=== PATIENT | female | born 1955 | race Caucasian/White ===

== ENCOUNTER 2018-02-13 01:01 | Outpatient (CLI) | payer BC, OTHER, SELFPAY ==
--- NOTE | 2018-02-13 10:56 | DI.REPORT_ITS ---
SYMPTOMS/DIAGNOSIS: SCREENING MAMMOGRAM: Mammograms were interpreted according to the usual protocol including computer analysis with CAD system, tomosynthesis and C view imaging. The breasts are of moderate density with fairly symmetrical distribution of fibroglandular tissue. No dominant mass or clumped microcalcification is identified in either breast. The current examination is compared with previous examinations including December 2015 and there has been no gross interval change in appearance in comparison with the previous studies. CONCLUSION: No specific evidence of malignancy at this time. Routine screening examinations are suggested at yearly intervals in this age group according to the ACS/ACR guidelines. Category I. Breast density Category B. MQSA ASSESSMENT OF FINDINGS: Negative. Category 1. Patient will receive a letter notifying them of these results. BI-RADS category B. There are scattered areas of fibroglandular density.
== END 2018-02-13 01:02 ==
PROVIDERS: PCP Family Medicine; Visit Provider Family Medicine
DX: Z12.31 Encounter for screening mammogram for malignant neoplasm of breast (principal)
CPT/HCPCS: 77063; 77067

== ENCOUNTER 2019-09-15 02:01 | Outpatient (CLI) | payer OTHER, SELFPAY ==
--- NOTE | 2019-09-15 | DI.MAMMO_ITS ---
EXAM: MG MAMMO SCREENING CLINICAL HISTORY: SCREENING, Z12.89 TECHNIQUE: Mammograms were interpreted according to the usual protocol including computer analysis w [employer] CAD system, tomosynthesis and C-view imaging. COMPARISON: January 2018 FINDINGS: Breasts are of moderate density with fairly symmetrical distribution of fibroglandular tissue. No do minant mass or clumped microcalcification identified in either breast. The current examination is co mpared with previous examinations including January 2018 and there has been no gross interval change i n appearance in comparison with the previous studies. BI-RADS Cat 1 - Negative Breast density category B IMPRESSION: No specific evidence of malignancy at this time. Routine screening examinations are suggested at yea rly intervals in this age group according to the ACS/ACR guidelines.
== END 2019-09-15 02:21 ==
PROVIDERS: PCP Family Medicine; Visit Provider Family Medicine
DX: Z12.31 Encounter for screening mammogram for malignant neoplasm of breast (principal)
CPT/HCPCS: 77063; 77067

== ENCOUNTER 2020-09-17 04:19 | Outpatient (CLI) | payer OTHER, SELFPAY ==
--- NOTE | 2020-09-17 | DI.MAMMO_ITS ---
EXAM: MAMMO SCREENING CLINICAL HISTORY: SCREENING, Z12.31 TECHNIQUE: Mammograms were interpreted according to the usual protocol including computer analysis w [employer] CAD system, tomosynthesis and C-view imaging. COMPARISON: FINDINGS: The breasts are moderate density with fairly symmetrical distribution of fibroglandular tissue. No d ominant mass or clumped microcalcification is identified in either breast. The current examination i s compared with previous examinations including August 2019 and there has been no gross interval villarreal e in appearance in comparison with the prior studies. IMPRESSION: No specific evidence of malignancy at this time. Routine screening examinations are suggested at yea rly intervals in this age group according to the ACS ACR guidelines. BI-RADS Category 1 - Negative Breast Density - Category B - Scattered areas of fibroglandular density
== END 2020-09-17 04:39 ==
PROVIDERS: PCP Family Medicine; Visit Provider Family Medicine
DX: Z12.31 Encounter for screening mammogram for malignant neoplasm of breast (principal)
CPT/HCPCS: 77063; 77067

== ENCOUNTER → 2022-01-09 00:36 | Outpatient (CLI) | payer MEDICARE, OTHER, SELFPAY ==
--- NOTE | 2022-01-09 | DI.US_ITS ---
Exam(s) US PELVIS TRANSVAGINAL EXAM: US PELVIS TRANSVAGINAL CLINICAL HISTORY: HYPERTROPHY OF UTERUS, N85.2, IRREGULAR UTERUS ENLARGED/RETROVERTED TECHNIQUE: Transabdominal and transvaginal imaging was performed using standard protocol. COMPARISON: None FINDINGS: KIDNEYS: Kidneys are symmetric in size. No evidence of renal calculi. No evidence of hydronephrosis. No renal mass or cyst identified. UTERUS: Retroverted. 7.7 x 4.1 x 4.7 cm. Endometrium: Thickened and heterogeneous, measuring up to 18 millimeters. Small amount of fluid. Myometrium: Unremarkable. Cervix: Unremarkable. OVARIES: Right: Cyst or mass: Status post Left: Cyst or mass: Large multi septated cystic mass difficult to actually accurately measure due to size. Approximately 13 cm. DOPPLER: Color: Symmetric and uniform flow to both ovaries. No hyperemia. Duplex: Normal ovarian arterial waveforms visualized. CUL-DE-SAC: Free fluid: None. IMPRESSION: 1. Markedly thickened heterogeneous endometrium.. 2. Large septated cystic mass left adnexal region. DATA REPOSITORY:
--- NOTE | 2022-01-09 | DI.MAMMO_ITS ---
Exam(s) MAMMO SCREENING EXAM: MAMMO SCREENING CLINICAL HISTORY: SCREENING FOR BREAST CA, Z12.31 TECHNIQUE: Mammograms were interpreted according to the usual protocol including computer analysis w [employer] CAD system, tomosynthesis and C-view imaging. COMPARISON: 2011 through 2020 FINDINGS: The breasts are composed of scattered fibroglandular densities, Breast Density category B. No suspicious masses or suspicious microcalcifications are seen. No skin thickening or abnormal axillary lymph nodes are seen. There has been no significant change from prior exams. IMPRESSION: BI-RADS Category 1, Negative mammogram Yearly screening mammography is recommended. Breast Density - Category B, scattered fibroglandular densities. A negative radiographic report should not delay biopsy if a dominant or clinically suspicious mass is present. Up to ten percent of cancers are not identified on mammography. A negative report may reinforce clinical impression. Adenosis and dense breasts may obscure an underlying neoplasm. False positive reports average 6 to 10%. Patient will receive a letter notifying them of these results.
--- OUTSIDE RECORDS SUMMARY | 2022-01-09 00:38 | XMS_ITS | Encounter Summary ---
:1955 [place] [address] Care Team Providers Name Role Phone Anne Marie Fay MD Primary Care Provider Encounter Details Date Type Department Care Team Description 11/07/2019 Ancillary Procedure Radiology Library at [facility], [facility] [place] [facility] [place] [address] ORTHOPAEDIC SURGERY [phone] [place], [place] [address] (Wo rk) Social History Tobacco Use Types Packs/Day Years Used Date Never Smoker Smokeless Tobacco: Never Used Alcohol Use Standard Drinks/Week Comments No 0 (1 standard drink = 0.6 oz pure alcoho l) Sex Assigned at Date Recorded Not on file documented as of this encounter Plan of Treatment Not on filedocumented as of this encounter Procedures Procedure Name Priority Date/Time Associated Diagnosis Comme nts FILM LIBRARY Routine 11/07/2019 12:00 AM Results for this STORAGE ONLY MR EDT procedure ar e in SHOULDER the results section. documented in this encounter Results Film Library- Storage Only MR Shoulder (11/07/2019 12:00 AM EDT) Specimen (Source) Anatomical Location Collection Method / Collectio n Time Received Time / Laterality Volume Narrative [facility] - 11/20/2019 12:09 PM EDT This exam is auto-finalizing. It's purpo se is for storage only. Seven Rocha [place] [facility] [place] ORDERABLES Performing Organization Address City/State/ZIP Code Phon e Number RAD [place], [place] documented in this encounter Visit Diagnoses Not on filedocumented in this encounter Care Teams In Store Marketer Relationship Specialty Start Date End Date Anne Marie Fay MD PCP - General 09/17/14 11/18/[address] [place] [address] GENERAL INTERNAL MEDICINE [place] [phone] documented as of this encounter
--- OUTSIDE RECORDS SUMMARY | 2022-01-09 00:38 | XMS_ITS | Encounter Summary ---
:1955 Author Organization [facility] Address [address] [place] [address] Care Team Providers Name Role Phone Kendall Sung Malik DO Primary Care Provider Reason for Visit Reason Onset Date Comments Prior Authorization 12/15/2019 REC[facility]D MAIN LINE PC REGARDING PT PA Encounter Details Date Type Department Care Team Description 12/15/2019 Telephone [place] [facility]havana Cason Prior Authorization [facility] (RECV'D M AIN LINE PC Drive REGARDING PT PA) [place] [address] Social History Tobacco Use Types Packs/Day Years Used Date Never Smoker Smokeless Tobacco: Never Used Alcohol Use Standard Drinks/Week Comments No 0 (1 standard drink = 0.6 oz pure alcoho l) Sex Assigned at Date Recorded Not on file documented as of this encounter Miscellaneous Notes Telephone Encounter - Bhavana Cason - 12/15/2019 11:40 AM EDT RECEIVED A MAIN LINE P/C FROM [facility] AT THE ORDERING DOCTORS OFFICE REGARDING PATIENT UPCOMING SURGERY SCHEDULED FOR 12/24/2019 PATIENT STATES SHE HAS RECEIVED SEVERAL PHONE CALLS FROM PRIOR-AUTHORIZATIONS OR PRE-REGISTRATION (PASS) AFTER REVIEW OF PATIENT'S CHART AND UPCOMING SURGERY NO PHONE NOTES LISTED / [facility] REQUESTED AND RECEIVED PHONE NUMBER TO PRE-REG. [phone] TO FOLLOW-UP WITH THEM ON WHETHER THEY WERE OR WERE NOT TRYING TO CONTACT THE PATIENT. DO TO PHOINE NUMBER LEFT FOR PATIENT TO RETURN CALL WAS INCORRECT documented in this encounter Plan of Treatment Not on filedocumented as of this encounter Visit Diagnoses Not on filedocumented in this encounter Care Teams Green Marketer Relationship Specialty Start Date End Date Kendall Sung DO PCP - General Family Medicine 11/19/19 [place] [address] documented as of this encounter
--- OUTSIDE RECORDS SUMMARY | 2022-01-09 00:38 | XMS_ITS | Encounter Summary ---
:1955 [place] [address] Care Team Providers Name Role Phone Anne Marie Fay MD Primary Care Provider Encounter Details Date Type Department Care Team Description 10/08/2014 Anesthesia Event Main Operating Room Kari Shaffer MD [facility] [place] [address] [place] [address] [phone] Anesthesia Record Procedure Summary Procedure Name Responsible Anesthesia Start Anesthesia Stop Time Anesthesiologist Time ECT (WRVU 2.5) (Bilateral ) Events No events on file. No medications on file. Agents No agents on file. Blood No blood administrations on file. Lines, Drains, and Airways Type Details Placement Removal Incision 12/24/19; 1101; shoulder 12/24/19 1101 by Kenn Muñoz RN documented in this encounter Social History Tobacco Use Types Packs/Day Years Used Date Never Smoker Smokeless Tobacco: Never Used Alcohol Use Standard Drinks/Week Comments No 0 (1 standard drink = 0.6 oz pure alcoho l) Sex Assigned at Date Recorded Not on file documented as of this encounter OR Notes Anesthesia Preprocedure Evaluation - Kari Garcia MD - 10/08/2014 7:01 AM EDT Pre-Anesthesia Evaluation for: Brianna travis 59 y.o. female. Procedure(s): ECT Patient Active Problem List Diagnosis ??? Major depressive disorder, recurrent episode, severe, specified as with psychotic behavior No past medical history on file. Past Surgical History Procedure Laterality Date ??? Electroconvulsive therapy,1 seiz Bilateral 09/10/2014 ECT performed by Giovany Alicia MD at [facility] MAIN OR ??? Electroconvulsive therapy,1 seiz Bilateral 09/11/2014 ECT performed by Nathen Go MD at [facility] MAIN OR ??? Electroconvulsive therapy,1 seiz Bilateral 09/14/2014 ECT performed by Vamshi Dukes MD at [facility] MAIN OR ??? Electroconvulsive therapy,1 seiz Bilateral 09/15/2014 ECT performed by Alonzo Martel MD at [facility] MAIN OR ??? Electroconvulsive therapy,1 seiz Bilateral 09/18/2014 ECT performed by Andre De La Cruz MD at [facility] OR ??? Electroconvulsive therapy,1 seiz Bilateral 09/21/2014 ECT performed by Alonzo Martel MD at [facility] OR ??? Electroconvulsive therapy,1 seiz Bilateral 09/22/2014 ECT performed by Alonzo Martel MD at [facility] MAIN OR ??? Electroconvulsive therapy,1 seiz Bilateral 09/24/2014 ECT performed by Giovany Alicia MD at [facility] MAIN OR ??? Electroconvulsive therapy,1 seiz Bilateral 09/28/2014 ECT performed by Vamshi Dukes MD at [facility] OR ??? Electroconvulsive therapy,1 seiz 10/02/2014 ECT performed by Andre De La Cruz MD at [facility] OR ??? Electroconvulsive therapy,1 seiz Bilateral 10/05/2014 ECT performed by Vamshi Dukes MD at [facility] OR History Substance Use Topics ??? Smoking status: Never Smoker ??? Smokeless tobacco: Never Used ??? Alcohol Use: No History Drug Use No Allergies Allergen Reactions ??? Ampicillin Itching ??? Sulfa (Sulfonamide Antibiotics) Nausea And Vomiting Medications: MAR and/or home medications have been reviewed. Physical Exam: There were no vitals filed for this visit. There is no weight on file to calculate BMI. Anesthesia Physical Exam Anesthesia Plan: ASA 2 general, with a(n) intravenous induction 59 y/o with MDD and hypoTh, here for ECT ekg with NSR and LAE No problems with ECT in the past Today, NPO, no URIs, consent on file, no changes in her health Plan : General Mask prn Region - Other Informed Consent: Anesthetic plan and risks discussed with patient. Plan discussed with [facility] [facility] [place]: documented in this encounter Plan of Treatment Not on filedocumented as of this encounter Visit Diagnoses Not on filedocumented in this encounter Care Teams Financial Manager Relationship Specialty Start Date End Date Anne Marie Fay MD PCP - General 09/17/14 11/18/[address] [place] [address] [place] [address] documented as of this encounter
--- OUTSIDE RECORDS SUMMARY | 2022-01-09 00:38 | XMS_ITS | Encounter Summary ---
:1955 [place] [address] Care Team Providers Name Role Phone Kendall Sung DO Primary Care Provider Reason for Visit Auth/Cert Specialty Diagnoses / Procedures Referred By Contact Refer red To Contact Diagnoses right shoulder mass Procedures PRO TUMOR SOFT TISSUE SHOULDER SUBFASCIAL 5 CM/> EXCISION SOFT TISSUE TUMOR SHOULDER SUBQ; 5CM [facility] Referral ID Status Reason Start Date Expiration Date Visits Requ ested Visits Authorized [id number] 1 1 Encounter Details Date Type Department Care Team Description 12/24/2019 Surgery Main Operating Room Liban Layne, SKY CISION SOFT TISSUE [facility] TUMOR SHOULDER SUBQ; [facility] 5CM OR GREATER ([facility] 10.13) [facility] [place] [address] [place], [place] [id number] [phone] (Wo rk) Social History Tobacco Use Types Packs/Day Years Used Date Never Smoker Smokeless Tobacco: Never Used Alcohol Use Standard Drinks/Week Comments No 0 (1 standard drink = 0.6 oz pure alcoho l) Sex Assigned at Date Recorded Not on file documented as of this encounter Last Filed Vital Signs Vital Sign Reading Time Taken Comments Blood Pressure 124/72 12/24/2019 12:00 PM EDT Pulse 74 12/24/2019 9:06 AM EDT Temperature 36.4 ??C (97.5 ??F) 12/24/2019 11:53 AM EDT Respiratory Rate 16 12/24/2019 12:00 PM EDT Oxygen Saturation 100% 12/24/2019 12:00 PM EDT Inhaled Oxygen Concentration - - Weight 73.9 kg (163 lb) 12/24/2019 9:06 AM EDT Height 167.6 cm (5' 6) 12/24/2019 9:06 AM EDT Body Mass Index 26.31 12/24/2019 9:06 AM EDT documented in this encounter Discharge Instructions Patient InstructionsSelina Quezada MD - 12/24/2019 9:49 AM EDT Activity level: 1. Weight bearing as tolerated on your Right upper extremity. 2. Remember to keep your Right upper extremity elevated as much as possible to decrease swelling andcontrol pain. Anticoagulation: Aspirin - You are being discharged on enteric-coated Aspirin 81mg by mouth twice a day. Continue this for 14 days. After your dose on 01/07/2020 stop the Aspirin, unless you are told otherwise by your Orthopedic surgeon. Take this medication with food or large amounts (240 mL) of wateror milk to minimize GI irritation. Diet: You may return to your usual diet, but increase your fluids and fiber intake to keep you hydrated and your bowels soft. You should increase your intake of high protein foods and fluids to help heal your injury. Driving: None until you are cleared to do so by your Orthopedic surgeon. You should not drive while you are on narcotic pain meds as they can affect your judgement and reaction time. Call your surgeon with any questions/concerns. Medications: 1. The pain medication you are on can cause constipation so increase your intake of fluids and fiberwhile you are on them. The stool softener, Pericolace, that has been prescribed can also be taken tofacilite a bowel movement. You can also take an sryf-wkk-biqetej medication, Miralax if needed to combat constipation. 2. If you need a renewal on your narcotic pain medication, you need to give the Orthopedic clinic enough time to process your request. This can take up to three days, so plan accordingly. 3. Continue acetaminophen (Tylenol) 1,000mg every 8 hours around the clock until 01/03/2020 - this can be effective in controlling pain along with your other medications. After that you can take Tylenolas needed per package insert. Do not take more than 3,000mg of acetaminophen in a 24 hour period. 4. You have been discharged on a short acting narcotic, oxycodone. You will be on this medication for a limited period of time only. Taper off this medication as your pain improves. 5. OK to take any NSAIDs including ibuprofen, Motrin or Aleve Shower/Bath: You may shower BUT use a waterproof dressing (plastic bag taped at the top) to cover the incision/dressing. DO NOT submerge the wound. Remember you MUST to observe your weight bearing status and activity limitations when you shower so use a chair or bench for balance if you are unable to safely stand. A sponge bath may be easier. Wound Care: 1. You have absorbable sutures, they do not need to be removed. Steri strips are underneath bandage,these will naturally fall off over two weeks. 2. Leave dressing on for 1 week post-op (12/31/2019), then OK to remove and leave open to air. Call your doctor ([phone]) if you develop: 1. Fever greater than 100.5 2. Severe nausea or vomiting 3. Increasing pain that is not controlled by pain medications 4. Increasing redness, swelling, or drainage from incisions 5. Change in sensation Misc: 1. If you are a smoker, quitting is very important to help your fracture heal. You should contact your PCP to assist you with setting up a cessation program. 2. Remember that ICE and elevation are very important to decrease swelling and control pain. You should use the ICE for 20-30 minutes at a time. FOLLOWUP APPOINTMENTS: 1. You will have followup appointments at [facility] as indicated in Future Appointment and Orders. 2. If you are being discharged over the weekend or at night and do not have a scheduled appointment with Orthopaedics, you should be notified about your appointment within the next 1-2 days. Please call if you do not hear about an appointment within that timeframe, as your follow-up is important to us. Future Appointments Date Time Provider Department Center 01/06/2020 9:40 AM Liban Layne MD [facility] If you have questions or concerns: Sunday through Sunday, 8 AM - 5 PM, please call Liban Layne MD, MD's office at . If it is after 5 PM or on the weekend, please call and ask to speak with the Orthopedic resident on-call. documented in this encounter Medications at Time of Discharge Medication Sig Dispensed Refills Start Date End Date FLUoxetine (PROZAC) 40 Take 1 capsule by 30 capsule 0 2014 mg Capsule mouth daily. levothyroxine Take 1 tablet by 30 tablet 0 09/24/2014 (SYNTHROID) 137 mcg mouth daily. Cancel Tablet 125mg script omega-3 acid ethyl Take 2 capsules by 120 capsule 0 09/25/19 15 esters (LOVAZA) 1 gram mouth 2 times Capsule daily. QUEtiapine (SEROQUEL) Take 1 tablet by 30 tablet 0 09/25/19 15 03/02/2020 300 mg Tablet mouth nightly. oxyCODONE (Roxicodone) 5 Take 1 tablet by 20 tablet 0 12/2301/06/2020 mg Tablet mouth every 4 hours as needed. acetaminophen (Tylenol) Take 2 tablets by 30 tablet 1 12/2303/02/2020 500 mg Tablet mouth every 6 hours as needed for Pain. senna-docusate Take 2 tablets by 0 12/24/2019 (Pericolace) 8.6-50 mg mouth 2 times Tablet daily. Take to maintain normal bowel pattern while taking narcotic pain medication. senna-docusate Take 2 tablets by 0 12/24/2019 (Pericolace) 8.6-50 mg mouth 2 times Tablet daily. Take to maintain normal bowel pattern while taking narcotic pain medication. documented as of this encounter H&P Notes Selina Quezada MD - 12/24/2019 9:46 AM EDT PRE-OPERATIVE HISTORY AND PHYSICAL for ADMISSION, OBSERVATION OR PROCEDURE Date of : 1955 Age: 64 y.o. PCP: Kendall Sung DO Presenting Diagnosis/Chief Complaint: No chief complaint on file. History of Present Illness: Brianna Stringer is a 64 y.o. female who presents for pre-operative examination. Please see Dr. Layne's note for full details of the patient's specific problem. PMHx: Patient Active Problem List Diagnosis Code ??? Major depressive disorder, recurrent episode, severe, specified as with psychotic behavior F33.3 No past medical history on file. Past Surgical History: Procedure Laterality Date ??? PRO ELECTROCONVULSIVE THERAPY Bilateral 09/10/2014 ECT performed by Gioavny Alicia MD at [facility] OR ??? PRO ELECTROCONVULSIVE THERAPY Bilateral 09/11/2014 ECT performed by Nathen Go MD at [facility] OR ??? PRO ELECTROCONVULSIVE THERAPY Bilateral 09/14/2014 ECT performed by Vamshi Dukes MD at [facility] OR ??? PRO ELECTROCONVULSIVE THERAPY Bilateral 09/15/2014 ECT performed by Alonzo Martel MD at [facility] OR ??? PRO ELECTROCONVULSIVE THERAPY Bilateral 09/18/2014 ECT performed by Andre De La Cruz MD at [facility] OR ??? PRO ELECTROCONVULSIVE THERAPY Bilateral 09/21/2014 ECT performed by Alonzo Martel MD at [facility] OR ??? PRO ELECTROCONVULSIVE THERAPY Bilateral 09/22/2014 ECT performed by Alonzo Martel MD at [facility] OR ??? PRO ELECTROCONVULSIVE THERAPY Bilateral 09/24/2014 ECT performed by Giovany Alicia MD at [facility] OR ??? PRO ELECTROCONVULSIVE THERAPY Bilateral 09/28/2014 ECT performed by Vamshi Dukes MD at [facility] OR ??? PRO ELECTROCONVULSIVE THERAPY 10/02/2014 ECT performed by Andre De La Cruz MD at [facility] OR ??? PRO ELECTROCONVULSIVE THERAPY Bilateral 10/05/2014 ECT performed by Vamshi Dukes MD at [facility] OR ??? PRO ELECTROCONVULSIVE THERAPY Bilateral 10/09/2014 ECT performed by Andre De La Cruz MD at [facility] OR Home Medications: Medications Prior to Admission Medication Sig Dispense Refill Last Dose ??? FLUoxetine (PROZAC) 40 mg Capsule Take 1 capsule by mouth daily. 30 capsule 0 12/24/2019 at Unknown time ??? QUEtiapine (SEROQUEL) 300 mg Tablet Take 1 tablet by mouth nightly. 30 tablet 0 12/23/2019 at Unknown time ??? levothyroxine (SYNTHROID) 137 mcg Tablet Take 1 tablet by mouth daily. Cancel 125mg script 30 tablet 0 12/24/2019 at Unknown time ??? omega-3 acid ethyl esters (LOVAZA) 1 gram Capsule Take 2 capsules by mouth 2 times daily. (Patient not taking: Reported on 12/09/2019) 120 capsule 0 Not Taking Allergies: Allergies Allergen Reactions ??? Ampicillin Itching ??? Sulfa (Sulfonamide Antibiotics) Nausea And Vomiting Family History: Non contributory Family History Problem Relation Age of Onset ??? Alzheimer Disease Father ??? Alzheimer Disease Paternal Grandfather Review of Systems: complete 10 system ROS performed with pertinent findings below. Pertinent items are noted in HPI. Physical Exam: VITALS: Temperature Temp: 37.2 ??C (99 ??F) Heart Rate Heart Rate: 74 Blood Pressure BP: 154/90 Respiratory Rate Resp: 16 SpO2 SpO2: 100 % No intake/output data recorded. General: alert, appears stated age and cooperative Pulmonary: equal, clear breath sounds bilaterally and no crepitus Cardiovascular: Regular rate and rhythm, S1S2 present or without murmur or extra heart sounds Assessment and Plan: 64 y.o. female with the above problem, plan to proceed to OR with Dr. Laynefor RIGHT mass excision shoulder. Acute Opioid Prescribing: Opioid PDMP 12/09/2019 [place] PDMP Query Date 12/10/2019 Comment No narcotics last 12 mos Opioid Risk Assessment 12/09/2019 DAST-10 Risk Assessment Low (1-2) Some recent data might be hidden Acute Opioid Specific Questions 12/09/2019 Date Acute Consent signed 12/09/2019 Considered the risk of opioid misuse, abuse, diversion? Yes Considered options for non-pharmacological modalities and non-opioid therapy? Yes Some recent data might be hidden Brianna Stringer. Is being provided with a prescription for acute pain. Non opioid therapies and non-pharmacologic modalities have been considered. The patient's risk for opioid misuse, abuse or diversion have been considered. I have discussed the risks and potential side effects of opioid medications, that include but are not limited to, addiction, overdose and , dependence, tolerance, osteoporosis, constipation, sexual dysfunction, hyperalgesia and crime victimization. The patient is also informed of: - the risks of keeping unused medication -counseled on keeping opioids locked -counseled on safe disposal of unused medication -dangers of operating a motor vehicle or heavy machinery -if a renewal is required, they shall return for an in-office follow up for reevaluation. Selina Quezada MD, PGY-3 Orthopaedic Surgery Pager #: [phone] documented in this encounter Miscellaneous Notes Op Note - Liban Layne MD - 12/24/2019 12:04 PM EDT [facility] Operative Note Patient Name: Brianna Stringer : [id number] MR#: [id number] Case Date: 12/24/2019 Surgeon: Surgeon(s) and Role: * Liban Layne MD - Primary * Selina Quezada MD - Resident Preoperative diagnosis: right shoulder mass Postoperative diagnosis: right shoulder mass PROCEDURE: EXCISION, SOFT TISSUE TUMOR, DEEP, >5CM Findings: Right intramuscular deltoid benign appearing lipoma Anesthesia: General Estimated Blood Loss: 5 mL Specimens removed during surgery: Order Name Source Comment Collection Info Order Time SPECIMEN TO PATHOLOGY Right shoulder mass right shoulder mass Right shoulder mass excision 12/24/2019 11:04 AM Time specimen removed from patient: 11:04 AM Number of tissue samples (in container) 1 Drains: none Surgical Closure: Primary Closure - skin incision is completely closed without any wires, alvarez, drains or other devices Disposition: awakened from anesthesia, extubated and taken to the recovery room in a stable condition, having suffered no apparent untoward event. Condition: doing well without problems (Please see the Surgical Encounter Summary for any Implant and Specimen details pertinent to this patient.) HPI/Surgical Indications: Brianna Delgado is a 64-year-old female with a asymptomatic right anterior deltoid intramuscular lipoma that she noticed assymmetry in her shoulder while brushing her teeth earlier November 2019. She was then referred to consulted to orthopedic oncology at [facility]. Layne discussed options for treatment toinclude continued observation versus elective removal of the mass. She elected to have the mass removed. Dr. Layne discussed the risks of the procedure and obtained consent in clinic. She understood, agreed to proceeded for mass excision. Procedure Description: The patient was met in the pre-operative holding area where the appropriate site was marked, 24 hour update completed, and the pre- operative checklist completed. Informed consentwas yet again reviewed. she was then brought to the operating room on a stretcher where the above anesthetic was administered. SCD placed to the right leg. A clinical time-out was held confirming the correct patient name, MRN, , planned procedure, site, antibiotic start time and agent, and outline of any surgical concerns. All in attendance were in agreement to proceed.The patient was positioned in the beach chair position. She was then prepped and draped in sterile fashion. A 5 cm transverse incision was made over the anterior deltoid right over underlying mass using a 15 blade. The dissection continued down to the deltoid with cautery, at which point a raphe of the deltoid was identified and the deltoid was bluntly split in line with the fibers using a schnit. Directly underneath a small layer, the lipomatous appearing mass was identified. We then dissected around the mass capsule using schnit and blunt dissection with fingers. Adhesions were amputated with electrocautery. We then were able to obtain the more midline stock and with the help of a Bauer teased off the remainder of the pedicle mass from the underlying soft tissue. The mass was approximately 9waf7lyr8.5cm, fatty homogenous appearing tumor. Once the mass was removed it was immediately sent to pathology. Electrocautery was used to obtain hemostasis throughout the procedure. The wound was then copiously irrigated with sterile s ursula. The wound was then closed using 0 Vicryl, 3-0 Vicryl, and running Monocryl with open end tails. The skin was secured with Dermabond, Steri-Strips and covered with a Mepilex dressing. The needle, sponge and instrument counts were correct at the end of the procedure. The patient was then extubated and transferred back to [facility] without any complication. Dr. Layne was present and scrubbed for the entire procedure. Postoperative care: Right upper extremity weightbearing as tolerated Mepilex x1 week, then leave open to air unless draining. Follow-up 2 weeks for wound check with Dr. Layne Infection Bundle used? No Attestation: Case Date: 12/24/2019 I was present and I participated during the entire procedure (does not need to include opening and closing). LIBAN LAYNE MD 12/25/2019 Brief Op Note - Selina Quezada MD - 12/24/2019 12:02 PM EDT Brief Operative Note Patient Name: Brianna Stringer : [id number] MR#: [id number] Case Date: 12/24/2019 Surgeon: Surgeon(s) and Role: * Liban Layne MD - Primary * Selina Quezada MD - Resident Preoperative diagnosis: right shoulder mass Postoperative diagnosis: right shoulder mass Procedure(s) (LRB): EXCISION SOFT TISSUE TUMOR SHOULDER SUBQ; 5CM OR GREATER ([facility] 10.13) (Right) Anesthesia: General Findings: right lipoma mass excision in the deltoid 6.5cm x 6 cm; sent to pathology Complications: none Estimated Blood Loss: 5 mL Specimens removed during surgery: None Fluids: Intraprocedure Crystalloid Total Anesthesia Output Blood Loss 5 mL lactated ringers infusion Volume (mL) 600 mL PRBCs: none (See Anesthesia Record/Report for Other Blood Products) Urine Output: (no urine output recorded) Drains: none Disposition: awakened from anesthesia, extubated and taken to the recovery room in a stable condition, having suffered no apparent untoward event. Condition: doing well without problems (Please see the Surgical Encounter Summary for any Implant and Specimen details pertinent to this patient.) Infection Bundle used? No documented in this encounter Plan of Treatment Not on filedocumented as of this encounter Procedures Procedure Name Priority Date/Time Associated Diagnosis Comme nts SURGICAL PATHOLOGY Routine 12/24/2019 11:05 AM Re sults for this REPORT EDT procedure are i n the results section. SPECIMEN TO Routine 12/24/2019 11:05 AM Results for this PATHOLOGY EDT procedure are i n the results section. EXCISION SOFT 12/24/2019 10:16 AM Benign neoplasm of TISSUE TUMOR EDT soft tissue of right SHOULDER SUBQ; 5CM shoulder OR GREATER ([facility] 10.13) documented in this encounter Results Surgical Pathology Report (12/24/2019 11:05 AM EDT) Component Value Ref Test Analysis Performed At [facility] Method Time Signature Surgical 04-JE-24 ? Location: [facility]; [facility] Pathology OTSEGO Report The signing pathologist has (i) examined the relevant preparation(s) for the [facility] specimen(s) and (ii) rendered or confirmed the diagnosis(es) . [facility] . ?Surgic al Pathology DIAGNOSIS Soft tissue, right shoulder mass, resection: - Lipoma with focal myxoid changes Electronically signed by: ??Harvey Benitez MD Verified: ??01/01/2020 ?Dermatopathologist, Bone & Soft Tissue Pathologist Performed at: ??-[facility] Dept. [place]ology, [place], [place] ADDITIONAL STUDIES Immunohistochemistry Studies: Formalin-fixed, paraffin-emb edded tissue sections are studied using the polymer technique with appropriate positive and negative controls. ?These IHC studies provide the pathologist wit h adjunctive diagnostic information. Antibody specificity has been verified by testin g antibodies on a series of in-house tissues with known immunohistochemical perform ance characteristics. The clinical interpretation of any antibody positive stain ing or its absence is evaluated within the context of clinical presentation, morp hology, histopathological criteria and other diagnostic tests. Block ? Antibody ?Result (Positive /Negative) A2 ? Rb1 ?Retention of nuclear expression SPECIMEN(S) SUBMITTED A - Right shoulder mass, excision (1) CLINICAL INFORMATION Right shoulder mass SPECIMEN PROCESSING A - Labeled/Fixative: Right shoulder mass, fresh. Quantity/Size: ??Single, 7.5 x 6.3 x 2.3 cm, 48 g. Resection Specimen: Not oriented Tissue Description: Intact, encapsulated, yellow to yellow-viridiana portion of lobulated adipose tissue. Inking: The specimen is inked black. Sectioning: The specimen is sectioned perpendicular to the l nery axis. Cut Surface: Coarsely lobula adali, fatty yellow-pink to yellow viridiana without gross areas of necrosis. Sections/Processing: Inked, serially sectioned an d underwriting account representative sections submitted in 4 cassettes as follows: ?A1-A3: ??Two sections each cassette ?A4: ??Three sections ??shb Specimen (Source) Anatomical Collection Method Collection Time Re ceived Time Location / / Volume Laterality 12/24/2019 11:05 AM EDT Selina Quezada MD PATHOLOGY/CYTOLOGY ORDERABLE S Performing Organization Address City/State/[place] [address] Specimen to Pathology (12/24/2019 11:05 AM EDT) Specimen Anatomical Collection Method Collection Time Receive d Time (Source) Location / / Volume Laterality AP Specimen 12/24/2019 11:05 12/24/2019 AM EDT 11:05 AM EDT Narrative [facility] - 12/24/2019 11:05 AM EDT Specimen requisition ordered. 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 documented in this encounter Administered Medications Inactive Administered Medications - up to 3 most recent administrations Medication Order MAR Action Action Date Dose Rate Site BUpivacaine (PF) Given 12/24/2019 11:37 AM 10 mLs 19- Surgical Site (MARCAINE) 0.25 % (2.5 EDT mg/mL) injection ONCE PRN, Starting on Sun12/24/19 at 1137, Until Sun12/24/19 at 1528, Intra-Operative (Intra-Procedure), Routine scopolamine Patch Applied 12/24/2019 10:13 AM 1 patch 0 1- Ear Behind (TRANSDERM-SCOP) 1 mg over EDT (Left) 3 days patch 1 patch 1 patch, Transdermal, ONCE, 1 dose, On Sun12/24/19 at 1000, Day of Surgery (Day of Procedure), Routine scopolamine (TRANSDERM-SCOP) 1 mg patch Patch Removal Transdermal, EVERY 24 HOURS, 1 dose, First dose on Sun12/25/19 at 0945, Remove scopolamine 1.5 mg patch, Recovery (Recovery-Hospital Unit) scopolamine (TRANSDERM-SCOP) 1 mg patch Patch Verification Transdermal, 2 TIMES DAILY, First dose o n Sun12/24/19 at 2145, Until Discontinued, Verify scopolamine 1.5 mg patch., Recovery (Recovery-H ospital Unit) documented in this encounter Active and Recently Administered Medications Times are shown in EDT. Scheduled Medication Order 12/22/2019 12/23/2019 12/24/2019 acetaminophen (Tylenol) tablet 975 mg 975 mg, Oral, EVERY 8 HOURS SCHEDULED, F irst dose on Sun12/24/19 at 1400, Until Discontinued, Maximum total acetaminophen dose 4 grams per 24 hours., Recovery (Recovery-Hospital Unit), Routine scopolamine (TRANSDERM-SCOP) 1 mg over 3 days patch 1 patch (COM PLETED) 1013 (Patch Applied - Provider: Ana Kebede RN) 1 patch, Transdermal, ONCE, 1 dose, Sun12/24/19 at 1000, Day of Surgery (Day of Procedure), Routine scopolamine (TRANSDERM-SCOP) 1 mg patch Patch Removal Transdermal, EVERY 24 HOURS, 1 dose, Fir st dose on Carmella 12/25/19 at 0945, Remove scopolamine 1.5 mg patch, Recovery (Recovery-Hospital Unit) scopolamine (TRANSDERM-SCOP) 1 mg patch Patch Verification Transdermal, 2 TIMES DAILY, First dose o n Sun12/24/19 at 2145, Until Discontinued, Verify scopolamine 1.5 mg patch., Recovery (Recovery-Hospital Unit) Continuous Medication Order 12/22/2019 12/23/2019 12/24/2019 lactated ringers infusion (CANCELED) 1010 (New Bag - Provider: Royal Btut MD)1110 (Anesthesia Volume Adjustment - Provider: Royal Butt MD)1137 (Anesthesia Volume Adjustment - Provider: Royal Butt MD) 1,000 mL, at 100 mL/hr, Intravenous, CON TINUOUS, Starting Sun12/24/19 at 0945, Until Sun12/24/19 at 1327, Day of Surgery (Day of Procedure) PRN Medication Order 12/22/2019 12/23/2019 12/24/2019 BUpivacaine (PF) (MARCAINE) 0.25 % (2.5 mg/mL) injection (CANCEL ED) 1137 (Given - Provider: Selina Quezada MD) ONCE PRN, Starting Sun12/24/19 at 1137, U ntil Sun12/24/19 at 1528, Intra-Operative (Intra-Procedure), Routine documented in this encounter Care Teams Floor Layer Helper Relationship Specialty Start Date End Date Kendall Sung DO PCP - General Family Medicine 11/19/19 [place] [address] documented as of this encounter
--- OUTSIDE RECORDS SUMMARY | 2022-01-09 00:38 | XMS_ITS | Encounter Summary ---
:1955 [place] [address] Care Team Providers Name Role Phone Anne Marie Fay MD Primary Care Provider Encounter Details Date Type Department Care Team Description 10/09/2014 Surgery Main Operating Room Shahriar Galaviz ba, MD ECT (WRVU 2.5) [facility] Geovani snyder [place] [address] [place] [address] [phone] (Wo rk) Social History Tobacco Use Types Packs/Day Years Used Date Never Smoker Smokeless Tobacco: Never Used Alcohol Use Standard Drinks/Week Comments No 0 (1 standard drink = 0.6 oz pure alcoho l) Sex Assigned at Date Recorded Not on file documented as of this encounter Last Filed Vital Signs Vital Sign Reading Time Taken Comments Blood Pressure 144/80 10/09/2014 9:41 AM EDT Pulse 80 10/09/2014 9:41 AM EDT Temperature 36.4 ??C (97.5 ??F) 10/09/2014 9:41 AM EDT Respiratory Rate 16 10/09/2014 9:41 AM EDT Oxygen Saturation 100% 10/09/2014 9:41 AM EDT Inhaled Oxygen Concentration - - Weight 58 kg (127 lb 13.9 oz) 10/09/2014 7:55 AM EDT Height 165.1 cm (5' 5) 10/09/2014 7:49 AM EDT Body Mass Index 21.28 10/09/2014 7:49 AM EDT documented in this encounter Discharge Instructions Discharge Joanna Ji RN - 10/09/2014 8:29 AM EDT Rest today. Tylenol if needed for headache. For questions/concerns about today's ECT treatment call: After 5pm/weekends call and ask for residential housekeeper on-call. 1. You may have received medication before and/or during your procedure, which affects judgment and reaction time. 2. Do not drive, operate machinery, drink alchololic beverages, or make important decisions for 24 hours. 3. Be careful on stairs, as you may be unsteady on your feet. 4. You may eat a regular diet as tolerated. 5. Do not smoke if you are alone. 6. IV site- slight redness or tenderness is normal, you can use warm compresses. If tenderness and redness increases or foul drainage occours, please contact your M.D. documented in this encounter Medications at Time [...] 15 03/02/2020 300 mg Tablet mouth nightly. traZODone (DESYREL) 50 Take 1 tablet by 30 tablet 0 015 12/09/2019 mg Tablet mouth nightly as needed for Sleep. documented as of this encounter H&P Notes Tommy Rudolph MD - 10/09/2014 8:05 AM EDT HPI: Brianna Stringer ([id number]) is a 59 y.o. female who has been prescribed ECT. Pertinent history changes since last H&P: Denies changes. She feels that the treatments are helping and she does not notice any adverse effects from the treatments. Suicidal ideation: Denies Homicidal ideation: Denies ROS: All systems were reviewed and there were no significant complaints. PE: Patient Vitals for the past 8 hrs: BP Temp Temp src Pulse Resp SpO2 Height 10/09/14 0749 - - - - - - 165.1 cm (5' 5) 10/09/14 0744 117/47 mmHg 36.3 ??C (97.3 ??F) Temporal 83 16 100 % - Gen: Adult female resting comfortably in hospital bed, dressed in hospital gown. Pulm: Clear to auscultation bilaterally, with good inspiratory effort. CV: Regular rate and rhythm; no murmurs, rubs, or gallops. Neuro: No focal abnormalities. Cognitive: Alert and oriented to person, place, and time. No gross cognitive deficits. Remaining exam WNL. A/P: - I have seen and examined the patient. - Proceed with planned ECT procedure. documented in this encounter Procedure Notes Andre De La Cruz MD - 10/09/2014 8:49 AM EDTProcedure(s): ECT Pre-Procedure Diagnose(s): Major depressive disorder, recurrent episode, severe, specified as with psychotic behavior ECT SUBSEQUENT TREATMENT NOTE Patient received bifrontal ECT in the PACU. Total: #12; Bifrontal # 5 The primary diagnosis is 296.34. Relevant history: Doing well without SE. Sleeping better but doing the same mood-cuevas. Would like tosee her grandchildren. Patient was attached to monitoring equipment. The anesthesia team administered the following medications: methohexital 80 mg succinylcholine 40 mg After adequate sedation and relaxation were achieved, patient received ECT using a MECTA device at the following parameters: Bifrontal 1/40/4/800 22 sec motor seizure 25 sec EEG seizure Patient was stabilized and appeared to tolerate the procedure. Complications: none Changes/recommendations/parameters for next treatment: No changes. Next treatment date: TBD Route note: Dr. Aurea Valencia documented in this encounter Plan of Treatment Not on filedocumented as of this encounter Procedures Procedure Name Priority Date/Time Associated Diagnosis Comme nts ECT (WRVU 2.5) Yes 10/09/2014 8:54 AM EDT 296.34 documented in this encounter Visit Diagnoses Not on filedocumented in this encounter Care Teams Automated Access Systems Technician Relationship Specialty Start Date End Date Anne Marie Fay MD PCP - General 09/17/14 11/18/[address] [place] [address] [place] [address] documented as of this encounter
--- OUTSIDE RECORDS SUMMARY | 2022-01-09 00:38 | XMS_ITS | Encounter Summary ---
:1955 Author Organization [facility] [place] [address] Care Team Providers Name Role Phone Sumeet Anne Marie Garcia MD Primary Care Provider Encounter Details Date Type Department Care Team Description 10/05/2014 Anesthesia Event Main Operating Room Brianna Padilla MD [facility] [place] [address] [place] [address] [phone] Anesthesia Record Procedure Summary Procedure Name Responsible Anesthesia Start Anesthesia Stop Time Anesthesiologist Time ECT (WRVU 2.5) Brianna Loredo MD 10/05/14 0729 10/05/14 0 743 (Bilateral ) Events Date Time Event Comment 10/05/2014 0726 0729 AN Verify 0729 Start 0729 An Start Data 0730 ASA Monitors 0731 Masked Placed/ Pre O2 0731 An Induction 0734 Bite Block In 0734 ECT Rx 0735 PACU Bed 0741 an stop data 0743 Stop Name Total Methohexital 80 mg Succinylcholine 40 mg Lactated Ringers 150 mL Agents Name O2 Blood No blood administrations on file. Lines, Drains, and Airways Type Details Placement Removal PIV 10/05/14; 0721; 10/05/14 0721 by Nickie, 5 [phone] by Nickie, [id number] catheter TERESA White RN system; 22 gauge; yovana dutton; 10/05/14; 0853 documented in this encounter Social History Tobacco Use Types Packs/Day Years Used Date Never Smoker Smokeless Tobacco: Never Used Alcohol Use Standard Drinks/Week Comments No 0 (1 standard drink = 0.6 oz pure alcoho l) Sex Assigned at Date Recorded Not on file documented as of this encounter OR Notes Anesthesia Postprocedure Evaluation - Brianna Loredo MD - 10/05/2014 8:10 AM EDT Patient: Brianna Stringer Procedure(s) Performed: Procedure(s): ECT Actual Anesthetic: general Patient location: PACU Post-op pain: Adequate analgesia Post-op nausea: no nausea or vomiting Last Vitals: Filed Vitals: 10/05/14 0810 BP: 146/81 Pulse: 82 Temp: 36.2 ??C (97.2 ??F) Resp: 16 Post-op cardiovascular and respiratory status: is stable Level of consciousness: awake, alert and oriented Complications: no apparent complications and tolerated the procedure well Fluid Status: normal Anesthesia Preprocedure Evaluation - Brianna Loredo MD - 10/05/2014 7:26 AM EDT Pre-Anesthesia Evaluation for: Brianna Stringer a 59 y.o. female. Procedure(s): ECT Patient Active Problem List Diagnosis ??? Major depressive disorder, recurrent episode, severe, specified as with psychotic behavior No past medical history on file. Past Surgical History Procedure Laterality Date ??? Electroconvulsive therapy,1 seiz Bilateral 09/10/2014 ECT performed by Giovany Alicia MD at [facility] OR ??? Electroconvulsive therapy,1 seiz Bilateral 09/11/2014 ECT performed by Nathen Go MD at [facility] OR ??? Electroconvulsive therapy,1 seiz Bilateral 09/14/2014 ECT performed by Vamshi Dukes MD at [facility] OR ??? Electroconvulsive therapy,1 seiz Bilateral 09/15/2014 ECT performed by Alonzo Martel MD at [facility] OR ??? Electroconvulsive therapy,1 seiz Bilateral 09/18/2014 ECT performed by Andre De La Cruz MD at [facility] OR ??? Electroconvulsive therapy,1 seiz Bilateral 09/21/2014 ECT performed by Alonzo Martel MD at [facility] OR ??? Electroconvulsive therapy,1 seiz Bilateral 09/22/2014 ECT performed by Alonzo Martel MD at [facility] OR ??? Electroconvulsive therapy,1 seiz Bilateral 09/24/2014 ECT performed by Giovany Alicai MD at [facility] OR ??? Electroconvulsive therapy,1 seiz Bilateral 09/28/2014 ECT performed by Vamshi Dukes MD at [facility] OR History Substance Use Topics ??? Smoking status: Never Smoker ??? Smokeless tobacco: Never Used ??? Alcohol Use: No History Drug Use No Allergies Allergen Reactions ??? Ampicillin Itching ??? Sulfa (Sulfonamide Antibiotics) Nausea And Vomiting Medications: MAR and/or home medications have been reviewed. Physical Exam: Filed Vitals: 10/05/14 0712 BP: 131/70 Pulse: 81 Temp: 37 ??C (98.6 ??F) Resp: 16 There is no weight on file to calculate BMI. Airway Assessment: Mallampati: II TM distance: <3 FB Neck ROM: full Cardiovascular Assessment: cardiovascular exam normal Pulmonary Assessment: pulmonary exam normal Dental Assessment: Misc Assessment: Patient is wearing No contact(s). IV access: Peripheral line Other exam findings: Denies GERD Anesthesia Plan: ASA 3 general, with a(n) intravenous induction 59yoF, outpatient with MDD for ECT. No problems with prior anesthetic regimen. Received [id number], succinylcholine 40mg. Plan general, serial consent on file. Region - Other Informed Consent: Anesthetic plan and risks discussed with patient. Plan discussed with resident and attending. [facility]. Assessment: documented in this encounter Plan of Treatment Not on filedocumented as of this encounter Visit Diagnoses Not on filedocumented in this encounter Administered Medications Inactive Administered Medications - up to 3 most recent administrations Medication Order MAR Action Action Date Dose Rate Site lactated ringers infusion New Bag 10/05/2014 7:29 AM EDT CONTINUOUS PRN, Starting on Sun10/05/14 at 0729, Until Sun10/05/14 at 0746, Anesthesia Intra-op methohexital (BREVITAL) injection Given 10/05/2014 7:31 AM EDT 80 mg PRN, Starting on Sun10/05/14 at 0731, Until Sun10/05/14 at 0746, Anesthesia Intra-op, Routine succinylcholine (ANECTINE) injection Given 10/05/2014 7:31 AM EDT 40 mg PRN, Starting on Sun10/05/14 at 0731, Until Sun10/05/14 at 0746, Anesthesia Intra-op, Routine documented in this encounter Care Teams Account Technician Relationship Specialty Start Date End Date Anne Marie Fay MD PCP - General 09/17/14 11/18/[address] [place] [address] GENERAL [place] [address] documented as of this encounter
--- OUTSIDE RECORDS SUMMARY | 2022-01-09 00:38 | XMS_ITS | Encounter Summary ---
:1955 [place] [address] Care Team Providers Name Role Phone Anne Marie Fay MD Primary Care Provider Encounter Details Date Type Department Care Team Description 11/06/2019 Ancillary Procedure Radiology Library at Stevan Rocha, [facility] [place] [facility] [place] [phone] ORTHOPAEDIC SURGERY [phone] [place], [place] [address] (Wo rk) Social History Tobacco [...] Associated Diagnosis Comme nts FILM LIBRARY Routine 11/06/2019 12:00 AM Results for this STORAGE ONLY DX EDT procedure ar e in SHOULDER the results section. documented in this encounter Results Film Library- Storage Only DX Shoulder (11/06/2019 12:00 AM EDT) Specimen (Source) Anatomical Location Collection Method / Collectio n Time Received Time / Laterality Volume Narrative RAD - 11/20/2019 12:07 PM EDT This exam is auto-finalizing. It's purpo se is for storage only. Seven Rocha MD [facility] FILM LIBRARY ORDERABLES Performing Organization Address City/State/ZIP Code Phon e Number RAD [place], [place] documented in this encounter Visit Diagnoses Not on filedocumented in this encounter Care Teams Nurse Practitioner Physicians Assistant Relationship Specialty Start Date End Date Anne Marie Fay MD PCP - General 09/17/14 11/18/[address] [place] [address] GENERAL INTERNAL MEDICINE [place] [id number] documented as of this encounter
--- OUTSIDE RECORDS SUMMARY | 2022-01-09 00:38 | XMS_ITS | Encounter Summary ---
:1955 [place] [address] Care Team Providers Name Role Phone Kendall Sung Malik DO Primary Care Provider Reason for Visit Reason Comments Follow Up Surgery R Shoulde mass excision Encounter Details Date Type Department Care Team Description 03/02/2020 Office Visit Orthopaedics at [facility] Seven Rocha Lipoma [facility] MD Trista extremity, [facility] [place] [address] k[place]ley [phone] ORTHOPAEDIC SURGERY [place] [address] Social History Tobacco Use Types Packs/Day Years Used Date Never Smoker Smokeless Tobacco: Never Used Alcohol Use Standard Drinks/Week Comments No 0 (1 standard drink = 0.6 oz pure alcoho l) Sex Assigned at Date Recorded Not on file documented as of this encounter Last Filed Vital Signs Vital Sign Reading Time Taken Comments Blood Pressure 125/89 03/02/2020 11:54 AM EDT Pulse 77 03/02/2020 11:54 AM EDT Temperature - - Respiratory Rate - - Oxygen Saturation - - Inhaled Oxygen Concentration - - Weight 72.6 kg (160 lb) 03/02/2020 11:54 AM EDT Height 167.6 cm (5' 6) 03/02/2020 11:54 AM EDT Body Mass Index 25.82 03/02/2020 11:54 AM EDT documented in this encounter Progress Notes Seven Rocha MD - 03/02/2020 11:20 AM EDT Images from the original note were not included. Orthopaedic Oncology Attending Outpatient Note [facility] [place], [place] [address] FAX: Sarcoma Program Newsletter Chief Complaint: Follow-up for right shoulder lipoma History of Present Illness: Brianna follows up today doing well overall. She says she has no pain, she has had no evidence of infection. Physical Exam: she is alert and oriented to person, place, time, and situation. she is in no apparent distress. heraffect was appropriate. her mood was positive. Right upper extremities neurologically intact, no signs of infection. Incisions clean dry and intact. Imaging: None new Impression and Plan: Overall Brianna is doing very well. She is now 2 months out from the resection of her right shoulder lipoma. I will see her back on a as needed basis. I answered all her questions to the best my ability, she demonstrated good comprehension of the answers, she will call with questions, concerns, or if she experiences any new symptoms or findings. Please copy this note to: Kendall Sung DO [address] [facility] [place] [address] Seven Rocha MD [facility] DR ORTHOPAEDIC SURGERY [place] [phone] documented in this encounter Plan of Treatment Not on filedocumented as of this encounter Visit Diagnoses Diagnosis Lipoma of upper extremity, unspecified l aterality documented in this encounter Care Teams Web Development Instructor Relationship Specialty Start Date End Date Kendall Sung DO PCP - General Family Medicine 11/19/19 [facility] [place] [address] documented as of this encounter
--- OUTSIDE RECORDS SUMMARY | 2022-01-09 00:38 | XMS_ITS | Encounter Summary ---
:1955 Author Organization [facility] Address [address] [place] [address] Care Team Providers Name Role Phone Kendall Sung DO Primary Care Provider Reason for Visit Reason Comments Medication Refill Encounter Details Date Type Department Care Team Description 10/19/2014 Refill Psychiatry and Behavioral William Correia MD [facility] at [facility] Geovani [place] [address] [place] [address] [phone] (Wo rk) Social History Tobacco Use Types [...] on filedocumented in this encounter Care Teams After School Program Director Relationship Specialty Start Date End Date Kendall Sung DO PCP - General Family Medicine 11/19/19 [place] [id number] documented as of this encounter
--- OUTSIDE RECORDS SUMMARY | 2022-01-09 00:38 | XMS_ITS | Encounter Summary ---
:1955 Author Organization [facility] [place] [address] Care Team Providers Name Role Phone Kendall Sung DO Primary Care Provider Reason for Visit Reason Comments Right Shoulder Pain mass Consultation (Routine) - Specialty Diagnoses / Procedures Referred By Contact Refer red To Contact Orthopaedics Diagnoses Localized swelling, mass and lump, unspecified upper limb ? Lipoma on MRI Román Hong MD Henderson, Eric R, MD [address] [place] [address] [place] [address] Phone: Fax: Referral ID Status Reason Start Date Expiration Date Visits V isits Requested Authorized [id number] Consult, Test 11/14/2019 11/13/2020 [facility] PCP Updated and/or Approved Encounter Details Date Type Department Care Team Description 12/09/2019 Office Visit Orthopaedics at [facility] Seven Rocha Benign neoplasm of [facility] MD Trista soft tissue of right Drive [facility] [place] [address] CENTER [phone] ORTHOPAEDIC SURGERY [place], [place] [address] Social History Tobacco Use Types Packs/Day Years Used Date Never Smoker Smokeless Tobacco: Never Used Alcohol Use Standard Drinks/Week Comments No 0 (1 standard drink = 0.6 oz pure alcoho l) Sex Assigned at Date Recorded Not on file documented as of this encounter Last Filed Vital Signs Vital Sign Reading Time Taken Comments Blood Pressure 144/86 12/09/2019 1:03 PM EDT Pulse 85 12/09/2019 1:03 PM EDT Temperature - - Respiratory Rate - - Oxygen Saturation - - Inhaled Oxygen Concentration - - Weight 73.9 kg (163 lb) 12/09/2019 1:03 PM EDT Height 195.6 cm (6' 5) 12/09/2019 1:03 PM EDT Body Mass Index 19.33 12/09/2019 1:03 PM EDT documented in this encounter Progress Notes Martinez Daomn MD - 12/09/2019 1:00 PM EDT Images from the original note were not included. Orthopaedic Oncology Attending Outpatient Consultation Note ?? [facility] [place] [address] FAX: [facility] Newsletter This is a consultation for patient Brianna Stringer at the request of Dr. Hong. Reason for Consultation: lipomatous appearing lesion of the right upper extremity. History of Present Condition: Brianna Stringer is a pleasant 64 y.o. female who visits the Orthopaedic Oncology clinic today. This lesion was discovered incidentally while the patient was brushing her teeth and noticed in the mirror that she had a large bulge in her right shoulder. She previously thought this was just part of her normal anatomy. She states that is nontender to palpation, has not cause her much pain at all. Her is with her and states he has never hurt his complained about pain in her right shoulder. She socially went to her PCP was evaluated was told that they did not know what it was, but they would refer her to an orthopedic clinic. She was subsequently referred to the [facility] where she was evaluated and MRI was obtained. Once this was done she was socially referred to our clinic for further evaluation and recommendations. The patient denies any fevers, chills, nausea, vomiting any weight loss or night sweats. She denies any trauma to the area or history of having previous masses to the shoulder. Brianna attributes no symptoms to this lesion. Pertinent negatives: no weight loss, no fevers or chills, no constitutional symptoms. The intake form for Brianna Stringer was completed by her or her accompanying adult [facility] This form was reviewed in its entirety, please refer to it. Some of the relevant features are included here. Past Medical History: Active Ambulatory Problems Diagnosis Date Noted ??? Major depressive disorder, recurrent episode, severe, specified as with psychotic behavior 09/09/2014 Resolved Ambulatory Problems Diagnosis Date Noted ??? No Resolved Ambulatory Problems No Additional Past Medical History Past Surgical History Past Surgical History: Procedure Laterality Date ??? PRO ELECTROCONVULSIVE THERAPY Bilateral 09/10/2014 ECT performed by Giovany Alicia MD at [facility] OR ??? PRO ELECTROCONVULSIVE THERAPY Bilateral 09/11/2014 ECT performed by Nathen Go MD at [facility] OR ??? PRO ELECTROCONVULSIVE THERAPY Bilateral 09/14/2014 ECT performed by Vamshi Dukes MD at [facility] OR ??? PRO ELECTROCONVULSIVE THERAPY Bilateral 09/15/2014 ECT performed by Alonzo Martel MD at [facility] OR ??? PRO ELECTROCONVULSIVE THERAPY Bilateral 09/18/2014 ECT performed by Andre De La Cruz MD at [facility] OR ??? PRO ELECTROCONVULSIVE THERAPY Bilateral 09/21/2014 ECT performed by Alonzo Martel MD at [facility] OR ??? PRO ELECTROCONVULSIVE THERAPY Bilateral 09/22/2014 ECT performed by Alonzo Martel MD at [facility] OR ??? PRO ELECTROCONVULSIVE THERAPY Bilateral 09/24/2014 ECT performed by Giovany Alicia MD at [facility] OR ??? PRO ELECTROCONVULSIVE THERAPY Bilateral 09/28/2014 ECT performed by Vamshi Dukes MD at [facility] OR ??? PRO ELECTROCONVULSIVE THERAPY 10/02/2014 ECT performed by Andre De La Cruz MD at [facility] OR ??? PRO ELECTROCONVULSIVE THERAPY Bilateral 10/05/2014 ECT performed by Vamshi Dukes MD at [facility] OR ??? PRO ELECTROCONVULSIVE THERAPY Bilateral 10/09/2014 ECT performed by Andre De La Cruz MD at [facility] OR Social History - Relationship status - she is . 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 Social History Tobacco Use Smoking Status Never Smoker Smokeless Tobacco Never Used Social History Substance and Sexual Activity Alcohol Use No Family History Family History Problem Relation Age of Onset ??? Alzheimer Disease Father ??? Alzheimer Disease Paternal Grandfather Review of Systems: In addition to the findings in the past medial history and history of present illness, review of 14 organ systems was positive for nothing. All other systems were negative. Physical Examination: Constitutional: BP Readings from Last 1 Encounters: 12/09/19 144/86 Pulse Readings from Last 1 Encounters: 12/09/19 85 Height: 195.6 cm (6' 5) Weight: 73.9 kg (163 lb) 195.6 cm (6' 5) Weight: 73.9 kg (163 lb) Body mass index is 19.33 kg/m??. Neurological/Psychiatric - she is alert and oriented to person, place, time, and situation. she is in no apparent distress. her affect was appropriate. her mood was positive. Sensation in the bilateral lower extremities showed normal sensation to light and dull touch in all dermatomal distributions. Cardiovascular: Peripheral pulses were 2+ (normal) for the radial arteries bilaterally. Capillary refill was <2 second in all the distal digits. There was no distal edema. Integumentary - in general her skin showed only age-appropriate findings. The skin overlying the lesion demonstrated no abnormalities. Lymphatics - there were no palpable lymphatic nodes in the axillary region of the bilateral upper extremity. Musculoskeletal examination Bilateral upper extremities were 5 out of 5 to shoulder abduction, elbow flexion extension, wrist flexion extension, finger abduction and grasp SI LT to bilateral upper extremities in all dermatomes Nontender to palpation throughout both upper extremities No overlying skin changes, no erythema, no ecchymosis There is a large roughly 5 x 5 cm soft mobile mass in the anterior superior portion of the right deltoid just anterior to the AC joint. Imaging Studies personally seen and interpreted by me: MRI of the right shoulder with and without contrast demonstrates a nonenhancing homogeneous mass within the anterior portion of the deltoid that is isointense to the surrounding fat with no surroundingedema or invasion of the surrounding tissues Laboratory Studies: Lab Results Component Value Date WBC 4.2 09/09/2014 HGB 14.0 09/09/2014 HCT 43.1 09/09/2014 PLATELET 228 09/09/2014 CREATININE 0.76 09/09/2014 BUN 10 09/09/2014 NA 146 (H) 09/09/2014 K 3.6 09/09/2014 CrCl cannot be calculated (Patient's most recent lab result is older than the maximum 30 days allowed.). Impression & Plan: Brianna Stringer is a pleasant 64 y.o. 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 We talked about lipomas and the nature of them. These are benign lesions composed the fat. There is a spectrum of lipomatous tumors that range from normal fat to lipomas to intramuscular lipomas to atypical lipomatous tumors and then into well differentiated liposarcomas and more aggressive liposarcomas. In general lipomas can be excised if they're symptomatic or cosmetically unappealing, in general lipomas are asymptomatic. After discussing this with the patient with his she elected with her to proceed with excision of the lipoma in the OR. Brianna Stringer received teaching today that included the differential diagnosis, natural history, and treatment options for the lesion that initiated this consultation, she demonstrated excellent understanding of the information conveyed. At today???s visit, Brianna Stringer was accompanied by her . I answered all her questions to the best my ability, she demonstrated good comprehension of the answers, she will call with questions, concerns, or if she experiences any new symptoms or findings. 35 [id number] minutes were spent with Brianna Stringer, of which 30 minutes were spent in patient counseling. Orthopaedic Oncology Attending Note: This patient was seen in consultation today at the request of Dr. Hong. I have seen the patient and reviewed the resident's above history and I agree with the details as written. The assessment and plan were formulated in discussion with me and I agree with them as documented. 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 We discussed operative versus nonoperative management of this, both of which are very reasonable given the benign appearance onimaging. She indicated that she would like to proceed with operative management. We talked about thefact that lipomas generally grow over time, the rate of growth is difficult to predict, however, they tend to follow the path of least resistance and therefore as they grow they tend to become more difficult to perform a curative resection on because they may interdigitate themselves into areas of critical structures that make complete resection of them more difficult. I had a long discussion with Lana celeste about the risks and benefits of this operation and alternative treatments. The risks include, but are not limited to, infection, blood loss, damage to nerves, skin numbness, damage to blood vessels, lymphedema, complications of anesthesia, cosmetically unappealing scar formation, further surgery, further oncological treatment, blood clots, pulmonary embolism, which is a blood clot that travels to the lungs and causes pulmonary compromise, heart and lung complications, and . Particular to Brianna's operation, the potential complications and/or sequelae of tumor recurrence, need for further surgery, cosmetically unappealing scar, and chronic pain should be stressed. Because this operation is performed for a tumor diagnosis, there is also the possibility of tumor recurrence or tumor spread, which could result in the need for further surgery, further oncological treatment, or the loss of limb orloss of life. We also talked about the potential need for removal of nerves or blood vessels which may be entrapped by the tumor and that removal of these may lead to physical impairment, however, it would be done with her long-term outcome in mind, which is cure of the tumor. We also talked about thenature of infection which may sometimes be treated with administration of antibiotics or sometimes results in loss of limb and/or loss of life. We also discussed the fact that there may be additional complications which we did not discuss and have not yet been described in the medical literature. Briannais aware that this is a teaching institution and that I will likely perform her procedure with the assistance of a resident physician, meaning a physician who is in training to be an orthopaedic surgeon. Alternatives to surgery include no surgery. In this case, no surgery and continued nonoperative management which would be very reasonable given the benign appearance of this lesion, however, patient does not wish to pursue nonoperative management. Despite these risks, Brianna would like to proceed with this operation. I answered all her questions to the best my ability, she demonstrated good comprehension of the answers, she will call with questions, concerns, or if she experiences any new symptoms or findings. Please copy this note to: Román Hong MD [address] [place] [address] Kendall Sung DO [address] [place] [address] T Naomi Diaz RN - 12/09/2019 1:00 PM EDT Opioid PDMP 12/09/2019 [place] PDMP Query Date 12/10/2019 Comment No narcotics last 12 mos Brianna Stringer will be prescribed a prescription opioid for the treatment of acute post-operative pain related to Orthopedic surgery. Brianna Stringer will be advised to take the smallest dose possible to control their pain and as their pain improves to take smaller doses and increase the time between doses. In addition to this medication, non-opioid medications will be prescribed for adjunct treatment of their pain. Non-pharmacological treatment such as ice, elevation and activity modification will be recommended as appropriate. The Acute Opioid Therapy Informed Consent form has been completed and sent to medical records for scanning to chart. documented in this encounter Plan of Treatment Not on filedocumented as of this encounter Procedures Procedure Name Priority Date/Time Associated Diagnosis Comme nts EXCISION SOFT TISSUE Routine 12/09/2019 2:23 PM EDT Benign Sourav plasm Of Soft TUMOR SHOULDER Tissue Of Right SUBQ;5CM OR GREATER Shoulder OSC documented in this encounter Visit Diagnoses Diagnosis Benign neoplasm of soft tissue of right shoulder documented in this encounter Care Teams Tail Worker Relationship Specialty Start Date End Date Kendall Sung DO PCP - General Family Medicine 11/19/[address] [place] [address] documented as of this encounter
--- OUTSIDE RECORDS SUMMARY | 2022-01-09 00:38 | XMS_ITS | Encounter Summary ---
:1955 [place] [address] Care Team Providers Name Role Phone Kendall Sung DO Primary Care Provider Reason for Visit Auth/Cert Specialty Diagnoses / Procedures Referred By Contact Refer red To Contact Diagnoses right shoulder mass Procedures PRO TUMOR SOFT TISSUE SHOULDER SUBFASCIAL 5 CM/> EXCISION SOFT TISSUE TUMOR SHOULDER SUBQ; 5CM OR GREATER (WRVU 10.13) Referral ID Status Reason Start Date Expiration Date Visits Requ ested Visits Authorized [id number] 1 1 Encounter Details Date Type Department Care Team Description 12/24/2019 Anesthesia Event Main Operating Room Giovany Armstrong MD [facility] [place] [address] [place] [address] [phone] Anesthesia Record Procedure Summary Procedure Name Responsible Anesthesia Start Anesthesia Stop Time Anesthesiologist Time EXCISION SOFT Giovany Escobar MD 12/24/19 1017 12/24/19 115 2 TISSUE TUMOR SHOULDER SUBQ; 5CM OR GREATER (WRVU 10.13) (Right Shoulder) Events Date Time Event Comment 12/24/2019 0940 1017 AN Verify 1017 Start 1017 An Start Data 1023 An Induction 1025 An Intubation 1030 Anesthesia Ready 1059 Procedure Start 1145 Extubation/LMA Out 1145 an stop data 1152 Recovery or ICU Handoff Patient care was transferred to the destination unit staff after review of the patient's medica l history, current anesthetic/surgi jennyfer status and plan, according to the Provider Handoff Checklist. 1152 Stop Name Total Midazolam 2 mg fentaNYL 100 mcg IV Lidocaine 60 mg Propofol 230 mg Rocuronium 30 mg PHENYLephrine 660 mcg ePHEDrine 10 mg Ondansetron 8 mg Dexamethasone 8 mg Neostigmine 3 mg Glycopyrrolate 0.6 mg ceFAZolin 2 g PHENYLephrine INF 560 mcg HYDROmorphone 0.4 mg lactated ringers infusion 600 mL Agents Name O2 Air N2O Sevoflurane (et) Blood No blood administrations on file. Lines, Drains, and Airways Type Details Placement Removal Incision 12/24/19; 1101; shoulder 12/24/19 1101 by Kenn Still RN PIV 12/24/19; 0941; cephalic 12/24/19 0941 by 1327 by Catie vein (lateral side of arm), Eli Greene RN Christine F, RN left; emdd-pdr-nehrfi catheter system; 20 gauge, 1 in length; Eli Greene RN ; distraction, intradermal injection; 12/24/19; 1327 ETT Mask Ventilation: Adjunct 12/24/19 1025 by Daquan, 12/24/19 1145 by Daquan, (2); ETT Type: Cuffed; ETT MD Anderson Reynoso MD Size: 7.5 mm; Mac Blade: 3; Notes: Asleep, Pre-O2, Stylette; Attempts: 2; Laryngoscopy Grade: 2; ETT Placement Verified By: Auscultation, Capnometry, Visual; Secured at Teeth: 21 cm; Inserted by: Marita escobar documented in this encounter Social History Tobacco Use Types Packs/Day Years Used Date Never Smoker Smokeless Tobacco: Never Used Alcohol Use Standard Drinks/Week Comments No 0 (1 standard drink = 0.6 oz pure alcoho l) Sex Assigned at Date Recorded Not on file documented as of this encounter OR Notes Anesthesia Postprocedure Evaluation - Royal Butt MD - 12/24/2019 11:57 AM EDT Department of Anesthesiology Post-procedure Note Patient: Brianna Stringer Procedure Summary Date: 12/24/19 Room / Location: [facility] OR Anesthesia Start: 1017 Anesthesia Stop: 1152 Procedure: EXCISION SOFT TISSUE TUMOR SHOULDER SUBQ; 5CM OR GREATER (WRVU 10.13) (Right Shoulder) Diagnosis: 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 Patient Location: PACU/[facility] Level of Consciousness: Conscious but Sleepy Pain Management: Satisfactory Analgesia PONV: None Cardiovascular Status: At Baseline Respiratory Status: At Baseline Postoperative Fluid Status: Intravascular EUvolemia Possible Anesthetic Complications: NONE apparent at time of evaluation Final Primary Anesthesia Type: General (The anesthetic type performed was the same as planned.) Comments: Anesthesia Preprocedure Evaluation - Royal Butt MD - 12/23/2019 6:32 PM EDT Pre-Anesthesia Evaluation for: Brianna Stringer a 64 y.o. female. Procedure(s): EXCISION SOFT TISSUE TUMOR SHOULDER SUBQ; 5CM OR GREATER (WRVU 10.13) Patient Active Problem List Diagnosis ??? Major depressive disorder, recurrent episode, severe, specified as with psychotic behavior No past medical history on file. Past Surgical History: Procedure Laterality Date ??? PRO ELECTROCONVULSIVE THERAPY Bilateral 09/10/2014 ECT performed by Giovany Alicia MD at [facility] MAIN OR ??? PRO ELECTROCONVULSIVE THERAPY Bilateral 09/11/2014 ECT performed by Nathen Go MD at [facility] MAIN OR ??? PRO ELECTROCONVULSIVE THERAPY Bilateral 09/14/2014 ECT performed by Vamshi Dukes MD at [facility] MAIN OR ??? PRO ELECTROCONVULSIVE THERAPY Bilateral 09/15/2014 ECT performed by Alonzo Martel MD at [facility] MAIN OR ??? PRO ELECTROCONVULSIVE THERAPY Bilateral 09/18/2014 ECT performed by Andre De La Cruz MD at [facility] MAIN OR ??? PRO ELECTROCONVULSIVE THERAPY Bilateral 09/21/2014 ECT performed by Alonzo Martel MD at [facility] MAIN OR ??? PRO ELECTROCONVULSIVE THERAPY Bilateral 09/22/2014 ECT performed by Alonzo Martel MD at [facility] MAIN OR ??? PRO ELECTROCONVULSIVE THERAPY Bilateral 09/24/2014 ECT performed by Giovany Alicia MD at [facility] MAIN OR ??? PRO ELECTROCONVULSIVE THERAPY Bilateral 09/28/2014 ECT performed by Vamshi Dukes MD at [facility] MAIN OR ??? PRO ELECTROCONVULSIVE THERAPY 10/02/2014 ECT performed by Andre De La Cruz MD at [facility] MAIN OR ??? PRO ELECTROCONVULSIVE THERAPY Bilateral 10/05/2014 ECT performed by Vamshi Dukes MD at [facility] MAIN OR ??? PRO ELECTROCONVULSIVE THERAPY Bilateral 10/09/2014 ECT performed by Andre De La Cruz MD at [facility] OR Social History Tobacco Use ??? Smoking status: Never Smoker ??? Smokeless tobacco: Never Used Substance Use Topics ??? Alcohol use: No Social History Substance and Sexual Activity Drug Use No Allergies Allergen Reactions ??? Ampicillin Itching ??? Sulfa (Sulfonamide Antibiotics) Nausea And Vomiting Medications: MAR and/or home medications have been reviewed. Physical Exam: There were no vitals filed for this visit. There is no height or weight on file to calculate BMI. Airway Assessment: Mallampati: II TM distance: >3 FB Neck ROM: full Cardiovascular Assessment: Rhythm: regular Rate: normal cardiovascular exam normal Pulmonary Assessment: breath sounds clear to auscultation pulmonary exam normal Dental Assessment: - normal exam Misc Assessment: IV access: Peripheral line Anesthesia Plan: ASA 2 general, with a(n) intravenous induction This is a 64 y.o. 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 Patient seen and examined; chart and labs reviewed PMH significant for: Major Depressive disorder (s/p multiple ECT procedures, most recently in 2014) Ht:??195.6 cm (6' 5) Wt:??73.9 kg (163 lb) BMI:??19.33 kg/m?? Anesthetic hx: No reported prior complications with anesthesia. Has tolerated multiple ECT procedures. Airway hx: No records EK Normal sinus rhythm Possible Left atrial enlargement Borderline ECG Lab Results Component Value Date HGB 14.0 09/09/2014 PLATELET 228 09/09/2014 NA 146 (H) 09/09/2014 K 3.6 09/09/2014 CREATININE 0.76 09/09/2014 No results for input(s): ABORH in the last 7068 hours. Allergies: -- Ampicillin -- Itching -- Sulfa (Sulfonamide Antibiotics) -- Nausea And Vomiting NPO Status: Appropriate Anesthetic Plan: GA with ETT Standard ASA monitoring Adequate IV access Risks, plans, and procedures discussed with patient who understands and consents; questions and concerns addressed Region - Other Informed Consent: Anesthetic plan and risks discussed with patient. Use of blood products discussed with patient who consented to blood products. Plan discussed with attending and resident. PAT Clinic Note documented in this encounter Miscellaneous Notes Addendum Note - Royal Butt MD - 12/25/2019 2:57 PM EDT Addendum created 12/25/19 1457 by Royal Butt MD Intraprocedure Meds edited documented in this encounter Plan of Treatment Not on filedocumented as of this encounter Visit Diagnoses Not on filedocumented in this encounter Administered Medications Inactive Administered Medications - up to 3 most recent administrations Medication Order MAR Action Action Date Dose Rate Site ceFAZolin (ANCEF) 1g in dextrose 5% Given 12/24/2019 10:55 AM ED T 2 g 50mL PRN, Starting on Sun12/24/19 at 1055, Until Sun12/24/19 at 1157, Administer over 30 Minutes, Anesthesia Intra-op dexamethasone (DECADRON) injection Given 12/24/2019 10:30 AM EDT 8 mg PRN, Starting on Sun12/24/19 at 1030, Until Sun12/24/19 at 1157, Anesthesia Intra-op, Routine ePHEDrine 5 mg/mL multi-dose injection Given 12/24/2019 10:38 AM EDT 10 mg PRN, Starting on Sun12/24/19 at 1038, Until Sun12/24/19 at 1157, Anesthesia Intra-op, Routine fentaNYL 50 mcg/mL multi-dose injection Given 12/24/2019 10:23 AM EDT 100 mcg PRN, Starting on Sun12/24/19 at 1023, Until Sun12/24/19 at 1157, Anesthesia Intra-op, Routine glycopyrrolate (ROBINUL) multi-dose Given 12/24/2019 11:28 AM ED T 0.6 mg injection PRN, Starting on Sun12/24/19 at 1128, Until Sun12/24/19 at 1157, Anesthesia Intra-op, Routine HYDROmorphone (DILAUDID) injection Given 12/24/2019 11:32 AM EDT 0.4 mg PRN, Starting on Sun12/24/19 at 1132, Until Sun12/24/19 at 1157, Anesthesia Intra-op, Routine lactated ringers infusion New Bag 12/24/2019 10:10 AM EDT 1,000 mL, at 100 mL/hr, Intravenous, CONTINUOUS, Starting on Sun12/24/19 at 0945, Until Sun12/24/19 at 1327, Day of Surgery (Day of Procedure) lidocaine (PF) (XYLOCAINE) 100 mg/5 mL (2 %) Given 06/2019 10:23 AM EDT 60 mg injection PRN, Starting on Sun12/24/19 at 1023, Until Sun12/24/19 at 1157, Anesthesia Intra-op, Routine midazolam (PF) (VERSED) multi-dose injec tion Given 12/24/2019 10:15 AM EDT 2 mg PRN, Starting on Sun12/24/19 at 1015, Until Sun12/25/19 at 1457, Anesthesia Intra-op, Routine neostigmine (BLOXIVERZ) injection Given 12/24/2019 11:28 AM EDT 3 mg PRN, Starting on Sun12/24/19 at 1128, Until Sun12/24/19 at 1157, Anesthesia Intra-op, Routine ondansetron (ZOFRAN) injection Given 12/24/2019 11:23 AM EDT 8 mg PRN, Starting on Sun12/24/19 at 1123, Until Sun12/24/19 at 1157, Anesthesia Intra-op, Routine PHENYLephrine (CARLY-SYNEPHRINE) 20 New Bag 12/24/2019 11:05 AM 20 mcg/min 15 mL/hr mg in sodium chloride 250 mL EDT (standard ADULT & Pedi greater than 20kg) infusion CONTINUOUS PRN, Starting on Sun12/24/19 at 1105, Until Sun12/24/19 at 1157, Anesthesia Intra-op, Routine PHENYLephrine in NS (PF) (CARLY-SYNEPHRINE) Given 12/24/2019 11:05 AM EDT 80 mcg 0.8 mg/10 mL (80 mcg/mL) multi-dose injection Syrg PRN, Starting on Sun12/24/19 at 1042, Until Sun12/24/19 at 1157, Anesthesia Intra-op, Routine Given 12/24/2019 11:01 AM EDT 80 mcg Given 12/24/2019 10:58 AM EDT 80 mcg propofol (DIPRIVAN) 10 mg/mL bolus injection Given 06/2019 11:29 AM EDT 30 mg (Anesthesia) PRN, Starting on Sun12/24/19 at 1023, Until Sun12/24/19 at 1157, Anesthesia Intra-op Given 12/24/2019 10:23 AM EDT 200 mg rocuronium (ZEMURON) multi-dose injectio n Given 12/24/2019 10:23 AM EDT 30 mg PRN, Starting on Sun12/24/19 at 1023, Until Sun12/24/19 at 1157, Anesthesia Intra-op, Routine documented in this encounter Care Teams Foreign Exchange Services Manager Relationship Specialty Start Date End Date Kendall Sung DO PCP - General Family Medicine 11/19/19 [place] [id number] documented as of this encounter
--- OUTSIDE RECORDS SUMMARY | 2022-01-09 00:38 | XMS_ITS | Encounter Summary ---
:1955 Author Organization [facility] [place] [address] Care Team Providers Name Role Phone Kendall Sung DO Primary Care Provider Encounter Details Date Type Department Care Team Description 12/24/2019 Telephone General Surgery at [facility] Rossana Padilla, [place] [address] Social History Tobacco Use Types Packs/Day Years Used Date Never Smoker Smokeless Tobacco: Never Used Alcohol Use Standard Drinks/Week Comments No 0 (1 standard drink = 0.6 oz pure alcoho l) Sex Assigned at Date Recorded Not on file documented as of this encounter Miscellaneous Notes Telephone Encounter - Rossana Garg RN - 12/24/2019 4:21 PM EDT I received a call from the [facility] noting they receive a prescription for a pain medicationfor Brianna Stringer and another prescription that they have questions on. They have asked for a call back. I have sent a page to Selina Quezada asking her to call the [facility] to clarify their question. Brianna is an orthopedic patient not a general surgery patient. documented in this encounter Plan of Treatment Not on filedocumented as of this encounter Visit Diagnoses Not on filedocumented in this encounter Care Teams Market Editor Relationship Specialty Start Date End Date Kendall Sung DO PCP - General Family Medicine 11/19/19 [facility] [place] [phone] documented as of this encounter
--- OUTSIDE RECORDS SUMMARY | 2022-01-09 00:38 | XMS_ITS | Encounter Summary ---
:1955 [place] [address] Care Team Providers Name Role Phone Kendall Sung DO Primary Care Provider Encounter Details Date Type Department Care Team Description 01/06/2020 Office Visit [facility]opa[facility] [place] [facility] Rocha Lipoma of [facility] MD Trista extremity, [place] [address] laterality [phone] ORTHOPAEDIC SURGERY [place], [place] [address] Social History Tobacco Use Types Packs/Day Years Used Date Never Smoker Smokeless Tobacco: Never Used Alcohol Use Standard Drinks/Week Comments No 0 (1 standard drink = 0.6 oz pure alcoho l) Sex Assigned at Date Recorded Not on file documented as of this encounter Last Filed Vital Signs Vital Sign Reading Time Taken Comments Blood Pressure 117/70 01/06/2020 3:18 PM EDT Pulse 81 01/06/2020 3:18 PM EDT Temperature - - Respiratory Rate - - Oxygen Saturation - - Inhaled Oxygen Concentration - - Weight 72.6 kg (160 lb) 01/06/2020 3:18 PM EDT pt repor adali Height 165.1 cm (5' 5) 01/06/2020 3:18 PM EDT pt repor adali Body Mass Index 26.63 01/06/2020 3:18 PM EDT documented in this encounter Progress Notes Seven Rocha MD - 01/06/2020 3:30 PM EDT Images from the original note were not included. Orthopaedic Oncology Attending Outpatient Note [facility], [place] [address] FAX: [facility]coma Program Newsletter Chief Complaint: Follow-up for right shoulder mass following excision History of Present Illness: Brianna follows up today doing well overall. She is a couple weeks out from having her right shoulder mass excised. She has had no issues, pain is well controlled, no evidence of infection. Physical Exam: she is alert and oriented to person, place, time, and situation. she is in no apparent distress. heraffect was appropriate. her mood was positive. Incision is clean dry intact, no erythema, no evidence of infection. Right extremity is neurologically intact. Imaging: None new today Impression and Plan: Overall Brianna is doing very well. I will see her back in 6 to 8 weeks to check her progress. Today her Monocryl suture was snipped. I reviewed with her her pathological report, she understands she had a lipoma is a benign mass. I answered all her questions to the best my ability, she demonstrated good comprehension of the answers, she will call with questions, concerns, or if she experiences any new symptoms or findings. Please copy this note to: Kendall Sung DO [address] [facility] [place] [address] Kendall Sung DO [address] [facility] [place] [address] documented in this encounter Plan of Treatment Not on filedocumented as of this encounter Visit Diagnoses Diagnosis Lipoma of upper extremity, unspecified l aterality documented in this encounter Care Teams Customer Service Driver Relationship Specialty Start Date End Date Kendall Sung DO PCP - General Family Medicine 11/19/19 [facility] [place] [address] documented as of this encounter
--- OUTSIDE RECORDS SUMMARY | 2022-01-09 00:38 | XMS_ITS | Clinical Summary ---
:1955 Author Organization [facility] [address] Care Team Providers Name Role Phone Kendall Sung DO Primary Care Provider Allergies Active Allergy Reactions Severity Noted Date Comments Ampicillin Itching 09/08/2014 Sulfa (Sulfonamide Antibiotics) Nausea And Vomiting Medications Medication Sig Dispensed Refills Start Date End Date Status FLUoxetine (PROZAC) Take 1 capsule by 30 capsule 0 09/24/2014 Active 40 mg Capsule mouth daily. omega-3 acid ethyl Take 2 capsules by 120 capsule 0 09/24/2014 Active esters (LOVAZA) 1 mouth 2 times gram Capsule daily. Additional Information Patient not taking. Reported on 03/02/2020 levothyroxine (SYNTHROID) 137 Take 1 tablet by mouth 30 tablet 0 09/24/2014 Active mcg Tablet daily. 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 Rocha 12/24/2019 12/24/2019) Major depressive disorder, recurrent episode, severe, specified as with 09/09/2014 psychotic behavior Family History Medical History Relation Comments Alzheimer Disease Father Alzheimer Disease Paternal Grandfather Relation Status Comments Brother Alive Father Maternal Grandfather Maternal Grandmother Mother Alive Paternal Grandfather Paternal Grandmother Social History Tobacco Use Types Packs/Day Years Used Date Never Smoker Smokeless Tobacco: Never Used Alcohol Use Standard Drinks/Week Comments No 0 (1 standard drink = 0.6 oz pure alcoho l) Sex Assigned at Date Recorded Not on file Last Filed Vital Signs Vital Sign Reading Time Taken Comments Blood Pressure 125/89 03/02/2020 11:54 AM EDT Pulse 77 03/02/2020 11:54 AM EDT Temperature 36.4 ??C (97.5 ??F) 12/24/2019 11:53 AM EDT Respiratory Rate 16 12/24/2019 12:30 PM EDT Oxygen Saturation 96% 12/24/2019 1:00 PM EDT Inhaled Oxygen Concentration - - Weight 72.6 kg (160 lb) 03/02/2020 11:54 AM EDT Height 167.6 cm (5' 6) 03/02/2020 11:54 AM EDT Body Mass Index 25.82 03/02/2020 11:54 AM EDT Plan of Treatment Health Maintenance Due Date Last Done Comments Covid-19 Vaccine (#1) 1961 HIV screen 1974 Hepatitis C Screening 1974 Tdap adult 1975 Tetanus vaccine 1975 HPV test 1986 PAP Smear 1986 Breast Cancer Share Decision Needed 1996 Diabetes Screening (HgbA1C or Glucose) 1996 Colonoscopy 2001 Breast Cancer screening 2006 Zoster vaccine (1 of 2) 2006 Advance Directive 2011 Bone Density Scan 2021 Pneumoccocal Vaccine: 65+ (1 - PCV) 2021 Influenza (Flu) vaccine (1 of 1 - Influenza standard 02/23/2022 series) Insurance Payer Benefit Plan / Subscriber ID Effective Dates Phone Addre ss Type Group HILARY RICHARD [id number] 2016-Present [facility] OFFICE [facility] [address] [address] [place] [address] Advance Directives Latest Code Status on File Code Status Date Activated Date Inactivated Comments Full Code 10/09/2014 9:43 AM 10/09/2014 1:11 PM Order Status: Initial Order Does patient have decision making capacity? Yes, Order is based on Patients wishes. Full Code 10/02/2014 11:01 AM 10/02/2014 1:53 PM Order Status: Initial Order Does patient have decision making capacity? Yes, Order is based on Patients wishes. Full Code 09/08/2014 9:57 PM 09/24/2014 2:43 PM Order Status: Initial Order Does patient have decision making capacity? Yes, Order is based on Patients wishes. Care Teams Cell Pourer Relationship Specialty Start Date End Date Kendall Sung DO PCP - General Family Medicine 11/19/19 [place] [phone]
--- OUTSIDE RECORDS SUMMARY | 2022-01-09 00:38 | XMS_ITS | Encounter Summary ---
:1955 [place] [address] Care Team Providers Name Role Phone Sumeet Anne Marie Radha SOTO Primary Care Provider Encounter Details Date Type Department Care Team Description 10/05/2014 Hospital Encounter [facility] Day Program at [facility] [place] [address] [place] [address] [phone] (Wo rk) Social History Tobacco Use Types Packs/Day Years Used Date Never Smoker Smokeless Tobacco: Never Used Alcohol Use Standard Drinks/Week Comments No 0 (1 standard drink = 0.6 oz pure alcoho l) Sex Assigned at Date Recorded Not on file documented as of this encounter Last Filed Vital Signs Vital Sign Reading Time Taken Comments Blood Pressure 146/81 10/05/2014 8:10 AM EDT Pulse 82 10/05/2014 8:10 AM EDT Temperature 36.2 ??C (97.2 ??F) 10/05/2014 8:10 AM EDT Respiratory Rate 16 10/05/2014 8:10 AM EDT Oxygen Saturation 96% 10/05/2014 8:10 AM EDT Inhaled Oxygen Concentration - - Weight - - Height - - Body Mass Index - - documented in this encounter Discharge Instructions Discharge InstructionsClare Fu RN - 10/05/2014 8:12 AM EDT Rest today. Tylenol if needed for headache. For questions/concerns about today's ECT treatment call: After 5pm/weekends call and ask for senior vice president and chief information officer on-call. documented in this encounter Medications at [...] for Sleep. documented as of this encounter Progress Notes Rah Arreguin RN - 10/05/2014 7:30 AM EDT 0743 - Pt admitted to PACU 17 from Minor room s/p ECT. Monitors applied and alarm limits set per patient. Continuing to monitor until all criteria met. 0800 - Pt stable to transfer to [facility]. Nursing report phoned to Holger acosta RN. documented in this encounter H&P Notes Naomi Pulido MD - 10/05/2014 7:05 AM EDT Patient Name: Brianna Strinegr Patient Age: 59 y.o. Birthdate: 1955 Admit date: 10/05/2014 Attending Physician: Vamshi Dukes MD HPI: Brianna Stringer is a 59 y.o. female who has been prescribed ECT. Pertinent history changes since last H&P: Patient reports no changes. Suicidal ideation: Denies. Homicidal ideation: Denies. ROS: Positive for: noine Denies: Fevers, chills, headache, dental pain, chest pain, SOB/ORTIZ, cough, abdominal pain, nausea, vomiting, diarrhea, or constipation, Remaining ROS negative PE: Patient Vitals for the past 8 hrs: BP Temp Temp src Pulse Resp SpO2 10/05/14 0712 131/70 mmHg 37 ??C (98.6 ??F) Oral 81 16 99 % Vitals were reviewed Gen: Resting comfortably in hospital bed, dressed in hospital gown. HENT: PERRL, oropharynx clear, mucous membranes moist, dentition good Pulm: Clear to auscultation bilaterally with good inspiratory effort. CV: Regular rate and rhythm, no murmurs/gallops/rubs. Neuro: No focal abnormalities. Cognitive: Alert and oriented to person, place, time; no gross cognitive deficits Remaining exam WNL. A/P: - I have seen and examined the patient. - Proceed with planned ECT procedure. documented in this encounter Procedure Notes Vamshi Dukes MD - 10/05/2014 7:27 AM EDTProcedure(s): ECT Pre-Procedure Diagnose(s): Major depressive disorder, recurrent episode, severe, specified as with psychotic behavior ECT SUBSEQUENT TREATMENT NOTE Patient received bifrontal ECT in the PACU. Total: #11; Bifrontal # 4 The primary diagnosis is 296.34. Relevant history: Doing well without SE. Went out after last treatment. Patient was attached to monitoring equipment. The anesthesia team administered the following medications: methohexital 80 mg succinylcholine 40 mg After adequate sedation and relaxation were achieved, patient received ECT using a MECTA device at the following parameters: Bifrontal /4/800 31 sec motor seizure 39 sec EEG seizure Patient was stabilized and appeared to tolerate the procedure. Complications: none Changes/recommendations/parameters for next treatment: No changes. Next treatment date: 10/08 Route note: Dr. Aurea Valencia documented in this encounter Plan of Treatment Not on filedocumented as of this encounter Procedures Procedure Name Priority Date/Time Associated Diagnosis Comme nts ECT (WRVU 2.5) Yes 10/05/2014 7:26 AM EDT 296.34 documented in this encounter Visit Diagnoses Not on filedocumented in this encounter Active and Recently Administered Medications Care Teams Electrician Outside Relationship Specialty Start Date End Date Anne Marie Fay MD PCP - General 09/17/14 11/18/[address] [place] [address] GENERAL [place] [address] documented as of this encounter
--- OUTSIDE RECORDS SUMMARY | 2022-01-09 00:38 | XMS_ITS | Encounter Summary ---
:1955 [place] [address] Care Team Providers Name Role Phone Anne Marie Fay MD Primary Care Provider Encounter Details Date Type Department Care Team Description 10/05/2014 Surgery Main Operating Room Vamshi Fierro MD ECT (WRVU 2.5) [facility] Geovani snyder [place] [address] [place] [id number] [phone] (Wo rk) Social History Tobacco Use Types [...] call: After 5pm/weekends call and ask for market president on-call. documented in this encounter Medications at [...] 0800 - Pt stable to transfer to [facility]. Nursing report phoned to Holger acosta RN. documented in this encounter H&P Notes Naomi Pulido MD - 10/05/2014 7:05 AM EDT Patient Name: Brianna Stringer Patient Age: 59 y.o. Birthdate: 1955 Admit [...] device at the following parameters: Bifrontal 1/40/4/800 31 sec motor seizure 39 sec EEG [...] Active and Recently Administered Medications Care Teams Solar Engineer Relationship Specialty Start Date End Date Anne Marie Fay MD PCP - General 09/17/14 11/18/[address] [place] [address] GENERAL [place] [address] documented as of this encounter
--- OUTSIDE RECORDS SUMMARY | 2022-01-09 00:38 | XMS_ITS | Encounter Summary ---
:1955 [place] [address] Care Team Providers Name Role Phone Kendall [...] Expiration Date Visits Requ ested Visits Authorized [id number] 1 1 Encounter Details Date Type Department Care Team Description 12/24/2019 Hospital Encounter Same Day Program at Liban [facility] DR Lucas [place] [address] [place] [address] [phone] (Wo rk) Social History Tobacco Use Types Packs/Day Years Used Date Never Smoker Smokeless Tobacco: Never Used Alcohol Use Standard Drinks/Week Comments No 0 (1 standard drink = 0.6 oz pure alcoho l) Sex Assigned at Date Recorded Not on file documented as of this encounter Last Filed Vital Signs Vital Sign Reading Time Taken Comments Blood Pressure 125/76 12/24/2019 1:00 PM EDT Pulse 74 12/24/2019 9:06 AM [...] bowel movement. You can also take an qrpd-yku-zyrhnsu medication, Miralax if needed to combat constipation. [...] leave open to air. Call your doctor ([phone]) if you develop: 1. Fever greater than [...] 1. You will have followup appointments at [facility] [place] [place] as indicated in Future Appointment and Orders. [...] Center 01/06/2020 9:40 AM Liban Layne MD [facility] [place] [place] ORTH 3A [facility] [place] [place] If you have questions or concerns: Sunday [...] ECT performed by Giovany Alicia MD at [facility] MAIN OR ??? PRO ELECTROCONVULSIVE THERAPY Bilateral 09/11/2014 ECT performed by Nathen Go MD at [facility] MAIN OR ??? PRO ELECTROCONVULSIVE THERAPY Bilateral 09/14/2014 ECT performed by Vamshi Dukes MD at [facility] MAIN OR ??? PRO ELECTROCONVULSIVE THERAPY Bilateral 09/15/2014 ECT performed by Alonzo Martel MD at [facility] MAIN OR ??? PRO ELECTROCONVULSIVE THERAPY Bilateral 09/18/2014 ECT performed by Andre De La Cruz MD at [facility] MAIN OR ??? PRO ELECTROCONVULSIVE THERAPY Bilateral 09/21/2014 ECT performed by Alonzo Martel MD at [facility] MAIN OR ??? PRO ELECTROCONVULSIVE THERAPY Bilateral 09/22/2014 ECT performed by Alonzo Martel MD at [facility] MAIN OR ??? PRO ELECTROCONVULSIVE THERAPY Bilateral 09/24/2014 ECT performed by Giovany Alicia MD at [facility] MAIN OR ??? PRO ELECTROCONVULSIVE THERAPY Bilateral 09/28/2014 ECT performed by Vamshi Dukes MD at [facility] MAIN OR ??? PRO ELECTROCONVULSIVE THERAPY 10/02/2014 ECT performed by Andre De La Cruz MD at [facility] MAIN OR ??? PRO ELECTROCONVULSIVE THERAPY Bilateral 10/05/2014 ECT performed by Vamshi Dukes MD at [facility] MAIN OR ??? PRO ELECTROCONVULSIVE THERAPY Bilateral 10/09/2014 ECT performed by Andre De La Cruz MD at [facility] OR Home Medications: Medications Prior to Admission [...] shoulder. Acute Opioid Prescribing: Opioid PDMP 12/09/2019 [place] PDMP Query Date [...] Quezada MD, PGY-3 Orthopaedic Surgery Pager #: [phone] documented in this encounter Miscellaneous Notes Op Note - Liban Layne MD - 12/24/2019 12:04 PM EDT [facility] [place] [place] Operative Note Patient Name: Brianna Stringer : [id number] MR#: [id number] Case Date: 12/24/2019 Surgeon: Surgeon(s) and Role: [...] referred to consulted to orthopedic oncology at [facility] [place] [place]. Dr. Layne discussed options for treatment toinclude [...] underlying soft tissue. The mass was approximately 5xtd6qii6.5cm, fatty homogenous appearing tumor. Once the mass [...] [facility] Layne was present [...] Operative Note Patient Name: Brianna Stringer : [id number] MR#: [id number] Case Date: 12/24/2019 Surgeon: Surgeon(s) and Role: [...] Component Value Ref Test Analysis Performed At [facility] Method Time Signature Surgical ? Location: [facility]; [facility]; [facility] Report The signing pathologist has (i) examined the relevant preparation(s) for the [facility] specimen(s) and (ii) rendered or confirmed the diagnosis(es) . [facility] . 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 of Pathology, [place], [place] ADDITIONAL STUDIES Immunohistochemistry Studies: Formalin-fixed, paraffin-emb [...] necrosis. Sections/Processing: Inked, serially sectioned an d wire rope sales representative sections submitted in 4 cassettes as follows: ?A1-A3: ??Two sections each cassette ?A4: ??Three sections ??shb Specimen (Source) Anatomical Collection Method Collection Time Re ceived Time Location / / Volume Laterality 12/24/2019 11:05 AM EDT Selina Quezada MD PATHOLOGY/CYTOLOGY ORDERABLE S Performing Organization Address City/State/[place] [address] Specimen to Pathology (12/24/2019 11:05 AM EDT) Specimen Anatomical Collection Method Collection Time Receive d Time (Source) Location / / Volume Laterality AP Specimen 12/24/2019 11:05 12/24/2019 AM EDT 11:05 AM EDT Narrative [facility] - 12/24/2019 11:05 AM EDT Specimen requisition ordered. ??Separate Pathology report to follow Liban Layne MD PATHOLOGY/CYTOLOGY ORDERABLE S Performing Organization Address City/State/[place] [address] documented in this encounter Visit Diagnoses Not on filedocumented in this encounter Administered Medications Inactive Administered Medications - up to 3 most recent administrations Medication Order MAR Action Action Date Dose Rate Site scopolamine Patch Applied 12/24/2019 10:13 1 patch 01- Ear Behind (TRANSDERM-SCOP) 1 mg AM EDT (Le ft) over 3 days patch 1 patch 1 patch, Transdermal, ONCE, 1 dose, On Sun12/24/19 at 1000, Day of Surgery (Day of Procedure), Routine scopolamine (TRANSDERM-SCOP) 1 mg patch Patch Removal Transdermal, EVERY 24 HOURS, 1 dose, First dose on Carmella 12/25/19 at 0945, Remove [...] (CANCELED) 1010 (New Bag - Provider: Royal Butt MD)1110 (Anesthesia Volume Adjustment - Provider: Royal [...] Routine documented in this encounter Care Teams Pipe Coverer And Insulator Relationship Specialty Start Date End Date Kendall Sung DO PCP - General Family Medicine 11/19/19 [place] [address] documented as of this encounter
--- OUTSIDE RECORDS SUMMARY | 2022-01-09 00:38 | XMS_ITS | Encounter Summary ---
:1955 Author Organization [facility] Address [address] [place] [address] Care Team Providers Name Role Phone Kendall Sung DO Primary Care Provider Reason for Visit Reason Comments Medication Refill Encounter Details Date Type Department Care Team Description 10/26/2014 Refill Psychiatry and Behavioral William Correia MD Health at [facility] Geovani [place] [address] [place] [address] [phone] (Wo rk) Social History Tobacco Use Types [...] on filedocumented in this encounter Care Teams State Superintendent Of [employer] Relationship Specialty Start Date End Date Kendall Sung DO PCP - General Family Medicine 11/19/19 [place] [id number] documented as of this encounter
--- OUTSIDE RECORDS SUMMARY | 2022-01-09 00:38 | XMS_ITS | Encounter Summary ---
:1955 [place] [address] Care Team Providers Name Role Phone Sumeet Anne Marie Garcia MD Primary Care Provider Encounter Details Date Type Department Care Team Description 10/09/2014 Anesthesia Event Main Operating Room Jony Bee MD [facility] [place] [address] [facility] Dipti Jolly [facility] [place] [address] [place] [address] Anesthesia Record Procedure Summary Procedure Name Responsible Anesthesia Start Anesthesia Stop Time Anesthesiologist Time ECT (WRVU 2.5) Jony Asher MD 10/09/14 0855 10/09/14 091 0 (Bilateral ) Events Date Time Event Comment 10/09/2014 0855 AN Verify 0855 Start 0855 An Start Data 0856 ASA Monitors 0857 Masked Placed/ Pre O2 0857 An Induction 0859 Bite Block In 0900 ECT Rx 0907 PACU Bed 0910 an stop data 0910 Stop To pacu ventilat ing well 0923 Name Total Methohexital 80 mg Succinylcholine 40 mg Sodium Chloride 0.9% 150 mL Agents Name O2 Blood No blood administrations on file. Lines, Drains, and Airways Type Details Placement Removal PIV 10/09/14; 0814; metacarpal 10/09/14 0814 by Mirtha clayton, 10/09/14 0943 by Nickie, vein left (top of hand); TERESA Ayala RN [id number]-klteji catheter system; 22 gauge; wang melvin rn; intradermal injection; 0; no longer indicated, removed per policy/procedure; 10/09/14; 0943 documented in this encounter Social History Tobacco Use Types Packs/Day Years Used Date Never Smoker Smokeless Tobacco: Never Used Alcohol Use Standard Drinks/Week Comments No 0 (1 standard drink = 0.6 oz pure alcoho l) Sex Assigned at Date Recorded Not on file documented as of this encounter OR Notes Anesthesia Postprocedure Evaluation - Jony Asher MD - 10/11/2014 10:09 PM EDT Patient: Brianna Stringer Procedure(s) Performed: Procedure(s): ECT Actual Anesthetic: general Patient location: PACU Post-op pain: Adequate analgesia Post-op nausea: no nausea or vomiting Last Vitals: Filed Vitals: 10/09/14 0941 BP: 144/80 Pulse: 80 Temp: 36.4 ??C (97.5 ??F) Resp: 16 Post-op cardiovascular and respiratory status: is stable Level of consciousness: awake, alert and oriented Complications: no apparent complications and tolerated the procedure well Fluid Status: normal Anesthesia Preprocedure Evaluation - Jony Asher MD - 10/09/2014 8:54 AM EDT Pre-Anesthesia Evaluation for: Brianna Stringer a 59 y.o. female. Procedure(s): ECT Patient Active Problem List Diagnosis ??? Major depressive disorder, recurrent episode, severe, specified as with psychotic behavior No past medical history on file. Past Surgical History Procedure Laterality Date ??? Electroconvulsive therapy,1 seiz Bilateral 09/10/2014 ECT performed by Giovany Alicia MD at [facility] MAIN OR ??? Electroconvulsive therapy,1 seiz Bilateral 09/11/2014 ECT performed by Nathen Go MD at [facility] MAIN OR ??? Electroconvulsive therapy,1 seiz Bilateral 09/14/2014 ECT performed by Vamshi Dukes MD at [facility] MAIN OR ??? Electroconvulsive therapy,1 seiz Bilateral 09/15/2014 ECT performed by Alonzo Martel MD at [facility] MAIN OR ??? Electroconvulsive therapy,1 seiz Bilateral 09/18/2014 ECT performed by Andre De La Cruz MD at [facility] OR ??? Electroconvulsive therapy,1 seiz Bilateral 09/21/2014 ECT performed by Alonzo Martel MD at [facility] OR ??? Electroconvulsive therapy,1 seiz Bilateral 09/22/2014 ECT performed by Alonzo Martel MD at [facility] OR ??? Electroconvulsive therapy,1 seiz Bilateral 09/24/2014 ECT performed by Giovany Alicia MD at [facility] OR ??? Electroconvulsive therapy,1 seiz Bilateral 09/28/2014 ECT performed by Vamshi Dukes MD at [facility] OR ??? Electroconvulsive therapy,1 seiz 10/02/2014 ECT performed by Andre De La Cruz MD at [facility] OR ??? Electroconvulsive therapy,1 seiz Bilateral 10/05/2014 ECT performed by Vamshi Dukes MD at [facility] OR History Substance Use Topics ??? Smoking [...] >3 FB Neck ROM: full Cardiovascular Assessment: cardiovascular exam normal Pulmonary Assessment: pulmonary exam normal Dental Assessment: - normal exam Mis Assessment: Patient is wearing No contact(s). IV access: Peripheral line Anesthesia Plan: ASA 2 general, with a(n) intravenous induction 59 y/o with MDD and hypoTh, here for ECT ekg with NSR and LAE No problems with ECT in the past Today, NPO, no URIs, consent on file, no changes in her health Plan : General Mask prn Changed Ketamine dosage secondary to memory loss issues. (patient was getting 100 mg of Ketamine)changed to .5/kg or total of 40 mg And increased brevital. Region - Other Informed Consent: Anesthetic plan and risks discussed with patient. Plan discussed with SANITARY ENGINEERING TEACHER. Misc. Assessment: documented in this encounter Plan of Treatment Not on filedocumented as of this encounter Visit Diagnoses Not on filedocumented in this encounter Administered Medications Inactive Administered Medications - up to 3 most recent administrations Medication Order MAR Action Action Date Dose Rate Site methohexital (BREVITAL) injection Given 10/09/2014 8:57 AM EDT 80 mg PRN, Starting on Sun10/09/14 at 0857, Until Sun10/09/14 at 0910, Anesthesia Intra-op, Routine sodium chloride 0.9% infusion New Bag 10/09/2014 8:55 AM EDT CONTINUOUS PRN, Starting on Sun10/09/14 at 0855, Until Sun10/09/14 at 0910, Anesthesia Intra-op succinylcholine (ANECTINE) injection Given 10/09/2014 8:57 AM EDT 40 mg PRN, Starting on Sun10/09/14 at 0857, Until Sun10/09/14 at 0910, Anesthesia Intra-op, Routine documented in this encounter Care Teams Precision Structural Metal Fitter Relationship Specialty Start Date End Date Anne Marie Fay MD PCP - General 09/17/14 11/18/[address] [place] [address] GENERAL [place] [address] documented as of this encounter
--- OUTSIDE RECORDS SUMMARY | 2022-01-09 00:38 | XMS_ITS | Encounter Summary ---
:1955 Author Organization [facility] [place] [address] Care Team Providers Name Role Phone Kendall Sung DO Primary Care Provider Encounter Details Date Type Department Care Team Description 01/19/2020 Orders Only Orthopaedics at [facility] Seven Rocha, Benign neoplasm of [facility] soft tissue of right Drive [facility] [place] [address] [address] [phone] ORTHOPAEDIC SURGERY [place], [place] [address] Social History Tobacco Use Types Packs/Day Years Used Date Never Smoker Smokeless Tobacco: Never Used Alcohol Use Standard Drinks/Week Comments No 0 (1 standard drink = 0.6 oz pure alcoho l) Sex Assigned at Date Recorded Not on file documented as of this encounter Plan of Treatment Not on filedocumented as of this encounter Results XR Shoulder Right (Generic) (03/02/2020 10:38 AM EDT) Anatomical Region Laterality Modality Shoulder Right Digital Radiography Specimen (Source) Anatomical Location Collection Method / Collectio n Time Received Time / Laterality Volume Impressions 03/02/2020 11:33 AM EDT Interval lipoma excision. No aggressive or acute bony abnormality. Thank you for letting us participate in the care of this patient. For questions regarding this report, please contact e number below. ? Narrative 03/02/2020 11:33 AM EDT EXAMINATION: XR SHOULDER RIGHT (GENERIC) CLINICAL HISTORY: S/P Shoulder mass on . Assess bony structures TECHNIQUE: 4 views RIGHT shoulder COMPARISON: MR 11/07/2019, radiographs 11/06/2019 FINDINGS: Interval resection of the previously see n fat density mass overlying the anterior shoulder. There is no fracture or acute bony lesion. Glenohumeral joint alignment is appropriate. Minimal subcho ndral sclerosis. Subcortical cysts are seen at the greater tuberosity, as seen on the prior comparison MR. No aggressive bony lesion. Joint space narrowing, bony hypertrophy and osteophyte formation at the acromioclavicular joint. Bone mineraliza tion is normal. Remaining soft tissues unremarkable. Procedure Note Valentín Holman MD - 03/02/2020Format ting of this note might be different from the original. EXAMINATION: XR SHOULDER RIGHT (GENERIC) CLINICAL HISTORY: S/P Shoulder mass on . Assess bony structures TECHNIQUE: 4 views RIGHT shoulder COMPARISON: MR 11/07/2019, radiographs 11/06/2019 FINDINGS: Interval resection of the previously see n fat density mass overlying the anterior shoulder. There is no fracture or acute bony lesion. Glenohumeral joint alignment is appropriate. Minimal subcho ndral sclerosis. Subcortical cysts are seen at the greater tuberosity, as seen on the prior comparison MR. No aggressive bony lesion. Joint space narrowing, bony hypertrophy and osteophyte formation at the acromioclavicular joint. Bone mineraliza tion is normal. Remaining soft tissues unremarkable. IMPRESSION Interval lipoma excision. No aggressive or acute bony abnormality. Thank you for letting us participate in the care of this patient. For questions regarding this report, please contact e number below. 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
--- OUTSIDE RECORDS SUMMARY | 2022-01-09 00:38 | XMS_ITS | Encounter Summary ---
:1955 [place] [address] Care Team Providers Name Role Phone Anne Marie Fay MD Primary Care Provider Encounter Details Date Type Department Care Team Description 10/02/2014 Anesthesia Event Main Operating Room Hermilo Vasquez MD [facility] [place] [address] [place] [address] [phone] Anesthesia Record Procedure Summary Procedure Name Responsible Anesthesiologist Anesthesia Start Ti me Anesthesia Stop Time ECT (WRVU 2.5) Hermilo Aldana MD 10/02/14 1005 10/02/14 102 4 Events Date Time Event Comment 10/02/2014 1002 1005 AN Verify 1005 Start 1005 An Start Data 1005 ASA Monitors 1009 Masked Placed/ Pre O2 1009 An Induction 1011 Bite Block In 1012 ECT Rx 1017 PACU Bed 1021 an stop data 1024 Stop Name Total Methohexital 80 mg Succinylcholine 40 mg Lactated Ringers 500 mL Agents Name O2 Blood No blood administrations on file. Lines, Drains, and Airways Type Details Placement Removal PIV 10/02/14; 0739; cephalic vein 10/02/14 0739 by Ricki rose, 10/02/14 1124 by Yogi, left (lateral side of arm); TERESA Parekh RN [id number] catheter system; 20 gauge; Gricelda Calix RN; intradermal injection, distraction; 0; 10/02/14; 1124 documented in this encounter Social History Tobacco Use Types Packs/Day Years Used Date Never Smoker Smokeless Tobacco: Never Used Alcohol Use Standard Drinks/Week Comments No 0 (1 standard drink = 0.6 oz pure alcoho l) Sex Assigned at Date Recorded Not on file documented as of this encounter OR Notes Anesthesia Postprocedure Evaluation - Hermilo Aldana - 10/02/2014 12:26 PM EDT Patient: Brianna Stringer Procedure(s) Performed: Procedure(s): ECT Actual Anesthetic: general Patient location: PACU Post-op pain: Adequate analgesia Post-op nausea: no nausea or vomiting Last Vitals: Filed Vitals: 10/02/14 1055 BP: 126/58 Pulse: 81 Temp: 36.2 ??C (97.2 ??F) Resp: 16 Post-op cardiovascular and respiratory status: is stable Level of consciousness: awake and alert Complications: no apparent complications and tolerated the procedure well Fluid Status: normal Anesthesia Preprocedure Evaluation - Hermilo Aldana - 10/02/2014 10:01 AM EDT Pre-Anesthesia Evaluation for: Brianna travis 59 y.o. female. Procedure(s): ECT Patient Active Problem List Diagnosis ??? Major depressive disorder, recurrent episode, severe, specified as with psychotic behavior No past medical history on file. Past Surgical History Procedure Laterality Date ??? Electroconvulsive therapy,1 seiz Bilateral 09/10/2014 ECT performed by Giovany Alicia MD at [facility] MAIN OR ??? Electroconvulsive therapy,1 seiz Bilateral 09/11/2014 ECT performed by Nathen Go MD at [facility] OR ??? Electroconvulsive therapy,1 seiz Bilateral 09/14/2014 ECT performed by Vamshi Dukes MD at [facility] OR ??? Electroconvulsive therapy,1 seiz Bilateral 09/15/2014 ECT performed by Alonzo Martel MD at [facility] OR ??? Electroconvulsive therapy,1 seiz Bilateral 09/18/2014 ECT performed by Andre De La Cruz MD at [facility] OR ??? Electroconvulsive therapy,1 seiz Bilateral 09/21/2014 ECT performed by Alonzo Martel MD at [facility] OR ??? Electroconvulsive therapy,1 seiz Bilateral 09/22/2014 ECT performed by Alonzo Martel MD at [facility] MAIN OR ??? Electroconvulsive therapy,1 seiz Bilateral 09/24/2014 ECT performed by Giovany Alicia MD at [facility] MAIN OR ??? Electroconvulsive therapy,1 seiz Bilateral 09/28/2014 ECT performed by Vamshi Dukes MD at [facility] MAIN OR History Substance Use Topics ??? Smoking status: Never Smoker ??? Smokeless tobacco: Never Used ??? Alcohol Use: No History Drug Use No Allergies Allergen Reactions ??? Ampicillin Itching ??? Sulfa (Sulfonamide Antibiotics) Nausea And Vomiting Medications: MAR and/or home medications have been reviewed. Physical Exam: Filed Vitals: 10/02/14 0729 BP: 117/55 Pulse: 87 Temp: 36.8 ??C (98.2 ??F) Resp: 18 Body mass index is 20.99 kg/(m^2). Height: 167.6 cm (5' 6) Weight - Scale: 58.968 kg (130 lb) Airway Assessment: Mallampati: II TM distance: <3 FB Neck ROM: full Cardiovascular Assessment: cardiovascular exam normal Pulmonary Assessment: pulmonary exam normal Dental Assessment: [facility] Assessment: Patient is wearing No contact(s). IV access: Peripheral line Other exam findings: Denies GERD Anesthesia Plan: ASA 3 general, with a(n) intravenous induction 59yoF, outpatient with MDD for ECT. No problems with prior anesthetic regimen. Received [id number], succinylcholine 40mg. Plan general, serial consent on file. Region - Other Informed Consent: Anesthetic plan and risks discussed with patient. Plan discussed with resident and attending. [facility]. Assessment: documented in this encounter Plan of Treatment Not on filedocumented as of this encounter Visit Diagnoses Not on filedocumented in this encounter Administered Medications Inactive Administered Medications - up to 3 most recent administrations Medication Order MAR Action Action Date Dose Rate Site lactated ringers infusion New Bag 10/02/2014 10:05 AM EDT CONTINUOUS PRN, Starting on Sun10/02/14 at 1005, Until Sun10/02/14 at 1024, Anesthesia Intra-op methohexital (BREVITAL) injection Given 10/02/2014 10:09 AM EDT 80 mg PRN, Starting on Sun10/02/14 at 1009, Until Sun10/02/14 at 1024, Anesthesia Intra-op, Routine succinylcholine (ANECTINE) injection Given 10/02/2014 10:09 AM EDT 40 mg PRN, Starting on Sun10/02/14 at 1009, Until Sun10/02/14 at 1024, Anesthesia Intra-op, Routine documented in this encounter Care Teams Technical Illustrations Map Inker Relationship Specialty Start Date End Date Anne Marie Fay MD PCP - General 09/17/14 11/18/[address] [place] [address] [place] [address] documented as of this encounter
--- OUTSIDE RECORDS SUMMARY | 2022-01-09 00:38 | XMS_ITS | Encounter Summary ---
:1955 [place] [address] Care Team Providers Name Role Phone Anne Marie Fay MD Primary Care Provider Encounter Details Date Type Department Care Team Description 10/09/2014 Hospital Encounter Same Day Program at Andre De La Cruz MD [facility] [place] [address] [place] [address] [phone] Social History Tobacco Use Types Packs/Day Years [...] After 5pm/weekends call and ask for residential direct support professional on-call. 1. You may have received medication [...] 10/09/2014 8:05 AM EDT HPI: Brianna Stringer ([id number]) is a 59 y.o. female who has [...] procedure. documented in this encounter Procedure Notes nAdre De La Cruz MD - 10/09/2014 8:49 [...] MECTA device at the following parameters: Bifrontal 40/4/800 22 sec motor seizure 25 sec EEG [...] on filedocumented in this encounter Care Teams Electronics Technology Instructor Relationship Specialty Start Date End Date Anne Marie Fay MD PCP - General 09/17/14 11/18/[address] [place] [address] [place] [address] documented as of this encounter
--- OUTSIDE RECORDS SUMMARY | 2022-01-09 00:38 | XMS_ITS | Encounter Summary ---
:1955 Author Organization [employer] Address [address] [place] [address] Care Team Providers Name Role Phone Kendall Sung DO Primary Care Provider Encounter Details Date Type Department Care Team Description 03/02/2020 Hospital Encounter XRay at [facility] Seven Rocha Benign neoplasm of [address] Trista MD soft tissue of right [place], [place] [facility] [place] [id number] [place] [phone] [place] [address] Social History Tobacco Use Types Packs/Day Years Used Date Never Smoker Smokeless Tobacco: Never Used Alcohol Use Standard Drinks/Week Comments No 0 (1 standard drink = 0.6 oz pure alcoho l) Sex Assigned at Date Recorded Not on file documented as of this encounter Medications at Time of Discharge Medication Sig Dispensed Refills Start Date End Date FLUoxetine (PROZAC) 40 mg Take 1 capsule by 30 capsule 0 07/2014 Capsule mouth daily. levothyroxine (SYNTHROID) Take 1 tablet by 30 tablet 0 07/2014 137 mcg Tablet mouth daily. Cancel 125mg script omega-3 acid ethyl esters Take 2 capsules by 120 capsule 0 0 09/24/2014 (LOVAZA) 1 gram Capsule mouth 2 times daily. documented as of this encounter Plan of Treatment Not on filedocumented as of this encounter Procedures Procedure Name Priority Date/Time Associated Diagnosis Comme nts XR SHOULDER RIGHT Routine 03/02/2020 10:38 AM Benign neoplasm of Results for this EDT soft tissue of right procedu re are in shoulder the results section. documented in this encounter Results XR Shoulder Right (Generic) [...] this report, please contact e number below. 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
--- OUTSIDE RECORDS SUMMARY | 2022-01-09 00:39 | XMS_ITS | Encounter Summary ---
:1955 [place] [address] Care Team Providers Name Role Phone Anne Marie Fay MD Primary Care Provider Encounter Details Date Type Department Care Team Description 09/28/2014 Surgery Main Operating Room Vamshi Fierro MD ECT (WRVU 2.5) [place] [facility] [address] [place] [id number] [phone] (Wo rk) Social History Tobacco Use Types Packs/Day Years Used Date Never Smoker Smokeless Tobacco: Never Used Alcohol Use Standard Drinks/Week Comments No 0 (1 standard drink = 0.6 oz pure alcoho l) Sex Assigned at Date Recorded Not on file documented as of this encounter Last Filed Vital Signs Vital Sign Reading Time Taken Comments Blood Pressure 124/94 09/28/2014 8:07 AM EDT Pulse 85 09/28/2014 8:07 AM EDT Temperature 36.4 ??C (97.5 ??F) 09/28/2014 6:35 AM EDT Respiratory Rate 16 09/28/2014 8:07 AM EDT Oxygen Saturation 98% 09/28/2014 8:07 AM EDT Inhaled Oxygen Concentration - - Weight 57.6 kg (127 lb) 09/28/2014 6:35 AM EDT Height 165.1 cm (5' 5) 09/28/2014 6:35 AM EDT Body Mass Index 21.13 09/28/2014 6:35 AM EDT documented in this encounter Discharge Instructions Discharge Genet Dueñas RN - 09/28/2014 8:26 AM EDT Go home and rest today. Resume regular diet. Any concerns call your MD. After 5pm, call [phone] and ask for Psychiatrist economic research assistant documented in this encounter Medications at Time [...] documented as of this encounter H&P Notes Abdias Buitrago MD - 09/28/2014 7:38 AM EDT Patient Name: Brianna Stringer Patient Age: 59 y.o. Birthdate: 1955 Admit date: 09/28/2014 5:55 AM Attending Physician: Vamshi Dukes MD HPI: Brianna Stringer is a 59 y.o. female who has been prescribed ECT. Pertinent history changes since last H&P: none Suicidal ideation: Denies. Homicidal ideation: Denies. ROS: All systems were reviewed and there were no significant complaints. PE: Patient Vitals for the past 8 hrs: BP Temp Temp src Pulse Resp SpO2 Height Weight 09/28/14 0635 124/50 mmHg 36.4 ??C (97.5 ??F) Temporal 79 16 100 % 165.1 cm (5' 5) 57.607 kg (127 lb) Gen: Resting comfortably in hospital bed, dressed in hospital gown. Pulm: Clear to auscultation bilaterally with good inspiratory effort. CV: Regular rate and rhythm, no murmurs/gallops/rubs. Neuro: No focal abnormalities. Cognitive: Alert and oriented to person, place, time; no gross cognitive deficits Remaining exam WNL. A/P: - I have seen and examined the patient. - Proceed with planned ECT procedure. Abdias Buitrago MD documented in this encounter Procedure Notes Vamshi Dukes MD - 09/28/2014 7:19 AM EDTProcedure(s): ECT Pre-Procedure Diagnose(s): Major depressive disorder, recurrent episode, severe, specified as with psychotic behavior ECT NOTE Patient received bifrontal ECT titration in the PACU. Total: #9; Bifrontal #2 The primary diagnosis is 296.34. Relevant history: Doing well. Tolerating bifrontal well after one treatment. Patient was attached to monitoring equipment. The anesthesia team administered the following medications: methohexital 80 mg succinylcholine 40 mg After adequate sedation and relaxation were achieved, patient received ECT using a MECTA device at the following parameters: Bifrontal 1/40/4/800 28 sec motor seizure 34 sec EEG seizure Patient was stabilized and appeared to tolerate the procedure. Complications: none Changes/recommendations/parameters for next treatment: No changes. Next treatment date: 10/[address] Arauz and Dr. Aurea Valencia documented in this encounter Plan of Treatment Not on filedocumented as of this encounter Procedures Procedure Name Priority Date/Time Associated Diagnosis Comme nts ECT (WRVU 2.5) Yes 09/28/2014 7:42 AM EDT ect 296.34 documented in this encounter Visit Diagnoses Not on filedocumented in this encounter Administered Medications Inactive Administered Medications - up to 3 most recent administrations Medication Order MAR Action Action Date Dose Rate Site lactated ringers infusion New Bag 09/28/2014 7:16 AM EDT 1,000 mLs 100 mL/hr 1,000 mL 1,000 mL, at 100 mL/hr, Intravenous, CONTINUOUS, Starting on Sun09/28/14 at 0730, Until Sun09/28/14 at 0819, Day of Surgery (Day of Procedure) documented in this encounter Active and Recently Administered Medications Times are shown in EDT. Continuous Medication Order 09/26/2014 09/27/2014 09/28/2014 lactated ringers infusion 1,000 mL (CANCELED) 0716 (New Bag - Provider: Trinity Ferrer RN) 1,000 mL, at 100 mL/hr, Intravenous, CON TINUOUS, Starting Sun09/28/14 at 0730, Until Sun09/28/14 at 0819, Day of Surgery (Day of Procedure) documented in this encounter Care Teams Welding Machine Operator Submerged Arc Relationship Specialty Start Date End Date Anne Marie Fay MD PCP - General 09/17/14 11/18/[address] [place] [address] [place] [address] documented as of this encounter
--- OUTSIDE RECORDS SUMMARY | 2022-01-09 00:39 | XMS_ITS | Encounter Summary ---
:1955 [place] [address] Care Team Providers Name Role Phone FayAnne Marie Radha SOTO Primary Care Provider Encounter Details Date Type Department Care Team Description 09/28/2014 Hospital Encounter Same Day Program at [facility] [place], [facility] [address] [place] [address] [place] [address] [phone] (Wo rk) Social History Tobacco Use Types Packs/Day Years Used Date Never Smoker Smokeless Tobacco: Never Used Alcohol Use Standard Drinks/Week Comments No 0 (1 standard drink = 0.6 oz pure alcoho l) Sex Assigned at Date Recorded Not on file documented as of this encounter Last Filed Vital Signs Vital Sign Reading Time Taken Comments Blood Pressure 148/72 09/28/2014 8:24 AM EDT Pulse 82 09/28/2014 8:24 AM EDT Temperature 36.4 ??C (97.5 ??F) 09/28/2014 6:35 AM EDT Respiratory Rate 16 09/28/2014 8:24 AM EDT Oxygen Saturation 95% 09/28/2014 8:24 AM EDT Inhaled Oxygen Concentration - - Weight 57.6 kg (127 lb) 09/28/2014 6:35 AM EDT Height 165.1 cm (5' 5) 09/28/2014 6:35 AM EDT Body Mass Index 21.13 09/28/2014 6:35 AM EDT documented in this encounter Discharge Instructions Discharge InstructionsGenet Mota RN - 09/28/2014 8:26 AM EDT Go home and rest today. Resume regular diet. Any concerns call your MD. After 5pm, call [phone] and ask for Psychiatrist operations dispatcher documented in this encounter Medications at Time [...] at 100 mL/hr, Intravenous, CON TINUOUS, Starting 09/28/14 at 0730, Until Sun09/28/14 at 0819, Day of Surgery (Day of Procedure) documented in this encounter Care Teams Dtp Operator Relationship Specialty Start Date End Date Anne Marie Fya MD PCP - General 09/17/14 11/18/[address] [place] [address] [place] [address] documented as of this encounter
--- OUTSIDE RECORDS SUMMARY | 2022-01-09 00:39 | XMS_ITS | Encounter Summary ---
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 patient with the above named resident/ See their note for details. I reviewed the patient's history during the visit and I agree with the details as written. My exam confirms the resident's findings. The assessment and plan were formulated in discussion with me and I agree with them as documented. Major issues addressed/discussed: 1. Pt reports that she feels good this am and laughs appropriately. She estimates she is 75% better,and reports no depression but 3/10 fear of retaliation. She tolerated switch to quetiapine [address] of olanzapine with reduced worry about her family. She tolerated her first bifrontal ECT today with good effect. We agreed to complete inpt ECT today and proceed with outpt ECT to achieveadequate response. 2. F/u Aurea Valencia MD, ECT service Primary Diagnosis: MDD with psychotic features I certify that the patient requires: [x] inpatient care for psychiatric treatment that could reasonably be expected to improve the patient's condition and or diagnostic study. Rah Arreguin RN - 09/24/2014 7:36 AM EDT 0748 - Pt admitted to PACU 17 from OR. Monitors applied and alarm limits set per patient. 0805 - Pt disoriented x 3 upon wakening, requiring reorientation. Pt denies pain or nausea, Vitals WNL. Pt stable to return to 219. Nursing report phoned to Kait acosta RN. 0839 - Pt transported to 219A in stable condition. Soco Valle RN - 09/23/2014 2:47 PM EDT TC with pts , Will at [phone]. He believes pt is about 75% back to baseline. He states that pt is not generally nervous/anxious at baseline. He states that she is very competent, relaxed and friendly at baseline. He agrees that she is much improved since beginning ECT txs. He available for outpatient ECT transportation and states it is absolytely no problem at all. He plans to pick-up pt at 12 noon tomorrow so that she can attend a 2:30pm appointment with Dr Valencia. Jenna Baker, MS - 09/23/2014 1:49 PM EDT Inpatient Daily Group Note Group: Goals Group Attendance: Left Early Behavior: Quiet Therapeutic Work Observed: Moderate Mood: Calm Notes: The group reviewed the DESTINY program and Module 3 work sheets including the CUBs and Mood Math.Pt post ECT and was falling asleep. She was encouraged to return to her room and to rest. JOSHUA Ford 09/23/2014 Inpatient Daily Group Note Group: DBT; Reviewed mindfulness and cuevas mind approach to managing feelings. Attendance: Present Behavior: Quiet Therapeutic Work Observed: Minimal Mood: Detached Notes: Patient listened and remained silent. Jenna Baker MS 09/23/2014 Inpatient Daily Group Note Group: Therapy Dog Attendance: Present Behavior: Quiet Therapeutic Work Observed: Minimal Mood: Detached Notes: Patient enjoyed dog and struggled with staying awake. Jenna Baker MS 09/23/2014 William Correia MD - 09/23/2014 12:34 PM EDT Psychiatry Inpatient - Progress Note 09/23/2014 ID: Brianna Lay is a 59 y.o. female admitted on 09/08/2014 for treatment resistant depression withpsychotic features, here receiving ECT. Hospital day 15. 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 Rates Depression: 10/02, Anxiety: 09/01. Denies SI. Delusions about family worse today thanyesterday. Feels 50% improved today (down from 75% yesterday) Timing: Assoc. Signs and symptoms: Sleep: slept well, 7.5 hours Appetite: good Energy: pretty good Modifying Factors: Patients depression has responded well to ECT, Delusions and paranoia are improved some but persistenting Review of Systems: (0,1,2) CONST No fever CV RESP No SOB GI No GI upset NEURO PRECIADO resolved today PSYCH See above. Physical Exam: (1,6,9) Vitals (24hr Range): Temp: [36.6 ??C (97.9 ??F)] Resp: -- Heart Rate: [91] BP: (129)/(90) SpO2: [97 %] Patient Vitals for the past 168 hrs: Weight 09/21/14 1855 60.328 kg (133 lb) 09/20/14 0914 58.968 kg (130 lb) Musculoskeletal System: normal gait and balance, ambulates independently and no atrophy. Hand tremor not notable today at rest, moderately severe on hand extension Mental Status Exam: ?? Appearance: fair grooming post ?? Behavior: fair eye contact, cooperative ?? Speech: soft, normal rate ?? Language: WNL ?? Mood: pretty good ?? Affect: restricted, smiling stiffly at times ?? Thought Process: logical & coherent, though appears somewhat confused ?? Associations: intact ?? Thought Content: no abnormalities noted; no SI ?? Perception: no AVH reported ?? Orientation: full ?? Attention/Concentration: good/fair ?? Cognition: WNL ?? Memory: a bit confused immediately post ECT ?? Fund of Knowledge: average ?? Insight: fair-good ?? Judgment: good Current Medications: Scheduled: ??? QUEtiapine 50 mg Oral Once ??? OLANZapine 10 mg Oral Nightly ??? liothyronine 50 mcg Oral QAM ??? levothyroxine 100 mcg Oral QAM ??? omega-3 acid ethyl esters 2 g Oral BID ??? sodium chloride 0.9 % 5 mL Intravenous BID ??? FLUoxetine 40 mg Oral Daily PRN: traZODone, polyethylene glycol, acetaminophen Labs: Last 24 Hours: No results found for this or any previous visit (from the past 24 hour(s)). Psychiatry Labs: Preg: No results found for this basename: HCGQUAL, HCGQUANT Heme: No results found for this basename: WBC, HGB, HCT, PLATELET, MCV, NEUTROABS No results found for this basename: HA1C, SEDRATE Chem: No results found for this basename: NA, K, CL, CO2, BUN, CREATITINE, GLUCOSE, GLUCFASTING No results found for this basename: CALCIUM, MAGNESIUM, PHOS LFTs: No results found for this basename: ALT, AST, GGT, ALKPHOS, BILITOT, AMMONIA Coags: No results found for this basename: PTT, PT, INR Thyroid: Lab Results Component Value Date TSH 0.11* 09/15/2014 [id number] 261* 09/15/2014 TT4 6.9 09/15/2014 Lipids and HgbA1C: No results found for this basename: CHLPL, HDL, CHOLHDL, LDLCHOL, LDLDIRECT, TRIG No results found for this basename: HA1C Vit Lvls: No results found for this basename: [id number], SFOLATE UA: No results found for this basename: GLUCOSEU, KETONESUA, PROTEINUADIP, BLOODUADIP, LEUKOESTERUA,NITRATEUA, WBCUA (May not represent most recent UA results. See eD-H labs for more details.) Tox: No results found for this basename: ETHANOL, ACTMNPHEN, SALICYLATE, LEAD No results found for this basename: UDAUSCREEN Rx Lvls: No results found for this basename: LITHIUM, CARBAMAZEPIN, VALPROATE, LAMOTRIGINE, CLOZAPINE Assessment: Brianna Lay is a 59 y.o. 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 Depression has improved with ECT but she has not achieved complete remission of depressed episode yet, and delusions are persisting some. Patient continues to have prominent tremor, most likely from zyprexa, less likely from prozac or ?side effect from ECT. ECT has some evidence to improve tremors transiently, will further investigate tremor as a side effect of ECT, but low suspicion. Given the tremor is most likely an EPS symptom from zyprexa we have discussed with the patient about changing from zyprexa to seroquel (which has less D2 block and hopefullywill improve the patient's tremor). Will give a 50mg now dose of seroquel and assess response, if patient feels that her delusions are improved without significant side effects, will switch from zyprexa to seroquel tonight. Plan was to discharge tomorrow after ECT, however given the new medication almeida ges and unexpected worsening/persistence of her paranoid delusions anticipate more ECT treatments will be necessary. Current Working Primary Diagnosis: MDD with psychotic and catatonic features 296.34 Clinical Global Impression Severity of illness: Considering your total clinical experience with this particular population, howmentally ill is the patient at this time? MODERATELY ILL Global improvement: Rate total improvement compared to condition at admission, how much has she changed? Moderately Improved Plan: # Depression with psychotic features ?? Continue fluoxetine 40mg daily ?? Olanzapine 10mg QHS, switch to 300mg seroquel tonight if patient benefits from seroquel 50mg now dose ?? Cytomel 50mg Qam ?? DESTINY psychotherapy # Hypothyroidism ?? Continue 100mg synthroid daily ?? Cytomel 50mg daily until ECT completed # Disposition: -After stabilization, patient expected to return home . Additional Information: Reasons for continued hospitalization: Warrants ongoing inpatient admission for safety, stabilization, and any other therapeutic intervention that could conceivably improve the patient's condition (including medication management, group psychotherapy, establishing adequate outpatient care). Outpatient Care: Provider Name Date Contacted By Treatment Team Psychiatric prescriber Aurea Valencia MD 09/09/14 Therapist PCP JEWEL CHERRY MD Patient Instruction/Education Provided: Patient provided verbal instructions during rounds regardingthe treatment plan. I have reviewed and agree with the multidisciplinary treatment plan. I certify that the patient requires [x] inpatient care for psychiatric treatment that could reasonably be expected to improve the patient's condition and/or diagnostic study. Signed By: William Correia MD 09/23/2014 Nathen Go MD - 09/23/2014 11:18 AM EDT PSYCHIATRY TEACHING PHYSICIAN INVOLVEMENT Location: Inpatient Psychiatry Attending Physician: RITIKA Go MD Resident name: William Correia MD I saw and evaluated the patient with the above named resident/ See their note for details. I reviewed the patient's history during the visit and I agree with the details as written. My exam confirms the resident's findings. The assessment and plan were formulated in discussion with me and I agree with them as documented. Major issues addressed/discussed: 1. Pt continuing to feel good this am. She estimates 50% improvement in depression, and delusion of harm to family but still fears that she irritated people at [facility] who might harm her family. Tremor is stable but prominent on olanzapine 10 mg nightly. We discussed options and agreed to plan to try a dose of quetiapine 50 mg this am to assess benefit for delusions and mood, and if this is well tolerated substitute quetiapine [address] of olanzapine to reduce exacerbation of tremor. We agreed to proceed with ECT , and plan for further outpt ECT. 2. Group therapy for coping skills training 3. Aftercare planning with family Primary Diagnosis: MDD with psychotic features I certify that the patient requires: [x] inpatient care for psychiatric treatment that could reasonably be expected to improve the patient's condition and or diagnostic study. Josselin Sparks MHT - 09/22/2014 1:40 PM EDT Inpatient Daily Group Note Group: Goals Group Notes: The group reviewed the BA program and Module 2 work sheet TME. Pt at ECT. Not available. JOSHUA Ford 09/22/2014 Inpatient Daily Group Note Group: Relaxation Group Attendance: Present Behavior: Quiet Therapeutic Work Observed: Moderate Mood: Calm Notes: The group reviewed the stress cycle, the quieting resposne, and discussed the use of breathing techniques. Pt practiced mindful breathing. Pt post ECT. She was quiet, attentive. JOSHUA Ford 09/22/2014 Inpatient Daily Group Note Group: Healthy Boundaries; Reviewed self-care, communication and relationships and how boundaries can help an individual to meet their needs. Participants encouraged to set goals to work on boundaries for the day. Attendance: Present Behavior: Quiet Therapeutic Work Observed: Minimal Notes: Patient listened and appeared sleepy. She struggled with identifying goals or boundaries to work on. Jenna Tillman Olivia, MS 09/22/2014 Inpatient Daily Group Note Group: Workshop Attendance: Present Behavior: Quiet Therapeutic Work Observed: Moderate Mood: Calm Notes: Pt started a different project due to her pronounced tremor making her first project challenging. She worked throughout session and was responsive to questions. She is looking forward to going home on . JOSHUA Ford 09/22/2014 Inpatient Daily Group Note Group: Wellness Recovery Planning Group Attendance: Present Behavior: Quiet Therapeutic Work Observed: Moderate Mood: Calm Notes: The group reviewed the wellness recovery plan and discussed how to put it into action once discharged. Pt quiet, attentive to the discussion. JOSHUA Ford 09/23/2014 Nathen Go MD - 09/22/2014 10:46 AM EDT Psychiatry Inpatient - Progress Note 09/22/2014 ID: Brianna Lay is a 59 y.o. female admitted on 09/08/2014 for treatment resistant depression withpsychotic features, here receiving ECT. Hospital day 14. 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 Rates Depression: :2/10, Anxiety: 2/10. Denies SI. Delusions about family improved. Feels 75% improved today Timing: Assoc. Signs and symptoms: Sleep: slept well, at least 8 hours Appetite: good Energy: pretty energetic Modifying Factors: Patient seen immediately post ECT and is much improved in mood and signs of depression from ECT Recalls pastors comments about unclean spirits triggering her delusions, but feels safer about this now Review of Systems: (0,1,2) CONST No fever CV RESP No SOB GI No GI upset NEURO PRECIADO resolved today PSYCH See above. Physical Exam: (1,6,9) Vitals (24hr Range): Temp: [36.2 ??C (97.2 ??F)-37 ??C (98.6 ??F)] Resp: [16-18] Heart Rate: [94-107] BP: (113-141)/(69-78) SpO2: [96 %-97 %] Patient Vitals for the past 168 hrs: Weight 09/21/14 1855 60.328 kg (133 lb) 09/20/14 0914 58.968 kg (130 lb) Musculoskeletal System: normal gait and balance, ambulates independently and no atrophy. Hand tremor not notable today at rest, moderately severe on hand extension Mental Status Exam: ?? Appearance: fair grooming post ?? Behavior: fair eye contact, cooperative ?? Speech: soft, normal rate ?? Language: WNL ?? Mood: pretty good ?? Affect: restricted, smiling stiffly at times ?? Thought Process: logical & coherent, though appears somewhat confused ?? Associations: intact ?? Thought Content: no abnormalities noted; no SI ?? Perception: no AVH reported ?? Orientation: full ?? Attention/Concentration: good/fair ?? Cognition: WNL ?? Memory: a bit confused immediately post ECT ?? Fund of Knowledge: average ?? Insight: fair-good ?? Judgment: good Current Medications: Scheduled: ??? OLANZapine 10 mg Oral Nightly ??? liothyronine 50 mcg Oral QAM ??? levothyroxine 100 mcg Oral QAM ??? omega-3 acid ethyl esters 2 g Oral BID ??? sodium chloride 0.9 % 5 mL Intravenous BID ??? FLUoxetine 40 mg Oral Daily PRN: traZODone, polyethylene glycol, acetaminophen Labs: Last 24 Hours: No results found for this or any previous visit (from the past 24 hour(s)). Psychiatry Labs: Preg: No results found for this basename: HCGQUAL, HCGQUANT Heme: No results found for this basename: WBC, HGB, HCT, PLATELET, MCV, NEUTROABS No results found for this basename: HA1C, SEDRATE Chem: No results found for this basename: NA, K, CL, CO2, BUN, CREATITINE, GLUCOSE, GLUCFASTING No results found for this basename: CALCIUM, MAGNESIUM, PHOS LFTs: No results found for this basename: ALT, AST, GGT, ALKPHOS, BILITOT, AMMONIA Coags: No results found for this basename: PTT, PT, INR Thyroid: Lab Results Component Value Date TSH 0.11* 09/15/2014 [id number] 261* 09/15/2014 TT4 6.9 09/15/2014 Lipids and HgbA1C: No results found for this basename: CHLPL, HDL, CHOLHDL, LDLCHOL, LDLDIRECT, TRIG No results found for this basename: HA1C Vit Lvls: No results found for this basename: [id number], SFOLATE UA: No results found for this basename: GLUCOSEU, KETONESUA, PROTEINUADIP, BLOODUADIP, LEUKOESTERUA,NITRATEUA, WBCUA (May not represent most recent UA results. See eD-H labs for more details.) Tox: No results found for this basename: ETHANOL, ACTMNPHEN, SALICYLATE, LEAD No results found for this basename: UDAUSCREEN Rx Lvls: No results found for this basename: LITHIUM, CARBAMAZEPIN, VALPROATE, LAMOTRIGINE, CLOZAPINE Assessment: Brianna Lay is a 59 y.o. 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 Clearly improved with ECT but not to remission of depressed episode yet, and having some confusion related to ECT. Tremor appears improved with reduction in olanzapine dose and yet sleep remained good and delusion is minimal. We agreed to continue current dose tonight and consider further olanzapine reduction tomorrow. The next 2 days will be crucial to judging stability of improvement and need for further ECT beyond to attain sustained remission Current Working Primary Diagnosis: MDD with psychotic and catatonic features 296.34 Clinical Global Impression Severity of illness: Considering your total clinical experience with this particular population, howmentally ill is the patient at this time? MODERATELY ILL Global improvement: Rate total improvement compared to condition at admission, how much has she changed? Moderately Improved Plan: # Depression with psychotic features ?? Continue fluoxetine 40mg daily ?? Olanzapine 10mg QHS ?? Cytomel 50mg Qam ?? DESTINY psychotherapy # Hypothyroidism ?? Continue 100mg synthroid daily ?? Cytomel 50mg daily until ECT completed # Disposition: -After stabilization, patient expected to return home . Additional Information: Reasons for continued hospitalization: Warrants ongoing inpatient admission for safety, stabilization, and any other therapeutic intervention that could conceivably improve the patient's condition (including medication management, group psychotherapy, establishing adequate outpatient care). Outpatient Care: Provider Name Date Contacted By Treatment Team Psychiatric prescriber Aurea Valencia MD 09/09/14 Therapist PCP JEWEL CHERRY MD Patient Instruction/Education Provided: Patient provided verbal instructions during rounds regardingthe treatment plan. I have reviewed and agree with the multidisciplinary treatment plan. I certify that the patient requires [x] inpatient care for psychiatric treatment that could reasonably be expected to improve the patient's condition and/or diagnostic study. Signed By: Nathen Go MD 09/22/2014 William Correia MD - 09/21/2014 2:46 PM EDT Psychiatry Inpatient - Progress Note 09/21/2014 ID: Brianna Lay is a 59 y.o. female admitted on 09/08/2014 for treatment resistant depression withpsychotic features, here receiving ECT. Hospital day 13. 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 Rates D:10, A:2/10. Denies SI Timing: steadily improving mood each day Assoc. Signs and symptoms: continues to have prominent essential tremor of both hands Sleep: slept well, at least 8 hours Appetite: good Energy: good Modifying Factors: Patient reports ECT is helping, patient reports benefiting from inpatient environment Review of Systems: (0,1,2) CONST No fever CV RESP No SOB GI No GI upset NEURO PRECIADO resolved PSYCH See above. Physical Exam: (1,6,9) Vitals (24hr Range): Temp: [36.9 ??C (98.4 ??F)] Resp: [16-20] Heart Rate: [101-112] BP: (120-129)/(70-72) SpO2: [92 %-96 %] Patient Vitals for the past 168 hrs: Weight 09/20/14 0914 58.968 kg (130 lb) Musculoskeletal System: normal gait and balance, ambulates independently, no atrophy and no abnormal movements Mental Status Exam: ?? Appearance: well groomed ?? Behavior: improving eye contact, cooperative; notable bilateral upper ext gross tremor (continuesto be very prominent) ?? Speech: soft, normal rate ?? Language: WNL ?? Mood: doing better than when I came in ?? Affect: restricted, smiling appropriately at times ?? Thought Process: logical & coherent, though appears confused at times ?? Associations: intact ?? Thought Content: no abnormalities noted; no SI ?? Perception: no AVH reported ?? Orientation: full ?? Attention/Concentration: fair/fair ?? Cognition: WNL ?? Memory: no memory issues noted today ?? Fund of Knowledge: average ?? Insight: fair-good ?? Judgment: good Current Medications: Scheduled: ??? levothyroxine 100 mcg Oral QAM ??? omega-3 acid ethyl esters 2 g Oral BID ??? sodium chloride 0.9 % 5 mL Intravenous BID ??? FLUoxetine 40 mg Oral Daily ??? OLANZapine 15 mg Oral Nightly PRN: traZODone, polyethylene glycol, acetaminophen Labs: Last 24 Hours: No results found for this or any previous visit (from the past 24 hour(s)). Psychiatry Labs: Preg: No results found for this basename: HCGQUAL, HCGQUANT Heme: No results found for this basename: WBC, HGB, HCT, PLATELET, MCV, NEUTROABS No results found for this basename: HA1C, SEDRATE Chem: No results found for this basename: NA, K, CL, CO2, BUN, CREATITINE, GLUCOSE, GLUCFASTING No results found for this basename: CALCIUM, MAGNESIUM, PHOS LFTs: No results found for this basename: ALT, AST, GGT, ALKPHOS, BILITOT, AMMONIA Coags: No results found for this basename: PTT, PT, INR Thyroid: Lab Results Component Value Date TSH 0.11* 09/15/2014 [id number] 261* 09/15/2014 TT4 6.9 09/15/2014 Lipids and HgbA1C: No results found for this basename: CHLPL, HDL, CHOLHDL, LDLCHOL, LDLDIRECT, TRIG No results found for this basename: HA1C Vit Lvls: No results found for this basename: [id number], SFOLATE UA: No results found for this basename: GLUCOSEU, KETONESUA, PROTEINUADIP, BLOODUADIP, LEUKOESTERUA,NITRATEUA, WBCUA (May not represent most recent UA results. See eD-H labs for more details.) Tox: No results found for this basename: ETHANOL, ACTMNPHEN, SALICYLATE, LEAD No results found for this basename: UDAUSCREEN Rx Lvls: No results found for this basename: LITHIUM, CARBAMAZEPIN, VALPROATE, LAMOTRIGINE, CLOZAPINE Assessment: Brianna Lay is a 59 y.o. 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 Clearly improved with ECT but may be having some confusion related to ECT. 09/21: Patient reports 50% back to baseline. Still has some depression and still has some fears of hurting her family, but much less than when she came in. Patient continues to have tremor. Given the cessation of cytomel hasn't improved the tremor and she continues to have cognitive slowing, will restart the cytomel. Will further decrease the zyprexa from 15mg to 10mg QHS to hopefully improve her tremor. Current Working Primary Diagnosis: MDD with psychotic and catatonic features 296.34 Clinical Global Impression Severity of illness: Considering your total clinical experience with this particular population, howmentally ill is the patient at this time? MODERATELY ILL Global improvement: Rate total improvement compared to condition at admission, how much has she changed? Moderately Improved Plan: # Depression with psychotic features ?? Continue prozac 40mg daily ?? Decrease zyprexa to 10mg QHS ?? Restart Cytomel 50mg Qam ?? Appropriate for ESCORT activity level # Hypothyroidism ?? Continue 100mg synthroid daily ?? Restarted cytomel 50mg daily # Disposition: -After stabilization, patient expected to return home . Additional Information: Reasons for continued hospitalization: Warrants ongoing inpatient admission for safety, stabilization, and any other therapeutic intervention that could conceivably improve the patient's condition (including medication management, group psychotherapy, establishing adequate outpatient care). Outpatient Care: Provider Name Date Contacted By Treatment Team Psychiatric prescriber Aurea Valencia MD 09/09/14 Therapist PCP JEWEL CHERRY MD Patient Instruction/Education Provided: Patient provided verbal instructions during rounds regardingthe treatment plan. I have reviewed and agree with the multidisciplinary treatment plan. I certify that the patient requires [x] inpatient care for psychiatric treatment that could reasonably be expected to improve the patient's condition and/or diagnostic study. Signed By: William Correia MD 09/21/2014 Josselin Hickey MHT - 09/21/2014 1:29 PM EDT Inpatient Daily Group Note Group: Goals Group Notes: The group reviewed the DESTINY program and Module 1 work sheet the CUBs. Pt at ECT. Not available. JOSHUA Ford 09/21/2014 Inpatient Daily Group Note Group: CBT; Reviewed model, distorted thinking, and automatic responses. Participants encouraged to identify patterns in their thinking to manage emotion and delay acting on impulses. Participant offered strategies to challenge thoughts and open up the lens again. Attendance: Present Behavior: Quiet Therapeutic Work Observed: Minimal Mood: Detached Notes: Patient appeared very sleepy and stayed silent. Patient apologized for dozing off during group and complained about lack of sleep last night. Jenna Baker, MS 09/21/2014 Inpatient Daily Group Note Group: Medication Education Group Attendance: Present Behavior: Quiet Therapeutic Work Observed: Moderate Mood: Calm Notes: The group reviewed the medication education handout which reviews the classes of medication used in psychiatry and neurotransmitters. Pt attended with her . She was quiet, attentive. JOSHUA Ford 09/21/2014 Nathen Go MD - 09/21/2014 10:32 AM EDT PSYCHIATRY TEACHING PHYSICIAN INVOLVEMENT Location: Inpatient Psychiatry 2E Attending Physician: RITIKA Go MD Resident name: William Correia MD I saw and evaluated the patient with the above named resident/ See their note for details. I reviewed the patient's history during the visit and I agree with the details as written. My exam confirms the resident's findings. The assessment and plan were formulated in discussion with me and I agree with them as documented. Major issues addressed/discussed: 1. Pt improved with ECT this am. She estimates 50% improvement in depression, and delusion of harm to family but still fears that harm could come to her family. Tremor is not improved off of T3 and olanzapine is now reduced to 15 mg nightly. We agreed to plan to taper olanzapine to 10 mg nightly and restore T3 at 50 mcg daily, and proceed with ECT & . 2. Group therapy for coping skills training 3. Aftercare planning with family Primary Diagnosis: MDD with psychotic features I certify that the patient requires: [x] inpatient care for psychiatric treatment that could reasonably be expected to improve the patient's condition and or diagnostic study. Bronwyn Elliott RN - 09/21/2014 8:51 AM EDT Pt met phase 1 recovery without complications. Handoff report given to TERESA Park on 2WP. Awaiting transportation to floor. Giovany Alicia MD - 09/20/2014 10:58 AM EDT Psychiatry Inpatient - Progress Note 09/20/2014 ID: Brianna Lay is a 59 y.o. female admitted on 09/08/2014 for treatment resistant depression withpsychotic features, here receiving ECT. Hospital day 12. 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 No major events overnight. Shaking is improved. Quality: I think I'm doing better Severity: moderate; states she's three quarters better Timing: improved since yesterday Assoc. Signs and symptoms: Sleep: slept well, at least 7 hours Appetite: good Energy: good Modifying Factors: ECT helpful for depression, zyprexa helpful for delusions. Tylenol helpful for headache yesterday, which has resolved. Review of Systems: (0,1,2) CONST No fever CV RESP No SOB GI No GI upset NEURO PRECIADO resolved PSYCH See above. Physical Exam: (1,6,9) Vitals (24hr Range): Temp: [36.3 ??C (97.3 ??F)] Resp: [16] Heart Rate: [97] BP: (126)/(78) SpO2: [96 %] Patient Vitals for the past 168 hrs: Weight 09/20/14 0914 58.968 kg (130 lb) 09/13/14 1426 58.968 kg (130 lb) Musculoskeletal System: normal gait and balance, ambulates independently, no atrophy and no abnormal movements Mental Status Exam: ?? Appearance: well groomed ?? Behavior: improving eye contact, cooperative; notable bilateral upper ext gross tremor ?? Speech: soft, normal rate ?? Language: WNL ?? Mood: good ?? Affect: restricted, smiling appropriately at times ?? Thought Process: logical & coherent, though appears confused at times ?? Associations: intact ?? Thought Content: no abnormalities noted; no SI ?? Perception: no AVH reported ?? Orientation: full ?? Attention/Concentration: fair/fair ?? Cognition: WNL ?? Memory: no memory issues noted today ?? Fund of Knowledge: average ?? Insight: fair-good ?? Judgment: good Current Medications: Scheduled: ??? levothyroxine 100 mcg Oral QAM ??? omega-3 acid ethyl esters 2 g Oral BID ??? sodium chloride 0.9 % 5 mL Intravenous BID ??? FLUoxetine 40 mg Oral Daily ??? OLANZapine 15 mg Oral Nightly PRN: traZODone, polyethylene glycol, acetaminophen Labs: Last 24 Hours: No results found for this or any previous visit (from the past 24 hour(s)). Psychiatry Labs: Preg: No results found for this basename: HCGQUAL, HCGQUANT Heme: No results found for this basename: WBC, HGB, HCT, PLATELET, MCV, NEUTROABS No results found for this basename: HA1C, SEDRATE Chem: No results found for this basename: NA, K, CL, CO2, BUN, CREATITINE, GLUCOSE, GLUCFASTING No results found for this basename: CALCIUM, MAGNESIUM, PHOS LFTs: No results found for this basename: ALT, AST, GGT, ALKPHOS, BILITOT, AMMONIA Coags: No results found for this basename: PTT, PT, INR Thyroid: Lab Results Component Value Date TSH 0.11* 09/15/2014 [id number] 261* 09/15/2014 TT4 6.9 09/15/2014 Lipids and HgbA1C: No results found for this basename: CHLPL, HDL, CHOLHDL, LDLCHOL, LDLDIRECT, TRIG No results found for this basename: HA1C Vit Lvls: No results found for this basename: [id number], SFOLATE UA: No results found for this basename: GLUCOSEU, KETONESUA, PROTEINUADIP, BLOODUADIP, LEUKOESTERUA,NITRATEUA, WBCUA (May not represent most recent UA results. See eD-H labs for more details.) Tox: No results found for this basename: ETHANOL, ACTMNPHEN, SALICYLATE, LEAD No results found for this basename: UDAUSCREEN Rx Lvls: No results found for this basename: LITHIUM, CARBAMAZEPIN, VALPROATE, LAMOTRIGINE, CLOZAPINE Assessment: Brianna Lay is a 59 y.o. 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 Clearly improved with ECT but may be having some confusion related to ECT. Will cont with current treatment plan. Current Working Primary Diagnosis: MDD with psychotic and catatonic features 296.34 Clinical Global Impression Severity of illness: Considering your total clinical experience with this particular population, howmentally ill is the patient at this time? MODERATELY ILL Global improvement: Rate total improvement compared to condition at admission, how much has she changed? Moderately Improved Plan: # Depression with psychotic features ?? Continue current treatment plan. ?? Appropriate for ESCORT activity level # Hypothyroidism ?? Continue T4; hold T3 for now # Disposition: -After stabilization, patient expected to return home . Additional Information: Reasons for continued hospitalization: Warrants ongoing inpatient admission for safety, stabilization, and any other therapeutic intervention that could conceivably improve the patient's condition (including medication management, group psychotherapy, establishing adequate outpatient care). Outpatient Care: Provider Name Date Contacted By Treatment Team Psychiatric prescriber Aurea Valencia MD 09/09/14 Therapist PCP JEWEL CHERRY MD Patient Instruction/Education Provided: Patient provided verbal instructions during rounds regardingthe treatment plan. I have reviewed and agree with the multidisciplinary treatment plan. I certify that the patient requires [x] inpatient care for psychiatric treatment that could reasonably be expected to improve the patient's condition and/or diagnostic study. Signed By: Giovany Alicia MD 09/20/2014 Olivia Jenna Primo, MS - 09/20/2014 10:49 AM EDT Inpatient Daily Group Note Group: Goals; Reviewed DESTINY, GEM, daily schedule, patients' progress, patients' goals and read daily text. Attendance: Present Behavior: Quiet Therapeutic Work Observed: Moderate Mood: Calm Notes: Patient has goal to prepare for discharge, work on plan pg. 3-4, have visitors, go to groups. Jenna Baker MS 09/20/2014 Inpatient Daily Group Note Group: workshop Attendance: Present Behavior: Quiet Therapeutic Work Observed: Moderate Mood: Calm Notes: Patient engaged with sun catcher and being quietly social. Jenna Baker MS 09/20/2014 Inpatient Daily Group Note Group: Open discussion; Check-in and discussion regarding discharge and arriving home. Attendance: Present Behavior: Quiet Therapeutic Work Observed: Minimal Mood: Calm Notes: Patient said that she is feeling pretty good today and remained silent for rest of group. Jenna Baker, 09/20/2014 Giovany Alicia MD - 09/19/2014 2:50 PM EDT Psychiatry Inpatient - Progress Note 09/19/2014 ID: Brianna Lay is a 59 y.o. female admitted on 09/08/2014 for treatment resistant depression withpsychotic features, here receiving ECT. Hospital day 11. 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 Has had notable shaking which she states may be related to thyroid issues - Cytomel was discontinue to see if this resolves/improves. She states upper extremity tremor is about the same as yesterday. Quality: I think I'm doing better Severity: moderate Timing: improved since yesterday Assoc. Signs and symptoms: Sleep: slept well, at least 7 hours Appetite: good Energy: good Modifying Factors: ECT helpful for depression, zyprexa helpful for delusions. Tylenol helpful for headache yesterday, which has resolved. Review of Systems: (0,1,2) CONST No fever CV RESP No SOB GI No GI upset NEURO PRECIADO resolved PSYCH See above. Physical Exam: (1,6,9) Vitals (24hr Range): Temp: [36.5 ??C (97.7 ??F)] Resp: [16] Heart Rate: [102] BP: (115)/(64) SpO2: [97 %] Patient Vitals for the past 168 hrs: Weight 09/13/14 1426 58.968 kg (130 lb) Musculoskeletal System: normal gait and balance, ambulates independently, no atrophy and no abnormal movements Mental Status Exam: ?? Appearance: well groomed ?? Behavior: improving eye contact, cooperative; notable bilateral upper ext gross tremor ?? Speech: soft, normal rate ?? Language: WNL ?? Mood: good ?? Affect: restricted, smiling appropriately at times ?? Thought Process: logical & coherent, though appears confused at times ?? Associations: intact ?? Thought Content: no abnormalities noted; no SI ?? Perception: no AVH reported ?? Orientation: full ?? Attention/Concentration: fair/fair ?? Cognition: WNL ?? Memory: no memory issues noted today ?? Fund of Knowledge: average ?? Insight: fair-good ?? Judgment: good Current Medications: Scheduled: ??? levothyroxine 100 mcg Oral QAM ??? omega-3 acid ethyl esters 2 g Oral BID ??? sodium chloride 0.9 % 5 mL Intravenous BID ??? FLUoxetine 40 mg Oral Daily ??? OLANZapine 15 mg Oral Nightly PRN: traZODone, polyethylene glycol, acetaminophen Labs: Last 24 Hours: No results found for this or any previous visit (from the past 24 hour(s)). Psychiatry Labs: Preg: No results found for this basename: HCGQUAL, HCGQUANT Heme: No results found for this basename: WBC, HGB, HCT, PLATELET, MCV, NEUTROABS No results found for this basename: HA1C, SEDRATE Chem: No results found for this basename: NA, K, CL, CO2, BUN, CREATITINE, GLUCOSE, GLUCFASTING No results found for this basename: CALCIUM, MAGNESIUM, PHOS LFTs: No results found for this basename: ALT, AST, GGT, ALKPHOS, BILITOT, AMMONIA Coags: No results found for this basename: PTT, PT, INR Thyroid: Lab Results Component Value Date TSH 0.11* 09/15/2014 [id number] 261* 09/15/2014 TT4 6.9 09/15/2014 Lipids and HgbA1C: No results found for this basename: CHLPL, HDL, CHOLHDL, LDLCHOL, LDLDIRECT, TRIG No results found for this basename: HA1C Vit Lvls: No results found for this basename: [id number], SFOLATE UA: No results found for this basename: GLUCOSEU, KETONESUA, PROTEINUADIP, BLOODUADIP, LEUKOESTERUA,NITRATEUA, WBCUA (May not represent most recent UA results. See eD-H labs for more details.) Tox: No results found for this basename: ETHANOL, ACTMNPHEN, SALICYLATE, LEAD No results found for this basename: UDAUSCREEN Rx Lvls: No results found for this basename: LITHIUM, CARBAMAZEPIN, VALPROATE, LAMOTRIGINE, CLOZAPINE Assessment: Brianna Lay is a 59 y.o. 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 Clearly improved with ECT but may be having some confusion related to ECT. Will cont with current treatment plan. Current Working Primary Diagnosis: MDD with psychotic and catatonic features 296.34 Clinical Global Impression Severity of illness: Considering your total clinical experience with this particular population, howmentally ill is the patient at this time? MODERATELY ILL Global improvement: Rate total improvement compared to condition at admission, how much has she changed? Moderately Improved Plan: # Depression with psychotic features ?? Continue current treatment plan. ?? Appropriate for ESCORT activity level # Hypothyroidism ?? Continue T4; hold T3 for now # Disposition: -After stabilization, patient expected to return home . Additional Information: Reasons for continued hospitalization: Warrants ongoing inpatient admission for safety, stabilization, and any other therapeutic intervention that could conceivably improve the patient's condition (including medication management, group psychotherapy, establishing adequate outpatient care). Outpatient Care: Provider Name Date Contacted By Treatment Team Psychiatric prescriber Aurea Valencia MD 09/09/14 Therapist PCP JEWEL CHERRY MD Patient Instruction/Education Provided: Patient provided verbal instructions during rounds regardingthe treatment plan. I have reviewed and agree with the multidisciplinary treatment plan. I certify that the patient requires [x] inpatient care for psychiatric treatment that could reasonably be expected to improve the patient's condition and/or diagnostic study. Signed By: Giovany Alicia MD 09/19/2014 Teresa Key - 09/19/2014 2:39 PM EDT Inpatient Daily Group Note Group: Goals Attendance: Present Behavior: Conversational Therapeutic Work Observed: Moderate Mood: Calm Notes: Reveiwed DESTINY module 5: Two Day Activity Schedule. Pt.'s goal: Do DESTINY worksheet; go to groups. Teresa Key 09/19/2014 Inpatient Daily Group Note Group: Workshop Attendance: Present Behavior: Quiet Therapeutic Work Observed: Moderate Mood: Calm Notes: Pt. had difficulty working on project of stained glass due to hand tremor. Teresa Key 09/19/2014 Inpatient Daily Group Note Group: Outside/Inside walk Notes: Pt. engaged in conversation initiated by others. Teresa Key 09/19/2014 Inpatient Daily Group Note Group: Problem Solving Focus of group was review of the technique SOLVE from the Thoughts & Feelings Workbook with discussion and review of example. Attendance: Present Behavior: Quiet Therapeutic Work Observed: Moderate Mood: Calm Notes: Pt. attentive although quiet. Teresa Key 09/19/2014 Maddison Concepcion RN - 09/19/2014 7:07 AM EDT Pt slept well, 7.5 hrs. She denies headache, continues w/ marked B hand tremors, Cytomel held this am as per AUG. Alonzo Cornejo MD - 09/18/2014 1:05 PM EDT Attending Physician: Alonzo Martel MD Resident name:Tommy Moraes MD I saw and evaluated the patient with the above named resident/ See their note for details. I reviewed the patient's history during the visit and I agree with the details as written. My exam confirms the resident's findings. The assessment and plan were formulated in discussion with me and I agree with them as documented. Major Issues discussed: Had ECT this morning. Reports she is Improved. Depression lessened. Delusions diminished More hopeful. Continue ECT on Sunday. If improvement holds over weekend ,discharge may be possible fairly soon I certify that the patient requires [x] inpatient care for psychiatric treatment that could reasonably be expected to improve the patient's condition and/or diagnostic study Tommy Correa Jr., MD - 09/18/2014 12:51 PM EDT Psychiatry Inpatient - Progress Note 09/18/2014 ID: Brianna Lay is a 59 y.o. female admitted on 09/08/2014 for treatment resistant depression withpsychotic features, here receiving ECT. Hospital day 10. 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 Her mood and affect appear to be improving.She has not thought of her delusions about harming her family in days. She feels like she is improving. Timing: Assoc. Signs and symptoms: Sleep: slept 8 hrs, well Appetite: hungry for breakfast Energy: good Modifying Factors: ECT helpful for depression, zyprexa helpful for delusions. Tylenol helpful for headache yesterday, which has resolved . Duration: Context: Her visited yesterday and thought she was 50-75% improved, but still not at baseline. He mentioned noticing some short term memory issues. Review of Systems: (0,1,2) CONST No fever CV RESP No SOB GI No GI upset NEURO PRECIADO resolved PSYCH See above. Physical Exam: (1,6,9) Vitals (24hr Range): Temp: [36.6 ??C (97.9 ??F)] Resp: [18-20] Heart Rate: [91-111] BP: (119-144)/(62-109) SpO2: [94 %-97 %] Patient Vitals for the past 168 hrs: Weight 09/13/14 1426 58.968 kg (130 lb) Musculoskeletal System: normal gait and balance, ambulates independently, no atrophy and no abnormal movements Mental Status Exam: ?? Appearance: well groomed ?? Behavior: improving eye contact, cooperative ?? Speech: soft, normal rate ?? Language: WNL ?? Mood: ok ?? Affect: a little flat after ECT, smiling appropriately at times ?? Thought Process: logical & coherent ?? Associations: intact ?? Thought Content: minimal delusion of family in danger, denies SI ?? Perception: no AVH reported ?? Orientation: full ?? Attention/Concentration: fair/fair ?? Cognition: WNL ?? Memory: no memory issues noted today ?? Fund of Knowledge: average ?? Insight: fair-good ?? Judgment: good Current Medications: Scheduled: ??? levothyroxine 100 mcg Oral QAM ??? omega-3 acid ethyl esters 2 g Oral BID ??? sodium chloride 0.9 % 5 mL Intravenous BID ??? liothyronine 50 mcg Oral QAM ??? FLUoxetine 40 mg Oral Daily ??? OLANZapine 15 mg Oral Nightly PRN: traZODone, polyethylene glycol, acetaminophen Labs: Last 24 Hours: No results found for this or any previous visit (from the past 24 hour(s)). Psychiatry Labs: Preg: No results found for this basename: HCGQUAL, HCGQUANT Heme: No results found for this basename: WBC, HGB, HCT, PLATELET, MCV, NEUTROABS No results found for this basename: HA1C, SEDRATE Chem: No results found for this basename: NA, K, CL, CO2, BUN, CREATITINE, GLUCOSE, GLUCFASTING No results found for this basename: CALCIUM, MAGNESIUM, PHOS LFTs: No results found for this basename: ALT, AST, GGT, ALKPHOS, BILITOT, AMMONIA Coags: No results found for this basename: PTT, PT, INR Thyroid: Lab Results Component Value Date TSH 0.11* 09/15/2014 [id number] 261* 09/15/2014 TT4 6.9 09/15/2014 Lipids and HgbA1C: No results found for this basename: CHLPL, HDL, CHOLHDL, LDLCHOL, LDLDIRECT, TRIG No results found for this basename: HA1C Vit Lvls: No results found for this basename: [id number], SFOLATE UA: No results found for this basename: GLUCOSEU, KETONESUA, PROTEINUADIP, BLOODUADIP, LEUKOESTERUA,NITRATEUA, WBCUA (May not represent most recent UA results. See eD-H labs for more details.) Tox: No results found for this basename: ETHANOL, ACTMNPHEN, SALICYLATE, LEAD No results found for this basename: UDAUSCREEN Rx Lvls: No results found for this basename: LITHIUM, CARBAMAZEPIN, VALPROATE, LAMOTRIGINE, CLOZAPINE Assessment: Brianna Lay is a 59 y.o. 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 She is demonstrating substantial improvement in responseto her first 4 ECT, and feeling best improvement thusfar. We agreed to proceed with ECT 3 times nextweek, and she continues to improve during the interval between treatments. We will see if her improvements persist over the weekend. If so we will consider a Sunday discharge. Current Working Primary Diagnosis: MDD with psychotic and catatonic features 296.34 Clinical Global Impression Severity of illness: Considering your total clinical experience with this particular population, howmentally ill is the patient at this time? 5 = Markedly ill Global improvement: Rate total improvement compared to condition at admission, how much has she changed? Moderately Improved Plan: # Depression with psychotic features ?? Continue fluoxetine + olanzapine, consider tapering olanzapine dose when delusions more completely resolved and sleep improved ?? ECT Sunday, consider course complete if benefits persist through the weekend. ?? Family support and reassurance ?? Daily physical exercise ?? Supplementation with O3FAs # Hypothyroidism ?? Continue T3 supplementation of prior T4 treatment ?? No signs of hyperthyroidism today, levels are c/w T3 supplementation for ECT # Disposition: -After stabilization, patient expected to return home . Additional Information: Reasons for continued hospitalization: Warrants ongoing inpatient admission for safety, stabilization, and any other therapeutic intervention that could conceivably improve the patient's condition (including medication management, group psychotherapy, establishing adequate outpatient care). Outpatient Care: Provider Name Date Contacted By Treatment Team Psychiatric prescriber Aurea Valencia MD 09/09/14 Therapist PCP JEWEL CHERRY MD Patient Instruction/Education Provided: Patient provided verbal instructions during rounds regardingthe treatment plan. I have reviewed and agree with the multidisciplinary treatment plan. I certify that the patient requires [x] inpatient care for psychiatric treatment that could reasonably be expected to improve the patient's condition and/or diagnostic study. Signed By: Tommy Moraes Jr., MD 09/18/2014 Teresa Key - 09/18/2014 12:05 PM EDT Inpatient Daily Group Note Group: Goals Notes: Post ECT did not attend. Teresa Key 09/18/2014 Inpatient Daily Group Note Group: TAC Focus of group was talking about feeling words picked randomly and how this word applies to life. Attendance: Present Behavior: Conversational Therapeutic Work Observed: Moderate Mood: Calm Notes: Pt. actively involved sharing her feeling word of fearful. Shared she is fearful as she has noticed an increase in her tremor in hands since this a.m. ECT, showing the group. Encouraged to talk to nurse about this. Teresa Key 09/18/2014 Inpatient Daily Group Note Group: Workshop Attendance: Present Behavior: Quiet Therapeutic Work Observed: Moderate Mood: Calm Notes: Pt. unable to continue on her stained glass project due to bad hand tremor. Sat with peers and observed. Teresa Key 09/18/2014 Gabby Sanchez RN - 09/18/2014 9:53 AM EDT 0949 Pt arrived to [facility]. VS as charted. Cont to monitor until criteria met. 1010 Pt ready for floor bed. Report given to Kait MOORE. All questions answered at this time. Terri Newby RN - 09/18/2014 6:45 AM EDT Brianna is alert and oriented x 4. Hands with tremor, pt reports this is not new for her. She denies pain. Awaiting ECT. Teresa Key - 09/17/2014 1:26 PM EDT Inpatient Daily Group Note Group: Goals Attendance: Present Behavior: Conversational Therapeutic Work Observed: Moderate Mood: Calm Notes: Reviewed DESTINY module 4: Avoidance and Activation. Pt.'s goal: Make it to groups. Teresa Key 09/17/2014 Inpatient Daily Group Note Group: Stress management Focus of group was review and discussion of the stress cycle and impact an individual can have by awareness and plans/ actions vs. Avoidance( today's DESTINY module) Attendance: Present Behavior: Quiet Therapeutic Work Observed: Moderate Mood: Calm Notes: Pt. attentive although quiet. Teresa Key 09/17/2014 Inpatient Daily Group Note Group: Communication group Reviewed the different styles of communication. Provided information about how low self esteem contributes to difficulty communicating one's needs/feelings/wants. Provided examples of each style and discussed ways to use awareness as a starting point to create change. Provide handout on boundaries forpts to read after group that related to each of the communication styles. Attendance: Present Behavior: Quiet and Attentive Therapeutic Work Observed: Moderate Mood: Flat Notes: Pt participated in reading parts of the handout. Identified with having low self esteem and apassive communication style. Teresa Cotto, [facility] 09/17/2014 Inpatient Daily Group Note Group: Inside walk Notes: Pt. walked quietly with peers. Enjoying the art. Teresa Key 09/17/2014 Inpatient Daily Group Note Group: Workshop Attendance: Present Behavior: Conversational Therapeutic Work Observed: Moderate Mood: Calm Notes: Pt. talked with this writer technical publications about living in [place] and her son. Listened to conversations of peers with good eye contact and responded to direct questions. Teresa Key 09/17/2014 Inpatient Daily Group Note Group: Patient & family education Focus of group was discussion on difference between BPAD 1 vs BPAD2; Schizophrenia and ECT treatments. Attendance: Present Behavior: Quiet Therapeutic Work Observed: Moderate Mood: Calm Notes: Pt. attended with her . Pt. attentive although quiet. After group thanked writer technical publications stating he learned a lot. Teresa Key 09/17/2014 Tommy Moraes Jr., MD - 09/17/2014 1:01 PM EDT Psychiatry Inpatient - Progress Note 09/17/2014 ID: Brianna Lay is a 59 y.o. female admitted on 09/08/2014 for treatment resistant depression withpsychotic features, here receiving ECT. Hospital day 9. 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 Her mood andaffect appear to be improving. Is not thinking about her delusions about harming her family, but is worried they may return if she goes home Timing: Assoc. Signs and symptoms: Sleep: slept 9 hrs, well Appetite: OK Energy: improving Modifying Factors: ECT helpful for depression, zyprexa helpful for delusions. Tylenol helpful for headache yesterday, which has resolved . Duration: Context: Review of Systems: (0,1,2) CONST No fever CV RESP No SOB GI No GI upset NEURO PRECIADO resolved PSYCH See above. Physical Exam: (1,6,9) Vitals (24hr Range): Temp: [36.7 ??C (98.1 ??F)-37.5 ??C (99.5 ??F)] Resp: [12] Heart Rate: [109] BP: (124)/(66) SpO2: [95 %] Patient Vitals for the past 168 hrs: Weight 09/13/14 1426 58.968 kg (130 lb) Musculoskeletal System: normal gait and balance, ambulates independently, no atrophy and no abnormal movements Mental Status Exam: ?? Appearance: well groomed ?? Behavior: improving eye contact, cooperative ?? Speech: soft, normal rate ?? Language: WNL ?? Mood: better ?? Affect: improving, brighter, smiling today ?? Thought Process: logical & coherent ?? Associations: intact ?? Thought Content: minimal delusion of family in danger, denies SI ?? Perception: no AVH reported ?? Orientation: full ?? Attention/Concentration: fair/fair ?? Cognition: WNL ?? Memory: no memory issues noted today ?? Fund of Knowledge: average ?? Insight: fair-good ?? Judgment: good Current Medications: Scheduled: ??? levothyroxine 100 mcg Oral QAM ??? omega-3 acid ethyl esters 2 g Oral BID ??? sodium chloride 0.9 % 5 mL Intravenous BID ??? liothyronine 50 mcg Oral QAM ??? FLUoxetine 40 mg Oral Daily ??? OLANZapine 15 mg Oral Nightly PRN: traZODone, polyethylene glycol, acetaminophen Labs: Last 24 Hours: No results found for this or any previous visit (from the past 24 hour(s)). Psychiatry Labs: Preg: No results found for this basename: HCGQUAL, HCGQUANT Heme: No results found for this basename: WBC, HGB, HCT, PLATELET, MCV, NEUTROABS No results found for this basename: HA1C, SEDRATE Chem: No results found for this basename: NA, K, CL, CO2, BUN, CREATITINE, GLUCOSE, GLUCFASTING No results found for this basename: CALCIUM, MAGNESIUM, PHOS LFTs: No results found for this basename: ALT, AST, GGT, ALKPHOS, BILITOT, AMMONIA Coags: No results found for this basename: PTT, PT, INR Thyroid: Lab Results Component Value Date TSH 0.11* 09/15/2014 [id number] 261* 09/15/2014 TT4 6.9 09/15/2014 Lipids and HgbA1C: No results found for this basename: CHLPL, HDL, CHOLHDL, LDLCHOL, LDLDIRECT, TRIG No results found for this basename: HA1C Vit Lvls: No results found for this basename: [id number], SFOLATE UA: No results found for this basename: GLUCOSEU, KETONESUA, PROTEINUADIP, BLOODUADIP, LEUKOESTERUA,NITRATEUA, WBCUA (May not represent most recent UA results. See eD-H labs for more details.) Tox: No results found for this basename: ETHANOL, ACTMNPHEN, SALICYLATE, LEAD No results found for this basename: UDAUSCREEN Rx Lvls: No results found for this basename: LITHIUM, CARBAMAZEPIN, VALPROATE, LAMOTRIGINE, CLOZAPINE Assessment: Brianna Lay is a 59 y.o. 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 She is demonstrating substantial improvement in responseto her first 4 ECT, and feeling best improvement thusfar. We agreed to proceed with ECT Sunday + 3 times next week, and she continues to improve despite her last treatment being Sunday. Current Working Primary Diagnosis: MDD with psychotic and catatonic features 296.34 Clinical Global Impression Severity of illness: Considering your total clinical experience with this particular population, howmentally ill is the patient at this time? 5 = Markedly ill Global improvement: Rate total improvement compared to condition at admission, how much has she changed? Moderately Improved Plan: # Depression with psychotic features ?? Continue fluoxetine + olanzapine, consider tapering olanzapine dose when delusions more completely resolved and sleep improved ?? ECT Sunday and x 3 next week ?? Family support and reassurance ?? Daily physical exercise ?? Supplementation with O3FAs # Hypothyroidism ?? Continue T3 supplementation of prior T4 treatment ?? No signs of hyperthyroidism today, levels are c/w T3 supplementation for ECT # Disposition: -After stabilization, patient expected to return home . Additional Information: Reasons for continued hospitalization: Warrants ongoing inpatient admission for safety, stabilization, and any other therapeutic intervention that could conceivably improve the patient's condition (including medication management, group psychotherapy, establishing adequate outpatient care). Outpatient Care: Provider Name Date Contacted By Treatment Team Psychiatric prescriber Aurea Valencia MD 09/09/14 Therapist PCP Unknown Patient Instruction/Education Provided: Patient provided verbal instructions during rounds regardingthe treatment plan. I have reviewed and agree with the multidisciplinary treatment plan. I certify that the patient requires [x] inpatient care for psychiatric treatment that could reasonably be expected to improve the patient's condition and/or diagnostic study. Signed By: Tommy Moraes Jr., MD 09/17/2014 Alonzo Martel MD - 09/17/2014 10:51 AM EDT Attending Physician: Alonzo Martel MD Resident name:Tommy Moraes MD I saw and evaluated the patient with the above named resident/ See their note for details. I reviewed the patient's history during the visit and I agree with the details as written. My exam confirms the resident's findings. The assessment and plan were formulated in discussion with me and I agree with them as documented. Major Issues discussed: Slightly improved. Less concern regarding poisoning food of family Ate all of her own breakfast Less anxious. Reports some benefit from ECT Continue ECT I certify that the patient requires [x] inpatient care for psychiatric treatment that could reasonably be expected to improve the patient's condition and/or diagnostic study Teresa Key - 09/16/2014 1:35 PM EDT Inpatient Daily Group Note Group: Goals Group Attendance: Present Behavior: Relevant Therapeutic Work Observed: Moderate Mood: Depressed Notes: The group reviewed the Module 3 DESTINY worksheets the CUBs and Mood Math. Pt goal is to attend groups today. JOSHUA Ford 09/16/2014 Inpatient Daily Group Note Group: Open Discussion Group Attendance: Present Behavior: Quiet Therapeutic Work Observed: Moderate Mood: Calm Notes: Group members shared about their experiences of living with mental illness. The impact of negative self talk was also discussed. Pt described herself as a quiet person. She was given feedback bya peer that she seems to be improving. JOSHUA Ford 09/16/2014 Inpatient Daily Group Note Group: CBT Focus of group was discussion about principles of Radical Acceptance and review of a practice worksheet. Attendance: Present Behavior: Quiet Therapeutic Work Observed: Moderate Mood: Calm Notes: Pt. attentive although quiet. Teresa Key 09/16/2014 Nathen Go MD - 09/16/2014 10:23 AM EDT Psychiatry Inpatient - Progress Note 09/16/2014 ID: Brianna Lay is a 59 y.o. female admitted on 09/08/2014 for treatment resistant depression withpsychotic features, here receiving ECT. Hospital day 8. 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 Family report she is much improved, but not at baseline. Constricted, quiet. Not actively thinking about delusions about family being in danger, but not entirely resolved. Feels a bit held back still by depression Timing: Assoc. Signs and symptoms: Sleep: slept 7 hrs, not good Appetite: OK Energy: fair Modifying Factors: Headache disrupted sleep. Acetomenophen helpful for PRECIADO, but standing stimulates PRECIADO. ECT helpful for depression Duration: Context: Review of Systems: (0,1,2) CONST No fever CV RESP No SOB GI No GI upset NEURO + headache today PSYCH See above. Physical Exam: (1,6,9) Vitals (24hr Range): Temp: [37.3 ??C (99.1 ??F)] Resp: [18] Heart Rate: [115] BP: (123)/(54) SpO2: [97 %] Patient Vitals for the past 168 hrs: Weight 09/13/14 1426 58.968 kg (130 lb) Musculoskeletal System: normal gait and balance, ambulates independently, no atrophy and no abnormal movements Mental Status Exam: ?? Appearance: well groomed ?? Behavior: slowed, + PMR ?? Speech: soft, spontaneous ?? Language: WNL ?? Mood: not bad ?? Affect: constricted ?? Thought Process: logical & coherent ?? Associations: intact ?? Thought Content: minimal delusion of family in danger, denies SI ?? Perception: no AVH reported ?? Orientation: full ?? Attention/Concentration: fair/fair ?? Cognition: WNL ?? Memory: short term memory impairment noted by Brianna ?? Fund of Knowledge: average ?? Insight: fair-good ?? Judgment: good Current Medications: Scheduled: ??? levothyroxine 100 mcg Oral QAM ??? omega-3 acid ethyl esters 2 g Oral BID ??? sodium chloride 0.9 % 5 mL Intravenous BID ??? liothyronine 50 mcg Oral QAM ??? FLUoxetine 40 mg Oral Daily ??? OLANZapine 15 mg Oral Nightly PRN: traZODone, polyethylene glycol, acetaminophen Labs: Last 24 Hours: Recent Results (from the past 24 hour(s)) TSH Result Value Ref Range TSH 0.11 (*) 0.27 - 4.20 mcIU/mL T4 TOTAL Result Value Ref Range T4, total 6.9 5.1 - 10.8 mcg/dL T3 TOTAL Result Value Ref Range T3, Total 261 (*) 75 - 170 ng/dL Psychiatry Labs: Preg: No results found for this basename: HCGQUAL, HCGQUANT Heme: No results found for this basename: WBC, HGB, HCT, PLATELET, MCV, NEUTROABS No results found for this basename: HA1C, SEDRATE Chem: No results found for this basename: NA, K, CL, CO2, BUN, CREATITINE, GLUCOSE, GLUCFASTING No results found for this basename: CALCIUM, MAGNESIUM, PHOS LFTs: Lab Results Component Value Date ALT 7 09/09/2014 AST 10 09/09/2014 ALKPHOS 68 09/09/2014 BILITOT 0.4 09/09/2014 Coags: No results found for this basename: PTT, PT, INR Thyroid: Lab Results Component Value Date TSH 0.11* 09/15/2014 [id number] 261* 09/15/2014 TT4 6.9 09/15/2014 Lipids and HgbA1C: No results found for this basename: CHLPL, HDL, CHOLHDL, LDLCHOL, LDLDIRECT, TRIG No results found for this basename: HA1C Vit Lvls: No results found for this basename: [id number], SFOLATE UA: No results found for this basename: GLUCOSEU, KETONESUA, PROTEINUADIP, BLOODUADIP, LEUKOESTERUA,NITRATEUA, WBCUA (May not represent most recent UA results. See eD-H labs for more details.) Tox: No results found for this basename: ETHANOL, ACTMNPHEN, SALICYLATE, LEAD No results found for this basename: UDAUSCREEN Rx Lvls: No results found for this basename: LITHIUM, CARBAMAZEPIN, VALPROATE, LAMOTRIGINE, CLOZAPINE Assessment: Brianna Lay is a 59 y.o. 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 She is demonstrating substantial improvement in responseto her first 4 ECT, and feeling best improvement thusfar. We agreed to proceed with ECT Sunday + 3 times next week, and will monitor durability of response tomorrow. Current Working Primary Diagnosis: MDD with psychotic and catatonic features 296.34 Clinical Global Impression Severity of illness: Considering your total clinical experience with this particular population, howmentally ill is the patient at this time? 5 = Markedly ill Global improvement: Rate total improvement compared to condition at admission, how much has she changed? Moderately Improved Plan: # Depression with psychotic features ?? Continue fluoxetine + olanzapine, consider tapering olanzapine dose when delusions more completely resolved and sleep improved ?? ECT Sunday and x 3 next week ?? Family support and reassurance ?? Daily physical exercise ?? Supplementation with O3FAs # Hypothyroidism ?? Continue T3 supplementation of prior T4 treatment ?? No signs of hyperthyroidism today, levels are c/w T3 supplementation for ECT # Disposition: -After stabilization, patient expected to return home . Additional Information: Reasons for continued hospitalization: Warrants ongoing inpatient admission for safety, stabilization, and any other therapeutic intervention that could conceivably improve the patient's condition (including medication management, group psychotherapy, establishing adequate outpatient care). Outpatient Care: Provider Name Date Contacted By Treatment Team Psychiatric prescriber Aurea Valencia MD 09/09/14 Therapist PCP Unknown Patient Instruction/Education Provided: Patient provided verbal instructions during rounds regardingthe treatment plan. I have reviewed and agree with the multidisciplinary treatment plan. I certify that the patient requires [x] inpatient care for psychiatric treatment that could reasonably be expected to improve the patient's condition and/or diagnostic study. Signed By: Nathen Go MD 09/16/2014 Maddison Concepcion RN - 09/16/2014 6:42 AM EDT Pt complained of 5/10 headache and received Tylenol 650mg at 0635, pending results. Josselin Hickey MHT - 09/15/2014 1:34 PM EDT Inpatient Daily Group Note Group: Goals Group Notes: The group reviewed the DESTINY Module 2 worksheet TME. Pt post ECT. Did not attend. JOSHUA Ford 09/15/2014 Inpatient Daily Group Note Group: Group Walk Attendance: Present Behavior: Quiet Therapeutic Work Observed: Moderate Mood: Calm Notes: Pt joined group for an outside walk. She was quiet but responsive to direct questions. JOSHUA Ford 09/15/2014 Inpatient Daily Group Note Group: Interpersonal Issues Provided information about internal vs external communication and how they interact with one another. Encouraged pts to increase awareness of their internal self talk and how it may interfere with their confidence and/or ability to communicate. Provided examples of this and then discussed other barriers to effective communication. Attendance: Present Behavior: Quiet and Attentive Therapeutic Work Observed: Moderate Mood: Flat Notes: Pt was quiet though appeared to be attentive. JOSHUA Olivares 09/15/2014 Inpatient Daily Group Note Group: Workshop Attendance: Present Behavior: Quiet Therapeutic Work Observed: Moderate Mood: Calm Notes: Pt worked on a sun catcher, doing nice work but took a break from it as she began to find herhands were too shaky. Pt asked what ECT is for and this was discussed. JOSHUA Ford 09/15/2014 Nathen Go MD - 09/15/2014 8:22 AM EDT Psychiatry Inpatient - Progress Note 09/15/2014 ID: Brianna Lay is a 59 y.o. female admitted on 09/08/2014 for treatment resistant depression withpsychotic features, here receiving ECT. Hospital day 7. 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 Constricted, quiet, but delusions about family being in danger are reduced. Vague this am. Timing: Assoc. Signs and symptoms: Sleep: slept 8 hrs, good Appetite: OK, ate full breakfast Energy: pretty good Modifying Factors: Visit with helpful yesterday with feeling he is safe Duration: Context: Review of Systems: (0,1,2) CONST No fever CV RESP No SOB GI No GI upset NEURO + headache today PSYCH See above. Physical Exam: (1,6,9) Vitals (24hr Range): Temp: [36.7 ??C (98.1 ??F)] Resp: [12-16] Heart Rate: [76-101] BP: (126-152)/(74-86) SpO2: [95 %-99 %] Patient Vitals for the past 168 hrs: Weight 09/13/14 1426 58.968 kg (130 lb) 09/08/14 1742 57.153 kg (126 lb) Musculoskeletal System: normal gait and balance, ambulates independently, no atrophy and no abnormal movements Mental Status Exam: ?? Appearance: disheveld, in hosp gown, lying flat in bed ?? Behavior: slowed, + PMR ?? Speech: soft, spontaneous ?? Language: WNL ?? Mood: good ?? Affect: constricted ?? Thought Process: logical & coherent ?? Associations: intact ?? Thought Content: + reports last having daryl guilty delusions yesterday, denies SI ?? Perception: no AVH reported ?? Orientation: full ?? Attention/Concentration: fair/fair ?? Cognition: WNL ?? Memory: short term memory impairment noted by Brianna ?? Fund of Knowledge: average ?? Insight: fair-good ?? Judgment: fair-good Current Medications: Scheduled: ??? omega-3 acid ethyl esters 2 g Oral BID ??? sodium chloride 0.9 % 5 mL Intravenous BID ??? liothyronine 50 mcg Oral QAM ??? FLUoxetine 40 mg Oral Daily ??? levothyroxine 100 mcg Oral Daily ??? OLANZapine 15 mg Oral Nightly PRN: traZODone, polyethylene glycol, acetaminophen Labs: Last 24 Hours: No results found for this or any previous visit (from the past 24 hour(s)). Psychiatry Labs: Preg: No results found for this basename: HCGQUAL, HCGQUANT Heme: No results found for this basename: WBC, HGB, HCT, PLATELET, MCV, NEUTROABS No results found for this basename: HA1C, SEDRATE Chem: No results found for this basename: NA, K, CL, CO2, BUN, CREATITINE, GLUCOSE, GLUCFASTING No results found for this basename: CALCIUM, MAGNESIUM, PHOS LFTs: Lab Results Component Value Date ALT 7 09/09/2014 AST 10 09/09/2014 ALKPHOS 68 09/09/2014 BILITOT 0.4 09/09/2014 Coags: No results found for this basename: PTT, PT, INR Thyroid: Lab Results Component Value Date TSH 5.39* 09/09/2014 [id number] 60* 09/09/2014 TT4 7.7 09/09/2014 Lipids and HgbA1C: No results found for this basename: CHLPL, HDL, CHOLHDL, LDLCHOL, LDLDIRECT, TRIG No results found for this basename: HA1C Vit Lvls: No results found for this basename: [id number], SFOLATE UA: No results found for this basename: GLUCOSEU, KETONESUA, PROTEINUADIP, BLOODUADIP, LEUKOESTERUA,NITRATEUA, WBCUA (May not represent most recent UA results. See eD-H labs for more details.) Tox: No results found for this basename: ETHANOL, ACTMNPHEN, SALICYLATE, LEAD No results found for this basename: UDAUSCREEN Rx Lvls: No results found for this basename: LITHIUM, CARBAMAZEPIN, VALPROATE, LAMOTRIGINE, CLOZAPINE Assessment: Brianna Lay is a 59 y.o. 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 She was evaluated and treated pharmacologically by Dr. Aurea Valencia at [facility] who referred her for ECT. She appears to achieving substantial imp rovement in response to her first 4 ECT, but remains profoundly ill. We agreed to proceed with ECT once more this week and will monitor durability of response. Current Working Primary Diagnosis: MDD with psychotic and catatonic features 296.34 Clinical Global Impression Severity of illness: Considering your total clinical experience with this particular population, howmentally ill is the patient at this time? 5 = Markedly ill Global improvement: Rate total improvement compared to condition at admission, how much has she changed? Moderately Improved Plan: # Depression with psychotic features ?? Continue fluoxetine + olanzapine ?? ECT x 3 this week ?? Family support and reassurance ?? Daily physical exercise ?? Begin supplementation with O3FAs # Hypothyroidism ?? Continue T3 supplementation of prior T4 treatment ?? Recheck TFTs next week, send antithyroid antibodies # Disposition: -After stabilization, patient expected to return home . Additional Information: Reasons for continued hospitalization: Warrants ongoing inpatient admission for safety, stabilization, and any other therapeutic intervention that could conceivably improve the patient's condition (including medication management, group psychotherapy, establishing adequate outpatient care). Outpatient Care: Provider Name Date Contacted By Treatment Team Psychiatric prescriber Aurea Valencia MD 09/09/14 Therapist PCP Unknown Patient Instruction/Education Provided: Patient provided verbal instructions during rounds regardingthe treatment plan. I have reviewed and agree with the multidisciplinary treatment plan. I certify that the patient requires [x] inpatient care for psychiatric treatment that could reasonably be expected to improve the patient's condition and/or diagnostic study. Signed By: Nathen Go MD 09/15/2014 Jenna Baker MS - 09/14/2014 1:43 PM EDT Inpatient Daily Group Note Group: Goals Group Notes: The group reviewed the DESTINY program and [facility] Pt at E[facility]. Not available. JOSHUA Ford 09/14/2014 Inpatient Daily Group Note Group: CBT; Reviewed thinking patterns associated with anxiety, and had participants apply 5 column tool to situations that triggered anxiety. Attendance: Present Behavior: Quiet Therapeutic Work Observed: Minimal Mood: Depressed Notes: Patient listened attentively. Jenna Baker MS 09/14/2014 Nathen Go MD - 09/14/2014 11:27 AM EDT Psychiatry Inpatient - Progress Note 09/14/2014 ID: Brianna Lay is a 59 y.o. female admitted on 09/08/2014 for treatment resistant depression withpsychotic features, here receiving ECT. Hospital day 6. 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 Constricted, quiet. Continued delusions that bad things may happen to her family, but trying to push them away. Worries about being here and not at home. Denies SI Timing: Anxoius and tremulousness pre ECT per nurse, flat and relaxed post ECT Assoc. Signs and symptoms: Sleep: slept 7.5 hrs, after DFA Appetite: not too bad Energy: not too bad Modifying Factors: ECT has been effective for severe, treatment resistant depression with improved mood and reduced delusional worry Duration: Context: Review of Systems: (0,1,2) CONST No fever CV RESP No SOB GI No GI upset NEURO No headache today PSYCH See above. Physical Exam: (1,6,9) Vitals (24hr Range): Temp: [36.5 ??C (97.7 ??F)] Resp: [16-20] Heart Rate: [80-96] BP: (141-149)/(71-90) SpO2: [96 %-100 %] Patient Vitals for the past 168 hrs: Weight 09/13/14 1426 58.968 kg (130 lb) 09/08/14 1742 57.153 kg (126 lb) Musculoskeletal System: normal gait and balance, ambulates independently, no atrophy and no abnormal movements Mental Status Exam: ?? Appearance: disheveld, in hosp gown, lying flat in bed ?? Behavior: slowed, + PMR ?? Speech: soft, fairly spontaneous ?? Language: WNL ?? Mood: not too bad ?? Affect: blunted ?? Thought Process: logical & coherent ?? Associations: intact ?? Thought Content: + guilty delusions, delusions of danger towards family, denies SI ?? Perception: no AVH reported ?? Orientation: full ?? Attention/Concentration: fair/fair ?? Cognition: WNL ?? Memory: recent and remote memory intact ?? Fund of Knowledge: average ?? Insight: fair ?? Judgment: fair-good Current Medications: Scheduled: ??? sodium chloride 0.9 % 5 mL Intravenous BID ??? liothyronine 50 mcg Oral QAM ??? FLUoxetine 40 mg Oral Daily ??? levothyroxine 100 mcg Oral Daily ??? OLANZapine 15 mg Oral Nightly PRN: traZODone, polyethylene glycol, acetaminophen Labs: Last 24 Hours: No results found for this or any previous visit (from the past 24 hour(s)). Psychiatry Labs: Preg: No results found for this basename: HCGQUAL, HCGQUANT Heme: No results found for this basename: WBC, HGB, HCT, PLATELET, MCV, NEUTROABS No results found for this basename: HA1C, SEDRATE Chem: No results found for this basename: NA, K, CL, CO2, BUN, CREATITINE, GLUCOSE, GLUCFASTING No results found for this basename: CALCIUM, MAGNESIUM, PHOS LFTs: Lab Results Component Value Date ALT 7 09/09/2014 AST 10 09/09/2014 ALKPHOS 68 09/09/2014 BILITOT 0.4 09/09/2014 Coags: No results found for this basename: PTT, PT, INR Thyroid: Lab Results Component Value Date TSH 5.39* 09/09/2014 [id number] 60* 09/09/2014 TT4 7.7 09/09/2014 Lipids and HgbA1C: No results found for this basename: CHLPL, HDL, CHOLHDL, LDLCHOL, LDLDIRECT, TRIG No results found for this basename: HA1C Vit Lvls: No results found for this basename: [id number], SFOLATE UA: No results found for this basename: GLUCOSEU, KETONESUA, PROTEINUADIP, BLOODUADIP, LEUKOESTERUA,NITRATEUA, WBCUA (May not represent most recent UA results. See eD-H labs for more details.) Tox: No results found for this basename: ETHANOL, ACTMNPHEN, SALICYLATE, LEAD No results found for this basename: UDAUSCREEN Rx Lvls: No results found for this basename: LITHIUM, CARBAMAZEPIN, VALPROATE, LAMOTRIGINE, CLOZAPINE Assessment: Brianna Lay is a 59 y.o. 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 She was evaluated and treated pharmacologically by Dr. Aurea Valencia at [facility] who referred her for ECT. She appears to achieving substantial early improvement in response to her first 3 ECT, but remains profoundly ill. We agreed to proceed withECT twice more this week and will monitor durability of response. Current Working Primary Diagnosis: MDD with psychotic and catatonic features 296.34 Clinical Global Impression Severity of illness: Considering your total clinical experience with this particular population, howmentally ill is the patient at this time? 6 = Severely ill Global improvement: Rate total improvement compared to condition at admission, how much has she changed? Minimally Improved Plan: # Depression with psychotic features ?? Continue fluoxetine + olanzapine ?? ECT x 3 this week ?? Consider adding quetiapine prn for anxiety/psychosis to assess response ?? Family support and reassurance ?? Daily physical exercise ?? Consider supplementation with O3FAs # Hypothyroidism ?? Continue T3 supplementation of prior T4 treatment ?? Recheck TFTs next week, send antithyroid antibodies # Disposition: -After stabilization, patient expected to return home . Additional Information: Reasons for continued hospitalization: Warrants ongoing inpatient admission for safety, stabilization, and any other therapeutic intervention that could conceivably improve the patient's condition (including medication management, group psychotherapy, establishing adequate outpatient care). Outpatient Care: Provider Name Date Contacted By Treatment Team Psychiatric prescriber Aurea Valencia MD 09/09/14 Therapist PCP Unknown Patient Instruction/Education Provided: Patient provided verbal instructions during rounds regardingthe treatment plan. I have reviewed and agree with the multidisciplinary treatment plan. I certify that the patient requires [x] inpatient care for psychiatric treatment that could reasonably be expected to improve the patient's condition and/or diagnostic study. Signed By: Nathen Go MD 09/14/2014 Leonardo Rodarte RN - 09/14/2014 7:35 AM EDT 0735: Station prepared, equipment checked, chart reviewed. 0753: Patient arrived from [facility]OR to PACU. SaO2, BP and HR monitored via Marlene. Will continue to monitor. 0815: Patient meets criteria for discharge from PACU s/p ECT. Vital signs are within normal limits; Patient is awake and alert. Report called. Jenna Baker MS - 09/13/2014 10:58 AM EDT Inpatient Daily Group Note Group: Goals; Reviewed DESTINY, GEM, daily schedule, patients' progress, patients' goals and read daily text. Attendance: Present Behavior: Quiet Therapeutic Work Observed: Minimal Mood: Depressed Notes: Patient has goal to go to groups and have visitors. Jenna Baker MS 09/13/2014 Inpatient Daily Group Note Group: Open Discussion; Check-in and discussion how to manage anxiety and not react impulsively. Attendance: Present Behavior: Quiet Therapeutic Work Observed: Moderate Mood: Depressed Notes: Patient stated feeling ok today and did not identify any topics sharing that her family is her topic. Jenna Baker, 09/13/2014 Soumya Daniel MD - 09/13/2014 7:24 AM EDT Psychiatry Inpatient - Progress Note 09/13/2014 ID: Brianna Lay is a 59 y.o. female admitted on 09/08/2014 for treatment resistant depression withpsychotic features, here receiving ECT. Hospital day 5. Current Working Primary Diagnosis: MDD with psychotic features and catatonic features Pertinent medical issues being addressed: hypothyroidism Interval History: (1,1,4) Pt reports feeling a little tired today. Had a good day yesterday. Had visitors ( and sister in law). States she is not as worried about family today-- worries are still there, but are better ifshe stays busy. Quality: not bad Severity: depression Timing: Assoc. Signs and symptoms: Sleep: slept well last night Appetite: not too bad Energy: not too bad Modifying Factors: ECT has been effective for severe, treatment resistant depression with improved mood Duration: Context: Review of Systems: (0,1,2) CONST No fever CV No chest pain RESP No SOB GI No GI upset NEURO No headache today (had one last week after ECT) PSYCH See above. Physical Exam: (1,6,9) Vitals (24hr Range): Temp: [36.6 ??C (97.9 ??F)] Resp: [16] Heart Rate: [96] BP: (131)/(69) SpO2: -- Patient Vitals for the past 168 hrs: Weight 09/08/14 1742 57.153 kg (126 lb) Musculoskeletal System: normal gait and balance, ambulates independently, no atrophy and no abnormal movements Mental Status Exam: ?? Appearance: casually dressed, well groomed ?? Behavior: slowed, + PMR ?? Speech: soft, increased latency ?? Language: WNL ?? Mood: not too bad ?? Affect: blunted ?? Thought Process: slowed, but logical, vague ?? Associations: intact ?? Thought Content: + worries about family, denies SI ?? Perception: no AVH reported ?? Orientation: full ?? Attention/Concentration: fair/fair ?? Cognition: fair ?? Memory: recent and remote memory intact ?? Fund of Knowledge: average ?? Insight: fair ?? Judgment: fair Current Medications: Scheduled: ??? sodium chloride 0.9 % 5 mL Intravenous BID ??? liothyronine 50 mcg Oral QAM ??? FLUoxetine 40 mg Oral Daily ??? levothyroxine 100 mcg Oral Daily ??? OLANZapine 15 mg Oral Nightly PRN: traZODone, polyethylene glycol, acetaminophen Labs: Last 24 Hours: No results found for this or any previous visit (from the past 24 hour(s)). Psychiatry Labs: Preg: No results found for this basename: HCGQUAL, HCGQUANT Heme: No results found for this basename: WBC, HGB, HCT, PLATELET, MCV, NEUTROABS No results found for this basename: HA1C, SEDRATE Chem: No results found for this basename: NA, K, CL, CO2, BUN, CREATITINE, GLUCOSE, GLUCFASTING No results found for this basename: CALCIUM, MAGNESIUM, PHOS LFTs: Lab Results Component Value Date ALT 7 09/09/2014 AST 10 09/09/2014 ALKPHOS 68 09/09/2014 BILITOT 0.4 09/09/2014 Coags: No results found for this basename: PTT, PT, INR Thyroid: Lab Results Component Value Date TSH 5.39* 09/09/2014 [id number] 60* 09/09/2014 TT4 7.7 09/09/2014 Lipids and HgbA1C: No results found for this basename: CHLPL, HDL, CHOLHDL, LDLCHOL, LDLDIRECT, TRIG No results found for this basename: HA1C Vit Lvls: No results found for this basename: [id number], SFOLATE UA: No results found for this basename: GLUCOSEU, KETONESUA, PROTEINUADIP, BLOODUADIP, LEUKOESTERUA,NITRATEUA, WBCUA (May not represent most recent UA results. See eD-H labs for more details.) Tox: No results found for this basename: ETHANOL, ACTMNPHEN, SALICYLATE, LEAD No results found for this basename: UDAUSCREEN Rx Lvls: No results found for this basename: LITHIUM, CARBAMAZEPIN, VALPROATE, LAMOTRIGINE, CLOZAPINE Assessment: Brianna Lay is a 59 y.o. 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 She was evaluated and treated by Dr. Aurea Valencia at [facility] who referred her for ECT. She appears to achieving substantial early improvement inresponse to her first 2 ECT, but remains profoundly ill. We agreed to proceed with ECT next week, recognizing that her improvement is unlikely to last thru the weekend Current Working Primary Diagnosis: MDD with psychotic and catatonic features 296.34 Clinical Global Impression Severity of illness: Considering your total clinical experience with this particular population, howmentally ill is the patient at this time? 6 = Severely ill Global improvement: Rate total improvement compared to condition at admission, how much has she changed? Minimally Improved Plan: # Depression with psychotic features ?? Continue fluoxetine + olanzapine ?? ECT x 3 next week ?? Consider adding quetiapine prn for anxiety/psychosis to assess response ?? Family support and reassurance ?? Daily physical exercise ?? Consider supplementation with O3FAs # Hypothyroidism ?? Continue T3 supplementation of prior T4 treatment ?? Recheck TFTs next week, send antithyroid antibodies # Disposition: -After stabilization, patient expected to return home . Additional Information: Reasons for continued hospitalization: Warrants ongoing inpatient admission for safety, stabilization, and any other therapeutic intervention that could conceivably improve the patient's condition (including medication management, group psychotherapy, establishing adequate outpatient care). Outpatient Care: Provider Name Date Contacted By Treatment Team Psychiatric prescriber Aurea Valencia MD 09/09/14 Therapist PCP Unknown Patient Instruction/Education Provided: Patient provided verbal instructions during rounds regardingthe treatment plan. I have reviewed and agree with the multidisciplinary treatment plan. I certify that the patient requires [x] inpatient care for psychiatric treatment that could reasonably be expected to improve the patient's condition and/or diagnostic study. Signed By: Soumya Daniel MD 09/13/2014 Teresa Key - 09/12/2014 9:51 AM EDT Inpatient Daily Group Note Group: Goals Attendance: Present Behavior: Conversational Therapeutic Work Observed: Moderate Mood: Calm Notes: Reviewed DESTINY module 5: Two Day Activity Schedule. Pt.'s goal: Read Wellness Book Teresa Key 09/12/2014 Inpatient Daily Group Note Group: Workshop Attendance: Present Behavior: Quiet Therapeutic Work Observed: Moderate Mood: Flat Notes: Pt. quietly worked on [employer] project. Teresa Key 09/12/2014 Soumya Daniel MD - 09/12/2014 7:20 AM EDT Psychiatry Inpatient - Progress Note 09/12/2014 ID: Brianna Lay is a 59 y.o. female admitted on 09/08/2014 for treatment resistant depression withpsychotic features. Hospital day 4. Current Working Primary Diagnosis: MDD with psychotic features and catatonic features Pertinent medical issues being addressed: hypothyroidism Interval History: (1,1,4) Pt reports feeling pretty good today. Slept well. Thinks ECT is helping her mood. Feeling a littlecalmer. Hopes will visit today. Quality: a little calmer Severity: depression 4/10, improved Timing: Assoc. Signs and symptoms: Sleep: slept well Appetite: not too bad Energy: not too bad Modifying Factors: ECT has been effective for severe, treatment resistant depression with improved mood Duration: Context: Review of Systems: (0,1,2) CONST No fever CV No chest pain RESP No SOB GI No GI upset NEURO No headache today (had one yesterday after ECT) PSYCH See above. Physical Exam: (1,6,9) Vitals (24hr Range): Temp: [36.6 ??C (97.9 ??F)] Resp: [16] Heart Rate: [96] BP: (131)/(69) SpO2: -- Patient Vitals for the past 168 hrs: Weight 09/08/14 1742 57.153 kg (126 lb) Musculoskeletal System: normal gait and balance, ambulates independently, no atrophy and no abnormal movements Mental Status Exam: ?? Appearance: mildly disheveled ?? Behavior: slowed ?? Speech: soft ?? Language: WNL ?? Mood: not too bad ?? Affect: blunted ?? Thought Process: slowed, but logical ?? Associations: vague ?? Thought Content: did not discuss delusional thoughts today, denies SI ?? Perception: no AVH reported ?? Orientation: full ?? Attention/Concentration: fair/fair ?? Cognition: fair ?? Memory: recent and remote memory intact ?? Fund of Knowledge: average ?? Insight: fair ?? Judgment: fair Current Medications: Scheduled: ??? sodium chloride 0.9 % 5 mL Intravenous BID ??? liothyronine 50 mcg Oral QAM ??? FLUoxetine 40 mg Oral Daily ??? levothyroxine 100 mcg Oral Daily ??? OLANZapine 15 mg Oral Nightly PRN: traZODone, polyethylene glycol, acetaminophen Labs: Last 24 Hours: No results found for this or any previous visit (from the past 24 hour(s)). Psychiatry Labs: Preg: No results found for this basename: HCGQUAL, HCGQUANT Heme: Lab Results Component Value Date WBC 4.2 09/09/2014 HGB 14.0 09/09/2014 HCT 43.1 09/09/2014 PLATELET 228 09/09/2014 MCV 92.9 09/09/2014 NEUTROABS 2.15 09/09/2014 No results found for this basename: HA1C, SEDRATE Chem: Lab Results Component Value Date NA 146* 09/09/2014 K 3.6 09/09/2014 CL 105 09/09/2014 CO2 28 09/09/2014 BUN 10 09/09/2014 Lab Results Component Value Date CALCIUM 8.9 09/09/2014 MAGNESIUM 0.88 09/09/2014 PHOS 3.0 09/09/2014 LFTs: Lab Results Component Value Date ALT 7 09/09/2014 AST 10 09/09/2014 ALKPHOS 68 09/09/2014 BILITOT 0.4 09/09/2014 Coags: No results found for this basename: PTT, PT, INR Thyroid: Lab Results Component Value Date TSH 5.39* 09/09/2014 [id number] 60* 09/09/2014 TT4 7.7 09/09/2014 Lipids and HgbA1C: No results found for this basename: CHLPL, HDL, CHOLHDL, LDLCHOL, LDLDIRECT, TRIG No results found for this basename: HA1C Vit Lvls: No results found for this basename: [id number], SFOLATE UA: Lab Results Component Value Date GLUCOSEU Negative 09/09/2014 KETONESUA Negative 09/09/2014 PROTEINUADIP Negative 09/09/2014 BLOODUADIP Small* 09/09/2014 LEUKOESTERUA Trace* 09/09/2014 NITRATEUA Negative 09/09/2014 WBCUA 8* 09/09/2014 (May not represent most recent UA results. See eD-H labs for more details.) Tox: No results found for this basename: ETHANOL, ACTMNPHEN, SALICYLATE, LEAD No results found for this basename: UDAUSCREEN Rx Lvls: No results found for this basename: LITHIUM, CARBAMAZEPIN, VALPROATE, LAMOTRIGINE, CLOZAPINE Assessment: Brianna Lay is a 59 y.o. 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 She was evaluated and treated by Dr. Aurea Valencia at [facility] who referred her for ECT. She appears to achieving substantial early improvement inresponse to her first 2 ECT, but remains profoundly ill. We agreed to proceed with ECT next week, recognizing that her improvement is unlikely to last thru the weekend Current Working Primary Diagnosis: MDD with psychotic and catatonic features 296.34 Clinical Global Impression Severity of illness: Considering your total clinical experience with this particular population, howmentally ill is the patient at this time? 6 = Severely ill Global improvement: Rate total improvement compared to condition at admission, how much has she changed? Minimally Improved Plan: # Depression with psychotic features ?? Continue fluoxetine + olanzapine ?? ECT x 3 next week ?? Consider adding quetiapine prn for anxiety/psychosis to assess response ?? Family support and reassurance ?? Daily physical exercise ?? Consider supplementation with O3FAs # Hypothyroidism ?? Continue T3 supplementation of prior T4 treatment ?? Recheck TFTs next week, send antithyroid antibodies # Disposition: -After stabilization, patient expected to return home . Additional Information: Reasons for continued hospitalization: Warrants ongoing inpatient admission for safety, stabilization, and any other therapeutic intervention that could conceivably improve the patient's condition (including medication management, group psychotherapy, establishing adequate outpatient care). Outpatient Care: Provider Name Date Contacted By Treatment Team Psychiatric prescriber Aurea Valencia MD 09/09/14 Therapist PCP Unknown Patient Instruction/Education Provided: Patient provided verbal instructions during rounds regardingthe treatment plan. I have reviewed and agree with the multidisciplinary treatment plan. I certify that the patient requires [x] inpatient care for psychiatric treatment that could reasonably be expected to improve the patient's condition and/or diagnostic study. Signed By: Soumya Daniel MD 09/12/2014 Teresa Key - 09/11/2014 12:06 PM EDT Inpatient Daily Group Note Group: Goals Notes: Post ECT unable to attend. Teresa Key 09/11/2014 Inpatient Daily Group Note Group: TAC Focus of group was working non verbally with peers on problem solving task. Attendance: Present Behavior: Conversational Therapeutic Work Observed: Moderate Mood: Calm Notes: Pt. passive and responded only to direct questions.. Teresa Key 09/11/2014 Inpatient Daily Group Note Group: Workshop Attendance: Left early Behavior: Quiet Therapeutic Work Observed: Moderate Mood: Calm Notes: Pt. quietly worked on [employer] project. Returned to unit awaiting visit from . Teresa Key 09/11/2014 Nathen Go MD - 09/11/2014 11:26 AM EDT Psychiatry Inpatient - Progress Note 09/11/2014 ID: Brianna Lay is a 59 y.o. female admitted on 09/08/2014 for treatment resistant depression withpsychotic features. Hospital day 3. Current Working Primary Diagnosis: MDD with psychotic features and catatonic features Pertinent medical issues being addressed: hypothyroidism Interval History: (1,1,4) Quality: Not too bad I am worried about them (family) Severity: Depression 5/10. Anxiety 5/10. Brianna is lying quietly on her bed with flat affect. She denies SI but continues to fear that her family will be harmed, their lives may be in danger, constant worry, possibly related to spoiled food. Timing: Distressed prior to ECT due to worry about family, feeling better since ECT earlier this am Assoc. Signs and symptoms: Sleep: good, 8 hrs Appetite: poor, eating better today Energy: low Modifying Factors: ECT has been effective for severe, treatment resistant depression with improved mood Duration: Context: Review of Systems: (0,1,2) CONST No fever CV RESP No SOB GI No GI upset NEURO PSYCH See above. Physical Exam: (1,6,9) Vitals (24hr Range): Temp: [36.3 ??C (97.3 ??F)] Resp: [14-16] Heart Rate: [79-96] BP: (123-152)/(73-97) SpO2: [98 %] Patient Vitals for the past 168 hrs: Weight 09/08/14 1742 57.153 kg (126 lb) Musculoskeletal System: normal gait and balance, ambulates independently, no atrophy and no abnormal movements Mental Status Exam: ?? Appearance: disheveled ?? Behavior: slowed ?? Speech: soft ?? Language: WNL ?? Mood: not too bad post ECT ?? Affect: flat, distant ?? Thought Process: slowed, but logical ?? Associations: vague ?? Thought Content: + delusions of her family being in danger due to poisoning by food despite reassurance by family ?? Perception: no AVH reported ?? Orientation: full ?? Attention/Concentration: fair/fair ?? Cognition: fair ?? Memory: recent and remote memory intact ?? Fund of Knowledge: average ?? Insight: fair ?? Judgment: fair Current Medications: Scheduled: ??? liothyronine 50 mcg Oral QAM ??? FLUoxetine 40 mg Oral Daily ??? levothyroxine 100 mcg Oral Daily ??? OLANZapine 15 mg Oral Nightly PRN: traZODone, polyethylene glycol, acetaminophen Labs: Last 24 Hours: No results found for this or any previous visit (from the past 24 hour(s)). Psychiatry Labs: Preg: No results found for this basename: HCGQUAL, HCGQUANT Heme: Lab Results Component Value Date WBC 4.2 09/09/2014 HGB 14.0 09/09/2014 HCT 43.1 09/09/2014 PLATELET 228 09/09/2014 MCV 92.9 09/09/2014 NEUTROABS 2.15 09/09/2014 No results found for this basename: HA1C, SEDRATE Chem: Lab Results Component Value Date NA 146* 09/09/2014 K 3.6 09/09/2014 CL 105 09/09/2014 CO2 28 09/09/2014 BUN 10 09/09/2014 Lab Results Component Value Date CALCIUM 8.9 09/09/2014 MAGNESIUM 0.88 09/09/2014 PHOS 3.0 09/09/2014 LFTs: Lab Results Component Value Date ALT 7 09/09/2014 AST 10 09/09/2014 ALKPHOS 68 09/09/2014 BILITOT 0.4 09/09/2014 Coags: No results found for this basename: PTT, PT, INR Thyroid: Lab Results Component Value Date TSH 5.39* 09/09/2014 [id number] 60* 09/09/2014 TT4 7.7 09/09/2014 Lipids and HgbA1C: No results found for this basename: CHLPL, HDL, CHOLHDL, LDLCHOL, LDLDIRECT, TRIG No results found for this basename: HA1C Vit Lvls: No results found for this basename: [id number], SFOLATE UA: Lab Results Component Value Date GLUCOSEU Negative 09/09/2014 KETONESUA Negative 09/09/2014 PROTEINUADIP Negative 09/09/2014 BLOODUADIP Small* 09/09/2014 LEUKOESTERUA Trace* 09/09/2014 NITRATEUA Negative 09/09/2014 WBCUA 8* 09/09/2014 (May not represent most recent UA results. See eD-H labs for more details.) Tox: No results found for this basename: ETHANOL, ACTMNPHEN, SALICYLATE, LEAD No results found for this basename: UDAUSCREEN Rx Lvls: No results found for this basename: LITHIUM, CARBAMAZEPIN, VALPROATE, LAMOTRIGINE, CLOZAPINE Assessment: Brianna Lay is a 59 y.o. 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 She was evaluated and treated by Dr. Aurea Valencia at [facility] who referred her for ECT. She appears to achieving substantial early improvement inresponse to her first 2 ECT, but remains profoundly ill. We agreed to proceed with ECT next week, recognizing that her improvement is unlikely to last thru the weekend Current Working Primary Diagnosis: MDD with psychotic and catatonic features 296.34 Clinical Global Impression Severity of illness: Considering your total clinical experience with this particular population, howmentally ill is the patient at this time? 6 = Severely ill Global improvement: Rate total improvement compared to condition at admission, how much has she changed? Minimally Improved Plan: # Depression with psychotic features ?? Continue fluoxetine + olanzapine ?? ECT x 3 next week ?? Consider adding quetiapine prn for anxiety/psychosis to assess response ?? Family support and reassurance ?? Daily physical exercise ?? Consider supplementation with O3FAs # Hypothyroidism ?? Continue T3 supplementation of prior T4 treatment ?? Recheck TFTs next week, send antithyroid antibodies # Disposition: -After stabilization, patient expected to return home . Additional Information: Reasons for continued hospitalization: Warrants ongoing inpatient admission for safety, stabilization, and any other therapeutic intervention that could conceivably improve the patient's condition (including medication management, group psychotherapy, establishing adequate outpatient care).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 previous visit (from the past 24 hour(s)). Metabolic Labs: No results found for this basename: TSH No results found for this basename: HA1C No results found for this basename: CHLPL, HDL, CHOLHDL, LDLCHOL, LDLDIRECT, TRIG Assessment: Pt is a 59 y/o F with history of depression who presents in a depressive episode with psychotic features including guilty delusions/paranoia, and disorganized thoughts with thought blocking. Her presentation is most consistent with Major Depressive Disorder with psychotic features. Her guilty delusions, with the lack of auditory hallucinations, is very consistent of psychotic features associated withmajor depression. She also endorses that the paranoia worsens with the depression, again consistent with this diagnosis. Although there was a clear trigger for her depression (her fathers poor health), and she does have ahistory of depression and a history of being very religous; this appears to be new onset severe depression and true psychosis. In the setting of her weight loss, secondary causes of depression should be considered. She reports that she gets her mammograms regularly, but has a history of having to get them repeated numerous times because of uncertain findings. Additionally, there may have been a possible left breast nodule found on physical exam. A repeat mammogram either in-house or from her PCP would be reasonable. She has never had a colonoscopy, this would be reasonable as well. Patient has a history of hypothyroid, although on replacement, so we will check TSH to make sure this is not contributing. Although secondary causes of depression should be considered, most likely this is primary depression. She has not responded to prozac/zyprexa up to this point, but these treatments were just recently initiated (08/24/14), and she just had an increase in her dose yesterday. Thus, patient may just need more time to respond to the higher doses. This is especially true with the prozac. Other medication options that could be considered would be abilify augmentation to an antidepressantgiven major depression with psychotic features. Given her weight loss and her diagnosis, seroquel could help with appetite, depression, and psychosis. Alternatively patient is the ideal candidate for ECT which would likely give her the fast and probably best response. Dr. Valencia in her note mentioned an interest in ECT and the was inquiring as well. Will defer to the primary team. Safety Risk Assessment: Warrants inpatient admission for safety, stabilization, and any other therapeutic intervention that could conceivably improve the patient's condition (including medication management, group psychotherapy, establishing adequate outpatient care). DSM Multiaxial Diagnosis: [place] I MDD with psychotic features [place] II deferred [place] III Hypothyroid on replacement [place] IV: Father's health concerns [place] V: GAF = 25 Clinical Global Impression: Severity of illness: Considering your total clinical experience with this particular population, howmentally ill is the patient at this time? 5 = Markedly ill Plan: ?? Admit patient to Psychiatry Care Unit ?? Activity: Restrict to Unit (RTU) ?? Continue Prozac 40mg daily ?? Continue Zyprexa 15mg QHS ?? Continue synthroid 100mg daily ?? Consider ECT Preventative/Prophylaxis: ?? Pneumovax and Influenza immunizations to be given as needed. ?? DVT prophylaxis not indicated: patient is at low risk for VTE and is fully ambulatory. ?? If currently a smoker: advised about smoking cessation, will provide cessation material and support. Disposition: Estimated length of time needed for hospital staff is 5-7 days. Proposed post-discharge care will likely include re-establishing follow-up care with existing providers. Team will contact outpatient prescriber and therapist for collateral information and continuity of care. Discussed Advanced Directives and Code Status. The patient wishes to be Full Code. I certify that the inpatient psychiatric hospital admission is medically necessary for Treatment that could reasonably be expected to improve patient's condition. Precertification: Required: none Signed By: William Correia MD 09/08/2014 documented in this encounter Procedure Notes Giovany Alicia MD - 09/24/2014 7:28 AM EDTProcedure(s): ECT Pre-Procedure Diagnose(s): Major depressive disorder, recurrent episode, severe, specified as with psychotic behavior ECT TITRATION NOTE Patient received bifrontal ECT titration in the PACU. The primary diagnosis is 296.34. Relevant history: Doing well with ECT but slow to remit; tolerating ECT well; will switch to bifrontal ECT today. Patient was attached to monitoring equipment. The anesthesia team administered the following medications: methohexital 80 mg succinylcholine 40 mg After adequate sedation and relaxation were achieved, patient received ECT using a MECTA device at the following parameters: 07/14/.5 0 sec EEG seizure 44 sec EEG seizure Patient was stabilized and appeared to tolerate the procedure. Complications: none Changes/recommendations/parameters for next treatment: TREAT AT Next treatment date: TBD Alonzo Martel MD - 09/22/2014 7:26 AM EDT Pre-procedure Diagnoses 1. Major depressive disorder, recurrent episode, severe, specified as with psychotic behavior [296.34] Procedures 1. ECT [[id number] (CPT??)] ECT SUBSEQUENT TREATMENT NOTE Patient received right-unilateral ECT in the PACU. Course type: acute Treatment # 7 total The primary diagnosis is 296.34. Interval history: Noticing mood improvement, tolerating well Patient was attached to monitoring equipment. The anesthesia team administered the following medications: methohexital 80 mg succinylcholine 40 mg ECT parameters: RUL 0.3//800 25 second motor seizure 47 second EEG seizure Patient was stabilized and appeared to tolerate the procedure. Complications: none Changes/recommendations for next treatment: None, same. Next treatment date:09/24 Alonzo Martel MD - 09/21/2014 8:02 AM EDT Pre-procedure Diagnoses 1. Major depressive disorder, recurrent episode, severe, specified as with psychotic behavior [296.34] Procedures 1. ECT [[id number] (CPT??)] ECT SUBSEQUENT TREATMENT NOTE Patient received right-unilateral ECT in the PACU. Course type: acute Treatment # 6 total The primary diagnosis is 296.34. Interval history: Noticing mood improvement, tolerating well Patient was attached to monitoring equipment. The anesthesia team administered the following medications: methohexital 80 mg succinylcholine 40 mg ECT parameters: RUL 0.3/40/5/800 22 second motor seizure 29 second EEG seizure Patient was stabilized and appeared to tolerate the procedure. Complications: none Changes/recommendations for next treatment: None, same. Next treatment date: 09/22 and 09/24 Route note to: Aurea Valencia MD Andre De La Cruz MD - 09/18/2014 9:25 AM EDTProcedure(s): ECT Pre-Procedure Diagnose(s): Major depressive disorder, recurrent episode, severe, specified as with psychotic behavior ECT SUBSEQUENT TREATMENT NOTE Patient received right-unilateral ECT in the PACU. Course type: acute Treatment # 5 total The primary diagnosis is 296.34. Interval history: Noticing mood improvement, tolerating well Patient was attached to monitoring equipment. The anesthesia team administered the following medications: methohexital 80 mg succinylcholine 40 mg ECT parameters: RUL 0.3/40/5/800 35 second motor seizure 36 second EEG seizure Patient was stabilized and appeared to tolerate the procedure. Complications: none Changes/recommendations for next treatment: None, same. Next treatment date: and 09/24 Route note to: Aurea Valencia MD Alonzo Martel MD - 09/15/2014 7:47 AM EDT Pre-procedure Diagnoses 1. Major depressive disorder, recurrent episode, severe, specified as with psychotic behavior [296.34] Procedures 1. ECT [[id number] (CPT??)] Expand All Collapse All ECT SUBSEQUENT TREATMENT NOTE Patient received right-unilateral ECT in the PACU. Course type: acute Treatment #4; #4 total The primary diagnosis is 296.34. Interval history: Mood improved slightly with ECT yesterday. Patient was attached to monitoring equipment. The anesthesia team administered the following medications: methohexital 80 mg succinylcholine 40 mg ECT parameters: RUL 0.4/40/5/800 37 second motor seizure 57 second EEG seizure Patient was stabilized and appeared to tolerate the procedure. Complications: none Changes/recommendations for next treatment: Parameters should be switched to RUL 0.3/40/5/800. Next treatment date:, 09/18 Route note to: Aurea Valencia MD Vamshi Dukes MD - 09/14/2014 7:20 AM EDTProcedure(s): ECT Pre-Procedure Diagnose(s): Major depressive disorder, recurrent episode, severe, specified as with psychotic behavior ECT SUBSEQUENT TREATMENT NOTE Patient received right-unilateral ECT in the PACU. Course type: acute Treatment #3; #3 total The primary diagnosis is 296.34. Interval history: Mood improved slightly with ECT yesterday. Patient was attached to monitoring equipment. The anesthesia team administered the following medications: methohexital 80 mg succinylcholine 40 mg ECT parameters: RUL 0.4/40/5/800 43 second motor seizure 53 second EEG seizure Patient was stabilized and appeared to tolerate the procedure. Complications: none Changes/recommendations for next treatment: Parameters should be switched to RUL 0.3/40/5/800. Next treatment date: 09/15, 09/18 Route note to: Aurea Valencia MD Nathen Go MD - 09/11/2014 9:39 AM EDTProcedure(s): ECT Pre-Procedure Diagnose(s): Major depressive disorder, recurrent episode, severe, specified as with psychotic behavior ECT SUBSEQUENT TREATMENT NOTE Patient received right-unilateral ECT in the PACU. Course type: acute Treatment #2; #2 total The primary diagnosis is 296.34. Interval history: Mood improved slightly with ECT yesterday. Patient was attached to monitoring equipment. The anesthesia team administered the following medications: methohexital 80 mg succinylcholine 40 mg ECT parameters: 0.4/40/5/800 55 second motor seizure 59 second EEG seizure Patient was stabilized and appeared to tolerate the procedure. Complications: none Changes/recommendations for next treatment: 0.4/40/5/800 Next treatment date: 09/14/14 Route note to: Aurea Valencia MD Giovany Alicia MD - 09/10/2014 9:53 AM EDTProcedure(s): ECT Pre-Procedure Diagnose(s): Major depressive disorder, recurrent episode, severe, specified as with psychotic behavior ECT TITRATION NOTE Patient received right unilateral ECT titration in the PACU. The primary diagnosis is 296.34. Relevant history: severely depressed with psychosis; does have decision-making capacity; consents toacute course of ECT Patient was attached to monitoring equipment. The anesthesia team administered the following medications: methohexital 100 mg succinylcholine 60 mg After adequate sedation and relaxation were achieved, patient received ECT using a MECTA device at the following parameters: 0.3/20/1/800 0 sec EEG seizure 0.3/20/2/800 50 sec EEG seizure Patient was stabilized and appeared to tolerate the procedure. Complications: none Changes/recommendations/parameters for next treatment: TREAT AT 0.3/40/5/800; DECREASE SUCC TO 50 MGAND CONSIDER DECREASE BREVITAL Next treatment date: TBD PLEASE NOTE THAT THE ORIGINAL PARAMETER RECOMMENDATION OF 0.4/40/5/800 WAS AN ERROR; CORRECT PARAMETERS ARE GIVEN ABOVE. documented in this encounter Miscellaneous Notes Plan of Care - Tessie Streeter RN - 09/24/2014 1:02 PM EDT Problem: General Plan of Care Goal: Plan of Care Review Outcome: Outcome (s) achieved Date Met: 09/24/14 09/23/142236 Coping/Psychosocial Response Interventions Plan of Care Reviewed with patient Plan of Care Review Plan of Care Outcome Status ongoing (interventions implemented as appropriate) Progress improving OUTCOME EVALUATION NOTE: OUTCOME SUMMARY: Had ECT- denies any h/a- orient x 3 pleasant- timid- denies any SI or HI. Still believes that her family is not safe- here and reinforced reality with writer technical publications. Brianna continues to have bilateral shaking in hands- when she focuses on them the tremors decrease Significantly. She feels ready for d/c and has f/u. Hep cap removewd- ate lunch and left at 1220. PLAN MOVING FORWARD: D/c today INDIVIDUALIZED FALL PREVENTION: Assistance: Up at michele Supervision: ESC Surveillance: q 30 min CPG GOAL OUTCOME EVALUATION: Goal: Individualization and Mutuality Outcome: Outcome (s) achieved Date Met: 09/24/14 09/08/14 1836 09/21/14 7497 Individualization Individualize the Plan of Care: -- Plan is for d/c after ECT Mutuality/Individual Preferences What anxieties, fears or concerns do you have about your health or care? I have more concern about everyone else -- What questions do you have about your health or care? not at the moment -- What information would help us give you more personalized care? none -- Goal: Fall Prevention-Safe Patient Handling Outcome: Outcome (s) achieved Date Met: 09/24/14 09/23/14 19409/23/14223609/24/14 0748 Safety Interventions Safety Precautions/Fall Reduction -- -- -- Musculoskeletal Interventions Activity/Level of Assistance -- -- with 1-person assist Positioning -- -- HOB up 30-45 degrees Muscle Strengthening -- activity/mobility promoted -- Self-Care Promotion -- personal routines for BADL/IADL promoted -- Dixon Fall Risk History of Falling 0 -- -- Secondary Diagnosis 0 -- -- Ambulatory Aids 0 -- -- Intravenous Therapy/Heparin/Saline Lock 0 -- -- Gait/Transferring 0 -- -- Mental Status 0 -- -- Score 0 -- -- Activity and Safety Assistive Device -- -- Oxygen OTHER Dixon Fall Risk Low -- -- 09/24/14 1200 Safety Interventions Safety Precautions/Fall Reduction fall reduction program maintained Musculoskeletal Interventions Activity/Level of Assistance -- Positioning -- Muscle Strengthening -- Self-Care Promotion -- Dixon Fall Risk History of Falling -- Secondary Diagnosis -- Ambulatory Aids -- Intravenous Therapy/Heparin/Saline Lock -- Gait/Transferring -- Mental Status -- Score -- Activity and Safety Assistive Device -- OTHER Dixon Fall Risk -- Goal: Infection Control Outcome: Ongoing (Interventions Implemented as Appropriate) 09/23/14223609/24/14 1200 Coping/Psychosocial Response Interventions Counseling personal strengths integrated;goal setting facilitated;problem solving facilitated -- Safety Interventions Isolation Precautions -- standard precautions maintained Infection Prevention -- nutrition promoted Problem: Depression (Adult, Obstetrics, Pediatric) Goal: Improved/Stable Mood Patient will demonstrate the desired outcomes. Outcome: Outcome (s) achieved Date Met: 09/24/14 09/24/14 1258 Depression (Adult, Obstetrics, Pediatric) Improved/Stable Mood achieves outcome Plan of Care - Soco Vogel RN - 09/23/2014 10:48 PM EDT Problem: General Plan of Care Goal: Plan of Care Review Outcome: Ongoing (Interventions Implemented as Appropriate) 09/23/142236 Coping/Psychosocial Response Interventions Plan of Care Reviewed with patient Plan of Care Review Plan of Care Outcome Status ongoing (interventions implemented as appropriate) Progress improving OUTCOME EVALUATION NOTE: OUTCOME SUMMARY: Patient was visited by claudia who reports patient has improved but not yet at baseline. states he supports discharge tomorrow as patient is looking forward to granddaughter's talent show. also reports willingness to bring patient for outpatient ect. Patient reports that she still has some concerns about the staff at the [facility] yet she can see that it doesn't make much sense Patient denies SI or HI. Depression 10/02 and no anxiety PLAN MOVING FORWARD: NPO after midnight for ect INDIVIDUALIZED FALL PREVENTION: Assistance: independent Supervision: Escort to group Surveillance: 30 minute checks CPG GOAL OUTCOME EVALUATION: Goal: Individualization and Mutuality Outcome: Ongoing (Interventions Implemented as Appropriate) 09/08/14 1836 09/21/14 6885 Individualization Individualize the Plan of Care: -- Plan is for d/c after ECT Mutuality/Individual Preferences What anxieties, fears or concerns do you have about your health or care? I have more concern about everyone else -- What questions do you have about your health or care? not at the moment -- What information would help us give you more personalized care? none -- Goal: Fall Prevention-Safe Patient Handling Outcome: Ongoing (Interventions Implemented as Appropriate) 09/23/14194409/23/142236 Safety Interventions Safety Precautions/Fall Reduction fall reduction program maintained -- Musculoskeletal Interventions Activity/Level of Assistance -- up ad michele Positioning -- independent Muscle Strengthening -- activity/mobility promoted Self-Care Promotion -- personal routines for BADL/IADL promoted Dixon Fall Risk History of Falling 0 -- Secondary Diagnosis 0 -- Ambulatory Aids 0 -- Intravenous Therapy/Heparin/Saline Lock 0 -- Gait/Transferring 0 -- Mental Status 0 -- Score 0 -- OTHER Dixon Fall Risk Low -- Goal: Infection Control Outcome: Ongoing (Interventions Implemented as Appropriate) 09/23/14194409/23/142236 Coping/Psychosocial Response Interventions Counseling -- personal strengths integrated;goal setting facilitated;problem solving facilitated Safety Interventions Isolation Precautions standard precautions maintained -- Infection Prevention nutrition promoted;hydration promoted;promote handwashing -- Problem: Depression (Adult, Obstetrics, Pediatric) Goal: Establish/Maintain Self-Care Routine Patient will demonstrate the desired outcomes. Outcome: Ongoing (Interventions Implemented as Appropriate) 09/23/142236 Depression (Adult, Obstetrics, Pediatric) Establish/Maintain Self-Care Routine making progress toward outcome Goal: Improved/Stable Mood Patient will demonstrate the desired outcomes. Outcome: Ongoing (Interventions Implemented as Appropriate) 09/23/142236 Depression (Adult, Obstetrics, Pediatric) Improved/Stable Mood making progress toward outcome Plan of Care - Maria L Pineda RN - 09/23/2014 10:32 AM EDT Problem: General Plan of Care Goal: Plan of Care Review Outcome: Ongoing (Interventions Implemented as Appropriate) 09/23/14 1017 Coping/Psychosocial Response Interventions Plan of Care Reviewed with patient Plan of Care Review Plan of Care Outcome Status ongoing (interventions implemented as appropriate) Progress improving OUTCOME EVALUATION NOTE: OUTCOME SUMMARY: Pt reported she slept good. Depression: 09/01 Anxiety: 08/04. Affect is full and congruent. Pt denies AH/VH. Pt reports that the thought that something could happen to her family does still come into her mind at times but the thought comes up less often and it is not as distressing to her. Pt denies suicidal or homicidal ideation and contracts for safety. Pt ate 100% of meals and reports last bowel movement was yesterday. Pt denies physical pain. Pt' hands continue to have a significant tremor bilaterally to the extent that she spills her water when taking her medications. Pt adhering to prescribedmedication plan. PLAN MOVING FORWARD: ECT tomorrow. Continue medications, encourage therapeutic groups, DESTINY program and therapeutic milieu. INDIVIDUALIZED FALL PREVENTION: Assistance: Up ad michele Supervision: escort Surveillance: 30 minute checks CPG GOAL OUTCOME EVALUATION: Goal: Individualization and Mutuality Outcome: Ongoing (Interventions Implemented as Appropriate) 09/08/14 1836 09/21/14 2357 Individualization Individualize the Plan of Care: -- Plan is for d/c after ECT Mutuality/Individual Preferences What anxieties, fears or concerns do you have about your health or care? I have more concern about everyone else -- What questions do you have about your health or care? not at the moment -- What information would help us give you more personalized care? none -- Goal: Fall Prevention-Safe Patient Handling Outcome: Ongoing (Interventions Implemented as Appropriate) 09/22/14 1925 09/22/14 2346 09/23/14 1000 Safety Interventions Safety Precautions/Fall Reduction fall reduction program maintained -- -- Musculoskeletal Interventions Activity/Level of Assistance -- up ad michele -- Positioning -- independent -- Muscle Strengthening -- activity/mobility promoted -- Self-Care Promotion -- personal routines for BADL/IADL promoted -- Dixon Fall Risk History of Falling -- -- 0 Secondary Diagnosis -- -- 0 Ambulatory Aids -- -- 0 Intravenous Therapy/Heparin/Saline Lock -- -- 0 Gait/Transferring -- -- 0 Mental Status -- -- 0 Score -- -- 0 OTHER Dixon Fall Risk -- -- Low Goal: Infection Control Outcome: Ongoing (Interventions Implemented as Appropriate) 09/22/14192409/22/14 2346 Coping/Psychosocial Response Interventions Counseling -- personal strengths integrated;problem solving facilitated;emotional support provided;goal setting facilitated Safety Interventions Isolation Precautions standard precautions maintained -- Infection Prevention promote handwashing;nutrition promoted;hydration promoted -- Problem: Depression (Adult, Obstetrics, Pediatric) Goal: Establish/Maintain Self-Care Routine Patient will demonstrate the desired outcomes. Outcome: Ongoing (Interventions Implemented as Appropriate) 09/23/14 1017 Depression (Adult, Obstetrics, Pediatric) Establish/Maintain Self-Care Routine making progress toward outcome Goal: Improved/Stable Mood Patient will demonstrate the desired outcomes. Outcome: Ongoing (Interventions Implemented as Appropriate) 09/23/14 1017 Depression (Adult, Obstetrics, Pediatric) Improved/Stable Mood making progress toward outcome Plan of Care - Soco Vogel RN - 09/22/2014 11:49 PM EDT Problem: General Plan of Care Goal: Plan of Care Review Outcome: Revised Date Met: 09/22/14 09/21/14 526 Coping/Psychosocial Response Interventions Plan of Care Reviewed with patient;spouse Plan of Care Review Plan of Care Outcome Status ongoing (interventions implemented as appropriate) Progress improving OUTCOME EVALUATION NOTE: OUTCOME SUMMARY: Patient spoke on purposeful rounds about symptom management. Patient was not able to swallow omega 3 esters despite multiple attempts and use of jello. PLAN MOVING FORWARD: ECT / INDIVIDUALIZED FALL PREVENTION: Assistance: independent Supervision: Escort to group Surveillance: 30 minute checks CPG GOAL OUTCOME EVALUATION: Goal: Individualization and Mutuality Outcome: Ongoing (Interventions Implemented as Appropriate) 09/08/14 1836 09/21/14 235 Individualization Individualize the Plan of Care: -- Plan is for d/c after ECT Mutuality/Individual Preferences What anxieties, fears or concerns do you have about your health or care? I have more concern about everyone else -- What questions do you have about your health or care? not at the moment -- What information would help us give you more personalized care? none -- Goal: Fall Prevention-Safe Patient Handling [id number]/[id number] Safety Interventions Safety Precautions/Fall Reduction fall reduction program maintained -- Musculoskeletal Interventions Activity/Level of Assistance -- up ad michele Positioning -- independent Muscle Strengthening -- activity/mobility promoted Self-Care Promotion -- personal routines for BADL/IADL promoted Dixon Fall Risk History of Falling 0 -- Secondary Diagnosis 0 -- Ambulatory Aids 0 -- Intravenous Therapy/Heparin/Saline Lock 0 -- Gait/Transferring 0 -- Mental Status 0 -- Score 0 -- OTHER Dixon Fall Risk Low -- Goal: Infection Control 09/22/14192409/22/142345 Coping/Psychosocial Response Interventions Counseling -- personal strengths integrated;problem solving facilitated;emotional support provided;goal setting facilitated Safety Interventions Isolation Precautions standard precautions maintained -- Infection Prevention promote handwashing;nutrition promoted;hydration promoted -- Problem: Depression (Adult, Obstetrics, Pediatric) Goal: Establish/Maintain Self-Care Routine Patient will demonstrate the desired outcomes. Outcome: Ongoing (Interventions Implemented as Appropriate) 09/22/142345 Depression (Adult, Obstetrics, Pediatric) Establish/Maintain Self-Care Routine unable to achieve outcome Goal: Improved/Stable Mood Patient will demonstrate the desired outcomes. Outcome: Ongoing (Interventions Implemented as Appropriate) 09/22/142345 Depression (Adult, Obstetrics, Pediatric) Improved/Stable Mood making progress toward outcome Plan of Care - Brianna Huntley RN - 09/22/2014 3:56 PM EDT Problem: General Plan of Care Goal: Plan of Care Review Outcome: Ongoing (Interventions Implemented as Appropriate) 09/21/142356 Coping/Psychosocial Response Interventions Plan of Care Reviewed with patient;spouse Plan of Care Review Plan of Care Outcome Status ongoing (interventions implemented as appropriate) Progress improving OUTCOME EVALUATION NOTE: OUTCOME SUMMARY: Pt S/P ECT early this morning and napped until ~ 1030 am on return. She ate and was up ; dressed andshowered with minimal help. Able to visit with a student nurse. She rates depression 3/10 and anxiety as 2/10. She denied pain and says she has been drinking better to prevent a headache. She attended the afternoon groups. Last BM was yesterday. No evidence of psychosis. She denies SI/HI and CFS PLAN MOVING FORWARD: D/C planning. DESTINY and groups for illness education and coping skills. INDIVIDUALIZED FALL PREVENTION: Assistance: Up ad michele Supervision: 30 checks Surveillance: ETG CPG GOAL OUTCOME EVALUATION: Doing well. Depression resolving. Goal: Individualization and Mutuality Outcome: Ongoing (Interventions Implemented as Appropriate) 09/08/14 1836 09/21/142356 Individualization Individualize the Plan of Care: -- Plan is for d/c after ECT Mutuality/Individual Preferences What anxieties, fears or concerns do you have about your health or care? I have more concern about everyone else -- What questions do you have about your health or care? not at the moment -- What information would help us give you more personalized care? none -- Goal: Fall Prevention-Safe Patient Handling Outcome: Ongoing (Interventions Implemented as Appropriate) 09/18/14 19009/21/14235609/22/14 0600 Safety Interventions Safety Precautions/Fall Reduction -- -- -- Musculoskeletal Interventions Activity/Level of Assistance -- -- up ad michele;independently Positioning -- -- -- Muscle Strengthening -- sitting on edge of bed encouraged -- Self-Care Promotion personal routines for BADL/IADL promoted -- -- Dixon Fall Risk History of Falling -- -- -- Secondary Diagnosis -- -- -- Ambulatory Aids -- -- -- Intravenous Therapy/Heparin/Saline Lock -- -- -- Gait/Transferring -- -- -- Mental Status -- -- -- Score -- -- -- OTHER Dixon Fall Risk -- -- -- 09/22/14 0809/22/14 0951 Safety Interventions Safety Precautions/Fall Reduction -- fall reduction program maintained Musculoskeletal Interventions Activity/Level of Assistance -- -- Positioning HOB up 15 degrees -- Muscle Strengthening -- -- Self-Care Promotion -- -- Dixon Fall Risk History of Falling -- 0 Secondary Diagnosis -- 0 Ambulatory Aids -- 0 Intravenous Therapy/Heparin/Saline Lock -- 0 Gait/Transferring -- 0 Mental Status -- 0 Score -- 0 OTHER Dixon Fall Risk -- Low Goal: Infection Control Outcome: Ongoing (Interventions Implemented as Appropriate) 09/21/14235609/22/14 0951 Coping/Psychosocial Response Interventions Counseling emotional support provided;problem solving facilitated;reassurance provided;understandingof situation facilitated;verbalization of feelings encouraged -- Safety Interventions Isolation Precautions -- standard precautions maintained Infection Prevention -- hydration promoted Problem: Depression (Adult, Obstetrics, Pediatric) Goal: Establish/Maintain Self-Care Routine Patient will demonstrate the desired outcomes. Outcome: Ongoing (Interventions Implemented as Appropriate) 09/21/142356 Depression (Adult, Obstetrics, Pediatric) Establish/Maintain Self-Care Routine making progress toward outcome Goal: Improved/Stable Mood Patient will demonstrate the desired outcomes. Outcome: Ongoing (Interventions Implemented as Appropriate) 09/21/142356 Depression (Adult, Obstetrics, Pediatric) Improved/Stable Mood making progress toward outcome Plan of Care - Terri Newby RN - 09/22/2014 12:02 AM EDT Problem: General Plan of Care Goal: Plan of Care Review Outcome: Ongoing (Interventions Implemented as Appropriate) 09/21/142356 Coping/Psychosocial Response Interventions Plan of Care Reviewed with patient;spouse Plan of Care Review Plan of Care Outcome Status ongoing (interventions implemented as appropriate) Progress improving Goal: Individualization and Mutuality Outcome: Ongoing (Interventions Implemented as Appropriate) 09/21/142356 Individualization Individualize the Plan of Care: Plan is for d/c after ECT Goal: Fall Prevention-Safe Patient Handling Outcome: Ongoing (Interventions Implemented as Appropriate) 09/21/14195409/21/142356 Safety Interventions Safety Precautions/Fall Reduction -- fall reduction program maintained;low bed Musculoskeletal Interventions Activity/Level of Assistance -- up ad michele Muscle Strengthening -- sitting on edge of bed encouraged Dixon Fall Risk History of Falling 0 -- Secondary Diagnosis 0 -- Ambulatory Aids 0 -- Intravenous Therapy/Heparin/Saline Lock 0 -- Gait/Transferring 0 -- Mental Status 0 -- Score 0 -- OTHER Dixon Fall Risk Low -- Goal: Infection Control Outcome: Ongoing (Interventions Implemented as Appropriate) 09/21/142356 Coping/Psychosocial Response Interventions Counseling emotional support provided;problem solving facilitated;reassurance provided;understandingof situation facilitated;verbalization of feelings encouraged Safety Interventions Isolation Precautions standard precautions maintained Infection Prevention hydration promoted;rest/sleep promoted;nutrition promoted Problem: Depression (Adult, Obstetrics, Pediatric) Intervention: Suicide Attempt Prevention/Intervention 09/21/142356 Coping/Psychosocial Response Interventions Suicide Attempt Prevention/Intervention coping techniques promoted;emotional support provided;familysupport provided;goal setting facilitated;positive reinforcement provided;problem solving encouraged;self-awareness enhanced;self- responsibility promoted;support system enhanced Intervention: Secure Environment 09/21/142356 Coping/Psychosocial Response Interventions Secure Environment physically safe environment provided;emotionally safe environment provided;self-care activities encouraged Intervention: Self-Esteem Promotion 09/21/142356 Coping/Psychosocial Response Interventions Self-Esteem Promotion coping techniques promoted;emotional support provided;family involvement promoted;positive reinforcement provided;self-care activities encouraged Intervention: Therapeutic Relationship Promotion 09/21/142356 Coping/Psychosocial Response Interventions Therapeutic Relationship Promotion coping techniques promoted;emotional support provided;positive reinforcement provided;problem solving encouraged;self-care activities encouraged;self-responsibility promoted;reparticipation in gratifying activities encouraged Goal: Establish/Maintain Self-Care Routine Patient will demonstrate the desired outcomes. Outcome: Unable to achieve outcome by discharge 09/21/142356 Depression (Adult, Obstetrics, Pediatric) Establish/Maintain Self-Care Routine making progress toward outcome Goal: Improved/Stable Mood Patient will demonstrate the desired outcomes. Outcome: Ongoing (Interventions Implemented as Appropriate) 09/21/142356 Depression (Adult, Obstetrics, Pediatric) Improved/Stable Mood making progress toward outcome Brianna is alert and oriented x 4. She reports headache 5/10 throbbing pain; APAP 650 mg given with headache down to 3/10 on reassessment. Fluids encouraged. Visited with . Brianna denies SI, HI, and CFS. She rates depression as 3/10 and anxiety as 4/10, attributing anxiety to her headache. She denies AH/VH, and denies paranoia/worry around her family's safety. She states that she does feel ready togo home on . Encouraged to let staff know if she is unable to sleep or has headache overnight so we can aid her. Encouraged to let her family and providers know if, upon d/c, she re-experiencesworry about her family's safety. Voiding qs. Ate 100% dinner with 's encouragement. Quiet. Con tinue to monitor. Plan of Care - Brianna Huntley, RN - 09/21/2014 2:03 PM EDT Problem: General Plan of Care Goal: Plan of Care Review Outcome: Ongoing (Interventions Implemented as Appropriate) 09/17/14 2212 09/18/14 1900 Coping/Psychosocial Response Interventions Plan of Care Reviewed with -- patient Plan of Care Review Plan of Care Outcome Status ongoing (interventions implemented as appropriate) -- Progress improving -- OUTCOME EVALUATION NOTE: OUTCOME SUMMARY: Pt was NPO for ECT this morning which reportedly went well. She reports that she had a H/A from lastnight and it gradually returned after ECT. Given PRN tylenol at 1230 PM. She still has some worries about her family getting poisoned ; but only when asked about them. She states they are less bothersome than they were when she came in to the hospital. She denies SI/HI and CFS. She rates her depression and anxiety as 2/10. She is walking with a steady gait. Encouraged to drink more as she states her headache is from not drinking enough. I ordered water fro her to take at each meal tray. PLAN MOVING FORWARD: Groups for DESTINY and coping skills. INDIVIDUALIZED FALL PREVENTION: Assistance: Up ad micehle Supervision: ETG Surveillance: 30 checks. CPG GOAL OUTCOME EVALUATION: Doing well. Depression resolving. Goal: Individualization and Mutuality Outcome: Ongoing (Interventions Implemented as Appropriate) 09/08/14 1836 Mutuality/Individual Preferences What anxieties, fears or concerns do you have about your health or care? I have more concern about everyone else What questions do you have about your health or care? not at the moment What information would help us give you more personalized care? none Goal: Fall Prevention-Safe Patient Handling Outcome: Ongoing (Interventions Implemented as Appropriate) 09/18/14 1900 09/21/14 0126 09/21/14 0840 Safety Interventions Safety Precautions/Fall Reduction -- -- -- Musculoskeletal Interventions Activity/Level of Assistance -- up ad michele;independently -- Positioning -- -- HOB up 30 degrees Muscle Strengthening activity/mobility promoted -- -- Self-Care Promotion personal routines for BADL/IADL promoted -- -- Dixon Fall Risk History of Falling -- -- -- Secondary Diagnosis -- -- -- Ambulatory Aids -- -- -- Intravenous Therapy/Heparin/Saline Lock -- -- -- Gait/Transferring -- -- -- Mental Status -- -- -- Score -- -- -- OTHER Dixon Fall Risk -- -- -- 09/21/14 1223 Safety Interventions Safety Precautions/Fall Reduction fall reduction program maintained Musculoskeletal Interventions Activity/Level of Assistance -- Positioning -- Muscle Strengthening -- Self-Care Promotion -- Dixon Fall Risk History of Falling 0 Secondary Diagnosis 0 Ambulatory Aids 0 Intravenous Therapy/Heparin/Saline Lock 20 Gait/Transferring 0 Mental Status 0 Score 20 OTHER Dixon Fall Risk Low Goal: Infection Control Outcome: Ongoing (Interventions Implemented as Appropriate) 09/17/14219909/18/141899 Coping/Psychosocial Response Interventions Counseling -- emotional support provided;verbalization of feelings encouraged Safety Interventions Isolation Precautions standard precautions maintained -- Infection Prevention nutrition promoted;hydration promoted;rest/sleep promoted -- Problem: Depression (Adult, Obstetrics, Pediatric) Goal: Establish/Maintain Self-Care Routine Patient will demonstrate the desired outcomes. Outcome: Ongoing (Interventions Implemented as Appropriate) 09/19/14 001 Depression (Adult, Obstetrics, Pediatric) Establish/Maintain Self-Care Routine making progress toward outcome Goal: Improved/Stable Mood Patient will demonstrate the desired outcomes. Outcome: Ongoing (Interventions Implemented as Appropriate) 09/19/1411 Depression (Adult, Obstetrics, Pediatric) Improved/Stable Mood making progress toward outcome Plan of Care - Ana Barbour RN - 09/20/2014 10:32 PM EDT Problem: General Plan of Care Goal: Plan of Care Review Outcome: Ongoing (Interventions Implemented as Appropriate) 09/17/14221109/18/141899 Coping/Psychosocial Response Interventions Plan of Care Reviewed with -- patient Plan of Care Review Plan of Care Outcome Status ongoing (interventions implemented as appropriate) -- Progress improving -- OUTCOME EVALUATION NOTE: OUTCOME SUMMARY: Stated goal: To attend groups- Pt attended all groups- visited & patient went outside onwalk which she enjoyed- Rated depression & anxiety 2/10- Denied pain & SI & CFS- Pt is easier to engage & initiated conversation- is supportive- Pt & noted increasedhand tremors today- Pt is aware she is NPO after midnoc for ECT in am- HC patent- Appetite good- PrnTrazodone taken @ HS- Pt sleeping @ present PLAN MOVING FORWARD: ECT per schedule Encourage groups, socialization & med compliance INDIVIDUALIZED FALL PREVENTION: Assistance: Medium falls risk- Ambulating independently w/ steady gait Supervision: escort Surveillance: 30 min checks- Purposeful rounding CPG GOAL OUTCOME EVALUATION: Goal: Fall Prevention-Safe Patient Handling Outcome: Ongoing (Interventions Implemented as Appropriate) 09/18/14189909/20/141817 Safety Interventions Safety Precautions/Fall Reduction -- fall reduction program maintained;lighting adjusted for task/safety;low bed;nonskid shoes/slippers when out of bed Musculoskeletal Interventions Activity/Level of Assistance up ad michele;independently -- Positioning independent -- Muscle Strengthening activity/mobility promoted -- Self-Care Promotion personal routines for BADL/IADL promoted -- Dixon Fall Risk History of Falling -- 0 Secondary Diagnosis -- 0 Ambulatory Aids -- 0 Intravenous Therapy/Heparin/Saline Lock -- 20 Gait/Transferring -- 0 Mental Status -- 0 Score -- 20 OTHER Dixon Fall Risk -- Low Goal: Infection Control Outcome: Ongoing (Interventions Implemented as Appropriate) 09/17/14219909/18/141899 Coping/Psychosocial Response Interventions Counseling -- emotional support provided;verbalization of feelings encouraged Safety Interventions Isolation Precautions standard precautions maintained -- Infection Prevention nutrition promoted;hydration promoted;rest/sleep promoted -- Problem: Depression (Adult, Obstetrics, Pediatric) Intervention: Suicide Attempt Prevention/Intervention 09/18/141899 Coping/Psychosocial Response Interventions Suicide Attempt Prevention/Intervention emotional support provided Intervention: Secure Environment 09/18/141899 Coping/Psychosocial Response Interventions Secure Environment emotionally safe environment provided;physically safe environment provided Intervention: Self-Esteem Promotion 09/18/141899 Coping/Psychosocial Response Interventions Self-Esteem Promotion counseling provided;emotional support provided Intervention: Therapeutic Relationship Promotion 09/18/141899 Coping/Psychosocial Response Interventions Therapeutic Relationship Promotion emotional support provided Goal: Establish/Maintain Self-Care Routine Patient will demonstrate the desired outcomes. Outcome: Ongoing (Interventions Implemented as Appropriate) 09/19/14 0012 Depression (Adult, Obstetrics, Pediatric) Establish/Maintain Self-Care Routine making progress toward outcome Goal: Improved/Stable Mood Patient will demonstrate the desired outcomes. Outcome: Ongoing (Interventions Implemented as Appropriate) 09/19/14 0012 Depression (Adult, Obstetrics, Pediatric) Improved/Stable Mood making progress toward outcome Plan of Care - Tiffanie Mcgregor RN - 09/20/2014 10:46 AM EDT Problem: General Plan of Care Goal: Plan of Care Review Outcome: Ongoing (Interventions Implemented as Appropriate) 09/17/14221109/18/14 190 Coping/Psychosocial Response Interventions Plan of Care Reviewed with -- patient Plan of Care Review Plan of Care Outcome Status ongoing (interventions implemented as appropriate) -- Progress improving -- OUTCOME EVALUATION NOTE: OUTCOME SUMMARY: Pt states she slept good. Affect flat, quiet, fair eye contact. Rates depression 5 with no anxiety. Denies psychotic symptoms. Denies SI, HI and self harming thoughts. Bree for safety. No pain issues. Nery good. Last BM 3-28. Gait steady. Med compliant. NV Goal: Groups. Hep cap flushed, patent. Dsg dry and intact. No signs or symptoms of phlebitis/infection noted. PLAN MOVING FORWARD: Attend groups to learn coping skills. Med compliance/changes as ordered. NPO p MN for ECT in AM. Pt aware. INDIVIDUALIZED FALL PREVENTION: Assistance: Up ad michele, independent Supervision: When necessary Surveillance: Purposeful rounding, esc to groups, 30 min checks CPG GOAL OUTCOME EVALUATION: Goal: Individualization and Mutuality Outcome: Ongoing (Interventions Implemented as Appropriate) 09/08/14 1836 Mutuality/Individual Preferences What anxieties, fears or concerns do you have about your health or care? I have more concern about everyone else What questions do you have about your health or care? not at the moment What information would help us give you more personalized care? none Goal: Fall Prevention-Safe Patient Handling Outcome: Ongoing (Interventions Implemented as Appropriate) 09/18/14 1900 09/20/14 0938 Safety Interventions Safety Precautions/Fall Reduction low bed;muscle strengthening facilitated;nonskid shoes/slippers when out of bed -- Musculoskeletal Interventions Activity/Level of Assistance up ad michele;independently -- Positioning independent -- Muscle Strengthening activity/mobility promoted -- Self-Care Promotion personal routines for BADL/IADL promoted -- Dixon Fall Risk History of Falling -- 0 Secondary Diagnosis -- 0 Ambulatory Aids -- 0 Intravenous Therapy/Heparin/Saline Lock -- 0 Gait/Transferring -- 0 Mental Status -- 0 Score -- 0 OTHER Dixon Fall Risk -- Low Goal: Infection Control Outcome: Ongoing (Interventions Implemented as Appropriate) 09/17/14219909/18/14 190 Coping/Psychosocial Response Interventions Counseling -- emotional support provided;verbalization of feelings encouraged Safety Interventions Isolation Precautions standard precautions maintained -- Infection Prevention nutrition promoted;hydration promoted;rest/sleep promoted -- Problem: Depression (Adult, Obstetrics, Pediatric) Goal: Establish/Maintain Self-Care Routine Patient will demonstrate the desired outcomes. Outcome: Ongoing (Interventions Implemented as Appropriate) 09/19/1411 Depression (Adult, Obstetrics, Pediatric) Establish/Maintain Self-Care Routine making progress toward outcome Goal: Improved/Stable Mood Patient will demonstrate the desired outcomes. Outcome: Ongoing (Interventions Implemented as Appropriate) 09/19/1411 Depression (Adult, Obstetrics, Pediatric) Improved/Stable Mood making progress toward outcome Plan of Care - Ana Barbour RN - 09/19/2014 8:23 PM EDT Problem: General Plan of Care Goal: Plan of Care Review Outcome: Ongoing (Interventions Implemented as Appropriate) 09/17/14221109/18/141899 Coping/Psychosocial Response Interventions Plan of Care Reviewed with -- patient Plan of Care Review Plan of Care Outcome Status ongoing (interventions implemented as appropriate) -- Progress improving -- OUTCOME EVALUATION NOTE: OUTCOME SUMMARY: Stated goal: To attend groups & get out of my room- Pt was bright on contact- Was easily engagedw/ staff- Is quietly visible on the unit- Attended groups & went on group walk- Pt rated depression & anxiety /10- Denies pain- Denies SI/ self harm thoughts & CFS- States appetite is improving- Pt admits to eating poorly & loosing wt prior to admission- Pt is aware ECT next week isscheduled for Sun, & - Hep cap patent left forearm- No overt S&S of psychosis PLAN MOVING FORWARD: Continue ECT treatments per schedule Offer emotional support Encourage groups to assist w/ coping & socialization on the unit INDIVIDUALIZED FALL PREVENTION: Assistance: Med falls risk- Ambulating independently w/ steady gait Supervision: Escort to groups Surveillance: 30 min checks- purposeful rounding CPG GOAL OUTCOME EVALUATION: Goal: Fall Prevention-Safe Patient Handling Outcome: Ongoing (Interventions Implemented as Appropriate) 09/18/141899 Safety Interventions Safety Precautions/Fall Reduction low bed;muscle strengthening facilitated;nonskid shoes/slippers when out of bed Musculoskeletal Interventions Activity/Level of Assistance up ad michele;independently Positioning independent Muscle Strengthening activity/mobility promoted Self-Care Promotion personal routines for BADL/IADL promoted Dixon Fall Risk History of Falling 0 Secondary Diagnosis 0 Ambulatory Aids 0 Intravenous Therapy/Heparin/Saline Lock 20 Gait/Transferring 0 Mental Status 0 Score 20 OTHER Dixon Fall Risk Low Goal: Infection Control Outcome: Ongoing (Interventions Implemented as Appropriate) 09/17/14219909/18/141899 Coping/Psychosocial Response Interventions Counseling -- emotional support provided;verbalization of feelings encouraged Safety Interventions Isolation Precautions standard precautions maintained -- Infection Prevention nutrition promoted;hydration promoted;rest/sleep promoted -- Problem: Depression (Adult, Obstetrics, Pediatric) Intervention: Suicide Attempt Prevention/Intervention 09/18/141899 Coping/Psychosocial Response Interventions Suicide Attempt Prevention/Intervention emotional support provided Intervention: Secure Environment 09/18/141899 Coping/Psychosocial Response Interventions Secure Environment emotionally safe environment provided;physically safe environment provided Intervention: Self-Esteem Promotion 09/18/141899 Coping/Psychosocial Response Interventions Self-Esteem Promotion counseling provided;emotional support provided Intervention: Therapeutic Relationship Promotion 09/18/141899 Coping/Psychosocial Response Interventions Therapeutic Relationship Promotion emotional support provided Goal: Establish/Maintain Self-Care Routine Patient will demonstrate the desired outcomes. Outcome: Ongoing (Interventions Implemented as Appropriate) 09/19/1411 Depression (Adult, Obstetrics, Pediatric) Establish/Maintain Self-Care Routine making progress toward outcome Goal: Improved/Stable Mood Patient will demonstrate the desired outcomes. Outcome: Ongoing (Interventions Implemented as Appropriate) 09/19/1411 Depression (Adult, Obstetrics, Pediatric) Improved/Stable Mood making progress toward outcome Plan of Care - Soco Dias RN - 09/19/2014 12:17 AM EDT Problem: General Plan of Care Goal: Plan of Care Review Outcome: Ongoing (Interventions Implemented as Appropriate) 09/17/14221109/18/141899 Coping/Psychosocial Response Interventions Plan of Care Reviewed with -- patient Plan of Care Review Plan of Care Outcome Status ongoing (interventions implemented as appropriate) -- Progress improving -- OUTCOME EVALUATION NOTE: OUTCOME SUMMARY: Rates depression/anxiety 3/10, pain 0/10. Denies suicidal/homicidal ideation and contracts to be safe. Reports concerns about her family being in harms way have significantly decreased. Voice stronger.Concerned that her familial tremors in her hands is worse. DOC notified and cytomel d/c'd for now. Visited with . Out of room more and watching TV. Did her laundry. PLAN MOVING FORWARD: Continue ECT next week. INDIVIDUALIZED FALL PREVENTION: Assistance: independent Supervision: Escort to group Surveillance: 30 minute checks CPG GOAL OUTCOME EVALUATION: Goal: Individualization and Mutuality Outcome: Ongoing (Interventions Implemented as Appropriate) 09/08/141835 Mutuality/Individual Preferences What anxieties, fears or concerns do you have about your health or care? I have more concern about everyone else What questions do you have about your health or care? not at the moment What information would help us give you more personalized care? none Goal: Fall Prevention-Safe Patient Handling Outcome: Ongoing (Interventions Implemented as Appropriate) 09/18/141899 Safety Interventions Safety Precautions/Fall Reduction low bed;muscle strengthening facilitated;nonskid shoes/slippers when out of bed Musculoskeletal Interventions Activity/Level of Assistance up ad michele;independently Positioning independent Muscle Strengthening activity/mobility promoted Self-Care Promotion personal routines for BADL/IADL promoted Dixon Fall Risk History of Falling 0 Secondary Diagnosis 0 Ambulatory Aids 0 Intravenous Therapy/Heparin/Saline Lock 20 Gait/Transferring 0 Mental Status 0 Score 20 OTHER Dixon Fall Risk Low Goal: Infection Control Outcome: Ongoing (Interventions Implemented as Appropriate) 09/17/14219909/18/141899 Coping/Psychosocial Response Interventions Counseling -- emotional support provided;verbalization of feelings encouraged Safety Interventions Isolation Precautions standard precautions maintained -- Infection Prevention nutrition promoted;hydration promoted;rest/sleep promoted -- Problem: Depression (Adult, Obstetrics, Pediatric) Goal: Establish/Maintain Self-Care Routine Patient will demonstrate the desired outcomes. Outcome: Ongoing (Interventions Implemented as Appropriate) 09/19/14 001 Depression (Adult, Obstetrics, Pediatric) Establish/Maintain Self-Care Routine making progress toward outcome Goal: Improved/Stable Mood Patient will demonstrate the desired outcomes. Outcome: Ongoing (Interventions Implemented as Appropriate) 09/19/14 001 Depression (Adult, Obstetrics, Pediatric) Improved/Stable Mood making progress toward outcome Plan of Care - Brianna Huntley RN - 09/18/2014 2:26 PM EDT Problem: General Plan of Care Goal: Plan of Care Review Outcome: Ongoing (Interventions Implemented as Appropriate) 09/17/142211 Coping/Psychosocial Response Interventions Plan of Care Reviewed with patient Plan of Care Review Plan of Care Outcome Status ongoing (interventions implemented as appropriate) Progress improving OUTCOME EVALUATION NOTE: OUTCOME SUMMARY: Pt was NPO after MN and had ECT this am. She had no H/A on return and was alert and oriented x4. Shereported sleeping well. She denied SI/HI and CFS. She denies worries about her family being harmed. She rates her depression and anxiety as 3/10. She has attended all late morning and afternoon groups.Hep cap remains in Left arm. Pt had a BM yesterday and has a good appetite. She has been out of her room when not in groups and quietly social. PLAN MOVING FORWARD: Continue ECT DESTINY and groups for education and coping skills. INDIVIDUALIZED FALL PREVENTION: Assistance: Up ad michele Supervision: ETG Surveillance: 30 checks. CPG GOAL OUTCOME EVALUATION: Pt is doing well. Goal: Individualization and Mutuality Outcome: Ongoing (Interventions Implemented as Appropriate) 09/08/14 1836 Mutuality/Individual Preferences What anxieties, fears or concerns do you have about your health or care? I have more concern about everyone else What questions do you have about your health or care? not at the moment What information would help us give you more personalized care? none Goal: Fall Prevention-Safe Patient Handling Outcome: Ongoing (Interventions Implemented as Appropriate) 09/17/14 22009/17/14 22109/18/14 0100 Safety Interventions Safety Precautions/Fall Reduction low bed;nonskid shoes/slippers when out of bed;room near unit station -- -- Musculoskeletal Interventions Activity/Level of Assistance -- -- up ad michele Positioning -- -- -- Muscle Strengthening -- activity/mobility promoted -- Self-Care Promotion -- personal routines for BADL/IADL promoted -- Dixon Fall Risk History of Falling 0 -- -- Secondary Diagnosis 0 -- -- Ambulatory Aids 0 -- -- Intravenous Therapy/Heparin/Saline Lock 20 -- -- Gait/Transferring 0 -- -- Mental Status 0 -- -- Score 20 -- -- OTHER Dixon Fall Risk Low -- -- 09/18/14 0950 Safety Interventions Safety Precautions/Fall Reduction -- Musculoskeletal Interventions Activity/Level of Assistance -- Positioning HOB up 30-45 degrees Muscle Strengthening -- Self-Care Promotion -- Dixon Fall Risk History of Falling -- Secondary Diagnosis -- Ambulatory Aids -- Intravenous Therapy/Heparin/Saline Lock -- Gait/Transferring -- Mental Status -- Score -- OTHER Dixon Fall Risk -- Goal: Infection Control Outcome: Ongoing (Interventions Implemented as Appropriate) 09/17/14219909/17/142211 Coping/Psychosocial Response Interventions Counseling -- emotional support provided;understanding of situation facilitated;verbalization of feelings encouraged Safety Interventions Isolation Precautions standard precautions maintained -- Infection Prevention nutrition promoted;hydration promoted;rest/sleep promoted -- Problem: Depression (Adult, Obstetrics, Pediatric) Goal: Establish/Maintain Self-Care Routine Patient will demonstrate the desired outcomes. Outcome: Ongoing (Interventions Implemented as Appropriate) 09/17/142211 Depression (Adult, Obstetrics, Pediatric) Establish/Maintain Self-Care Routine making progress toward outcome Goal: Improved/Stable Mood Patient will demonstrate the desired outcomes. Outcome: Ongoing (Interventions Implemented as Appropriate) 09/17/142211 Depression (Adult, Obstetrics, Pediatric) Improved/Stable Mood making progress toward outcome Plan of Care - Soco Dias RN - 09/17/2014 10:39 PM EDT Problem: General Plan of Care Goal: Plan of Care Review Outcome: Ongoing (Interventions Implemented as Appropriate) 09/17/142211 Coping/Psychosocial Response Interventions Plan of Care Reviewed with patient Plan of Care Review Plan of Care Outcome Status ongoing (interventions implemented as appropriate) Progress improving OUTCOME EVALUATION NOTE: OUTCOME SUMMARY: Voice stronger. Given feedback from another patient that she was bubbly. visited and reports she is 50-75% of baseline. Reports she has some STM deficits. Rates depression/anxiety 3/10, headache pain 2/10 > 0/10 after tylenol 650 mg. Denies suicidal/homicidal ideation and contracts to be safe and to notify staff if feeling unsafe. Reports that her delusional Thoughts have decreased. PLAN MOVING FORWARD: NPO after MN for ECT in AM INDIVIDUALIZED FALL PREVENTION: Assistance: independent Supervision: Escort to groups Surveillance: 30 minute checks CPG GOAL OUTCOME EVALUATION: Goal: Individualization and Mutuality Outcome: Ongoing (Interventions Implemented as Appropriate) 09/08/14 1836 Mutuality/Individual Preferences What anxieties, fears or concerns do you have about your health or care? I have more concern about everyone else What questions do you have about your health or care? not at the moment What information would help us give you more personalized care? none Goal: Fall Prevention-Safe Patient Handling Outcome: Ongoing (Interventions Implemented as Appropriate) 09/17/14219909/17/142211 Safety Interventions Safety Precautions/Fall Reduction low bed;nonskid shoes/slippers when out of bed;room near unit station -- Musculoskeletal Interventions Activity/Level of Assistance -- up ad michele Positioning -- independent Muscle Strengthening -- activity/mobility promoted Self-Care Promotion -- personal routines for BADL/IADL promoted Dixon Fall Risk History of Falling 0 -- Secondary Diagnosis 0 -- Ambulatory Aids 0 -- Intravenous Therapy/Heparin/Saline Lock 20 -- Gait/Transferring 0 -- Mental Status 0 -- Score 20 -- OTHER Dixon Fall Risk Low -- Goal: Infection Control Outcome: Ongoing (Interventions Implemented as Appropriate) 09/17/14219909/17/142211 Coping/Psychosocial Response Interventions Counseling -- emotional support provided;understanding of situation facilitated;verbalization of feelings encouraged Safety Interventions Isolation Precautions standard precautions maintained -- Infection Prevention nutrition promoted;hydration promoted;rest/sleep promoted -- Problem: Depression (Adult, Obstetrics, Pediatric) Goal: Establish/Maintain Self-Care Routine Patient will demonstrate the desired outcomes. Outcome: Ongoing (Interventions Implemented as Appropriate) 09/17/142211 Depression (Adult, Obstetrics, Pediatric) Establish/Maintain Self-Care Routine making progress toward outcome Goal: Improved/Stable Mood Patient will demonstrate the desired outcomes. Outcome: Ongoing (Interventions Implemented as Appropriate) 09/17/142211 Depression (Adult, Obstetrics, Pediatric) Improved/Stable Mood making progress toward outcome Plan of Care - Brianna Huntley RN - 09/17/2014 12:01 PM EDT Problem: General Plan of Care Goal: Plan of Care Review Outcome: Ongoing (Interventions Implemented as Appropriate) 09/16/14219909/16/142218 Coping/Psychosocial Response Interventions Plan of Care Reviewed with patient -- Plan of Care Review Plan of Care Outcome Status -- ongoing (interventions implemented as appropriate) Progress -- improving OUTCOME EVALUATION NOTE: OUTCOME SUMMARY: Pt has been up, showered and dressed. Attended all groups. She rates her depression and anxiety as 4/10. Ate most of her breakfast. She states her worries about her family are better....but afraid theymight come back when she goes home. Affect is bright and she was smiling in response to humor. PLAN MOVING FORWARD: ECT in the AM, DESTINY and Groups for coping skills and illness management. INDIVIDUALIZED FALL PREVENTION: Assistance: Up ad michele Supervision: ETG Surveillance: 30 checks. CPG GOAL OUTCOME EVALUATION: Goal: Individualization and Mutuality Outcome: Ongoing (Interventions Implemented as Appropriate) 09/08/14 1836 Mutuality/Individual Preferences What anxieties, fears or concerns do you have about your health or care? I have more concern about everyone else What questions do you have about your health or care? not at the moment What information would help us give you more personalized care? none Goal: Fall Prevention-Safe Patient Handling Outcome: Ongoing (Interventions Implemented as Appropriate) 09/16/14219909/16/142218 Safety Interventions Safety Precautions/Fall Reduction low bed;nonskid shoes/slippers when out of bed;room near unit station;lighting adjusted for task/safety -- Musculoskeletal Interventions Activity/Level of Assistance up ad michele;independently -- Positioning -- independent Muscle Strengthening -- activity/mobility promoted Self-Care Promotion -- personal routines for BADL/IADL promoted Dixon Fall Risk History of Falling 0 -- Secondary Diagnosis 0 -- Ambulatory Aids 0 -- Intravenous Therapy/Heparin/Saline Lock 20 -- Gait/Transferring 0 -- Mental Status 0 -- Score 20 -- OTHER Dixon Fall Risk Low -- Goal: Infection Control Outcome: Ongoing (Interventions Implemented as Appropriate) 09/16/142199 Coping/Psychosocial Response Interventions Counseling emotional support provided;understanding of situation facilitated;verbalization of feelings encouraged Safety Interventions Isolation Precautions standard precautions maintained Infection Prevention nutrition promoted;hydration promoted;rest/sleep promoted Problem: Depression (Adult, Obstetrics, Pediatric) Goal: Establish/Maintain Self-Care Routine Patient will demonstrate the desired outcomes. Outcome: Ongoing (Interventions Implemented as Appropriate) 09/16/142218 Depression (Adult, Obstetrics, Pediatric) Establish/Maintain Self-Care Routine making progress toward outcome Goal: Improved/Stable Mood Patient will demonstrate the desired outcomes. Outcome: Ongoing (Interventions Implemented as Appropriate) 09/16/142218 Depression (Adult, Obstetrics, Pediatric) Improved/Stable Mood making progress toward outcome Plan of Care - Soco Dias RN - 09/16/2014 10:39 PM EDT Problem: General Plan of Care Goal: Plan of Care Review Outcome: Ongoing (Interventions Implemented as Appropriate) 09/16/14219909/16/142218 Coping/Psychosocial Response Interventions Plan of Care Reviewed with patient -- Plan of Care Review Plan of Care Outcome Status -- ongoing (interventions implemented as appropriate) Progress -- improving OUTCOME EVALUATION NOTE: OUTCOME SUMMARY: C/o feeling poorly early in shift, cold and h/a 5/10 > 3/10. Temp. Up to 37.5 with HR 119 > temp down to 37 before bed. Rates depression 3-4/10, anxiety 5/10. Denies suicidal/homicidal ideation and contracts to be safe and to notify staff if feeling unsafe. Delusions intact - reports her worriesabout harm coming to her family has not changed. Notes an increase in her appetite. Education done re garding her medication causing that. visited - enjoyed. PLAN MOVING FORWARD: Milieu therapy, ECT on Sunday. INDIVIDUALIZED FALL PREVENTION: Assistance: independent Supervision: Escort to groups Surveillance: 30 minute checks CPG GOAL OUTCOME EVALUATION: Goal: Individualization and Mutuality Outcome: Ongoing (Interventions Implemented as Appropriate) 09/08/14 1836 Mutuality/Individual Preferences What anxieties, fears or concerns do you have about your health or care? I have more concern about everyone else What questions do you have about your health or care? not at the moment What information would help us give you more personalized care? none Goal: Fall Prevention-Safe Patient Handling Outcome: Ongoing (Interventions Implemented as Appropriate) 09/16/14219909/16/142218 Safety Interventions Safety Precautions/Fall Reduction low bed;nonskid shoes/slippers when out of bed;room near unit station;lighting adjusted for task/safety -- Musculoskeletal Interventions Activity/Level of Assistance up ad michele;independently -- Positioning -- independent Muscle Strengthening -- activity/mobility promoted Self-Care Promotion -- personal routines for BADL/IADL promoted Dixon Fall Risk History of Falling 0 -- Secondary Diagnosis 0 -- Ambulatory Aids 0 -- Intravenous Therapy/Heparin/Saline Lock 20 -- Gait/Transferring 0 -- Mental Status 0 -- Score 20 -- OTHER Dixon Fall Risk Low -- Goal: Infection Control Outcome: Ongoing (Interventions Implemented as Appropriate) 09/16/142199 Coping/Psychosocial Response Interventions Counseling emotional support provided;understanding of situation facilitated;verbalization of feelings encouraged Safety Interventions Isolation Precautions standard precautions maintained Infection Prevention nutrition promoted;hydration promoted;rest/sleep promoted Problem: Depression (Adult, Obstetrics, Pediatric) Goal: Establish/Maintain Self-Care Routine Patient will demonstrate the desired outcomes. Outcome: Ongoing (Interventions Implemented as Appropriate) 09/16/142218 Depression (Adult, Obstetrics, Pediatric) Establish/Maintain Self-Care Routine making progress toward outcome Goal: Improved/Stable Mood Patient will demonstrate the desired outcomes. Outcome: Ongoing (Interventions Implemented as Appropriate) 09/16/142218 Depression (Adult, Obstetrics, Pediatric) Improved/Stable Mood making progress toward outcome Plan of Care - Bienvenido Guthrie RN - 09/16/2014 3:53 PM EDT Problem: General Plan of Care Goal: Plan of Care Review Outcome: Ongoing (Interventions Implemented as Appropriate) 09/16/14 1546 Coping/Psychosocial Response Interventions Plan of Care Reviewed with patient Plan of Care Review Plan of Care Outcome Status ongoing (interventions implemented as appropriate) Progress improving OUTCOME EVALUATION NOTE: OUTCOME SUMMARY: Pt has had a PRECIADO all day. Reported filling chilled and has been trying to resist staying in bed all day. PRECIADO worse when standing. Pushing fluids and eating 100%. Has attended groups. Pt reports that she still has some concerns about safety of family but it is greatly lessened from time of admission. Rated depression 0/10, anxiety 0/10. Notcable bilateral hand tremor. PLAN MOVING FORWARD: ECT. DESTINY program. Goal setting. Dscharge planning INDIVIDUALIZED FALL PREVENTION: Assistance: independent Supervision: escort Surveillance: 30 min checks, NV CPG GOAL OUTCOME EVALUATION: Goal: Fall Prevention-Safe Patient Handling Outcome: Ongoing (Interventions Implemented as Appropriate) 09/09/14 1833 09/15/14 0825 09/15/14 1400 Safety Interventions Safety Precautions/Fall Reduction -- -- -- Musculoskeletal Interventions Activity/Level of Assistance -- -- up ad michele Positioning -- HOB up 15 degrees -- Muscle Strengthening activity/mobility promoted -- -- Self-Care Promotion personal routines for BADL/IADL promoted -- -- Dixon Fall Risk History of Falling -- -- -- Secondary Diagnosis -- -- -- Ambulatory Aids -- -- -- Intravenous Therapy/Heparin/Saline Lock -- -- -- Gait/Transferring -- -- -- Mental Status -- -- -- Score -- -- -- OTHER Dixon Fall Risk -- -- -- 09/16/14 1100 Safety Interventions Safety Precautions/Fall Reduction fall reduction program maintained Musculoskeletal Interventions Activity/Level of Assistance -- Positioning -- Muscle Strengthening -- Self-Care Promotion -- Dixon Fall Risk History of Falling 0 Secondary Diagnosis 0 Ambulatory Aids 0 Intravenous Therapy/Heparin/Saline Lock 20 Gait/Transferring 0 Mental Status 0 Score 20 OTHER Dixon Fall Risk Low Goal: Infection Control Outcome: Ongoing (Interventions Implemented as Appropriate) Problem: Depression (Adult, Obstetrics, Pediatric) Goal: Establish/Maintain Self-Care Routine Patient will demonstrate the desired outcomes. Outcome: Ongoing (Interventions Implemented as Appropriate) 09/16/14 1546 Depression (Adult, Obstetrics, Pediatric) Establish/Maintain Self-Care Routine making progress toward outcome Goal: Improved/Stable Mood Patient will demonstrate the desired outcomes. Outcome: Ongoing (Interventions Implemented as Appropriate) 09/15/14 0758 Depression (Adult, Obstetrics, Pediatric) Improved/Stable Mood making progress toward outcome Med Student Progress Note - Aidee Salgado JrAmbrose - 09/16/2014 11:58 AM EDT Inpatient Psychiatry Progress Note: 09/16/2014 ID: Brianna Lay is a 59 y.o. female with one son who lives in [facility], and is currently unemployed admitted on 09/08 for a major depressive episode with psychotic features consisting of delusions and disorganized thoughts. Subjective: Patient reports that she did not sleep very well last night since she had some bothersome headaches and thus was unable to stay asleep. She however received some tylenol this morning which as helped although she occasionally feels it worse when she gets up to walk around. Other than that she states that her mood has been good and she feels she is probably about 50% closer to her usual baseline. She also mentions that she has decreased her worrying about her family and has not continued to have worries about the food they are eating since that stopped a day or so ago. She denies having any current feelings of depression or anxiety at all. Denies any suicidal ideations, thoughts of self harm or harming others. Denies any AVH. Denies chest pain, shortness of breadth, palpitations, or diarrhea. Scheduled Meds: ??? levothyroxine 100 mcg Oral QAM ??? omega-3 acid ethyl esters 2 g Oral BID ??? sodium chloride 0.9 % 5 mL Intravenous BID ??? liothyronine 50 mcg Oral QAM ??? FLUoxetine 40 mg Oral Daily ??? OLANZapine 15 mg Oral Nightly Continuous Infusions: PRN Meds:.traZODone, polyethylene glycol, acetaminophen Objective: Patient Vitals for the past 24 hrs: BP Temp Temp src Pulse Resp SpO2 09/16/14 0807 123/54 mmHg 37.3 ??C (99.1 ??F) Oral 115 18 97 % Recent Results (from the past 24 hour(s)) TSH Result Value Ref Range TSH 0.11 (*) 0.27 - 4.20 mcIU/mL T4 TOTAL Result Value Ref Range T4, total 6.9 5.1 - 10.8 mcg/dL T3 TOTAL Result Value Ref Range T3, Total 261 (*) 75 - 170 ng/dL MSE: Appearance: Sitting in the living room watching tv initially. Dressed in street clothes before coming into the room for rounds. Behaviour: Slow gait, some continued psychomotor retardation. Some eye contact during the interview at other times staring down at the floor. Speech/Language: Soft volume, normal latency, normal tone. Good use of language. Mood: Good Affect: Constricted with occasional periods of normal affect. Thought Process: Linear. Goal directed. Thought Content: Denies AVH. Less paranoid symptoms of worry at this time. Insight: Fair Judgement: Fair Cognition: Good. Assessment: Brianna Lay is a 59 y.o.female who was admitted on 09/08/2014 for a depressive episodewith catatonic features and paranoid delusions of her family's safety and the food they were eating.After receiving 4 ECT treatments and cytomel along with her synthroid, she has showed a sustained benefit in her mood and reduction in her delusion symptoms. Her thyroid function studies showed an elevated T3 (261) level and a low TSH (0.11). This is adequate for now and where we would like her to be in terms of optimizing gains from ECT and minimizing potential cognitive and memory deficits. She denies any significant side effects related to the thyroid supplementation although her HR was elevated at 115 this morning. The plan which was dicussed with her is to continue current thyroid supplementation and administer several more ECT treatments and reassess further treatment at that time. Given that she has continued to report improvement in her psychotic features, we discussed considering tapering off the Zyprexa in another day or so if she continues to show improvement. Plan #depression with paranoid delusions Continue Olanzapine 15mg QHS and Fluoxetine 40mg Continue ECT treatments Repeat Thyroid function studies today- TSH, T4, and T3. Decreased T3 (60) and increased TSH (13.2, 5.39) levels last measurement 09/09 #Hypothyroidism Continue Cytomel 50mcg and Synthroid 100mcg supplementation Monitor vital signs and screen for side effects related to thyroid supplementation Continue Zyprexa 15mg today but consider tapering off starting tomorrow if she continue to endorse improvement with psychotic symptoms. Continue Fluoxetine 40mg. Disposition: Discharge to home with pending stabilization and resolution of depressive symptoms. Follow up: Psychiatrist: Aurea Valencia Therapist: Deb Romo Primary provider: Dr Pineda Salgado [id number] Plan of Care - Patricia Yeh RN - 09/15/2014 11:55 PM EDT Problem: General Plan of Care Goal: Plan of Care Review Outcome: Ongoing (Interventions Implemented as Appropriate) 09/15/14 2348 Coping/Psychosocial Response Interventions Plan of Care Reviewed with patient Plan of Care Review Plan of Care Outcome Status ongoing (interventions implemented as appropriate) Progress improving OUTCOME EVALUATION NOTE: OUTCOME SUMMARY: Pt affect quiet. Isolative in room, does attend some groups, brighter presentation, smiled when arrived. Denies pain, anxiety 3/10, depression 3/10. CFS, denies SI, no delusional thoughts presented, no A/V hallucinations noted. Eating 70% of meal, no N/V. Dressed appropriately, medication compliant. PLAN MOVING FORWARD: Continue ECT, DESTINY therapeutic regime, support therapy. INDIVIDUALIZED FALL PREVENTION: Assistance: Independent Supervision: Escort to group Surveillance: 30 minute checks CPG GOAL OUTCOME EVALUATION: Goal: Individualization and Mutuality Outcome: Ongoing (Interventions Implemented as Appropriate) 09/08/14 1836 Mutuality/Individual Preferences What anxieties, fears or concerns do you have about your health or care? I have more concern about everyone else What questions do you have about your health or care? not at the moment What information would help us give you more personalized care? none Goal: Fall Prevention-Safe Patient Handling Outcome: Ongoing (Interventions Implemented as Appropriate) 09/09/14 1833 09/15/14 0825 09/15/14 1400 Safety Interventions Safety Precautions/Fall Reduction -- -- fall reduction program maintained Musculoskeletal Interventions Activity/Level of Assistance -- -- up ad michele Positioning -- HOB up 15 degrees -- Muscle Strengthening activity/mobility promoted -- -- Self-Care Promotion personal routines for BADL/IADL promoted -- -- Goal: Infection Control Outcome: Ongoing (Interventions Implemented as Appropriate) 09/13/14 1900 09/15/14 1400 Coping/Psychosocial Response Interventions Counseling emotional support provided;reassurance provided -- Safety Interventions Isolation Precautions -- standard precautions maintained Infection Prevention -- promote handwashing Problem: Depression (Adult, Obstetrics, Pediatric) Goal: Establish/Maintain Self-Care Routine Patient will demonstrate the desired outcomes. Outcome: Ongoing (Interventions Implemented as Appropriate) 09/15/14 2348 Depression (Adult, Obstetrics, Pediatric) Establish/Maintain Self-Care Routine making progress toward outcome Goal: Improved/Stable Mood Patient will demonstrate the desired outcomes. Outcome: Ongoing (Interventions Implemented as Appropriate) 09/15/14 2348 Depression (Adult, Obstetrics, Pediatric) Improved/Stable Mood making progress toward outcome Plan of Care - Tessie Streeter RN - 09/15/2014 2:51 PM EDT Problem: General Plan of Care Goal: Plan of Care Review Outcome: Ongoing (Interventions Implemented as Appropriate) 09/14/14 2314 Coping/Psychosocial Response Interventions Plan of Care Reviewed with patient;spouse Plan of Care Review Plan of Care Outcome Status ongoing (interventions implemented as appropriate) Progress improving OUTCOME EVALUATION NOTE: OUTCOME SUMMARY: Quiet day- Had ECT tx- denies any h/a. Affect remains blunted- pleasant- oriented to year and place. Her appetite is fair- gait steady- po intake good, Needed prompting for am care. Attended groups- conversation is minimal- answers vague, continues to have Bilateral hand tremors. Rated her depression and anxiety is 3/10 and CFS firmly. PLAN MOVING FORWARD: Continue with ECT Go to appropiate groups DESTINY program Medicate as ordered TSH studies INDIVIDUALIZED FALL PREVENTION: Assistance: Up at michele Supervision: ESG Surveillance: q 30 min CPG GOAL OUTCOME EVALUATION: Goal: Individualization and Mutuality Outcome: Ongoing (Interventions Implemented as Appropriate) 09/08/14 183 Mutuality/Individual Preferences What anxieties, fears or concerns do you have about your health or care? I have more concern about everyone else What questions do you have about your health or care? not at the moment What information would help us give you more personalized care? none Goal: Fall Prevention-Safe Patient Handling Outcome: Ongoing (Interventions Implemented as Appropriate) 09/09/14 1833 09/15/14 0825 09/15/14 1400 Safety Interventions Safety Precautions/Fall Reduction -- -- fall reduction program maintained Musculoskeletal Interventions Activity/Level of Assistance -- -- up ad michele Positioning -- HOB up 15 degrees -- Muscle Strengthening activity/mobility promoted -- -- Self-Care Promotion personal routines for BADL/IADL promoted -- -- Dixon Fall Risk History of Falling -- -- 0 Secondary Diagnosis -- -- 0 Ambulatory Aids -- -- 0 Intravenous Therapy/Heparin/Saline Lock -- -- 20 Gait/Transferring -- -- 0 Mental Status -- -- 0 Score -- -- 20 OTHER Dixon Fall Risk -- -- Low Goal: Infection Control Outcome: Ongoing (Interventions Implemented as Appropriate) 09/13/14 1900 09/15/14 1400 Coping/Psychosocial Response Interventions Counseling emotional support provided;reassurance provided -- Safety Interventions Isolation Precautions -- standard precautions maintained Infection Prevention -- promote handwashing Problem: Depression (Adult, Obstetrics, Pediatric) Goal: Establish/Maintain Self-Care Routine Patient will demonstrate the desired outcomes. Outcome: Ongoing (Interventions Implemented as Appropriate) 09/14/14 1050 Depression (Adult, Obstetrics, Pediatric) Establish/Maintain Self-Care Routine making progress toward outcome Goal: Improved/Stable Mood Patient will demonstrate the desired outcomes. Outcome: Ongoing (Interventions Implemented as Appropriate) 09/14/14 1050 Depression (Adult, Obstetrics, Pediatric) Improved/Stable Mood making progress toward outcome Med Student Progress Note - Aidee Salgado Jr. - 09/15/2014 12:47 PM EDT Inpatient Psychiatry Progress Note: 09/15/2014 ID: Brianna Lay is a 59 y.o. female with one son who lives in [facility], and is currently unemployed admitted on 09/08 for a major depressive episode with psychotic features consisting of delusions and disorganized thoughts. Subjective: Brianna reports feeling better today and describes her mood as pretty good she mentions that today she is having some side effects from her ECT treatments including mild headaches which aren't too bothersome and some problems remembering things from yesterday she would like to tell us. She reports thatshe continues to be worried about her family but it is reduced in intensity and she has not had any specific worries about them eating bad food today. She feels that she is getting better although she is having some trouble remembering specifically why and how she ended up in the hospital. She describes both her energy level and appetitive as good this morning and is potentially looking forward to going on a walk later on today. She rates both depression and anxiety as 4/10 today. Denies any thoughts of self harm or suicide or harming others. She denies any AVH. Scheduled Meds: ??? omega-3 acid ethyl esters 2 g Oral BID ??? sodium chloride 0.9 % 5 mL Intravenous BID ??? liothyronine 50 mcg Oral QAM ??? FLUoxetine 40 mg Oral Daily ??? levothyroxine 100 mcg Oral Daily ??? OLANZapine 15 mg Oral Nightly Continuous Infusions: PRN Meds:.traZODone, polyethylene glycol, acetaminophen Objective: Patient Vitals for the past 24 hrs: BP Temp Temp src Pulse Resp SpO2 09/15/14 0825 133/81 mmHg - - 82 16 95 % 09/15/14 0815 152/84 mmHg - - 95 16 98 % 09/15/14 0805 133/86 mmHg - - 101 14 99 % 09/15/14 0626 126/74 mmHg 36.7 ??C (98.1 ??F) Oral 76 12 98 % No results found for this or any previous visit (from the past 24 hour(s)). MSE: Appearance: Patient appear comfortable dressed in hospital gown and slightly sitting up in bed. Behaviour: Some psychomotor retardation, Speech/Language: Low volume, soft tone, slightly increased latency- much improved from previous days. Mood: Pretty good Affect: Somewhat constricted with occasional full range- smiled at one point at the end of the interview. Thought Process: Linear goal directed. Minimal thought blocking today. Thought Content: Worries about family safety. Insight: Fair Judgement: Fair Cognition: Good Level of involvement in treatment planning: Good. 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 She was started on ECT and has shown positive response to the 4 administered thus far. Today is the best she's been since admission and is very encouraging for the success of subsequent treatments moving forward. She will not receive another treatment until Sunday so it will be importantto see how long her current benefit will persist. It is also encouraging that she is no longer experiencing constant worries about the food of her parents. Plan #depression with paranoid delusions Continue Olanzapine 15mg QHS and Fluoxetine 40mg Continue ECT treatments Repeat Thyroid function studies today- TSH, T4, and T3. Decreased T3 (60) and increased TSH (13.2, 5.39) levels last measurement 09/09 #Hypothyroidism Continue Cytomel 50mcg and Synthroid 100mcg supplementation Consider repeating Thyroid function tests later on this week. Disposition: Discharge to home with pending stabilization and resolution of depressive symptoms. Follow up: Psychiatrist: Aurea Valencia Therapist: Deb Romo Primary provider: Dr Pineda Salgado [id number] Plan of Care - Bienvenido Guthrie RN - 09/14/2014 11:38 PM EDT Problem: General Plan of Care Goal: Plan of Care Review Outcome: Ongoing (Interventions Implemented as Appropriate) 09/14/14 5038 Coping/Psychosocial Response Interventions Plan of Care Reviewed with patient;spouse Plan of Care Review Plan of Care Outcome Status ongoing (interventions implemented as appropriate) Progress improving OUTCOME EVALUATION NOTE: OUTCOME SUMMARY: Pt has been quiet and continues with latency. Speech volume is very soft and barely audible. Did attend groups and watched TV in LR when left. Denies SI/HI. CFS. Pt rated her depression as 3/10. Anxiety 3/10. Continues to report she is worriedabout family PLAN MOVING FORWARD: Groups. DESTINY program. Therapeutic milieu. ECT. Goal setting. Discharge Planning. INDIVIDUALIZED FALL PREVENTION: Assistance: independent Supervision: escort Surveillance: 30 min checks. NV CPG GOAL OUTCOME EVALUATION: Med Student Progress Note - Aidee Salgado Jr. - 09/14/2014 12:39 PM EDT Inpatient Psychiatry Progress Note: 09/14/2014 ID:Brianna Lay is a 59 y.o. female with one son who lives in [facility], and is currently unemployed admitted on 09/08 for a major depressive episode with psychotic features consisting of delusions and disorganized thoughts. Subjective: Brianna reports doing well over the weekend and today with ECT. She denies any side effects today afterthe procedure including memory loss, muscle soreness or headaches. She notices that she has improvedsince admission with her energy level considerably improved. She also endorses and improved appetiteand states that she has been feeling less anxious although she continues to worry about her family'ssafety and having to be away from them for an extended period of time. She rates he depression and anxiety both as 10 today. Patient denies changes in sleep, energy level, or appetite, hallucinations, anxiety, depression, suicidal ideation Patient denies pain, fevers, chills, cough, shortness of breath, chest pain, lightheadedness, nausea, vomiting, diarrhea, and constipation Scheduled Meds: ??? sodium chloride 0.9 % 5 mL Intravenous BID ??? liothyronine 50 mcg Oral QAM ??? FLUoxetine 40 mg Oral Daily ??? levothyroxine 100 mcg Oral Daily ??? OLANZapine 15 mg Oral Nightly Continuous Infusions: PRN Meds:.traZODone, polyethylene glycol, acetaminophen Objective: Patient Vitals for the past 24 hrs: BP Temp Pulse Resp SpO2 Weight 09/14/14 0821 141/71 mmHg - 83 16 96 % - 09/14/14 0810 144/80 mmHg - 88 16 96 % - 09/14/14 0805 - - - - 98 % - 09/14/14 0800 147/75 mmHg - 95 16 99 % - 09/14/14 0753 149/72 mmHg - 96 18 100 % - 09/14/14 0700 148/90 mmHg 36.5 ??C (97.7 ??F) 80 20 98 % - 09/13/14 1426 - - - - - 58.968 kg (130 lb) No results found for this or any previous visit (from the past 24 hour(s)). MSE: Appearance: Dressed in hospital gown lying on bed calmly. Behaviour: Some mild and lesser degree of psychomotor retardation. Speech/Language: Low volume, decreased rate and increased latency. Mood: better Affect: Blunted affect. Thought Process: Slowed, but linear and goal directed. Thought Content: Continuous worries about her family. Denies SI/HI. Insight: Fair Judgement: Fair Cognition: Good. 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 She was started on ECT treatments and has shown positive response to the 3 administered thus far. She continues to remain severely depressed and continues to worry about her family being harmed by bad food. The plan discussed with her is to continue with several more ECT treatments this week scheduled for Sun, Sun, and Sunday. Plan: #depression with paranoid delusions Continue Olanzapine 15mg QHS and Fluoxetine 40mg Continue ECT treatments- Sun, Sun, Sun #Hypothyroidism Continue Cytomel 50mcg and Synthroid 100mcg supplementation Consider repeating Thyroid function tests later on this week. Disposition: Discharge to home with pending stabilization and resolution of depressive symptoms. Follow up: Psychiatrist: Aurea Valencia Therapist: Deb Romo Primary provider: Dr Pineda Salgado [id number] [phone] Plan of Care - Maria L Pineda RN - 09/14/2014 10:57 AM EDT Problem: General Plan of Care Goal: Plan of Care Review Outcome: Ongoing (Interventions Implemented as Appropriate) 09/14/14 1050 Coping/Psychosocial Response Interventions Plan of Care Reviewed with patient Plan of Care Review Plan of Care Outcome Status ongoing (interventions implemented as appropriate) Progress improving OUTCOME EVALUATION NOTE: OUTCOME SUMMARY: Pt reported it took awhile for her to fall asleep but she slept well when she finally did. She reports her energy level Is slowly improving. Depression: 09/01 Anxiety: 09/01. Affect is flat and congruentbut pt smiles readily on interactions with staff which is an improvement since last week. Pt denies AH or VH but does acknowledge continued thoughts that something might happen to harm her family. Pt was unsure if it is easier to distract from these thoughts but she notes the thoughts have lessened inintensity since admission. Pt denies suicidal or homicidal ideation and contracts for safety. Pt [id number]% of meals and reports last bowel movement was this morning. Pt denies physical pain. Pt adheringto prescribed medication plan. PLAN MOVING FORWARD: Continue ECT. Continue medications, encourage therapeutic groups, DESTINY program and therapeutic milieu. INDIVIDUALIZED FALL PREVENTION: Assistance: Up ad michele Supervision: Esc to group Surveillance: 30 minute checks CPG GOAL OUTCOME EVALUATION: Goal: Individualization and Mutuality Outcome: Ongoing (Interventions Implemented as Appropriate) 09/08/14 183 Mutuality/Individual Preferences What anxieties, fears or concerns do you have about your health or care? I have more concern about everyone else What questions do you have about your health or care? not at the moment What information would help us give you more personalized care? none Goal: Fall Prevention-Safe Patient Handling Outcome: Ongoing (Interventions Implemented as Appropriate) 09/09/14 18309/13/14 19009/14/14 0200 Safety Interventions Safety Precautions/Fall Reduction -- fall reduction program maintained -- Musculoskeletal Interventions Activity/Level of Assistance -- -- up ad michele Positioning -- -- -- Muscle Strengthening activity/mobility promoted -- -- Self-Care Promotion personal routines for BADL/IADL promoted -- -- Dixon Fall Risk History of Falling -- -- -- Secondary Diagnosis -- -- -- Ambulatory Aids -- -- -- Intravenous Therapy/Heparin/Saline Lock -- -- -- Gait/Transferring -- -- -- Mental Status -- -- -- Score -- -- -- OTHER Dixon Fall Risk -- -- -- 09/14/14 0821 09/14/14 1000 Safety Interventions Safety Precautions/Fall Reduction -- -- Musculoskeletal Interventions Activity/Level of Assistance -- -- Positioning independent -- Muscle Strengthening -- -- Self-Care Promotion -- -- Dixon Fall Risk History of Falling -- 0 Secondary Diagnosis -- 0 Ambulatory Aids -- 0 Intravenous Therapy/Heparin/Saline Lock -- 0 Gait/Transferring -- 0 Mental Status -- 0 Score -- 0 OTHER Dixon Fall Risk -- Low Goal: Infection Control Outcome: Ongoing (Interventions Implemented as Appropriate) 09/13/14 190 Coping/Psychosocial Response Interventions Counseling emotional support provided;reassurance provided Safety Interventions Isolation Precautions standard precautions maintained Infection Prevention hydration promoted;nutrition promoted;promote handwashing;rest/sleep promoted;environmental surveillance Problem: Depression (Adult, Obstetrics, Pediatric) Goal: Establish/Maintain Self-Care Routine Patient will demonstrate the desired outcomes. Outcome: Ongoing (Interventions Implemented as Appropriate) 09/14/14 1050 Depression (Adult, Obstetrics, Pediatric) Establish/Maintain Self-Care Routine making progress toward outcome Goal: Improved/Stable Mood Patient will demonstrate the desired outcomes. Outcome: Ongoing (Interventions Implemented as Appropriate) 09/14/14 1050 Depression (Adult, Obstetrics, Pediatric) Improved/Stable Mood making progress toward outcome Plan of Care - Bienvenido Guthrie RN - 09/13/2014 10:25 PM EDT Problem: General Plan of Care Goal: Plan of Care Review Outcome: Ongoing (Interventions Implemented as Appropriate) OUTCOME EVALUATION NOTE: OUTCOME SUMMARY: Pt has been quiet but has better eye contact. Rated her depression as 5/10; anxiety 5/10. Denies SI/HI. CFS. Pt continues to endorse intrusive thoughts about her family's safety. Visited with her son and later her . Both family members reported that pt was much improved from admission. Attended wrap up group. Sat out in the TV living room with other patients and was watching TV prior to retiring for bed. PLAN MOVING FORWARD: ECT. Group therapy. DESTINY principles. Milieu therapy. Goal setting. Discharge planning. INDIVIDUALIZED FALL PREVENTION: Assistance: independent Supervision: escort Surveillance: 30 min checks. NV CPG GOAL OUTCOME EVALUATION: Goal: Individualization and Mutuality Outcome: Ongoing (Interventions Implemented as Appropriate) Goal: Fall Prevention-Safe Patient Handling Outcome: Ongoing (Interventions Implemented as Appropriate) 09/09/14 1833 09/11/14 0958 09/13/14 1142 Safety Interventions Safety Precautions/Fall Reduction -- -- -- Musculoskeletal Interventions Activity/Level of Assistance -- -- up ad michele Positioning -- HOB up 15 degrees -- Muscle Strengthening activity/mobility promoted -- -- Self-Care Promotion personal routines for BADL/IADL promoted -- -- Dixon Fall Risk History of Falling -- -- -- Secondary Diagnosis -- -- -- Ambulatory Aids -- -- -- Intravenous Therapy/Heparin/Saline Lock -- -- -- Gait/Transferring -- -- -- Mental Status -- -- -- Score -- -- -- OTHER Dixon Fall Risk -- -- -- 09/13/14 190 Safety Interventions Safety Precautions/Fall Reduction fall reduction program maintained Musculoskeletal Interventions Activity/Level of Assistance -- Positioning -- Muscle Strengthening -- Self-Care Promotion -- Dixon Fall Risk History of Falling 0 Secondary Diagnosis 0 Ambulatory Aids 0 Intravenous Therapy/Heparin/Saline Lock 0 Gait/Transferring 0 Mental Status 0 Score 0 OTHER Dixon Fall Risk Low Goal: Infection Control Outcome: Ongoing (Interventions Implemented as Appropriate) 09/13/14 190 Coping/Psychosocial Response Interventions Counseling emotional support provided;reassurance provided Safety Interventions Isolation Precautions standard precautions maintained Infection Prevention hydration promoted;nutrition promoted;promote handwashing;rest/sleep promoted;environmental surveillance Problem: Depression (Adult, Obstetrics, Pediatric) Goal: Establish/Maintain Self-Care Routine Patient will demonstrate the desired outcomes. Outcome: Ongoing (Interventions Implemented as Appropriate) 09/13/14 114 Depression (Adult, Obstetrics, Pediatric) Establish/Maintain Self-Care Routine making progress toward outcome Goal: Improved/Stable Mood Patient will demonstrate the desired outcomes. Outcome: Ongoing (Interventions Implemented as Appropriate) 09/13/14 1142 Depression (Adult, Obstetrics, Pediatric) Improved/Stable Mood making progress toward outcome Plan of Care - Valeria Montero RN - 09/13/2014 11:49 AM EDT Problem: General Plan of Care Goal: Plan of Care Review 09/13/14 114 Coping/Psychosocial Response Interventions Plan of Care Reviewed with patient Plan of Care Review Plan of Care Outcome Status ongoing (interventions implemented as appropriate) Progress improving OUTCOME EVALUATION NOTE: OUTCOME SUMMARY: Patient rates her feelings of depression at a 4/10 with 10 being the worst. She admits to continued anxiety and thoughts that some harm may come to her family. She denies thoughts of harming herself oranyone else and is bree for safety. She continues to present with a flat, blunted affect but was noted to brighten a little more today when engaged and even laughed a little with staff. Her speech continues to be very quiet and delayed. She appears guarded. She attended groups but otherwise isolates in her room. PLAN MOVING FORWARD: Plan is to continue ECT and encourage groups. INDIVIDUALIZED FALL PREVENTION: Assistance: independent Supervision: Escort to groups Surveillance: 30 min checks CPG GOAL OUTCOME EVALUATION: Goal: Fall Prevention-Safe Patient Handling 09/13/14 1142 Safety Interventions Safety Precautions/Fall Reduction fall reduction program maintained Musculoskeletal Interventions Activity/Level of Assistance up ad michele Goal: Infection Control 09/13/14 1142 Coping/Psychosocial Response Interventions Counseling calming techniques promoted Safety Interventions Isolation Precautions standard precautions maintained Infection Prevention hydration promoted Problem: Depression (Adult, Obstetrics, Pediatric) Intervention: Suicide Attempt Prevention/Intervention 09/13/14 1142 Coping/Psychosocial Response Interventions Suicide Attempt Prevention/Intervention coping techniques promoted;emotional support provided;goal setting facilitated;positive reinforcement provided;social interaction promoted Intervention: Secure Environment 09/13/14 114 Coping/Psychosocial Response Interventions Secure Environment emotionally safe environment provided;social interaction promoted Intervention: Self-Esteem Promotion 09/13/14 114 Coping/Psychosocial Response Interventions Self-Esteem Promotion coping techniques promoted;emotional support provided;goal setting facilitated;positive reinforcement provided;social interaction promoted Intervention: Therapeutic Relationship Promotion 09/13/14 114 Coping/Psychosocial Response Interventions Therapeutic Relationship Promotion coping techniques promoted;emotional support provided;positive reinforcement provided;self-care activities encouraged Goal: Establish/Maintain Self-Care Routine Patient will demonstrate the desired outcomes. 09/13/14 114 Depression (Adult, Obstetrics, Pediatric) Establish/Maintain Self-Care Routine making progress toward outcome Goal: Improved/Stable Mood Patient will demonstrate the desired outcomes. 09/13/14 1142 Depression (Adult, Obstetrics, Pediatric) Improved/Stable Mood making progress toward outcome Plan of Care - Bienvenido Guthrie RN - 09/12/2014 11:29 PM EDT Problem: General Plan of Care Goal: Plan of Care Review Outcome: Ongoing (Interventions Implemented as Appropriate) 09/12/14 1715 Coping/Psychosocial Response Interventions Plan of Care Reviewed with patient Plan of Care Review Plan of Care Outcome Status ongoing (interventions implemented as appropriate) Progress improving OUTCOME EVALUATION NOTE: OUTCOME SUMMARY: Pt continues to have a flat affect and talk in a very soft barely audible voice. Had visitors this evening and reported she enjoyed their visit. Continues to s/t she wants to go home. Still worried about harm to her family but is able to be reassured. Self reports depression 4/10; Does not quantify anxiety but does endorse worry. No p[ain and denies SI/HI. CFS. Ate 100% of a small dinner. Attended wrap up. PLAN MOVING FORWARD: ECT. Medications as prescribed. DESTINY principles. Milieu therapy. Discharge planning. INDIVIDUALIZED FALL PREVENTION: Assistance: independent Supervision: Escort to groups. Surveillance: 30 min checks. Purposeful rounds CPG GOAL OUTCOME EVALUATION: Plan of Care - Bienvenido Guthrie RN - 09/12/2014 5:17 PM EDT Problem: General Plan of Care Goal: Plan of Care Review 09/12/14 1715 Coping/Psychosocial Response Interventions Plan of Care Reviewed with patient Plan of Care Review Plan of Care Outcome Status ongoing (interventions implemented as appropriate) Progress improving Goal: Individualization and Mutuality Outcome: Ongoing (Interventions Implemented as Appropriate) 09/08/14 1836 Mutuality/Individual Preferences What anxieties, fears or concerns do you have about your health or care? I have more concern about everyone else What questions do you have about your health or care? not at the moment What information would help us give you more personalized care? none Goal: Fall Prevention-Safe Patient Handling Outcome: Ongoing (Interventions Implemented as Appropriate) 09/09/14 1833 09/11/14 0958 09/12/14 1012 Safety Interventions Safety Precautions/Fall Reduction -- -- -- Musculoskeletal Interventions Activity/Level of Assistance -- -- -- Positioning -- HOB up 15 degrees -- Muscle Strengthening activity/mobility promoted -- -- Self-Care Promotion personal routines for BADL/IADL promoted -- -- Dixon Fall Risk History of Falling -- -- 0 Secondary Diagnosis -- -- 0 Ambulatory Aids -- -- 0 Intravenous Therapy/Heparin/Saline Lock -- -- 0 Gait/Transferring -- -- 0 Mental Status -- -- 0 Score -- -- 0 OTHER Dixon Fall Risk -- -- Low 09/12/14 1211 09/12/14 1700 Safety Interventions Safety Precautions/Fall Reduction -- fall reduction program maintained Musculoskeletal Interventions Activity/Level of Assistance up ad michele -- Positioning -- -- Muscle Strengthening -- -- Self-Care Promotion -- -- Dixon Fall Risk History of Falling -- -- Secondary Diagnosis -- -- Ambulatory Aids -- -- Intravenous Therapy/Heparin/Saline Lock -- -- Gait/Transferring -- -- Mental Status -- -- Score -- -- OTHER Dixon Fall Risk -- -- Goal: Infection Control Outcome: Ongoing (Interventions Implemented as Appropriate) 09/12/14 12109/12/14 1700 Coping/Psychosocial Response Interventions Counseling emotional support provided -- Safety Interventions Isolation Precautions -- standard precautions maintained Infection Prevention -- hydration promoted;nutrition promoted;promote handwashing;rest/sleep promoted Problem: Depression (Adult, Obstetrics, Pediatric) Goal: Establish/Maintain Self-Care Routine Patient will demonstrate the desired outcomes. Outcome: Ongoing (Interventions Implemented as Appropriate) 09/12/14 121 Depression (Adult, Obstetrics, Pediatric) Establish/Maintain Self-Care Routine making progress toward outcome Goal: Improved/Stable Mood Patient will demonstrate the desired outcomes. Outcome: Ongoing (Interventions Implemented as Appropriate) 09/12/141210 Depression (Adult, Obstetrics, Pediatric) Improved/Stable Mood making progress toward outcome Plan of Care - Valeria Montero RN - 09/12/2014 12:20 PM EDT Problem: General Plan of Care Goal: Plan of Care Review 09/12/14 121 Coping/Psychosocial Response Interventions Plan of Care Reviewed with patient Plan of Care Review Plan of Care Outcome Status ongoing (interventions implemented as appropriate) Progress improving OUTCOME EVALUATION NOTE: OUTCOME SUMMARY: Patient rates her feelings of depression at a 4/10 with 10 being the worst. She admits to feelings of anxiety but is not able to rate them on a scale. She reports feeling worried about her family that some harm may come to them. She also reports having thoughts that are upsetting to her but would not elaborate on this. She denies auditory or visual hallucinations. She denies thoughts of harming herself or anyone else. She has a flat, blunted affect. Speech is delayed and very quiet. She reports she has not moved her bowels since admission but refused to take a laxative or stool softener. She did agree to try to increase her fluid intake today. She showered and attended some groups otherwise was isolative in her room. PLAN MOVING FORWARD: Encourage groups. Plan is to continue ECT next week. INDIVIDUALIZED FALL PREVENTION: Assistance: independent Supervision: Escort to groups Surveillance: 30 min checks. CPG GOAL OUTCOME EVALUATION: Goal: Fall Prevention-Safe Patient Handling 09/12/14 121 Safety Interventions Safety Precautions/Fall Reduction fall reduction program maintained Musculoskeletal Interventions Activity/Level of Assistance up ad michele Goal: Infection Control 09/12/141210 Coping/Psychosocial Response Interventions Counseling emotional support provided Safety Interventions Isolation Precautions standard precautions maintained Infection Prevention hydration promoted;nutrition promoted Problem: Depression (Adult, Obstetrics, Pediatric) Intervention: Suicide Attempt Prevention/Intervention 09/12/141210 Coping/Psychosocial Response Interventions Suicide Attempt Prevention/Intervention coping techniques promoted;emotional support provided;goal setting facilitated;positive reinforcement provided Intervention: Secure Environment 09/12/141210 Coping/Psychosocial Response Interventions Secure Environment emotionally safe environment provided;physically safe environment provided;socialinteraction promoted Intervention: Self-Esteem Promotion 09/12/141210 Coping/Psychosocial Response Interventions Self-Esteem Promotion coping techniques promoted;emotional support provided;goal setting facilitated;positive reinforcement provided;social interaction promoted Intervention: Therapeutic Relationship Promotion 09/12/141210 Coping/Psychosocial Response Interventions Therapeutic Relationship Promotion coping techniques promoted;emotional support provided;goal setting facilitated;positive reinforcement provided Goal: Establish/Maintain Self-Care Routine Patient will demonstrate the desired outcomes. 09/12/141210 Depression (Adult, Obstetrics, Pediatric) Establish/Maintain Self-Care Routine making progress toward outcome Goal: Improved/Stable Mood Patient will demonstrate the desired outcomes. 09/12/14 121 Depression (Adult, Obstetrics, Pediatric) Improved/Stable Mood making progress toward outcome Plan of Care - Bienvenido Guthrie RN - 09/11/2014 11:00 PM EDT Problem: General Plan of Care Goal: Plan of Care Review Outcome: Ongoing (Interventions Implemented as Appropriate) 09/11/142237 Coping/Psychosocial Response Interventions Plan of Care Reviewed with patient Plan of Care Review Plan of Care Outcome Status ongoing (interventions implemented as appropriate) Progress improving OUTCOME EVALUATION NOTE: OUTCOME SUMMARY: Pt has been quiet and isolative in her room. Did attend workshop. visited and he shared thathe noticed improvement in his . [place] she was less vacant and even noticed that she has smiled a few times. Pt was asked about this improvement and nodded that she felt ECT might be working. Pt and family educated about an expected drop in mood over weekend with no treatment for 2 days. Appetite is good. Ate 50-75% of her dinner. Compliant with medications. Attended wrap up and then retired for bed. PLAN MOVING FORWARD: ECT. DESTINY principles. Milieu therapy. Medication as perscribed. Discharge planning. INDIVIDUALIZED FALL PREVENTION: Assistance: independent. Up ad michele Supervision: escort to groups Surveillance: 30 min checks; Purposeful rounds CPG GOAL OUTCOME EVALUATION: Goal: Individualization and Mutuality Outcome: Ongoing (Interventions Implemented as Appropriate) 09/08/14 183 Mutuality/Individual Preferences What anxieties, fears or concerns do you have about your health or care? I have more concern about everyone else What questions do you have about your health or care? not at the moment What information would help us give you more personalized care? none Goal: Fall Prevention-Safe Patient Handling Outcome: Ongoing (Interventions Implemented as Appropriate) 09/09/14 1833 09/11/14 0500 09/11/14 0958 Safety Interventions Safety Precautions/Fall Reduction -- -- -- Musculoskeletal Interventions Activity/Level of Assistance -- up ad michele;independently -- Positioning -- -- HOB up 15 degrees Muscle Strengthening activity/mobility promoted -- -- Self-Care Promotion personal routines for BADL/IADL promoted -- -- Dixon Fall Risk History of Falling -- -- -- Secondary Diagnosis -- -- -- Ambulatory Aids -- -- -- Intravenous Therapy/Heparin/Saline Lock -- -- -- Gait/Transferring -- -- -- Mental Status -- -- -- Score -- -- -- OTHER Dixon Fall Risk -- -- -- 09/11/141999 Safety Interventions Safety Precautions/Fall Reduction fall reduction program maintained Musculoskeletal Interventions Activity/Level of Assistance -- Positioning -- Muscle Strengthening -- Self-Care Promotion -- Dixon Fall Risk History of Falling 0 Secondary Diagnosis 0 Ambulatory Aids 0 Intravenous Therapy/Heparin/Saline Lock 0 Gait/Transferring 0 Mental Status 0 Score 0 OTHER Dixon Fall Risk Low Goal: Infection Control Outcome: Ongoing (Interventions Implemented as Appropriate) 09/11/141999 Coping/Psychosocial Response Interventions Counseling emotional support provided;reassurance provided Safety Interventions Isolation Precautions standard precautions maintained Infection Prevention hydration promoted;nutrition promoted;promote handwashing;environmental surveillance Goal: Discharge Needs Assessment Outcome: Outcome (s) achieved Date Met: 09/11/14 09/08/141939 Discharge Needs Assessment Concerns to be Addressed coping/stress concerns;mental health concerns Readmission Within the Last 30 Days no previous admission in last 30 days Equipment Needed After Discharge none Current Discharge Risk psychiatric illness Current Health Outpatient/Agency/Support Group Needs outpatient psychiatric care Anticipated Changes Related to Illness none Self-Care Equipment Currently Used at Home none Living Environment Transportation Available car;family or friend will provide Problem: Depression (Adult, Obstetrics, Pediatric) Goal: Improved/Stable Mood Patient will demonstrate the desired outcomes. Outcome: Ongoing (Interventions Implemented as Appropriate) 09/11/14 1331 Depression (Adult, Obstetrics, Pediatric) Improved/Stable Mood making progress toward outcome Plan of Care - Maria L Pineda RN - 09/11/2014 1:50 PM EDT Problem: General Plan of Care Goal: Plan of Care Review Outcome: Ongoing (Interventions Implemented as Appropriate) 09/11/14 1331 Coping/Psychosocial Response Interventions Plan of Care Reviewed with patient Plan of Care Review Plan of Care Outcome Status ongoing (interventions implemented as appropriate) Progress improving OUTCOME EVALUATION NOTE: OUTCOME SUMMARY: Pt reported she slept ok. Depression: 3/10 Anxiety: 5/10. Affect is flat and congruent. Pt denies AH/VH but noted she was having thoughts that someone might hurt her family prior to going to ECT in the morning. Poor response to support and reassurance. Pt denied suicidal or homicidal ideation and contracted for safety. Pt denied having any thoughts that she was in danger. Pt ate 75% of meals and reports she has not moved her bowels since admission. Encouraged pt to take a laxative tonight before bed. Pt denies physical pain. Pt adhering to prescribed medication plan. Pt had ECT # 2 today without complications. Pt brightened in afternoon and no longer expressed fears of harm coming to her family. PLAN MOVING FORWARD: Continue ECT. Continue medications, encourage therapeutic groups, DESTINY program and therapeutic milieu. INDIVIDUALIZED FALL PREVENTION: Assistance: Up ad michele Supervision: Esc to group Surveillance: 30 minute checks CPG GOAL OUTCOME EVALUATION: Goal: Individualization and Mutuality Outcome: Ongoing (Interventions Implemented as Appropriate) 09/08/141835 Mutuality/Individual Preferences What anxieties, fears or concerns do you have about your health or care? I have more concern about everyone else What questions do you have about your health or care? not at the moment What information would help us give you more personalized care? none Goal: Fall Prevention-Safe Patient Handling Outcome: Ongoing (Interventions Implemented as Appropriate) 09/09/14183209/10/14 18509/11/14 0500 Safety Interventions Safety Precautions/Fall Reduction -- fall reduction program maintained;lighting adjusted for task/safety;low bed;nonskid shoes/slippers when out of bed;room near unit station -- Musculoskeletal Interventions Activity/Level of Assistance -- -- up ad michele;independently Positioning -- -- -- Muscle Strengthening activity/mobility promoted -- -- Self-Care Promotion personal routines for BADL/IADL promoted -- -- Dixon Fall Risk History of Falling -- -- -- Secondary Diagnosis -- -- -- Ambulatory Aids -- -- -- Intravenous Therapy/Heparin/Saline Lock -- -- -- Gait/Transferring -- -- -- Mental Status -- -- -- Score -- -- -- OTHER Dixon Fall Risk -- -- -- 09/11/14 0800 09/11/14 0958 Safety Interventions Safety Precautions/Fall Reduction -- -- Musculoskeletal Interventions Activity/Level of Assistance -- -- Positioning -- HOB up 15 degrees Muscle Strengthening -- -- Self-Care Promotion -- -- Dixon Fall Risk History of Falling 0 -- Secondary Diagnosis 0 -- Ambulatory Aids 0 -- Intravenous Therapy/Heparin/Saline Lock 0 -- Gait/Transferring 0 -- Mental Status 0 -- Score 0 -- OTHER Dixon Fall Risk Low -- Goal: Infection Control Outcome: Ongoing (Interventions Implemented as Appropriate) 09/09/141832 Coping/Psychosocial Response Interventions Counseling emotional support provided;reassurance provided Safety Interventions Isolation Precautions standard precautions maintained Infection Prevention hydration promoted;nutrition promoted;promote handwashing;rest/sleep promoted Goal: Discharge Needs Assessment Outcome: Ongoing (Interventions Implemented as Appropriate) 09/08/14 1940 Discharge Needs Assessment Concerns to be Addressed coping/stress concerns;mental health concerns Readmission Within the Last 30 Days no previous admission in last 30 days Equipment Needed After Discharge none Current Discharge Risk psychiatric illness Current Health Outpatient/Agency/Support Group Needs outpatient psychiatric care Anticipated Changes Related to Illness none Self-Care Equipment Currently Used at Home none Living Environment Transportation Available car;family or friend will provide Problem: Depression (Adult, Obstetrics, Pediatric) Goal: Establish/Maintain Self-Care Routine Patient will demonstrate the desired outcomes. Outcome: Ongoing (Interventions Implemented as Appropriate) 09/11/14 1331 Depression (Adult, Obstetrics, Pediatric) Establish/Maintain Self-Care Routine making progress toward outcome Goal: Improved/Stable Mood Patient will demonstrate the desired outcomes. Outcome: Ongoing (Interventions Implemented as Appropriate) 09/11/14 1331 Depression (Adult, Obstetrics, Pediatric) Improved/Stable Mood making progress toward outcome Med Student Progress Note - Aidee Salgado Jr. - 09/11/2014 1:36 PM EDT Inpatient Psychiatry Progress Note: 09/11/2014 ID: Brianna Lay is a 59 y.o. female with one son who lives in [facility], and is currently unemployed admitted on 09/08 for a major depressive episode with psychotic features consisting of delusions and disorganized thoughts. Subjective: She reports doing well with ECT this morning and is not currently experiencing any side effects thatshe is aware of. Patient reports that her mood is doing mildly better than she was on admission but continues to feeldepressed and anxious both of which she rates as a 5 today- upon further clarification due to confusion about the number scale she says her depression and anxiety are both mild. She reports continuing to feel afraid for her family and is constantly worried that they are in anger. She is specifically worried about the food they are eating specifying that she believes the food her is eating hasgone bad. She mentions sleeping well last night although she is unsure how many hours of sleep she actually got. Denies any changes in energy level, appetite, and sleep. Denies any current suicidal ideation or wish to hurt herself or hurt others. She denies any chest pain,abdominal pain, fever, chills, shortness of breath, headaches or other physical symptoms. Scheduled Meds: ??? liothyronine 50 mcg Oral QAM ??? FLUoxetine 40 mg Oral Daily ??? levothyroxine 100 mcg Oral Daily ??? OLANZapine 15 mg Oral Nightly Continuous Infusions: PRN Meds:.traZODone, polyethylene glycol, acetaminophen Objective: Patient Vitals for the past 24 hrs: BP Temp Temp src Pulse Resp SpO2 09/11/14 1019 152/75 mmHg - - 88 14 98 % 09/11/14 1000 151/84 mmHg - - 95 16 98 % 09/11/14 0958 131/97 mmHg - - 96 14 98 % 09/11/14 0700 123/73 mmHg 36.3 ??C (97.3 ??F) Oral 79 16 98 % No results found for this or any previous visit (from the past 24 hour(s)). MSE: Appearance: Patient appears calm and in no acute distress lying in bed in her hospital gown. Behaviour: Moderate psychomotor retardation. Responsive to team's questions but appears to be tired and mild eye contact. Speech/Language: Very low volume, slow speech, increased latency. Proper use of language. Mood: okay Affect: Flat. Thought Process: Some mild thought blocking. Improved from yesterday. Linear and goal directed. Thought Content: Paranoid delusions about family safety. Denies AVH. Insight: Poor. Judgement: Poor. Cognition: Good. Level of involvement in treatment planning:Good. Patient was more responsive to teams questions today. Assessment: Brianna Lay is a 59 y.o.female who was admitted on 09/08/2014 and diagnosed with a severe major depressive episode with psychotic features consisting of paranoid delusions of her family being harmed and eating bad food that is harming them. She had been treated with prozac and zyprexa which have not helped resolve her symptoms. Patient successfully underwent her second ECT treatment with a good 1 min seizure and reports feeling mildly better since admission, she has not had any significant side effects from her treatments thus far and so plan will be to continue more unilateral ECT treatments given early response to treatment thus far. Given early response to ECT treatments it is unlikely that her depressive episode is due to an underlying medical condition however, it is important to continue to watch for signs and symptoms of medical conditions. Plan: #Depressive episode with psychosis Continue Zyprexa 15mg QHS Continue Prozac 40mg daily Continue Synthroid 100mcg daily Continue Cytomel 50mcg Qd Continue ECT- reassess effectiveness of unilateral ECT therapy after 4th treatment Disposition: To home pending stabilization and improvement of current depressive episode Follow up: Psychiatrist: Dr Aurea Valencia Therapist: Deb Romo Primary provider: Dr Pineda Hoskins [facility] [place] [id number] Plan of Care - Ana Barbour RN - 09/10/2014 10:57 PM EDT Problem: General Plan of Care Goal: Plan of Care Review Outcome: Ongoing (Interventions Implemented as Appropriate) 09/09/141832 Coping/Psychosocial Response Interventions Plan of Care Reviewed with patient;spouse Plan of Care Review Plan of Care Outcome Status ongoing (interventions implemented as appropriate) Progress improving OUTCOME EVALUATION NOTE: OUTCOME SUMMARY: Patient states her goal today was to go home- She understands that she will be staying for IP ECT- Is scheduled for ECT in am- HC patent- Aware that she is NPO after midnoc- Patient affect remains flat- Passive & needs some cueing w/ ADL's- Speaks in a soft voice but does answer questions when asked- Speech latent- vs & stated he saw an improvement today- Appetite was excellent this shift- Attended all groups- Rated depression 5/10, anxiety 6/10 denied pain/ SI & CFS PLAN MOVING FORWARD: ECT as scheduled Encourage groups & socialization Encourage medication compliance & offer prns as appropriate Offer emotional support INDIVIDUALIZED FALL PREVENTION: Assistance: Med fall risk- Patient is ambulating independently w/ steady gait Supervision: Escort to groups Surveillance: 30 min checks- Purposeful rounding CPG GOAL OUTCOME EVALUATION: Goal: Fall Prevention-Safe Patient Handling Outcome: Ongoing (Interventions Implemented as Appropriate) 09/09/14 18309/10/14 1050 09/10/14 1855 Safety Interventions Safety Precautions/Fall Reduction -- -- fall reduction program maintained;lighting adjusted for task/safety;low bed;nonskid shoes/slippers when out of bed;room near unit station Musculoskeletal Interventions Activity/Level of Assistance -- up ad michele -- Positioning -- HOB up 30-45 degrees -- Muscle Strengthening activity/mobility promoted -- -- Self-Care Promotion personal routines for BADL/IADL promoted -- -- Dixon Fall Risk History of Falling -- -- 0 Secondary Diagnosis -- -- 15 Ambulatory Aids -- -- 0 Intravenous Therapy/Heparin/Saline Lock -- -- 20 Gait/Transferring -- -- 0 Mental Status -- -- 0 Score -- -- 35 OTHER Dixon Fall Risk -- -- Low Goal: Infection Control Outcome: Ongoing (Interventions Implemented as Appropriate) 09/09/141832 Coping/Psychosocial Response Interventions Counseling emotional support provided;reassurance provided Safety Interventions Isolation Precautions standard precautions maintained Infection Prevention hydration promoted;nutrition promoted;promote handwashing;rest/sleep promoted Problem: Depression (Adult, Obstetrics, Pediatric) Intervention: Suicide Attempt Prevention/Intervention 09/09/141832 Coping/Psychosocial Response Interventions Suicide Attempt Prevention/Intervention emotional support provided;family support provided;positive reinforcement provided Intervention: Secure Environment 09/09/141832 Coping/Psychosocial Response Interventions Secure Environment emotionally safe environment provided;physically safe environment provided;sensory stimulation limited Intervention: Self-Esteem Promotion 09/09/141832 Coping/Psychosocial Response Interventions Self-Esteem Promotion emotional support provided;family involvement promoted;positive reinforcement provided Intervention: Therapeutic Relationship Promotion 09/09/141832 Coping/Psychosocial Response Interventions Therapeutic Relationship Promotion emotional support provided;positive reinforcement provided;self-care activities encouraged Goal: Establish/Maintain Self-Care Routine Patient will demonstrate the desired outcomes. Outcome: Ongoing (Interventions Implemented as Appropriate) 09/10/14 1430 Depression (Adult, Obstetrics, Pediatric) Establish/Maintain Self-Care Routine making progress toward outcome Goal: Improved/Stable Mood Patient will demonstrate the desired outcomes. Outcome: Ongoing (Interventions Implemented as Appropriate) 09/10/14 1430 Depression (Adult, Obstetrics, Pediatric) Improved/Stable Mood making progress toward outcome Plan of Care - Maria L Pineda RN - 09/10/2014 2:36 PM EDT Problem: General Plan of Care Goal: Plan of Care Review Outcome: Ongoing (Interventions Implemented as Appropriate) 09/09/141832 Coping/Psychosocial Response Interventions Plan of Care Reviewed with patient;spouse Plan of Care Review Plan of Care Outcome Status ongoing (interventions implemented as appropriate) Progress improving OUTCOME EVALUATION NOTE: OUTCOME SUMMARY: Pt reported she slept ok. Depression:02/01 Anxiety: 01/01. Affect is flat and congruent. Pt denies psychotic symptoms. Pt denies suicidal or homicidal ideation and contracts for safety. Pt ate a hotdogand a couple of sips of soup for lunch. Pt is drinking fluids when offered. Pt denies physical pain.Pt adhering to prescribed medication plan. Pt had ECT #1 today without complications. Pt took a shower in afternoon and was sitting quietly on milieu. PLAN MOVING FORWARD: Continue ECT, medications, encourage therapeutic groups, DESTINY program and therapeutic milieu. INDIVIDUALIZED FALL PREVENTION: Assistance: Up ad michele Supervision: Esc to group Surveillance: 30 minute checks CPG GOAL OUTCOME EVALUATION: Goal: Individualization and Mutuality Outcome: Ongoing (Interventions Implemented as Appropriate) 09/08/141835 Mutuality/Individual Preferences What anxieties, fears or concerns do you have about your health or care? I have more concern about everyone else What questions do you have about your health or care? not at the moment What information would help us give you more personalized care? none Goal: Fall Prevention-Safe Patient Handling Outcome: Ongoing (Interventions Implemented as Appropriate) 09/09/14 1833 09/10/14 1050 09/10/14 1100 Safety Interventions Safety Precautions/Fall Reduction nonskid shoes/slippers when out of bed;low bed;fall reduction program maintained;room near unit station;lighting adjusted for task/safety -- -- Musculoskeletal Interventions Activity/Level of Assistance -- up ad michele -- Positioning -- HOB up 30-45 degrees -- Muscle Strengthening activity/mobility promoted -- -- Self-Care Promotion personal routines for BADL/IADL promoted -- -- Dixon Fall Risk History of Falling -- -- 0 Secondary Diagnosis -- -- 15 Ambulatory Aids -- -- 0 Intravenous Therapy/Heparin/Saline Lock -- -- 0 Gait/Transferring -- -- 0 Mental Status -- -- 0 Score -- -- 15 OTHER Dixon Fall Risk -- -- Low Goal: Infection Control Outcome: Ongoing (Interventions Implemented as Appropriate) 09/09/14 183 Coping/Psychosocial Response Interventions Counseling emotional support provided;reassurance provided Safety Interventions Isolation Precautions standard precautions maintained Infection Prevention hydration promoted;nutrition promoted;promote handwashing;rest/sleep promoted Goal: Discharge Needs Assessment Outcome: Ongoing (Interventions Implemented as Appropriate) 09/08/14 1940 Discharge Needs Assessment Concerns to be Addressed coping/stress concerns;mental health concerns Readmission Within the Last 30 Days no previous admission in last 30 days Equipment Needed After Discharge none Current Discharge Risk psychiatric illness Current Health Outpatient/Agency/Support Group Needs outpatient psychiatric care Anticipated Changes Related to Illness none Self-Care Equipment Currently Used at Home none Living Environment Transportation Available car;family or friend will provide Problem: Depression (Adult, Obstetrics, Pediatric) Goal: Establish/Maintain Self-Care Routine Patient will demonstrate the desired outcomes. Outcome: Ongoing (Interventions Implemented as Appropriate) 09/10/14 1430 Depression (Adult, Obstetrics, Pediatric) Establish/Maintain Self-Care Routine making progress toward outcome Goal: Improved/Stable Mood Patient will demonstrate the desired outcomes. Outcome: Ongoing (Interventions Implemented as Appropriate) 09/10/14 1430 Depression (Adult, Obstetrics, Pediatric) Improved/Stable Mood making progress toward outcome Med Student Progress Note - Aidee Salgado Jr. - 09/10/2014 12:54 PM EDT Inpatient Psychiatry Progress Note: 09/10/2014 ID: Brianna Lay is a 59 y.o. female with one son who lives in [facility], and is currently unemployed admitted on 09/08 for a major depressive episode with psychotic features consisting of delusions and disorganized thoughts. Subjective: Patient reports doing well with ECT this morning and denies any current side effects from the procedure including muscle soreness, headaches or any memory loss. She reports that her energy level and appetite are about the same as yesterday and describes her mood as okay. She denies having any trouble with sleep last night although she is unable to provide any estimate as to how much sleep she may actually have gotten. She rates her depression and anxiety today as 5/10 and 7/10 respectively. She denies having any thoughts of self harm/suicidal ideation or HI/harm towards others. Denies AVH. Scheduled Meds: ??? liothyronine 50 mcg Oral QAM ??? FLUoxetine 40 mg Oral Daily ??? levothyroxine 100 mcg Oral Daily ??? OLANZapine 15 mg Oral Nightly Continuous Infusions: PRN Meds:.traZODone, polyethylene glycol, acetaminophen Objective: Patient Vitals for the past 24 hrs: BP Temp Temp src Pulse Resp SpO2 09/10/14 1050 133/67 mmHg - - 78 16 97 % 09/10/14 1040 126/71 mmHg - - 74 16 97 % 09/10/14 1030 136/64 mmHg - - 86 16 99 % 09/10/14 1020 139/71 mmHg - - 90 16 99 % 09/10/14 1010 137/71 mmHg - - 92 18 99 % 09/10/14 0700 142/86 mmHg 36.6 ??C (97.9 ??F) Oral 91 16 99 % Recent Results (from the past 24 hour(s)) T3 TOTAL Result Value Ref Range T3, Total 60 (*) 75 - 170 ng/dL T4 TOTAL Result Value Ref Range T4, total 7.7 5.1 - 10.8 mcg/dL TSH Result Value Ref Range TSH 5.39 (*) 0.27 - 4.20 mcIU/mL MSE: Appearance: Patient appears frail and somewhat disengaged in her hospital bed. Behaviour: Moderate psychomotor retardation. Barely communicating with team members and occasionallyresponding to questions. Speech/Language: Barely audible speech. Increased latency. Moderate thought blocking. Respond to questions with limited vocabulary okay Mood: okay Affect: Flat. Thought Process: Thought blocking. Thought Content: Delusions. Perseveration on illness and belief that she will not get better. Insight: Poor Judgement: Poor Cognition: A/O x 3. Level of involvement in treatment planning: Mildly engaging in current plan of care. Assessment: Brianna Lay is a 59 y.o.female who was admitted on 09/08/2014 and diagnosed with a severe major depressive episode with psychotic features consisting of delusions and paranoia about her family's safety specifically about the food her is eating and her belief that it is bad and will hurt him. She has been treated with Prozac and Zyprexa which have not helped with her symptoms thus far. Her TSH was initially high at 13.20, however dropped down to 5.39 on repeat testing hours later, with the T4 ad T3 (low) levels at 7.7 and 60 respectively. Patient has since been started on cytomel in additong to her synthroid medication- labs for anti thyroid antibodies have also been sent to investigate further for heron's thyroiditis. It is important to investigate organic causes for this patients current episode given the sudden nature of onset and patient's episode. Her age and lack of up to date screening increases the risk for a medical cause as well- recommend screening either simultaneously or post-stabilization. Plan: #Depressive episode with psychosis Continue Zyprexa 15mg QHS Continue Prozac 40mg daily Continue Synthroid 100mcg daily Continue Cytomel 50mcg Qd Continue ECT- reassess effectiveness of unilateral ECT therapy after 4th treatment Disposition: Pending stabilization and improvement of current depressive episode Follow up: Psychiatrist: Dr Aurea Valencia Therapist: Deb Romo Primary provider: [id number] Plan of Care - Bonny Lepe RN - 09/09/2014 6:38 PM EDT Problem: General Plan of Care Goal: Plan of Care Review Outcome: Ongoing (Interventions Implemented as Appropriate) 09/09/14 1833 Coping/Psychosocial Response Interventions Plan of Care Reviewed with patient;spouse Plan of Care Review Plan of Care Outcome Status ongoing (interventions implemented as appropriate) Progress improving OUTCOME EVALUATION NOTE: OUTCOME SUMMARY: pt has been alert and oriented x 3 She is very quiet with a very soft voice, but pleasant and cooperative. Affect is flat, speech is very latent/poverty of speech. She has a vacant look.She denies SI/HI or self harm thoughts/thoughts ofharming others. she contracts for safety. Medical student into see pt and Dr Primo Correia and got consentfor ECT beginging tomorrow with present and also in agreement. He and pt again watched the ECT informational DVD. Pt ate allof a small meal she ordered. She denies physical pain.she denies any hallucinations. She only comes out of room when escorted by and staff. Pt wakened for IV placement and became agitated and tearful. Said she didn't want procedure or IV, that she was afraid. (pthad hs zyprexa). IV team left and pt said they will be mad at me ( and son) over and over. Support and reassurance given. Pt agreed to have hep cap placed, IV team returned and she tolerated it well. Pt aware it is only a cap and no IV meds have been given. PLAN MOVING FORWARD: ECT in am. Continue support and reassurance. Encourage group attendence with MARGARETH day and esdras. INDIVIDUALIZED FALL PREVENTION: Assistance: None independent Supervision: If needed Surveillance: q 30 minute checks CPG GOAL OUTCOME EVALUATION: Goal: Individualization and Mutuality Outcome: Ongoing (Interventions Implemented as Appropriate) 09/08/141835 Mutuality/Individual Preferences What anxieties, fears or concerns do you have about your health or care? I have more concern about everyone else What questions do you have about your health or care? not at the moment What information would help us give you more personalized care? none Goal: Fall Prevention-Safe Patient Handling Outcome: Ongoing (Interventions Implemented as Appropriate) 09/09/141832 Safety Interventions Safety Precautions/Fall Reduction nonskid shoes/slippers when out of bed;low bed;fall reduction program maintained;room near unit station;lighting adjusted for task/safety Musculoskeletal Interventions Activity/Level of Assistance up ad michele Positioning independent Muscle Strengthening activity/mobility promoted Self-Care Promotion personal routines for BADL/IADL promoted Goal: Infection Control Outcome: Ongoing (Interventions Implemented as Appropriate) 09/09/141832 Coping/Psychosocial Response Interventions Counseling emotional support provided;reassurance provided Safety Interventions Isolation Precautions standard precautions maintained Infection Prevention hydration promoted;nutrition promoted;promote handwashing;rest/sleep promoted Goal: Discharge Needs Assessment Outcome: Ongoing (Interventions Implemented as Appropriate) 09/08/141939 Discharge Needs Assessment Concerns to be Addressed coping/stress concerns;mental health concerns Readmission Within the Last 30 Days no previous admission in last 30 days Equipment Needed After Discharge none Current Discharge Risk psychiatric illness Current Health Outpatient/Agency/Support Group Needs outpatient psychiatric care Anticipated Changes Related to Illness none Self-Care Equipment Currently Used at Home none Living Environment Transportation Available car;family or friend will provide Problem: Depression (Adult, Obstetrics, Pediatric) Intervention: Suicide Attempt Prevention/Intervention 09/09/141832 Coping/Psychosocial Response Interventions Suicide Attempt Prevention/Intervention emotional support provided;family support provided;positive reinforcement provided Intervention: Secure Environment 09/09/141832 Coping/Psychosocial Response Interventions Secure Environment emotionally safe environment provided;physically safe environment provided;sensory stimulation limited Intervention: Self-Esteem Promotion 09/09/141832 Coping/Psychosocial Response Interventions Self-Esteem Promotion emotional support provided;family involvement promoted;positive reinforcement provided Intervention: Therapeutic Relationship Promotion 09/09/141832 Coping/Psychosocial Response Interventions Therapeutic Relationship Promotion emotional support provided;positive reinforcement provided;self-care activities encouraged Goal: Identify Signs and Symptoms and Related Risk Factors Signs and symptoms and related risk factors are identified upon initiation of Human Response Clinical Practice Guideline (CPG) Outcome: Outcome (s) achieved Date Met: 09/09/14 09/08/141939 Depression Related Risk Factors (Depression) abuse, history of;mental disability/illness Signs and Symptoms (Depression) appetite changes;fatigue/loss of energy;irritability;isolation;performance at work/school diminished;poor concentration/indecisiveness;sadness;self-blame/self-criticism/g uilt;suicidal/homicidal behaviors/thoughts;weight gain or loss, excessive;withdrawn Goal: Establish/Maintain Self-Care Routine Patient will demonstrate the desired outcomes. Outcome: Ongoing (Interventions Implemented as Appropriate) 09/09/141832 Depression (Adult, Obstetrics, Pediatric) Establish/Maintain Self-Care Routine making progress toward outcome Goal: Improved/Stable Mood Patient will demonstrate the desired outcomes. Outcome: Ongoing (Interventions Implemented as Appropriate) 09/09/141832 Depression (Adult, Obstetrics, Pediatric) Improved/Stable Mood making progress toward outcome Plan of Care - Soco Valle RN - 09/09/2014 3:58 PM EDT MULTIDISCIPLINARY TREATMENT PLAN Patient: Brianna Lay Guardian: Ph: DPOA: Ph: Todays Date: 09/09/2014 Next Kin: Ph: Admit Date: 09/08/2014 5:20 PM CODE STATUS: Full Initial date of care plan. 09/09/2014 PATIENT'S REASON FOR HOSPITALIZATION (his or her own words) 1. worried about my STRESSORS/PROBLEMS TARGET SYMPTOMS: 1. increasing depression 1. increasing depression 2. tx refractory depression 2. excessive worry and guilt interfering with function 3. 3. GOALS 1. Stabilize target symptoms and improve understanding of illness 2. Work with Patient Fast Food Sales Assistant to create and implement aftercare plan 3. Consider ECT txs 4. Groups for education, skill building and support 5. Complete Relapse Plan prior to discharge PHYSICIAN INTERVENTIONS ACTIVITY INTERVENTIONS 1. Continued psychiatric evaluation 1. Behavioral Activation Communication Program 2. Med management/Brief therapy 2. Therapeutic groups & activities 3. Diagnostic/Medical testing/Labs 3. Pt and family education NURSING INTERVENTIONS PCM & SW INTERVENTIONS 1. Purposeful rounding 1. Facilitate communication with family/supports as indicated 2. See Nursing care plan 2. Colaboration of care with outpatient providers 3. Medication administration and teaching 3. Assist with discharge planning I have worked with my treatment team and agree with the plan above. PATIENT SIGNATURE DATE: 09/09/2014 Brianna Radha Lay PRINT NAME: SIGNATURE: DATE: RESIDENT PHYSICIAN William Correia MD 09/09/2014 ATTENDING PHYSICIAN Nathen Go MD 09/09/2014 NURSING , RN 09/09/2014 PT AUTO BODY BUILDER APPRENTICE Nydia Valle RN- 09/09/2014 THERAPIST Jenna Baker [facility] 09/09/2014 DISTILLING DEPARTMENT SUPERVISOR Becky Mane, [facility] 09/09/2014 Plan of Care - Brianna Huntley, RN - 09/09/2014 2:40 PM EDT Problem: General Plan of Care Goal: Plan of Care Review Outcome: Ongoing (Interventions Implemented as Appropriate) 09/08/141939 Coping/Psychosocial Response Interventions Plan of Care Reviewed with patient Plan of Care Review Plan of Care Outcome Status ongoing (interventions implemented as appropriate) Progress improving OUTCOME EVALUATION NOTE: OUTCOME SUMMARY: Pt has been isolative in her room. She has difficulty speeking. Speech is latent. Pt reports she is eating well, and tray is empty. She appears flat and blunted. She was talked to about ECT but unable to respond if she wanted the treatment or not. Given the video to watch in the afternoon. No SI/HI and CFS. Pt talked to at length this morning about ECT after MD visits. Also shown the Video. I asked her questions about what we reviewed and about the video which she was unable to answer. She basically did not speak. Pt encouraged to speak with her when he comes in at 1630 pm. Med student also encouraged to meet with she and her a=bout the treatment when he was present. MD Go told of pts response to education by me. PLAN MOVING FORWARD: Prepare for ECT, NPO after Midnight and she is on standby schedule. INDIVIDUALIZED FALL PREVENTION: Assistance: Up ad michele Supervision: ETG Surveillance: 30 checks. CPG GOAL OUTCOME EVALUATION: Very depressed. Goal: Individualization and Mutuality Outcome: Ongoing (Interventions Implemented as Appropriate) 09/08/141835 Mutuality/Individual Preferences What anxieties, fears or concerns do you have about your health or care? I have more concern about everyone else What questions do you have about your health or care? not at the moment What information would help us give you more personalized care? none Goal: Fall Prevention-Safe Patient Handling Outcome: Ongoing (Interventions Implemented as Appropriate) 09/08/14193909/09/14 0833 Safety Interventions Safety Precautions/Fall Reduction -- fall reduction program maintained Musculoskeletal Interventions Activity/Level of Assistance up ad michele -- Positioning independent -- Muscle Strengthening activity/mobility promoted -- Self-Care Promotion personal routines for BADL/IADL promoted -- Dixon Fall Risk History of Falling -- 0 Secondary Diagnosis -- 15 Ambulatory Aids -- 0 Intravenous Therapy/Heparin/Saline Lock -- 0 Gait/Transferring -- 0 Mental Status -- 0 Score -- 15 OTHER Dixon Fall Risk -- Low Goal: Infection Control Outcome: Ongoing (Interventions Implemented as Appropriate) 09/08/14193909/09/14 0833 Coping/Psychosocial Response Interventions Counseling emotional support provided -- Safety Interventions Isolation Precautions -- standard precautions maintained Infection Prevention -- hydration promoted;nutrition promoted;promote handwashing;rest/sleep promoted Goal: Discharge Needs Assessment Outcome: Ongoing (Interventions Implemented as Appropriate) 09/08/141939 Discharge Needs Assessment Concerns to be Addressed coping/stress concerns;mental health concerns Readmission Within the Last 30 Days no previous admission in last 30 days Equipment Needed After Discharge none Current Discharge Risk psychiatric illness Current Health Outpatient/Agency/Support Group Needs outpatient psychiatric care Anticipated Changes Related to Illness none Self-Care Equipment Currently Used at Home none Living Environment Transportation Available car;family or friend will provide Problem: Depression (Adult, Obstetrics, Pediatric) Goal: Identify Signs and Symptoms and Related Risk Factors Signs and symptoms and related risk factors are identified upon initiation of Human Response Clinical Practice Guideline (CPG) Outcome: Ongoing (Interventions Implemented as Appropriate) 09/08/141939 Depression Related Risk Factors (Depression) abuse, history of;mental disability/illness Signs and Symptoms (Depression) appetite changes;fatigue/loss of energy;irritability;isolation;performance at work/school diminished;poor concentration/indecisiveness;sadness;self-blame/self-criticism/g uilt;suicidal/homicidal behaviors/thoughts;weight gain or loss, excessive;withdrawn Goal: Establish/Maintain Self-Care Routine Patient will demonstrate the desired outcomes. Outcome: Ongoing (Interventions Implemented as Appropriate) 09/08/141939 Depression (Adult, Obstetrics, Pediatric) Establish/Maintain Self-Care Routine unable to achieve outcome Goal: Improved/Stable Mood Patient will demonstrate the desired outcomes. Outcome: Ongoing (Interventions Implemented as Appropriate) 09/08/141939 Depression (Adult, Obstetrics, Pediatric) Improved/Stable Mood unable to achieve outcome Plan of Care - Brianna Seaman RN - 09/09/2014 7:39 AM EDT MULTIDISCIPLINARY TREATMENT PLAN Patient: Brianna Lay Guardian: Ph: DPOA: Ph: Todays Date: 09/09/2014 Next Kin: Ph: Admit Date: 09/08/2014 5:20 PM CODE STATUS: DNR/DNI or Full Initial date of care plan. Update every 7 day Working Diagnosis: PATIENT'S REASON FOR HOSPITALIZATION (his or her own words) 1. STRESSORS/PROBLEMS TARGET SYMPTOMS: 1. 1. 2. 2. 3. 3. GOALS 1. Stabilize target symptoms and improve understanding of illness 2. Patient to create and implement aftercare plan 3. 4. 5. PHYSICIAN INTERVENTIONS ACTIVITY INTERVENTIONS 1. Continued psychiatric evaluation 1. Behavioral Activation Communication Program 2. Med management/Brief therapy 2. Therapeutic groups & activities 3. Diagnostic/Medical testing/Labs 3. NURSING INTERVENTIONS PCM & SW INTERVENTIONS 1. Purposeful rounding 1. Facilitate communication with family 2. See Nursing care plan 2. Facilitate communication with providers 3. 3. Assist with discharge planning I have worked with my treatment team and agree with the plan above. PATIENT SIGNATURE DATE: Brianna Lay PRINT NAME: SIGNATURE: DATE: RESIDENT PHYSICIAN ATTENDING PHYSICIAN NURSING PATIENT AUTO BODY BUILDER APPRENTICE THERAPIST DISTILLING DEPARTMENT SUPERVISOR Plan of Care - Bonny Lepe RN - 09/08/2014 7:50 PM EDT Problem: General Plan of Care Goal: Plan of Care Review Outcome: Ongoing (Interventions Implemented as Appropriate) 09/08/14 194 Coping/Psychosocial Response Interventions Plan of Care Reviewed with patient Plan of Care Review Plan of Care Outcome Status ongoing (interventions implemented as appropriate) Progress improving OUTCOME EVALUATION NOTE: OUTCOME SUMMARY: pt admitted to 225 accompanied by pt is flat, latent with poverty of speech. She is pleasant and cooperative, but appears fearful and looks to her when she cannot answer a question. She is casually dressed and well groomed. Says that she had heard a voice when she had left her house in the cold, that told her she had to leave or her family was in danger. Says she does not hear voices now. says she has been paranoid at home putting canned goods in fridge and other items in the freezer as they were at risk of going bad. She denies physical pain. Both hands with significant tremors. She denies SI/HI and contracts for safety. She was cooperative with the admission process, but was was not able to answer most questions, most information reported or completedby PLAN MOVING FORWARD: Lab work, meet with treatment team in am, INDIVIDUALIZED FALL PREVENTION: Assistance: None, independent Supervision: As needed Surveillance: q 30 minute checks, admission process CPG GOAL OUTCOME EVALUATION: Goal: Individualization and Mutuality Outcome: Ongoing (Interventions Implemented as Appropriate) 09/08/14 7676 Mutuality/Individual Preferences What anxieties, fears or concerns do you have about your health or care? I have more concern about everyone else What questions do you have about your health or care? not at the moment What information would help us give you more personalized care? none Goal: Fall Prevention-Safe Patient Handling Outcome: Ongoing (Interventions Implemented as Appropriate) 09/08/141939 Safety Interventions Safety Precautions/Fall Reduction nonskid shoes/slippers when out of bed;low bed;fall reduction program maintained Musculoskeletal Interventions Activity/Level of Assistance up ad michele Positioning independent Muscle Strengthening activity/mobility promoted Self-Care Promotion personal routines for BADL/IADL promoted Goal: Infection Control Outcome: Ongoing (Interventions Implemented as Appropriate) 09/08/141939 Coping/Psychosocial Response Interventions Counseling emotional support provided Safety Interventions Isolation Precautions standard precautions maintained Infection Prevention nutrition promoted;hydration promoted;rest/sleep promoted;environmental surveillance Goal: Discharge Needs Assessment Outcome: Ongoing (Interventions Implemented as Appropriate) 09/08/141939 Discharge Needs Assessment Concerns to be Addressed coping/stress concerns;mental health concerns Readmission Within the Last 30 Days no previous admission in last 30 days Equipment Needed After Discharge none Current Discharge Risk psychiatric illness Current Health Outpatient/Agency/Support Group Needs outpatient psychiatric care Anticipated Changes Related to Illness none Self-Care Equipment Currently Used at Home none Living Environment Transportation Available car;family or friend will provide Problem: Depression (Adult, Obstetrics, Pediatric) Intervention: Suicide Attempt Prevention/Intervention 09/08/141939 Coping/Psychosocial Response Interventions Suicide Attempt Prevention/Intervention emotional support provided;family support provided;goal setting facilitated;positive reinforcement provided Intervention: Secure Environment 09/08/141939 Coping/Psychosocial Response Interventions Secure Environment emotionally safe environment provided;physically safe environment provided Intervention: Self-Esteem Promotion 09/08/141939 Coping/Psychosocial Response Interventions Self-Esteem Promotion emotional support provided;positive reinforcement provided Intervention: Therapeutic Relationship Promotion 09/08/141939 Coping/Psychosocial Response Interventions Therapeutic Relationship Promotion decision-making encouraged;emotional support provided;self-care activities encouraged Goal: Identify Signs and Symptoms and Related Risk Factors Signs and symptoms and related risk factors are identified upon initiation of Human Response Clinical Practice Guideline (CPG) Outcome: Ongoing (Interventions Implemented as Appropriate) 09/08/141939 Depression Related Risk Factors (Depression) abuse, history of;mental disability/illness Signs and Symptoms (Depression) appetite changes;fatigue/loss of energy;irritability;isolation;performance at work/school diminished;poor concentration/indecisiveness;sadness;self-blame/self-criticism/g uilt;suicidal/homicidal behaviors/thoughts;weight gain or loss, excessive;withdrawn Goal: Establish/Maintain Self-Care Routine Patient will demonstrate the desired outcomes. Outcome: Ongoing (Interventions Implemented as Appropriate) 09/08/141939 Depression (Adult, Obstetrics, Pediatric) Establish/Maintain Self-Care Routine unable to achieve outcome Goal: Improved/Stable Mood Patient will demonstrate the desired outcomes. Outcome: Ongoing (Interventions Implemented as Appropriate) 09/08/141939 Depression (Adult, Obstetrics, Pediatric) Improved/Stable Mood unable to achieve outcome documented in this encounter Plan of Treatment Not on filedocumented as of this encounter Procedures Procedure Name Priority Date/Time Associated Comments Diagnosis ECT (WRVU 2.5) Yes 09/24/2014 7:33 AM 296.34 EDT THYROGLOBULIN ANTIBODY Routine 09/23/2014 3:50 PM Results for this EDT procedure are i n the results section. PARANEOPLASTIC Routine 09/23/2014 3:50 PM Results for this AUTOANTIBODY EVAL, EDT procedure are in SERUM the results section. THYROID PEROXIDASE Routine 09/23/2014 3:50 PM Res ults for this ANTIBODY EDT procedure are i n the results section. T3 TOTAL Routine 09/15/2014 1:03 PM Results f or this EDT procedure are i n the results section. TSH Routine 09/15/2014 1:03 PM Results f or this EDT procedure are i n the results section. T4 TOTAL Routine 09/15/2014 1:03 PM Results f or this EDT procedure are i n the results section. URINE CULTURE Routine 09/09/2014 5:13 PM Results for this EDT procedure are i n the results section. T3 TOTAL Routine 09/09/2014 3:26 PM Results f or this EDT procedure are i n the results section. TSH Routine 09/09/2014 3:26 PM Results f or this EDT procedure are i n the results section. T4 TOTAL Routine 09/09/2014 3:26 PM Results f or this EDT procedure are i n the results section. EKG 12-LEAD Routine 09/09/2014 9:08 AM Major depressive Resul ts for this EDT disorder, single procedure a re in episode, severe the results with psychotic section. features URINALYSIS WITH REFLEX Routine 09/09/2014 7:14 AM Results for this CULTURE EDT procedure are i n the results section. HEMOGRAM Routine 09/09/2014 6:54 AM Results f or this EDT procedure are i n the results section. DIFFERENTIAL, AUTOMATED Routine 09/09/2014 6:54 AM Results for this EDT procedure are i n the results section. CREATININE Routine 09/09/2014 6:54 AM Results f or this EDT procedure are i n the results section. CBC (WITH DIFF) Routine 09/09/2014 6:54 AM EDT BUN Routine 09/09/2014 6:54 AM Results f or this EDT procedure are i n the results section. TSH Routine 09/09/2014 6:54 AM Results f or this EDT procedure are i n the results section. PHOSPHORUS Routine 09/09/2014 6:54 AM Results f or this EDT procedure are i n the results section. MAGNESIUM Routine 09/09/2014 6:54 AM Results f or this EDT procedure are i n the results section. CALCIUM Routine 09/09/2014 6:54 AM Results f or this EDT procedure are i n the results section. HEPATIC FUNCTION PANEL Routine 09/09/2014 6:54 AM Results for this EDT procedure are i n the results section. ELECTROLYTES PANEL Routine 09/09/2014 6:54 AM Res ults for this EDT procedure are i n the results section. documented in this encounter Results Paraneoplastic Autoantibody Eval (09/23/2014 3:50 PM EDT) Component Value Ref Test Analysis Performed At [facility] Range Method Time Signature Paraneo Eval SEE COMMENTS CERNER Interpretation MILLENNIUM Comment: No informative autoantibodies were detec adali in this evaluation. However, a negative result d oes not exclude neurological autoimmunity with or withou t associated neoplasia. Test Performed by: [place] [id number] [employer]oon Design Printer: Tommy Irene II, M.D., Ph.D. TRACY-1 (Anti-Neuronal Nuclear Ab, Type Negative <1:240 titer CERNER MILLENNIUM 1) Comment: Test Performed by: [place] [id number] [employer]oon Design Printer: Tommy Irene II, M.D., Ph.D. TRACY-2 (Anti-Neuronal Nuclear Ab,Type Negative <1:240 titer CERNER MILLENNIUM 2) Comment: Test Performed by: [facility] [place] [address] Balloon Design Printer: Tommy Irene II, M.D., Ph.D. TRACY-3 (Anti-Neuronal Nuclear Ab, Type Negative <1:240 titer CERNER MILLENNIUM 3) Comment: Test Performed by: [place] [id number] [employer]oon Design Printer: Tommy Irene II, M.D., Ph.D. AGNA-1 (Anti-Glial Nuclear Ab, Type 1) Negative <1:240 titer CERNER MILLENNIUM Comment: Test Performed by: [place] [id number] [employer]oon Design Printer: Tommy Irene II, M.D., Ph.D. EMPLOYMENT EDUCATIONAL COORD-1 (Purkinje Cell Cytoplasmic Negative <1:240 titer CERNER MILLENNIUM Ab-Type 1) Comment: Test Performed by: [place] [id number] [employer]oon Design Printer: Tommy Irene II, M.D., Ph.D. EMPLOYMENT EDUCATIONAL COORD-2 (Purkinje Cell Cytoplasmic Negative <1:240 titer CERNER MILLENNIUM Ab-Type 2) Comment: Test Performed by: [place] [id number] [employer]oon Design Printer: Tommy Irene II, M.D., Ph.D. EMPLOYMENT EDUCATIONAL COORD-Type Tr (Purkinje Cell Cytoplasmic Negative <1:240 titer CERNER MILLENNIUM Ab-Type Tr) Comment: Test Performed by: [place] [id number] [employer]oon Design Printer: Tommy Irene II, M.D., Ph.D. Amphiphysin Antibody Negative <1:240 titer CERNER MILLENNIUM Comment: Test Performed by: [place] [id number] [employer]oon Design Printer: Tommy Irene II, M.D., Ph.D. CRMP-5-IgG Negative <1:240 titer CERNER MILLENNIU M Comment: CRMP-5 Titers lower than 1:240 may be de tectable by recombinant CRMP-5 western blot analysis , available by request on stored serum and recommended in cases of chorea, vision loss, cranial neuropathy and myel opathy. Extramural clients contact [facility] Inquiry at to add-on CRMP-5-IgG Western Blot, Serum . Intramural Clients, please call the Neuroimmunology Lab at [phone]. Test Performed by: [place] [address] Balloon Design Printer: Tommy Irene II, M.D., Ph.D. Striated Muscle Ab Negative <1:120 titer CERNER M ILLENNIUM Comment: Test Performed by: [place] [address] [employer]oon Design Printer: Tommy Irene II, M.D., Ph.D. P/Q-Type Ca Channel Ab 0.00 <=0.02 nmol/L CER NER MILLENNIUM Comment: Test Performed by: [place] [address] [employer]oon Design Printer: Tommy Irene II, M.D., Ph.D. N-Type Ca Channel Ab 0.00 <=0.03 nmol/L CERNE R MILLENNIUM Comment: Test Performed by: [place] [address] [employer]oon Design Printer: Tommy Irene II, M.D., Ph.D. ACHr Binding Ab 0.00 <=0.02 nmol/L CERNER MIL LENNIUM Comment: Test Performed by: [place] [address] [employer]oon Design Printer: Tommy Irene II, M.D., Ph.D. AChR Gang Neuronal Ab 0.00 <=0.02 nmol/L CERN ER MILLENNIUM Comment: Test Performed by: [place] [address] [employer]oon Design Printer: Tommy Irene II, M.D., Ph.D. Neuronal (V-G) K+ Channel Ab 0.00 <=0.02 nmol/L CERNER MILLENNIUM Comment: Test Performed by: [place] [id number] [employer]oon Design Printer: Tommy Irene II, M.D., Ph.D. Specimen Anatomical Collection Method Collection Time Receive d Time (Source) Location / / Volume Laterality Blood specimen 09/23/2014 3:50 PM 015 4:42 (specimen) EDT PM EDT Resulting Agency Comment Spec In Lab Nathen Go MD CHEMISTRY ORDERABLES Performing Organization Address City/[facility]/[place] [address] CERNER MILLENNIUM (ABNORMAL) Thyroglobulin Antibody (09/23/2014 3:50 PM EDT) Analysis Performed At Patho logist Time Signature Thyroglob Ab 232.0 (H) 0.0 - 40.0 CERNER IU/mL MILLENNIUM Comment: Assay performed is the Medlert Immulite Tg-A b immunometric assay. (Cutoff for TgAb negativity is <20 IU/ml ) Specimen Anatomical Collection Method Collection Time Receive d Time (Source) Location / / Volume Laterality Blood specimen 09/23/2014 3:50 PM 015 8:08 (specimen) EDT AM EDT Resulting Agency Comment Spec In Lab Nathen Go MD CHEMISTRY ORDERABLES Performing Organization Address City/[facility]/ZIP Code Phon e Number [address] CERNER MILLENNIUM Thyroid peroxidase antibody (09/23/2014 3:50 PM EDT) P athologist Signature Thyroperox Ab 25 <=34 IU/mL CERNER MILLENNIUM Specimen Anatomical Collection Method Collection Time Receive d Time (Source) Location / / Volume Laterality Blood specimen 09/23/2014 3:50 PM 015 8:08 (specimen) EDT AM EDT Resulting Agency Comment Spec In Lab Nathen Go MD IMMUNOLOGY ORDERABLES Performing Organization Address City/[facility]/ZIP [facility] Phon e Number [address] CERNER MILLENNIUM (ABNORMAL) T3 Total (09/15/2014 1:03 PM EDT) P athologist Signature T3, Total 261 (H) 75 - 170 CERNER ng/dL [facility] Specimen Anatomical Collection Method Collection Time Receive d Time (Source) Location / / Volume Laterality Blood specimen 09/15/2014 1:03 PM 015 1:18 (specimen) EDT PM EDT Resulting Agency Comment Spec In Lab Nathen Go MD CHEMISTRY ORDERABLES Performing Organization Address City/[facility]/ZIP Code Phon e Number [address] CERNER MILLENNIUM T4 Total (09/15/2014 1:03 PM EDT) athologist Signature T4, total 6.9 5.1 - 10.8 CERNER mcg/dL [facility] Comment: Reference Range: Cord Blood: ??6.9-14.4 mcg/dL Females: ??7.2-14.2 mcg/dL Pediatric ranges: ??Interpret with cauti on-ranges have not been verified Specimen Anatomical Collection Method Collection Time Receive d Time (Source) Location / / Volume Laterality Blood specimen 09/15/2014 1:03 PM 015 1:18 (specimen) EDT PM EDT Resulting Agency Comment Spec In Lab Nathen Go MD CHEMISTRY ORDERABLES Performing Organization Address City/[facility]/ZIP Code Phon e Number [address] CERNER [facility] ([facility] TSH (09/15/2014 1:03 PM EDT) athologist Signature TSH 0.11 (L) 0.27 - 4.20 CERNER mcIU/mL [facility] Specimen Anatomical Collection Method Collection Time Receive d Time (Source) Location / / Volume Laterality Blood specimen 09/15/2014 1:03 PM 015 1:18 (specimen) EDT PM EDT Resulting Agency Comment Spec In Lab Nathen Go MD CHEMISTRY ORDERABLES Performing Organization Address City/[facility]/ZIP [facility] Phon e Number [address] [facility] Urine culture Clean Catch Urine (09/09/2014 5:13 PM EDT) Patholo gist Method Time Signature Urine Culture CERNER ? Patient Name: BRIANNA LAY ? Ordered By: BIJAN JEAN ? MR#: [id number] ?LOC: ??[id number] ? /Sex: ??1955 (59 years), ? Female ? PROCEDURE: Urine Culture ?SOURCE: U FC ? COLLECTED: 09/09/2014 17:13 ? STARTED: 09/09/2014 17:42 ? FINAL REPORT ? Final Report ? Verified:09/10/2014 15:18 ? 1,000-9,000 cfu/ml Gram Positive organisms , probable contaminant ? Specimen Anatomical Collection Method Collection Time Receive d Time (Source) Location / / Volume Laterality First stream 09/09/2014 5:13 PM 5 5:42 urine sample EDT PM EDT (specimen) Resulting Agency Comment Spec In Lab Bijan Jean MD MICROBIOLOGY - GENERAL ORDER HUAN Performing Organization Address City/State/ZIP [place] [address]ODGEENNIUM (ABNORMAL) TSH (09/09/2014 3:26 PM EDT) P athologist Signature TSH 5.39 (H) 0.27 - 4.20 CERNER mcIU/mL MILLENNIUM Specimen Anatomical Collection Method Collection Time Receive d Time (Source) Location / / Volume Laterality Blood specimen 09/09/2014 3:26 PM 015 3:33 (specimen) EDT PM EDT Resulting Agency Comment Spec In Lab Nathen Go MD CHEMISTRY ORDERABLES Performing Organization Address City/[facility]/[place] [address] CERNER MILLENNIUM T4 Total (09/09/2014 3:26 PM EDT) P athologist Signature T4, total 7.7 5.1 - 10.8 CERNER mcg/dL [facility] Comment: Reference Range: Cord Blood: ??6.9-14.4 mcg/dL Females: ??7.2-14.2 mcg/dL Pediatric ranges: ??Interpret with cauti on-ranges have not been verified Specimen Anatomical Collection Method Collection Time Receive d Time (Source) Location / / Volume Laterality Blood specimen 09/09/2014 3:26 PM 015 3:33 (specimen) EDT PM EDT Resulting Agency Comment Spec In Lab Nathen Go MD CHEMISTRY ORDERABLES Performing Organization Address City/[facility]/ZIP Code Phon e Number [address] CERNER [facility] (ABNORMAL) T3 Total (09/09/2014 3:26 PM EDT) P athologist Signature T3, Total 60 (L) 75 - 170 CERNER ng/dL [facility] Specimen Anatomical Collection Method Collection Time Receive d Time (Source) Location / / Volume Laterality Blood specimen 09/09/2014 3:26 PM 015 3:33 (specimen) EDT PM EDT Resulting Agency Comment Spec In Lab Nathen Go MD CHEMISTRY ORDERABLES Performing Organization Address City/[facility]/ZIP Code Phon e Number [address] [facility] EKG 12 Lead (09/09/2014 9:08 AM EDT) Component Value Ref Range Test Analysis Performed Pathologis t Method Time At Signature Ventricular rate 76 BPM MUSE SYSTEM Atrial Rate 76 BPM MUSE SYSTEM P-R Interval 142 ms MUSE SYSTEM QRS Duration 88 ms MUSE SYSTEM Q-T Interval 380 ms MUSE SYSTEM QTC Calculated 427 ms MUSE SYSTEM (Bezet) Calculated P [place] 79 degrees MUSE SYSTEM Calculated R [place] 80 degrees MUSE SYSTEM Calculated T [place] 73 degrees MUSE SYSTEM INTERPRETATION Normal sinus rhythm MUSE SYSTEM Possible Left atrial enlargement Borderline ECG No previous ECGs available Confirmed by MD TANIYA, ETHEL ([id number]) on 09/09/2014 9:16:14 PM Specimen Anatomical Collection Method Collection Time Receive d Time (Source) Location / / Volume Laterality 09/09/2014 9:08 AM 201 5 9:16 EDT PM EDT Bijan Jean MD ECG ORDERABLES Performing Organization Address City/State/ZIP Code Phon e Number MUSE SYSTEM (ABNORMAL) Urinalysis with microscopic (09/09/2014 7:14 AM EDT) [facility] Method Time Signature Glucose UA Negative Negative CERNER mg/dL MILLENNIUM Protein UA Negative Negative CERNER mg/dL MILLENNIUM Bilirubin UA Negative Negative CERNER mg/dL MILLENNIUM Comment: Clinical correlation required for positi ve Urine Bilirubin results as false positive may occur with some drugs and d rug related products. If a false positive is suspected a serum total bili cooper should be considered if clinically indicated. Urobilinogen UA Normal Normal mg/dL CERNER MILL ENNIUM pH UA 6.0 5.0 - 8.0 CERNER MILLENNIUM Blood UA Small (A) Negative mg/dL CERNER MILLENNI UM Ketones UA Negative Negative mg/dL CERNER MILLENN IUM Nitrite UA Negative Negative CERNER MILLENNIUM Leukocytes UA Trace (A) Negative mcL CERNER ANA NIUM Appearance UA Hazy (A) Clear CERNER MILLENNIU M Spec [place] UA 1.014 1.002 - 1.030 CERNER MIL LENNIUM Color UA Yellow Yellow CERNER MILLENNIUM RBC UA 2 0 - 4 /HPF CERNER MILLENNIUM WBC UA 8 (H) 0 - 5 /HPF CERNER MILLENNIUM Bacteria UA Rare (A) None /HPF CERNER MILLENNIUM Squam Epith UA 3 <=4 /HPF CERNER MILLENNI UM Specimen Anatomical Collection Method Collection Time Receive d Time (Source) Location / / Volume Laterality Urine specimen 09/09/2014 7:14 AM 015 7:39 (specimen) EDT AM EDT Resulting Agency Comment Spec In Lab Bijan Jean MD URINE ORDERABLES Performing Organization Address City/State/ZIP Code Phon e Number [address] CERNER MILLENNIUM Differential, Automated (09/09/2014 6:54 AM EDT) P athologist Signature Neutrophils % 50.7 % CERNER MILLENNIUM Neutr Abs (ANC) 2.15 1.50 - CERNER 6.30 MILLENNIUM x10(3)/mcL Lymphocytes % 38.0 % CERNER MILLENNIUM Lymphocytes Abs 1.6 1.0 - 3.6 CERNER x10(3)/mcL MILLENNIUM Monocytes % 7.3 % CERNER MILLENNIUM Monocyte Abs 0.3 0.2 - 1.0 CERNER x10(3)/mcL MILLENNIUM Eosinophils % 3.3 % CERNER MILLENNIUM Eosinophils Abs 0.1 0.0 - 0.5 CERNER x10(3)/mcL MILLENNIUM Basophils % 0.7 % CERNER MILLENNIUM Basophils Abs 0.0 0.0 - 0.2 CERNER x10(3)/mcL MILLENNIUM Immature Gran % 0.00 % CERNER MILLENNIUM Comment: Immature granulocytes(IG's)percentage an d absolute count will include metamyelocytes, myelocytes, and promyelo cytes. Blood smears from CBCs yielding IG's will be scanned manually for concor dance. If this scan disagrees with the automated IG or if promyelocytes are not ed, a manual differential will be performed. Maryam Gran Abs 0.00 0.00 - 0.05 x10(3)/mcL CER NER MILLENNIUM Specimen Anatomical Collection Method Collection Time Receive d Time (Source) Location / / Volume Laterality Blood specimen 09/09/2014 6:54 AM 015 7:09 (specimen) EDT AM EDT Resulting Agency Comment Spec In Lab Bijan Jean MD HEMATOLOGY ORDERABLES Performing Organization Address City/State/ZIP Code Phon e Number [address] CERNER MILLENNIUM Hemogram (09/09/2014 6:54 AM EDT) athologist [facility] WBC 4.2 4.0 - 10.0 CERNER x10(3)/mcL MILLENNIUM RBC 4.64 3.93 - 5.22 CERNER x10(6)/mcL MILLENNIUM Hemoglobin 14.0 11.2 - 15.7 CERNER gm/dL MILLENNIUM Hematocrit 43.1 34.0 - 45.0 CERNER % MILLENNIUM MCV 92.9 79.0 - 94.0 CERNER fL MILLENNIUM MCH 30.2 26.6 - 32.2 CERNER pg MILLENNIUM MCHC 32.5 32.0 - 36.5 CERNER gm/dL MILLENNIUM Platelets 228 145 - 370 CERNER x10(3)/mcL MILLENNIUM RDWSD 45.1 35.0 - 46.0 CERNER fL MILLENNIUM RDWCV 13.4 10.9 - 14.4 CERNER % MILLENNIUM MPV 11.1 9.0 - 12.0 CERNER fL MILLENNIUM Specimen Anatomical Collection Method Collection Time Receive d Time (Source) Location / / Volume Laterality Blood specimen 09/09/2014 6:54 AM 015 7:09 (specimen) EDT AM EDT Resulting Agency Comment Spec In Lab Bijan Jean MD HEMATOLOGY ORDERABLES Performing Organization Address City/State/ZIP Code Phon e Number [address] CERNER MILLENNIUM (ABNORMAL) TSH (09/09/2014 6:54 AM EDT) athologist [facility] TSH 13.20 (H) 0.27 - CERNER 4.20 MILLENNIUM mcIU/mL Specimen Anatomical Collection Method Collection Time Receive d Time (Source) Location / / Volume Laterality Blood specimen 09/09/2014 6:54 AM 015 7:09 (specimen) EDT AM EDT Resulting Agency Comment Spec In Lab Bijan Jean MD CHEMISTRY ORDERABLES Performing Organization Address City/State/[place] [address] CERNER MILLENNIUM Hepatic Function Panel (09/09/2014 6:54 AM EDT) athologist Signature Total Protein 6.2 6.1 - 8.0 CERNER gm/dL MILLENNIUM Albumin 3.8 3.2 - 5.2 CERNER gm/dL MILLENNIUM AST 10 0 - 30 CERNER unit/L MILLENNIUM ALT 7 0 - 30 CERNER unit/L MILLENNIUM Alk Phos 68 40 - 104 CERNER unit/L MILLENNIUM Total 0.4 0.2 - 1.3 CERNER Bilirubin mg/dL MILLENNIUM Bili, Direct 0.1 0.0 - 0.3 CERNER mg/dL MILLENNIUM Specimen Anatomical Collection Method Collection Time Receive d Time (Source) Location / / Volume Laterality Blood specimen 09/09/2014 6:54 AM 015 7:09 (specimen) EDT AM EDT Resulting Agency Comment Spec In Lab Bijan Jean MD CHEMISTRY ORDERABLES Performing Organization Address [facility] Phon e Number [address] CERNER MILLENNIUM Phosphorus (09/09/2014 6:54 AM EDT) athologist Signature Phosphorus 3.0 2.5 - 4.5 CERNER mg/dL [facility] Specimen Anatomical Collection Method Collection Time Receive d Time (Source) Location / / Volume Laterality Blood specimen 09/09/2014 6:54 AM 015 7:09 (specimen) EDT AM EDT Resulting Agency Comment Spec In Lab Bijan Jean MD CHEMISTRY ORDERABLES Performing Organization Address City/[facility]/ZIP Code Phon e Number [address] CERNER MILLENNIUM Magnesium (09/09/2014 6:54 AM EDT) athologist Signature Magnesium 0.88 0.69 - 1.07 CERNER mmol/L [facility] Specimen Anatomical Collection Method Collection Time Receive d Time (Source) Location / / Volume Laterality Blood specimen 09/09/2014 6:54 AM 015 7:09 (specimen) EDT AM EDT Resulting Agency Comment Spec In Lab Bijan Jean MD CHEMISTRY ORDERABLES Performing Organization Address City/[facility]/ZIP Code Phon e Number [address] CERNER MILLENNIUM Calcium (09/09/2014 6:54 AM EDT) athologist Signature Calcium 8.9 8.5 - 10.5 CERNER mg/dL MILLENNIUM Specimen Anatomical Collection Method Collection Time Receive d Time (Source) Location / / Volume Laterality Blood specimen 09/09/2014 6:54 AM 015 7:09 (specimen) EDT AM EDT Resulting Agency Comment Spec In Lab Bijan Jean MD CHEMISTRY ORDERABLES Performing Organization Address City/[facility] Code Phon e Number [address] CERNER MILLENNIUM Creatinine (09/09/2014 6:54 AM EDT) athologist Signature Creatinine 0.76 0.70 - 1.20 CERNER mg/dL MILLENNIUM Comment: Please note that the pediatric reference intervals supplied above were not validated at [facility]. Results from pediatri c patients should be interpreted in conjunction to the patient's age, height and muscle mass. Estimated GFR >60 >=60 CERNER MILLENNIU M Comment: This estimated GFR (eGFR) value was calc ulated using the MDRD equation which has been validated on patients between t he ages of 18 and 70. The MDRD should not be used to assess kidney function in patients < 18 years of age or in patients with extremes of body mass, or in patients with acute kidney failure. This value should be multiplied by 1.2 f or patients. For further information please copy and past e the following links into your internet browser. http://[employer]/DHnkdep http://[employer]/DHMCnkf Specimen Anatomical Collection Method Collection Time Receive d Time (Source) Location / / Volume Laterality Blood specimen 09/09/2014 6:54 AM 015 7:09 (specimen) EDT AM EDT Resulting Agency Comment Spec In Lab Bijan Jean MD CHEMISTRY ORDERABLES Performing Organization Address City/State/ZIP Code Phon e Number [address] CERNER MILLENNIUM BUN (09/09/2014 6:54 AM EDT) P athologist Signature BUN 10 8 - 18 CERNER mg/dL MILLENNIUM Specimen Anatomical Collection Method Collection Time Receive d Time (Source) Location / / Volume Laterality Blood specimen 09/09/2014 6:54 AM 015 7:09 (specimen) EDT AM EDT Resulting Agency Comment Spec In Lab Bijan Jean MD CHEMISTRY ORDERABLES Performing Organization Address City/[facility]/ZIP Code Phon e Number [address] CERNER MILLENNIUM (ABNORMAL) Electrolytes panel (09/09/2014 6:54 AM EDT) P athologist Signature Sodium 146 (H) 135 - 145 CERNER mmol/L MILLENNIUM Potassium 3.6 3.5 - 5.0 CERNER mmol/L MILLENNIUM Comment: Please note: ??Patients with WBC >100,00 0 may have falsely elevated Potassium levels. ??For accurate Potassium quantif ication in these patients send serum separator tube (gold top) for subsequent determinations. ??Contact the Clinical Chemistry Laboratory if there are any qu estions. Chloride 105 98 - 107 mmol/L CERNER MILLENN IUM CO2 28 22 - 31 mmol/L CERNER MILLENNI UM Anion Gap 13 5 - 15 mmol/L CERNER MILLENNIU M Specimen Anatomical Collection Method Collection Time Receive d Time (Source) Location / / Volume Laterality Blood specimen 09/09/2014 6:54 AM 015 7:09 (specimen) EDT AM EDT Resulting Agency Comment Spec In Lab Bijan Jean MD CHEMISTRY ORDERABLES Performing Organization Address City/[facility]/ZIP Code Phon e Number [address] CERNER MILLENNIUM documented in this encounter Visit Diagnoses Not on filedocumented in this encounter Active and Recently Administered Medications Times are shown in EDT. Scheduled Medication Order 09/22/2014 09/23/2014 09/24/2014 FLUoxetine (PROzac) capsule 40 mg (CANCELED) 0729 ([facility] Hold - Provider: Admin Adt - Reason: Transfer to a Procedural area)0851 ([facility] Unhold - Provider: Admin Adt)1108 (Given - Provider: Brianna Huntley, TERESA) 0933 (Given - Provider: Maria L Pineda RN) 0739 ([facility] Hold - Provider: Admin Adt - R bibiana: Transfer to a Procedural area)0845 ([facility] Unhold - Provider: Admin Adt)0853 (Given - Provider: Rut Yuan) 40 mg, Oral, DAILY, First dose on Sun at 0900, Until Discontinued, Routine levothyroxine (SYNTHROID) tablet 100 mcg (CANCELED) 06 39 (Given - Provider: Jyoti Wagner RN)0729 ([facility] Hold - Provider: Admin Adt - Reason: Transfer to a Procedural area)0851 ([facility] Unhold - Provider: Admin Adt) 0624 (Given - Provider: Jyoti Wagner RN) 0639 (Given - Provider: Trista Chang)0739 ([facility] Hold - Provider: Admin Adt - Reason: Transfer to a Procedural area)0845 ([facility] Unhold - Provider: Admin Adt) 100 mcg, Oral, EVERY MORNING, First dose on Sun09/16/14 at 1000, Until Discontinued, Routine liothyronine (CYTOMEL) tablet 50 mcg (CANCELED) 0639 ( Given - Provider: Jyoti Wagner RN)0729 ([facility] Hold - Provider: Admin Adt - Reason: Transfer to a Procedural area)0851 ([facility] Unhold - Provider: Admin Adt) 0624 (Given - Provider: Jyoti Wagner RN) 0639 (Given - Provider: Trista Chang)0739 ([facility] Hold - Provider: Admin Adt - Reason: Transfer to a Procedural area)0845 ([facility] Unhold - Provider: Admin Adt) 50 mcg, Oral, EVERY MORNING, First dose on Sun09/22/14 at 0600, Until Discontinued, Routine OLANZapine (ZyPREXA) tablet 10 mg (CANCELED) 0729 ([facility] Hold - Provider: Admin Adt - Reason: Transfer to a Procedural area)0851 ([facility] [facility] Un[facility] - Provider: Admin Adt)2129 (Given - Provider: Soco Vogel RN) 10 mg, Oral, NIGHTLY, First dose on Sun09/21/14 at 2100, Until Discontinued, Routine omega-3 acid ethyl esters (LOVAZA) capsule 2 g 0729 ([facility] Hold - Provider: Admin Adt - Reason: Transfer to a Procedural area)0851 ([facility] Unhold - Provider: Admin Adt)1108 (Given - Provider: Brianna Huntley, TERESA) 0932 (Given - Provider: Maria L Pineda RN)2056 (Given - Provider: Soco Vogel RN) 0739 ([facility] Hold - Provider: Admin Adt - Reason: Transfer to a Procedural area)0845 ([facility] Unhold - Provider: Admin Adt)0853 (Given - Provider: Rut Yuan) 2 g, Oral, 2 TIMES DAILY, First dose on Sun09/14/14 at 2100, Until Discontinued, Routine 2128 (Not Given - Provider: Soco Vogel RN - Reason: Patient Unable - Comment: patient unable to swallow) QUEtiapine (SEROquel) tablet 250 mg 2054 (Given - Provider: Soco Vogel RN) 0739 ([facility] Hold - Provider: Admin Adt - R bibiana: Transfer to a Procedural area)0845 ([facility] Unhold - Provider: Admin Adt) 250 mg, Oral, NIGHTLY, First dose on Sun09/23/14 at 2100 QUEtiapine (SEROquel) tablet 50 mg (COMPLETED) 123 (Given - Provider: Maria L Pineda RN) 50 mg, Oral, ONCE, 1 dose, Sun09/23/14 at 1200, Routine sodium chloride 0.9 % flush 5 mL (CANCELED) 0729 ([facility] Hold - Provider: Admin Adt - Reason: Transfer to a Procedural area)0851 ([facility] Unhold - Provider: Admin Adt)0900 (Not Given - Provider: Brianna Huntley RN - Reason: See comment - Comment: Done in ECT) 0932 (Given - Provider: Trista Murillo)2056 (Given - Provider: Soco Vogel RN) 0739 ([facility] Hold - Provider: Admin Adt - Reason: Transfer to a Procedural area)0845 ([facility] Unhold - Provider: Admin Adt)0900 (Not Given - Provider: Rut Yuan - Reason: Transfer to a Procedural area) 5 mL, Intravenous, 2 TIMES DAILY, First dose on Sun09/12/14 at 0900, Until Discontinued, Routine 2127 (Given - Provider: Soco Vogel, TERESA) PRN Medication Order 09/22/2014 09/23/2014 09/24/2014 acetaminophen (TYLENOL) tablet 650 mg (CANCELED) 0729 ([facility] Hold - Provider: Admin Adt - Reason: Transfer to a Procedural area)0851 ([facility] Unhold - Provider: Admin Adt) 0637 (Given - Provider: Violeta Newby RN - Comment: Prophlylactic for headache patient has been experiencing after ECT)0739 ([facility] Hold - Provider: Admin Adt - Reason: Transfer to a Procedural area)0845 ([facility] Unhold - Provider: Admin Adt) 650 mg, Oral, EVERY 6 HOURS PRN, Startin g 09/08/14 at 2157, Until Carmella 09/24/14 at 1443, Pain, Fever, Administer for temperature greater than or equal to 38.2 degrees celsius (Not to exceed 4000 mg per 24 hours), Routine documented in this encounter Care Teams Web Applications Architect Relationship Specialty Start Date End Date Jewel Cherry MD PCP - General 09/17/14 11/18/[address] [place] [address] [place] [address] documented as of this encounter
--- OUTSIDE RECORDS SUMMARY | 2022-01-09 00:39 | XMS_ITS | Encounter Summary ---
:1955 Author Organization [facility] [place] [address] Care Team Providers Name Role Phone Sumeet Anne Marie Garcia MD Primary Care Provider Encounter Details Date Type Department Care Team Description 10/01/2014 Telephone Psychiatry and Behavioral Ross Zapien RN [facility] at [facility] [place] [address] Social History Tobacco Use Types Packs/Day Years Used Date Never Smoker Smokeless Tobacco: Never Used Alcohol Use Standard Drinks/Week Comments No 0 (1 standard drink = 0.6 oz pure alcoho l) Sex Assigned at Date Recorded Not on file documented as of this encounter Miscellaneous Notes Telephone Encounter - Dinora Zapien RN - 10/26/2014 1:28 PM EDT At 5:20 PM on , 10/08/14 this typewriter aligner confirmed with pt's , that her last scheduled treatment is 10/09 (). At 3:44 PM on , 10/08/14 this pt requested a called back at [phone] RE: ECT scheduled for the next day. At 9:19 AM on 10/07/[address] Valencia's office was informed this pt's last scheduled ECT is 10/08 (). This typewriter aligner asked if this pt should be scheduled for further ECT. Kristina said Dr. Valencia's nurse,Jazmin, will be back tomorrow and Dr. Valencia is going to be out the following week. Kristina said she will leave a note for Jazmin , who will contact Dr. Valencia next week. Telephone Encounter - Dinora Zapien RN - 10/08/2014 5:17 PM EDT [phone] (I) At Telephone Encounter - Dinora Zapien RN - 10/08/2014 9:36 AM EDT AT 10:12 AM on , 10/08/14 this typewriter aligner called Lenka from this pt's current Mental Health Prescriber: Dr. Aurea Valencia MD. [facility], who attempted to transfer the call to Dr. Valencia's nurse, Jazmin. Apparently Jazmin was unable to answer this typewriter aligner asked that Rena told this pt did not come for appt (ECT) today (last scheduled appt). This typewriter aligner requested a call back ([phone]). At 10:01 AM on , 10/08/14 Lenka from this pt's current Mental Health Prescriber: Dr. Aurea Valencia MD. [facility], left a voicemail asking for a call back. At 9:41 AM on , 10/08/14 this typewriter aligner left a voice mail for this pt's current Mental Health Prescriber: Dr. Aurea Valencia MD. [facility], informing her this pt did not come for appt (ECT) today (last scheduled appt). This typewriter aligner requested a call back ([phone]). At 9:40 AM on , 10/08/14 this typewriter aligner left a voice mail for this pt at [phone] (Z) requesting a call back ([phone]). This call was follow up to her not coming for ECT scheduled for today (last scheduled day). Telephone Encounter - Dinora Zapien RN - 10/01/2014 1:21 PM EDT At 1:25 PM on , 10/01/14 this typewriter aligner left a voice mail for Jazmin, the nurse for Dr. Aurea Valencia MD. [facility], letting her know this pt's last schedule ECT is currently 10/08 () and requesting a call back at [phone] if this pt should be scheduled for furt her ECT. Date QIDS ? 09/28/14 3 documented in this encounter Plan of Treatment Not on filedocumented as of this encounter Visit Diagnoses Not on filedocumented in this encounter Care Teams Sider Relationship Specialty Start Date End Date Anne Marie Fay MD PCP - General 09/17/14 11/18/[address] [place] [address] [place] [address] documented as of this encounter
--- OUTSIDE RECORDS SUMMARY | 2022-01-09 00:39 | XMS_ITS | Encounter Summary ---
:1955 [place] [address] Care Team Providers Name Role Phone Anne Marie Fay MD Primary Care Provider Encounter Details Date Type Department Care Team Description 10/02/2014 Surgery Main Operating Room Shahriar Galaviz ba, MD ECT (WRVU 2.5) [facility] Geovani snyder [place] [address] [place] [address] [phone] (Wo rk) Social History Tobacco Use Types Packs/Day Years Used Date Never Smoker Smokeless Tobacco: Never Used Alcohol Use Standard Drinks/Week Comments No 0 (1 standard drink = 0.6 oz pure alcoho l) Sex Assigned at Date Recorded Not on file documented as of this encounter Last Filed Vital Signs Vital Sign Reading Time Taken Comments Blood Pressure 126/58 10/02/2014 10:55 AM EDT Pulse 81 10/02/2014 10:55 AM EDT Temperature 36.2 ??C (97.2 ??F) 10/02/2014 10:55 AM EDT Respiratory Rate 16 10/02/2014 10:55 AM EDT Oxygen Saturation 98% 10/02/2014 10:55 AM EDT Inhaled Oxygen Concentration - - Weight 59 kg (130 lb) 10/02/2014 7:29 AM EDT Height 167.6 cm (5' 6) 10/02/2014 7:29 AM EDT Body Mass Index 20.98 10/02/2014 7:29 AM EDT documented in this encounter Discharge Instructions Discharge InstructionsGricelda Calix RN - 10/02/2014 11:35 AM EDT Rest today. Tylenol if needed for headache. For questions/concerns about today's ECT treatment call: After 5pm/weekends call and ask for director of psychiatry on-call. POST ANESTHESIA INSTRUCTIONS Go home, rest, use caution on stairs. Change positions slowly. Do not smoke if you are alone. Diet light to regular as tolerated today. If nausea occurs start with clear liquids and progress slowly. No driving, operating machinery, alcoholic beverages and no important decisions for 24 hours. Monitor IV site for signs and symptoms of infection: increasing redness, swelling, foul drainage, ifoccurs contact M.D. Patients who have had endotrachial tubes (this tube, used by anesthesia department, is passed down your throat after you are asleep, to ensure safe air passage during your operation). A sore throat is normal due to the tube. Cold liquids or soothing lozenges will help ease the discomfort. The generalized muscle aches are due to the medication given to you just before the tube is inserted. As the medication wears off, you may develop muscle soreness, which usually goes away in 12-24 hours. documented in this encounter Medications at Time [...] documented as of this encounter H&P Notes Jeanmarie Adames MD - 10/02/2014 8:19 AM EDT Patient Name: Brianna Stringer Patient Age: 59 y.o. Birthdate: 1955 Admit date: 10/02/2014 Attending Physician: Andre De La Cruz MD HPI: Brianna Stringer is a 59 y.o. female who has been prescribed ECT. Pertinent history changes since last H&P: none Suicidal ideation: Denies. Homicidal ideation: Denies. ROS: All systems were reviewed and there were no significant complaints. PE: Patient Vitals for the past 8 hrs: BP Temp Temp src Pulse Resp SpO2 Height Weight 10/02/14 0729 117/55 mmHg 36.8 ??C (98.2 ??F) Temporal 87 18 98 % 167.6 cm (5' 6) 58.968 kg (130 lb) Gen: Resting comfortably in hospital bed, dressed in hospital gown. Pulm: Clear to auscultation bilaterally with good inspiratory effort. CV: Regular rate and rhythm, no murmurs/gallops/rubs. Neuro: No focal abnormalities. Cognitive: Alert and oriented to person, place, time; no gross cognitive deficits Remaining exam WNL. A/P: - I have seen and examined the patient. - Proceed with planned ECT procedure documented in this encounter Procedure Notes Andre De La Cruz MD - 10/02/2014 10:03 AM EDTProcedure(s): ECT Pre-Procedure Diagnose(s): Major depressive disorder, recurrent episode, severe, specified as with psychotic behavior ECT SUBSEQUENT TREATMENT NOTE Patient received bifrontal ECT in the PACU. Total: #10; Bifrontal # 3 The primary diagnosis is 296.34. Relevant history: Doing well, responding well to treatment and back to work. Patient was attached to monitoring equipment. The anesthesia team administered the following medications: methohexital 80 mg succinylcholine 40 mg After adequate sedation and relaxation were achieved, patient received ECT using a MECTA device at the following parameters: Bifrontal 1/40/4/800 32 sec motor seizure 40 sec EEG seizure Patient was stabilized and appeared to tolerate the procedure. Complications: none Changes/recommendations/parameters for next treatment: No changes. Next treatment date: 10/05 Route note: Dr. Aurea Valencia documented in this encounter Plan of Treatment Not on filedocumented as of this encounter Procedures Procedure Name Priority Date/Time Associated Diagnosis Comme nts ECT (WRVU 2.5) Yes 10/02/2014 10:04 AM EDT 296.34 documented in this encounter Visit Diagnoses Not on filedocumented in this encounter Care Teams Fire Tower Keeper Relationship Specialty Start Date End Date Anne Marie Fay MD PCP - General 09/17/14 11/18/[address] [place] [address] [place] [address] documented as of this encounter
--- OUTSIDE RECORDS SUMMARY | 2022-01-09 00:39 | XMS_ITS | Encounter Summary ---
:1955 [place] [address] Care Team Providers Name Role Phone Anne Marie Fay MD Primary Care Provider Encounter Details Date Type Department Care Team Description 10/02/2014 Hospital Encounter Same Day Program at Andre De La Cruz MD [facility] [place] [address] [place] [address] [phone] Social History Tobacco Use Types Packs/Day Years [...] After 5pm/weekends call and ask for residential glazier on-call. POST ANESTHESIA INSTRUCTIONS Go home, rest, [...] MECTA device at the following parameters: Bifrontal / 32 sec motor seizure 40 sec EEG [...] on filedocumented in this encounter Care Teams Pattern Keeper Relationship Specialty Start Date End Date Anne Marie Fay MD PCP - General 09/17/14 11/18/[address] [place] [address] [place] [address] documented as of this encounter
--- OUTSIDE RECORDS SUMMARY | 2022-01-09 00:39 | XMS_ITS | Encounter Summary ---
:1955 Author Organization [place] [address] Care Team Providers Name Role Phone Anne Marie Fay MD Primary Care Provider Encounter Details Date Type Department Care Team Description 09/24/2014 Anesthesia Event Main Operating Room Agus Everett MD [facility] [place], [place] [address] [place] [address] [phone] Anesthesia Record Procedure Summary Procedure Name Responsible Anesthesia Start Anesthesia Stop Time Anesthesiologist Time ECT (WRVU 2.5) Tony Everett MD 09/24/14 0730 09/24/14 0747 (Bilateral ) Events Date Time Event Comment 09/24/2014 0730 Start 0733 AN Verify 0733 An Start Data 0733 ASA Monitors 0736 0737 Masked Placed/ Pre O2 0737 An Induction 0740 Bite Block In 0740 ECT Rx 0745 PACU Bed 0747 an stop data 0747 Stop Name Total Methohexital 80 mg Succinylcholine 40 mg Sodium Chloride 0.9% 150 mL Agents Name O2 Auxiliary Flowmeter 1 Blood No blood administrations on file. Lines, Drains, and Airways No LDAs on file. documented in this encounter Social History Tobacco Use Types Packs/Day Years Used Date Never Smoker Smokeless Tobacco: Never Used Alcohol Use Standard Drinks/Week Comments No 0 (1 standard drink = 0.6 oz pure alcoho l) Sex Assigned at Date Recorded Not on file documented as of this encounter OR Notes Anesthesia Postprocedure Evaluation - Tony Everett MD - 09/24/2014 8:03 AM EDT Patient: Brianna Stringer Procedure(s) Performed: Procedure(s): ECT Actual Anesthetic: general Patient location: PACU Post-op pain: Adequate analgesia Post-op nausea: no nausea or vomiting Last Vitals: Filed Vitals: 09/24/14 0800 BP: 144/80 Pulse: 86 Temp: Resp: 20 Post-op cardiovascular and respiratory status: is stable Level of consciousness: awake, alert and oriented Complications: no apparent complications and tolerated the procedure well Fluid Status: normal Anesthesia Preprocedure Evaluation - Tony Everett MD - 09/24/2014 7:34 AM EDT Pre-Anesthesia Evaluation for: Brianna travis 59 y.o. female. Procedure(s): ECT Patient Active Problem List Diagnosis ??? Major depressive disorder, recurrent episode, severe, specified as with psychotic behavior No past medical history on file. Past Surgical History Procedure Laterality Date ??? Electroconvulsive therapy,1 seiz Bilateral 09/10/2014 ECT performed by Giovany Alicia MD at [facility] OR ??? Electroconvulsive therapy,1 seiz Bilateral 09/11/2014 ECT performed by Nathen Go MD at [facility] MAIN OR ??? Electroconvulsive therapy,1 seiz Bilateral 09/14/2014 ECT performed by Vamshi Dukes MD at [facility] OR ??? Electroconvulsive therapy,1 seiz Bilateral 09/15/2014 ECT performed by Alonzo Martel MD at [facility] MAIN OR ??? Electroconvulsive therapy,1 seiz Bilateral 09/18/2014 ECT performed by Andre De La Cruz MD at [facility] OR ??? Electroconvulsive therapy,1 seiz Bilateral 09/21/2014 ECT performed by Alonzo Martel MD at [facility] OR ??? Electroconvulsive therapy,1 seiz Bilateral 09/22/2014 ECT performed by Alonzo Martel MD at [facility] MAIN OR History Substance Use Topics [...] 3 general, with a(n) intravenous induction 59yoF, inpatient for MDD. No problems with prior anesthetic regimen. Received methohexital 80mg, succinylcholine 40mg. Plan general, serial consent on file. Risks/benefits discussed with patient including, but not limited to, dental/airway/lip injury, nerve injury, adverse drug reactions, among others. All questions answered to her satisfaction. Tony Everett MD Region - Other Informed Consent: Anesthetic plan and risks discussed with patient. Plan discussed with resident and attending. [facility]. Assessment: documented in this encounter Plan of Treatment Not on filedocumented as of this encounter Visit Diagnoses Not on filedocumented in this encounter Administered Medications Inactive Administered Medications - up to 3 most recent administrations Medication Order MAR Action Action Date Dose Rate Site methohexital (BREVITAL) injection Given 09/24/2014 7:37 AM EDT 80 mg PRN, Starting on Carmella 09/24/14 at 0737, Until Carmella 09/24/14 at 0747, Anesthesia Intra-op, Routine sodium chloride 0.9% infusion New Bag 09/24/2014 7:30 AM EDT CONTINUOUS PRN, Starting on Carmella 09/24/14 at 0730, Until Carmella 09/24/14 at 0747, Anesthesia Intra-op succinylcholine (ANECTINE) injection Given 09/24/2014 7:38 AM EDT 40 mg PRN, Starting on Carmella 09/24/14 at 0738, Until Carmella 09/24/14 at 0747, Anesthesia Intra-op, Routine documented in this encounter Care Teams Health Psychologist Relationship Specialty Start Date End Date Anne Marie Fay MD PCP - General 09/17/14 11/18/[address] [place] [address] [place] [address] documented as of this encounter
--- OUTSIDE RECORDS SUMMARY | 2022-01-09 00:39 | XMS_ITS | Encounter Summary ---
:1955 [place] [address] Care Team Providers Name Role Phone FayAnne Marie Radha SOTO Primary Care Provider Encounter Details Date Type Department Care Team Description 09/28/2014 Anesthesia Event Main Operating Room Radha Espinal, [facility] Geovani snyder [place] [address] [place] [address] [phone] (Wo rk) Anesthesia Record Procedure Summary Procedure Name Responsible Anesthesia Start Anesthesia Stop Time Anesthesiologist Time ECT (WRVU 2.5) Allyson Gill MD 09/28/14 0744 09/28/14 0756 (Bilateral ) Events Date Time Event Comment 09/28/2014 0741 0744 AN Verify 0744 Start 0744 An Start Data 0744 ASA Monitors 0745 Masked Placed/ Pre O2 0747 An Induction 0749 Bite Block In 0750 ECT Rx 0755 PACU Bed 0756 an stop data 0756 Stop Name Total Methohexital 80 mg Succinylcholine 40 mg Sodium Chloride 0.9% 150 mL Agents Name O2 Blood No blood administrations on file. Lines, Drains, and Airways Type Details Placement Removal PIV 09/28/14; 0716; cephalic vein 09/28/14 0716 by Bayron Bueno, 09/28/14 0901 by left (lateral side of arm); TERESA Olvera Janet E, RN [id number] catheter system; 22 gauge; Jerome Greene RN; distraction, intradermal injection; 09/28/14; 0901 documented in this encounter Social History Tobacco Use Types Packs/Day Years Used Date Never Smoker Smokeless Tobacco: Never Used Alcohol Use Standard Drinks/Week Comments No 0 (1 standard drink = 0.6 oz pure alcoho l) Sex Assigned at Date Recorded Not on file documented as of this encounter OR Notes Anesthesia Postprocedure Evaluation - Allyson Gill MD - 09/28/2014 8:13 AM EDT Patient: Brianna Stringer Procedure(s) Performed: Procedure(s): ECT Actual Anesthetic: general Patient location: PACU Post-op pain: Adequate analgesia Post-op nausea: no nausea or vomiting Last Vitals: Filed Vitals: 09/28/14 0807 BP: 124/94 Pulse: 85 Temp: Resp: 16 Post-op cardiovascular and respiratory status: is stable Level of consciousness: awake, alert and oriented Complications: no apparent complications and tolerated the procedure well Fluid Status: normal Anesthesia Preprocedure Evaluation - Allyson Gill MD - 09/27/2014 10:11 AM EDT Pre-Anesthesia Evaluation for: Brianna Stringer a 59 y.o. female. Procedure(s): ECT Patient Active Problem List Diagnosis ??? Major depressive disorder, recurrent episode, severe, specified as with psychotic behavior No past medical history on file. Past Surgical History Procedure Laterality Date ??? Electroconvulsive therapy,1 seiz Bilateral 09/10/2014 ECT performed by Giovany Alicia MD at [facility] MAIN OR ??? Electroconvulsive therapy,1 seiz Bilateral 09/11/2014 ECT performed by Nathen Go MD at [facility] MAIN OR ??? Electroconvulsive therapy,1 seiz Bilateral 09/14/2014 ECT performed by Vamshi Dukes MD at [facility] MAIN OR ??? Electroconvulsive therapy,1 seiz Bilateral 09/15/2014 ECT performed by Alonzo Martel MD at [facility] MAIN OR ??? Electroconvulsive therapy,1 seiz Bilateral 09/18/2014 ECT performed by Andre De La Cruz MD at [facility] MAIN OR ??? Electroconvulsive therapy,1 seiz Bilateral 09/21/2014 ECT performed by Alonzo Martel MD at [facility] MAIN OR ??? Electroconvulsive therapy,1 seiz Bilateral 09/22/2014 ECT performed by Alonzo Martel MD at [facility] MAIN OR ??? Electroconvulsive therapy,1 seiz Bilateral 09/24/2014 ECT performed by Giovany Alicia MD at [facility] MAIN OR History Substance Use Topics [...] No problems with prior anesthetic regimen. Received [id number], succinylcholine 40mg. Plan general, serial consent on file. Region - Other Informed Consent: Anesthetic plan and risks discussed with patient. Plan discussed with resident and attending. [facility]. Assessment: documented in this encounter Plan of Treatment Not on filedocumented as of this encounter Visit Diagnoses Not on filedocumented in this encounter Administered Medications Inactive Administered Medications - up to 3 most recent administrations Medication Order MAR Action Action Date Dose Rate Site methohexital (BREVITAL) injection Given 09/28/2014 7:47 AM EDT 80 mg PRN, Starting on Sun09/28/14 at 0747, Until Sun09/28/14 at 0758, Anesthesia Intra-op, Routine sodium chloride 0.9% infusion New Bag 09/28/2014 7:44 AM EDT CONTINUOUS PRN, Starting on Sun09/28/14 at 0744, Until Sun09/28/14 at 0758, Anesthesia Intra-op succinylcholine (ANECTINE) injection Given 09/28/2014 7:47 AM EDT 40 mg PRN, Starting on Sun09/28/14 at 0747, Until Sun09/28/14 at 0758, Anesthesia Intra-op, Routine documented in this encounter Care Teams Yarder Puncher Relationship Specialty Start Date End Date Anne Marie Fay MD PCP - General 09/17/14 11/18/[address] [place] [address] [place] [address] documented as of this encounter
--- OUTSIDE RECORDS SUMMARY | 2022-01-09 00:40 | XMS_ITS | Encounter Summary ---
:1955 Author Organization [facility] [place] [address] Care Team Providers Name Role Phone Anne Marie Fay MD Primary Care Provider Encounter Details Date Type Department Care Team Description 09/18/2014 Anesthesia Event Main Operating Room Donn Dye MD [facility] [place] [address] [place] [address] [phone] Anesthesia Record Procedure Summary Procedure Name Responsible Anesthesia Start Anesthesia Stop Time Anesthesiologist Time ECT (WRVU 2.5) Donn Lemon MD 09/18/14 0926 09/18/14 0 947 (Bilateral ) Events Date Time Event Comment 09/18/2014 0810 0926 AN Verify 0926 Start 0926 An Start Data 0926 ASA Monitors 0931 Masked Placed/ Pre O2 0932 An Induction 0937 Bite Block In 0938 ECT Rx 0943 PACU Bed 0947 an stop data 0947 Stop Name Total Methohexital 80 mg Succinylcholine 40 mg Agents Name O2 Blood No blood administrations on file. Lines, Drains, and Airways Type Details Placement Removal PIV 09/14/14; 2152; cephalic vein 09/14/14 2152 by Sharri vásquez, 09/21/14 0000 by left (lateral side of arm); TERESA Bush Claire A, RN [id number] catheter system; 22 gauge; sean ovalles RN; intradermal injection, tolerated well, appears comfortable; 09/21/14 documented in this encounter Social History Tobacco Use Types Packs/Day Years Used Date Never Smoker Smokeless Tobacco: Never Used Alcohol Use Standard Drinks/Week Comments No 0 (1 standard drink = 0.6 oz pure alcoho l) Sex Assigned at Date Recorded Not on file documented as of this encounter OR Notes Anesthesia Postprocedure Evaluation - Donn Lemon MD - 09/18/2014 10:34 AM EDT Patient: Brianna Stringer Procedure(s) Performed: Procedure(s): ECT Actual Anesthetic: general Patient location: PACU Post-op pain: Adequate analgesia Post-op nausea: no nausea or vomiting Last Vitals: Filed Vitals: 09/18/14 1001 BP: 126/62 Pulse: 102 Temp: Resp: 18 Post-op cardiovascular and respiratory status: is stable Level of consciousness: awake, alert and oriented Complications: no apparent complications and tolerated the procedure well Fluid Status: normal Anesthesia Preprocedure Evaluation - Donn Lemon MD - 09/18/2014 8:10 AM EDT Pre-Anesthesia Evaluation for: Brianna Stringer a 59 y.o. female. Procedure(s): ECT Patient Active Problem List Diagnosis ??? Major depressive disorder, recurrent episode, severe, specified as with psychotic behavior No past medical history on file. Past Surgical History Procedure Laterality Date ??? Electroconvulsive therapy,1 seiz Bilateral 09/10/2014 ECT performed by Giovany Alicia MD at [facility] MA[facility] OR ??? Electroconvulsive therapy,1 seiz Bilateral 09/11/2014 ECT performed by Nathen Go MD at [facility] MA[facility] OR ??? Electroconvulsive therapy,1 seiz Bilateral 09/14/2014 ECT performed by Vamshi Dukes MD at [facility] MA[facility] OR ??? Electroconvulsive therapy,1 seiz Bilateral 09/15/2014 ECT performed by Alonzo Martel MD at [facility] MAIN OR History Substance Use Topics ??? Smoking status: Never Smoker ??? Smokeless tobacco: Never Used ??? Alcohol Use: No History Drug Use No Allergies Allergen Reactions ??? Ampicillin Itching ??? Sulfa (Sulfonamide Antibiotics) Nausea And Vomiting Medications: MAR and/or home medications have been reviewed. Physical Exam: Filed Vitals: 09/18/14 0620 BP: 119/79 Pulse: 91 Temp: 36.6 ??C (97.9 ??F) Resp: 20 Body mass index is 21.63 kg/(m^2). Height: 165.1 cm (5' 5) Weight - Scale: 58.968 kg (130 lb) Airway Assessment: Mallampati: III TM distance: >3 FB Neck ROM: full Cardiovascular Assessment: Pulmonary Assessment: Dental Assessment: Misc Assessment: IV access: Peripheral line Anesthesia Plan: ASA 2 general, with a(n) intravenous induction Region - Other Informed Consent: Plan discussed with [facility] Farzad. Assessment: documented in this encounter Plan of Treatment Not on filedocumented as of this encounter Visit Diagnoses Not on filedocumented in this encounter Administered Medications Inactive Administered Medications - up to 3 most recent administrations Medication Order MAR Action Action Date Dose Rate Site methohexital (BREVITAL) injection Given 09/18/2014 9:28 AM EDT 80 mg PRN, Starting on Sun09/18/14 at 0928, Until Sun09/18/14 at 0947, Anesthesia Intra-op, Routine succinylcholine (ANECTINE) injection Given 09/18/2014 9:28 AM EDT 40 mg PRN, Starting on Sun09/18/14 at 0928, Until Sun09/18/14 at 0947, Anesthesia Intra-op, Routine documented in this encounter Care Teams Garment Tag Stringer Relationship Specialty Start Date End Date Anne Marie Fay MD PCP - General 09/17/14 11/18/[address] [place] [address] [place] [address] documented as of this encounter
--- OUTSIDE RECORDS SUMMARY | 2022-01-09 00:40 | XMS_ITS | Encounter Summary ---
:1955 [place] [address] Care Team Providers Name Role Phone Sumeet Jewel Garcia MD Primary Care Provider Encounter Details Date Type Department Care Team Description 09/08/2014 - Hospital Encounter 2 [facility] Jose Daniel Jean MD [facility] [place] [address] Major depressive 09/24/2014 Unit [facility] Nathen Go MD [facility] [place] [address] disorder, single [facility] episode, severe [facility] with psyc [address] [place] [id number] Social History Tobacco Use Types Packs/Day Years [...] stabilization and medication management. Discharge Multi-axial Diagnosis: Cohasset I: MDD w/ psychotic features Cohasset II: deferred Cohasset III: hypothyroid on replacement Cohasset IV: father's health concerns Cohasset V: Admission GAF: 25 Discharge GAF: 45 [...] loss and was was brought to an [facility] ED because she had thoughts she was [...] and patient was eventually involuntarily admitted to [facility]. At [facility] patient's Celexa was increased to 20mg and then she was discharged. Patient was eventually seen by Dr. Aurea Valencia MD a psychiatrist at [facility] who diagnosed the patient with MDD with [...] Brianna's delusions), so they requested admission to [facility]. She denies SI/HI #Depression Patient denies any [...] history of being religous and she attends sikh several times a week. In the past her adventism beliefs never crossed what is normally accepted. [...] a MECTA device at the following parameters: 07/14/1.5/800 0 sec EEG seizure 07/14/800 44 sec EEG seizure Patient was stabilized and appeared to tolerate the procedure. Complications: none Changes/recommendations/parameters for next treatment: TREAT AT 1///800Antipsychotic Quality Measure (select one of three reasons): [...] followup Primary Care Physician: JEWEL CHERRY MD [phone] Special Physician Instructions: -Continue to do outpatient ECT as scheduled and recommended -Take your medications as instructed -Make sure to have a colonoscopy and mammogram done -Make sure your doctor follows up on pending labs at [facility] -Come to the emergency room or call your doctor if you feel unsafe or have thoughts of suicide Special Instructions Provided to Brianna Lay: Call your doctor, your local mental health center, or your local emergency room if you develop worsening symptoms of depression, anxiety, thoughts of harming yourself, thoughts of harming others, or any other decline in your overall condition. [facility]: [facility] [phone] [facility] Emergency Services: [phone] [facility] Central Access Services: [phone] [facility] Main Line: [phone] Activity level: no restrictions from psychiatry Diet: [...] a MECTA device at the following parameters: . 0 sec EEG seizure 44 sec EEG seizure Patient was stabilized and appeared to tolerate the procedure. Complications: none Changes/recommendations/parameters for next treatment: TREAT AT General Instructions Dr Aurea Valencia [phone] September 24 at 2:30pm Dr Regla Patel, October 01 at 11:30am Discharge References/Attachments None Signed: William Correia MD 09/27/2014 documented in this encounter Discharge Instructions Discharge InstructionsWilliam Correia MD - 09/24/2014 12:[address] Aurea Valencia [phone] September 24 at 2:30pm Dr Regla Patel, [...] followup Primary Care Physician: JEWEL CHERRY MD [phone] Special Physician Instructions: -Continue to do outpatient ECT as scheduled and recommended -Take your medications as instructed -Make sure to have a colonoscopy and mammogram done -Make sure your doctor follows up on pending labs at [facility] -Come to the emergency room or call your doctor if you feel unsafe or have thoughts of suicide Special Instructions Provided to Brianna Radha Myke: Call your doctor, your local mental health center, or your local emergency room if you develop worsening symptoms of depression, anxiety, thoughts of harming yourself, thoughts of harming others, or any other decline in your overall condition. [facility] [place] Emergency Services: [facility] [phone] [facility] Emergency Services: [phone] [facility] Central Access Services: [phone] [facility] Main Line: [phone] Activity level: no restrictions from psychiatry Diet: [...] a MECTA device at the following parameters: . 0 sec EEG seizure 44 sec EEG [...] manageable at this time Severity:. Rates Depression: 09/01, Anxiety: 09/01. Denies SI. Patient says she feels 75% [...] Results Component Value Date TSH 0.11* 09/15/2014 [id number] 261* 09/15/2014 TT4 6.9 09/15/2014 Lipids and HgbA1C: No results found for this basename: CHLPL, HDL, CHOLHDL, LDLCHOL, LDLDIRECT, TRIG No results found for this basename: HA1C Vit Lvls: No results found for this basename: [id number], SFOLATE UA: No results found for this [...] episode yet, and delusions are persisting some. /: Patient feels similar to previous days, continues [...] EDT TC with pts , Will at [phone]. He believes pt is about 75% back [...] return to her room and to rest. SOPHY FordT 09/23/2014 Inpatient Daily Group Note Group: DBT; Reviewed mindfulness and cuevas mind approach to managing feelings. Attendance: Present Behavior: Quiet Therapeutic Work Observed: Minimal Mood: Detached Notes: Patient listened and remained silent. Jenna Baker MS 09/23/2014 Inpatient Daily Group Note Group: Therapy Dog Attendance: Present Behavior: Quiet Therapeutic Work Observed: Minimal Mood: Detached Notes: Patient enjoyed dog and struggled with staying awake. Jenna Baker, MS 09/23/2014 William Correia MD - 09/23/2014 12:34 PM EDT Psychiatry Inpatient - Progress Note 09/23/2014 ID: Brianna Lay is a 59 y.o. female admitted on 09/08/2014 for treatment resistant depression withpsychotic features, here receiving ECT. Hospital day 15. 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 Rates Depression: 10/02, [...] resolved today PSYCH See above. Physical Exam: (,6,9) Vitals (24hr Range): Temp: [36.6 ??C (97.9 [...] Results Component Value Date TSH 0.11* 09/15/2014 [id number] 261* 09/15/2014 TT4 6.9 09/15/2014 Lipids and HgbA1C: No results found for this basename: CHLPL, HDL, CHOLHDL, LDLCHOL, LDLDIRECT, TRIG No results found for this basename: HA1C Vit Lvls: No results found for this basename: [id number], SFOLATE UA: No results found for this [...] still fears that she irritated people at [facility] who might harm her family. Tremor [...] goals or boundaries to work on. Jenna Baker, MS 09/22/2014 Inpatient Daily Group Note Group: [...] being addressed: hypothyroidism Interval History: (1,1,4) Quality: Good, I feel much better Severity: [...] Results Component Value Date TSH 0.11* 09/15/2014 [id number] 261* 09/15/2014 TT4 6.9 09/15/2014 Lipids and HgbA1C: No results found for this basename: CHLPL, HDL, CHOLHDL, LDLCHOL, LDLDIRECT, TRIG No results found for this basename: HA1C Vit Lvls: No results found for this basename: [id number], SFOLATE UA: No results found for this [...] of depression and blunted affect. Rates D:10, A:08/04. Denies SI Timing: steadily improving mood each [...] Results Component Value Date TSH 0.11* 09/15/2014 [id number] 261* 09/15/2014 TT4 6.9 09/15/2014 Lipids and HgbA1C: No results found for this basename: CHLPL, HDL, CHOLHDL, LDLCHOL, LDLDIRECT, TRIG No results found for this basename: HA1C Vit Lvls: No results found for this basename: [id number], SFOLATE UA: No results found for this [...] Results Component Value Date TSH 0.11* 09/15/2014 [id number] 261* 09/15/2014 TT4 6.9 09/15/2014 Lipids and HgbA1C: No results found for this basename: CHLPL, HDL, CHOLHDL, LDLCHOL, LDLDIRECT, TRIG No results found for this basename: HA1C Vit Lvls: No results found for this basename: [id number], SFOLATE UA: No results found for this [...] study. Signed By: Giovany Alicia MD 09/20/2014 Jenna Baker MS - 09/20/2014 10:49 AM EDT Inpatient Daily Group Note Group: Goals; Reviewed DESTINY, GEM, daily schedule, patients' progress, patients' goals and read daily text. Attendance: Present Behavior: Quiet Therapeutic Work Observed: Moderate Mood: Calm Notes: Patient has goal to prepare for discharge, work on plan pg. 3-4, have visitors, go to groups. Jennatra Baker 09/20/2014 Inpatient Daily Group Note Group: workshop Attendance: Present Behavior: Quiet Therapeutic Work Observed: Moderate Mood: Calm Notes: Patient engaged with sun catcher and being quietly social. Jennatra Baker 09/20/2014 Inpatient Daily Group Note Group: Open discussion; Check-in and discussion regarding discharge and arriving home. Attendance: Present Behavior: Quiet Therapeutic Work Observed: Minimal Mood: Calm Notes: Patient said that she is feeling pretty good today and remained silent for rest of group. Jenna Baker 09/20/2014 Giovany Alicia MD - 09/19/2014 2:50 [...] Results Component Value Date TSH 0.11* 09/15/2014 [id number] 261* 09/15/2014 TT4 6.9 09/15/2014 Lipids and HgbA1C: No results found for this basename: CHLPL, HDL, CHOLHDL, LDLCHOL, LDLDIRECT, TRIG No results found for this basename: HA1C Vit Lvls: No results found for this basename: [id number], SFOLATE UA: No results found for this [...] held this am as per AUG. Alonzo Martel MD - 09/18/2014 1:05 PM EDT Attending [...] the patient's condition and/or diagnostic study Tommy Moraes Jr., MD - 09/18/2014 12:51 PM EDT [...] Results Component Value Date TSH 0.11* 09/15/2014 [id number] 261* 09/15/2014 TT4 6.9 09/15/2014 Lipids and HgbA1C: No results found for this basename: CHLPL, HDL, CHOLHDL, LDLCHOL, LDLDIRECT, TRIG No results found for this basename: HA1C Vit Lvls: No results found for this basename: [id number], SFOLATE UA: No results found for this [...] Sanchez RN - 09/18/2014 9:53 AM EDT 7966 Pt [place] to [facility] [place] [facility] [place] [...] esteem and apassive communication style. Teresa Cotto, [facility] 09/17/2014 Inpatient Daily Group Note Group: Inside walk Notes: Pt. walked quietly with peers. Enjoying the art. Teresa Key 09/17/2014 Inpatient Daily Group Note Group: Workshop Attendance: Present Behavior: Conversational Therapeutic Work Observed: Moderate Mood: Calm Notes: Pt. talked with this director underwriter sales about living in [place] and her son. Listened to conversations of [...] Pt. attentive although quiet. After group thanked director underwriter sales stating he learned a lot. Teresa Key [...] Results Component Value Date TSH 0.11* 09/15/2014 [id number] 261* 09/15/2014 TT4 6.9 09/15/2014 Lipids and HgbA1C: No results found for this basename: CHLPL, HDL, CHOLHDL, LDLCHOL, LDLDIRECT, TRIG No results found for this basename: HA1C Vit Lvls: No results found for this basename: [id number], SFOLATE UA: No results found for this [...] Results Component Value Date TSH 0.11* 09/15/2014 [id number] 261* 09/15/2014 TT4 6.9 09/15/2014 Lipids and HgbA1C: No results found for this basename: CHLPL, HDL, CHOLHDL, LDLCHOL, LDLDIRECT, TRIG No results found for this basename: HA1C Vit Lvls: No results found for this basename: [id number], SFOLATE UA: No results found for this [...] was quiet though appeared to be attentive. Teresa Cotto Freeman 09/15/2014 Inpatient Daily Group Note Group: Workshop [...] medical issues being addressed: hypothyroidism Interval History: (,1,4) Quality: Brianna reports mood is good, but [...] Results Component Value Date TSH 5.39* 09/09/2014 [id number] 60* 09/09/2014 TT4 7.7 09/09/2014 Lipids and HgbA1C: No results found for this basename: CHLPL, HDL, CHOLHDL, LDLCHOL, LDLDIRECT, TRIG No results found for this basename: HA1C Vit Lvls: No results found for this basename: [id number], SFOLATE UA: No results found for this [...] evaluated and treated pharmacologically by Dr. Aurea Valnecia at [facility] who referred her for ECT. She appears [...] patient's condition and/or diagnostic study. Signed By: Natehn Go MD 09/15/2014 Jenna Baker MS - [...] Results Component Value Date TSH 5.39* 09/09/2014 [id number] 60* 09/09/2014 TT4 7.7 09/09/2014 Lipids and HgbA1C: No results found for this basename: CHLPL, HDL, CHOLHDL, LDLCHOL, LDLDIRECT, TRIG No results found for this basename: HA1C Vit Lvls: No results found for this basename: [id number], SFOLATE UA: No results found for this [...] treated pharmacologically by Dr. Aurea Valencia at [facility] who referred her for ECT. She appears [...] Signed By: Nathen Go MD 09/14/2014 Leonardo Glass RN - 09/14/2014 7:35 AM EDT 0735: [...] to groups and have visitors. Jenna Baker 09/13/2014 Inpatient Daily Group Note Group: Open Discussion; Check-in and discussion how to manage anxiety and not react impulsively. Attendance: Present Behavior: Quiet Therapeutic Work Observed: Moderate Mood: Depressed Notes: Patient stated feeling ok today and did not identify any topics sharing that her family is her topic. Jenna Tillman Olivia 09/13/2014 Soumya Daniel MD - 09/13/2014 7:24 [...] Results Component Value Date TSH 5.39* 09/09/2014 [id number] 60* 09/09/2014 TT4 7.7 09/09/2014 Lipids and HgbA1C: No results found for this basename: CHLPL, HDL, CHOLHDL, LDLCHOL, LDLDIRECT, TRIG No results found for this basename: HA1C Vit Lvls: No results found for this basename: [id number], SFOLATE UA: No results found for this [...] and treated by Dr. Aurea Valencia at [facility] who referred her for ECT. She appears [...] study. Signed By: Soumya Daniel MD 09/13/2014 Treesa Key - 09/12/2014 9:51 AM EDT Inpatient Daily Group Note Group: Goals Attendance: Present Behavior: Conversational Therapeutic Work Observed: Moderate Mood: Calm Notes: Reviewed DESTINY module 5: Two Day Activity Schedule. Pt.'s goal: Read Wellness Book Teresa Key 09/12/2014 Inpatient Daily Group Note Group: Workshop Attendance: Present Behavior: Quiet Therapeutic Work Observed: Moderate Mood: Flat Notes: Pt. quietly worked on [employer]. Teresa Key 09/12/2014 Soumya Daniel MD - [...] today. Quality: a little calmer Severity: depression 10/02, improved Timing: Assoc. Signs and symptoms: Sleep: [...] Results Component Value Date TSH 5.39* 09/09/2014 [id number] 60* 09/09/2014 TT4 7.7 09/09/2014 Lipids and HgbA1C: No results found for this basename: CHLPL, HDL, CHOLHDL, LDLCHOL, LDLDIRECT, TRIG No results found for this basename: HA1C Vit Lvls: No results found for this basename: [id number], SFOLATE UA: Lab Results Component Value Date [...] and treated by Dr. Aurea Valencia at [facility] who referred her for ECT. She appears [...] Mood: Calm Notes: Pt. quietly worked on [email or web address] project. Returned to unit awaiting visit from [...] Results Component Value Date TSH 5.39* 09/09/2014 [id number] 60* 09/09/2014 TT4 7.7 09/09/2014 Lipids and HgbA1C: No results found for this basename: CHLPL, HDL, CHOLHDL, LDLCHOL, LDLDIRECT, TRIG No results found for this basename: HA1C Vit Lvls: No results found for this basename: [id number], SFOLATE UA: Lab Results Component Value Date [...] was evaluated and treated by Dr. Aurea Valencai at [facility] who referred her for ECT. She appears [...] medical issues being addressed: hypothyroidism Interval History: (1,,4) Quality: im scared that my family will [...] Results Component Value Date TSH 5.39* 09/09/2014 [id number] 60* 09/09/2014 TT4 7.7 09/09/2014 Lipids and HgbA1C: No results found for this basename: CHLPL, HDL, CHOLHDL, LDLCHOL, LDLDIRECT, TRIG No results found for this basename: HA1C Vit Lvls: No results found for this basename: [id number], SFOLATE UA: Lab Results Component Value Date [...] and treated by Dr. Aurea Valencia at [facility] who referred her for ECT.Patient had her [...] By: William Correia MD 09/11/2014 Becky Mane, OPHTHALMOLOGY SURGICAL TECHNICIAN - 09/10/2014 2:43 PM EDT OFFICE OF CARE MANAGEMENT PSYCHOSOCIAL ASSESSMENT Present at Interview: Paitient Date: September 10, 2014 1. Referral request and/or presenting problem(s): Patient is a 59 year old MWF who presents at [facility] to address her increasing depression, ongoing paranoia, [...] 81 and Mother age 80 live in [place]. Siblings are Bhaivn age 59, Moo age 54 and Krzysztof age 50 also living in [place]. Patient has regular contact with her parents and more sporadic contact with her brothers. Patient was born and raised in [place] anddescribed childhood as [place]. Extended family available and involved. Patient left home at age 18 andmoved in with a relative. Patient has been with her Salvador age 64 for 36 years, for 9 years, one son José Manuel age 35 in [place]. Patient has frequent contact with her son. [...] social supports including spiritual support: , son, Erik, Methodist Gnosticism. 6. 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 JOSHUA Ford 09/09/2014 Inpatient Daily Group Note Group: DBT; Reviewed ways to regulate emotion (cuevas mind, distraction, self- soothing, improving the moment and acting opposite of emotion). Attendance: Present Behavior: Quiet Therapeutic Work Observed: Minimal Mood: Depressed and Anxious Notes: Patient listened attentively. Jenna Primo Olivia 09/09/2014 Mireya Rodrigues - 09/09/2014 12:56 PM [...] son Employment: unemployed at this time Residence: [address] [place] [phone] Guardian/Medical Decision Maker: self Outpatient Providers: (include location) Current Mental Health Prescriber: Dr. Aurea Valencia MD. [facility] Current Therapist: Deb Romo PCP: Dr. Sung [...] loss and was was brought to an [facility] ED because she had thoughts she was [...] and patient was eventually involuntarily admitted to [facility]. At [facility] patient's Celexa was increased to 20mg and then she was discharged. Patient was eventually seen by Dr. Aurea Valencia MD a psychiatrist at [facility] who diagnosed the patient with MDD with [...] Brianna's delusions), so they requested admission to [facility]. She denies SI/HI #Depression Patient denies any [...] history of being religous and she attends sikh several times a week. In the past her adventism beliefs never crossed what is normally accepted. [...] Prior diagnoses: depression Past hospitalization and location: [facility] - involuntarily Suicide attempts: none Past psychiatric [...] of ever using drugs or alcohol. Highly adventism in the past. 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 ENDO No temperature intolerance HEME/LYMPH No easy bruising ALL/IMMUNO No symptoms of Sinustis Physical Exam: Vitals Admission (Current) from 09/08/2014 in 2 [place] [facility] [facility] Weight - Scale 57.153 kg [...] ?? Language: word finding difficulty ?? Mood: 7/10 depressed ?? Affect: blunted, constricted, flat and [...] remote memory intact ?? Fund of Knowledge: [facility] ?? Insight: fair ?? Judgment: . [...] establishing adequate outpatient care). DSM Multiaxial Diagnosis: Cohasset I MDD with psychotic features Cohasset II deferred Cohasset III Hypothyroid on replacement Cohasset IV: Father's health concerns Cohasset V: GAF = 25 Clinical Global Impression: [...] none Changes/recommendations/parameters for next treatment: TREAT AT / Next treatment date: TBD Alonzo Martel MD - 09/22/2014 7:26 AM EDT Pre-procedure Diagnoses 1. Major depressive disorder, recurrent episode, severe, specified as with psychotic behavior [296.34] Procedures 1. ECT [[id number] (CPT??)] ECT SUBSEQUENT TREATMENT NOTE Patient received right-unilateral ECT in the PACU. Course type: acute Treatment # 7 total The primary diagnosis is 296.34. Interval history: Noticing mood improvement, tolerating well Patient was attached to monitoring equipment. The anesthesia team administered the following medications: methohexital 80 mg succinylcholine 40 mg ECT parameters: RUL 0.3/40/5/800 25 second motor seizure 47 second EEG seizure Patient was stabilized and appeared to tolerate the procedure. Complications: none Changes/recommendations for next treatment: None, same. Next treatment date:09/24 Alonzo Martel MD - 09/21/2014 8:02 AM EDT Pre-procedure Diagnoses 1. Major depressive disorder, recurrent episode, severe, specified as with psychotic behavior [296.34] Procedures 1. ECT [[id number] (CPT??)] ECT SUBSEQUENT TREATMENT NOTE Patient received [...] with psychotic behavior [296.34] Procedures 1. ECT [[id number] (CPT??)] Expand All Collapse All ECT SUBSEQUENT [...] 80 mg succinylcholine 40 mg ECT parameters: 0.4///800 55 second motor seizure 59 second EEG seizure Patient was stabilized and appeared to tolerate the procedure. Complications: none Changes/recommendations for next treatment: 0.4/40//800 Next treatment date: 09/14/14 Route note to: [...] a MECTA device at the following parameters: 0.3/20//800 0 sec EEG seizure 0.3/20/2/800 50 sec [...] not safe- here and reinforced reality with director underwriter sales. Brianna continues to have bilateral shaking in [...] Outcome: Outcome (s) achieved Date Met: 09/24/14 09/08/14183509/21/14 7217 Individualization Individualize the Plan of Care: -- [...] Outcome (s) achieved Date Met: 09/24/14 09/23/14 1945 09/23/14223609/24/14 0748 Safety Interventions Safety Precautions/Fall Reduction -- [...] some concerns about the staff at the [facility] yet she can see that it doesn't make much sense Patient denies SI or HI. Depression 10/02 and no anxiety PLAN MOVING FORWARD: NPO after midnight for ect INDIVIDUALIZED FALL PREVENTION: Assistance: independent Supervision: Escort to group Surveillance: 30 minute checks CPG GOAL OUTCOME EVALUATION: Goal: Individualization and Mutuality Outcome: Ongoing (Interventions Implemented as Appropriate) 09/08/14183509/21/14 0037 Individualization Individualize the Plan of Care: -- [...] Control Outcome: Ongoing (Interventions Implemented as Appropriate) 09/22/14192409/22/142345 Coping/Psychosocial Response Interventions Counseling -- personal [...] Care Review Outcome: Revised Date Met: 09/22/14 09/21/142356 Coping/Psychosocial Response Interventions Plan of Care Reviewed with patient;spouse Plan of Care Review Plan of Care Outcome Status ongoing (interventions implemented as appropriate) Progress improving OUTCOME EVALUATION NOTE: OUTCOME SUMMARY: Patient spoke on purposeful rounds about symptom management. Patient was not able to swallow omega 3 esters despite multiple attempts and use of jello. PLAN MOVING FORWARD: ECT 4/2 INDIVIDUALIZED FALL PREVENTION: Assistance: independent Supervision: Escort to group Surveillance: 30 minute checks CPG GOAL OUTCOME EVALUATION: Goal: Individualization and Mutuality Outcome: Ongoing (Interventions Implemented as Appropriate) 09/08/14183509/21/142356 Individualization Individualize the Plan of Care: -- [...] none -- Goal: Fall Prevention-Safe Patient Handling 09/22/14192409/22/142345 Safety Interventions Safety Precautions/Fall Reduction fall reduction [...] (Interventions Implemented as Appropriate) 09/18/14 1900 09/21/14 2357 09/22/14 0600 Safety Interventions Safety Precautions/Fall Reduction -- [...] Dixon Fall Risk -- -- -- 09/22/14 0802 09/22/14 0951 Safety Interventions Safety Precautions/Fall Reduction -- [...] Control Outcome: Ongoing (Interventions Implemented as Appropriate) 09/21/14235609/22/14950 Coping/Psychosocial Response Interventions Counseling emotional support provided;problem [...] which she enjoyed- Rated depression & anxiety 08/04- Denied pain & SI & CFS- Pt [...] Last BM 3-28. Gait steady. Med compliant. MN Goal: Groups. Hep cap flushed, patent. Dsg [...] Outcome: Ongoing (Interventions Implemented as Appropriate) 09/18/14 19009/20/14 0938 Safety Interventions Safety Precautions/Fall Reduction low [...] group walk- Pt rated depression & anxiety 09/01- Denies pain- Denies SI/ self harm thoughts [...] Outcome: Ongoing (Interventions Implemented as Appropriate) 09/18/14 190 Safety Interventions Safety Precautions/Fall Reduction low bed;muscle [...] Review Outcome: Ongoing (Interventions Implemented as Appropriate) 09/17/142 Coping/Psychosocial Response Interventions Plan of Care Reviewed [...] Outcome: Ongoing (Interventions Implemented as Appropriate) 09/08/14 6296 Mutuality/Individual Preferences What anxieties, fears or concerns do you have about your health or care? I have more concern about everyone else What questions do you have about your health or care? not at the moment What information would help us give you more personalized care? none Goal: Fall Prevention-Safe Patient Handling Outcome: Ongoing (Interventions Implemented as Appropriate) 09/17/14219909/17/14221109/18/14 0100 Safety Interventions Safety Precautions/Fall Reduction low [...] independent Supervision: escort Surveillance: 30 min checks, [place] CPG GOAL OUTCOME EVALUATION: Goal: Fall Prevention-Safe [...] Progress Note - Aidee Salgado Jr. - 09/16/2014 11:58 AM EDT Inpatient Psychiatry Progress Note: 09/16/2014 ID: Brianna Lay is a 59 y.o. female with one son who lives in [facility], and is currently unemployed [...] Deb Romo Primary provider: Dr Pineda Hoskins UdAidee MS-3 [id number] Plan of Care - Patricia [...] EDT Inpatient Psychiatry Progress Note: 09/15/2014 ID: Brinana Lay is a 59 y.o. female with one son who lives in [facility], and is currently unemployed [...] Outcome: Ongoing (Interventions Implemented as Appropriate) 09/14/14 4975 Coping/Psychosocial Response Interventions Plan of Care Reviewed [...] independent Supervision: escort Surveillance: 30 min checks. [place] CPG GOAL OUTCOME EVALUATION: Med Student Progress Note - Juan MAidee Eden - 09/14/2014 12:39 PM EDT Inpatient Psychiatry Progress Note: 09/14/2014 ID:Brianna Lay is a 59 y.o. female with one son who lives in [facility], and is currently unemployed [...] rates he depression and anxiety both as 3/10 today. Patient denies changes in sleep, energy [...] Romo Primary provider: Dr Pineda Salgado MS-3 [phone] Plan of Care - Maria L Pineda [...] homicidal ideation and contracts for safety. Pt rim355% of meals and reports last bowel movement [...] Ongoing (Interventions Implemented as Appropriate) 09/09/14 1833 09/13/14 1900 09/14/14 0200 Safety Interventions Safety Precautions/Fall Reduction -- [...] Ongoing (Interventions Implemented as Appropriate) 09/13/14 1900 Coping/Psychosocial Response Interventions Counseling emotional support provided;reassurance [...] independent Supervision: escort Surveillance: 30 min checks. [place] CPG GOAL OUTCOME EVALUATION: Goal: Individualization and [...] OTHER Dixon Fall Risk -- -- -- 09/13/141899 Safety Interventions Safety Precautions/Fall Reduction fall reduction program maintained Musculoskeletal Interventions Activity/Level of Assistance -- Positioning -- Muscle Strengthening -- Self-Care Promotion -- Dixon Fall Risk History of Falling 0 Secondary Diagnosis 0 Ambulatory Aids 0 Intravenous Therapy/Heparin/Saline Lock 0 Gait/Transferring 0 Mental Status 0 Score 0 OTHER Dixon Fall Risk Low Goal: Infection Control Outcome: Ongoing (Interventions Implemented as Appropriate) 09/13/141899 Coping/Psychosocial Response Interventions Counseling emotional support provided;reassurance provided Safety Interventions Isolation Precautions standard precautions maintained Infection Prevention hydration promoted;nutrition promoted;promote handwashing;rest/sleep promoted;environmental surveillance Problem: Depression (Adult, Obstetrics, Pediatric) Goal: Establish/Maintain Self-Care Routine Patient will demonstrate the desired outcomes. Outcome: Ongoing (Interventions Implemented as Appropriate) 09/13/14 1142 Depression (Adult, Obstetrics, Pediatric) Establish/Maintain Self-Care Routine [...] provided;social interaction promoted Intervention: Secure Environment 09/13/14 1142 Coping/Psychosocial Response Interventions Secure Environment emotionally safe environment provided;social interaction promoted Intervention: Self-Esteem Promotion 09/13/14 1142 Coping/Psychosocial Response Interventions Self-Esteem Promotion coping techniques promoted;emotional support provided;goal setting facilitated;positive reinforcement provided;social interaction promoted Intervention: Therapeutic Relationship Promotion 09/13/14 1142 Coping/Psychosocial Response Interventions Therapeutic Relationship Promotion coping techniques promoted;emotional support provided;positive reinforcement provided;self-care activities encouraged Goal: Establish/Maintain Self-Care Routine Patient will demonstrate the desired outcomes. 09/13/14 1142 Depression (Adult, Obstetrics, Pediatric) Establish/Maintain Self-Care Routine [...] Dixon Fall Risk -- -- Low 09/12/14 12109/12/14 170 Safety Interventions Safety Precautions/Fall Reduction -- fall [...] Control Outcome: Ongoing (Interventions Implemented as Appropriate) 09/12/14121009/12/14 170 Coping/Psychosocial Response Interventions Counseling emotional support provided -- Safety Interventions Isolation Precautions -- standard precautions maintained Infection Prevention -- hydration promoted;nutrition promoted;promote handwashing;rest/sleep promoted Problem: Depression (Adult, Obstetrics, Pediatric) Goal: Establish/Maintain Self-Care Routine Patient will demonstrate the desired outcomes. Outcome: Ongoing (Interventions Implemented as Appropriate) 09/12/141210 Depression (Adult, Obstetrics, Pediatric) Establish/Maintain Self-Care Routine making progress toward outcome Goal: Improved/Stable Mood Patient will demonstrate the desired outcomes. Outcome: Ongoing (Interventions Implemented as Appropriate) 09/12/141210 Depression (Adult, Obstetrics, Pediatric) Improved/Stable Mood making progress toward outcome Plan of Care - Valeria Montero RN - 09/12/2014 12:20 PM EDT Problem: General Plan of Care Goal: Plan of Care Review 09/12/141210 Coping/Psychosocial Response Interventions Plan of Care Reviewed [...] Mood Patient will demonstrate the desired outcomes. 09/12/141210 Depression (Adult, Obstetrics, Pediatric) Improved/Stable Mood making progress toward outcome Plan of Care - Bienvenido Guthrie RN - 09/11/2014 11:00 PM EDT Problem: General Plan of Care Goal: Plan of Care Review Outcome: Ongoing (Interventions Implemented as Appropriate) 03/20/15 2238 Coping/Psychosocial Response Interventions Plan of Care Reviewed with patient Plan of Care Review Plan of Care Outcome Status ongoing (interventions implemented as appropriate) Progress improving OUTCOME EVALUATION NOTE: OUTCOME SUMMARY: Pt has been quiet and isolative in her room. Did attend workshop. visited and he shared thathe noticed improvement in his . Melba she was less vacant and even noticed [...] Outcome: Ongoing (Interventions Implemented as Appropriate) 09/11/14 133 Depression (Adult, Obstetrics, Pediatric) Improved/Stable Mood making progress toward outcome Plan of Care - Maria L Pineda RN - 09/11/2014 1:50 PM EDT Problem: General Plan of Care Goal: Plan of Care Review Outcome: Ongoing (Interventions Implemented as Appropriate) 09/11/14 133 Coping/Psychosocial Response Interventions Plan of Care Reviewed with patient Plan of Care Review Plan of Care Outcome Status ongoing (interventions implemented as appropriate) Progress improving OUTCOME EVALUATION NOTE: OUTCOME SUMMARY: Pt reported she slept ok. Depression: 310 Anxiety: /10. Affect is flat and congruent. Pt denies [...] female with one son who lives in [facility], and is currently unemployed [...] up: Psychiatrist: Dr Aurea Valencia Therapist: Deb oRmo Primary provider: Dr Pineda Salgado MS-3 [phone] Plan of Care - Ana Barbour RN [...] as Appropriate) 09/09/14 1833 09/10/14 1050 09/10/14 1855 Safety Interventions Safety Precautions/Fall [...] as Appropriate) 09/09/14 1833 Coping/Psychosocial Response Interventions Counseling emotional support provided;reassurance [...] female with one son who lives in [facility], and is currently unemployed [...] Deb Romo [facility] 9486 Plan of Care - Bonny Lepe RN - 09/09/2014 6:38 PM EDT Problem: General Plan of Care Goal: Plan of Care Review Outcome: Ongoing (Interventions Implemented as Appropriate) 09/09/14 5793 Coping/Psychosocial Response Interventions Plan of Care Reviewed [...] Medical student into see pt and Dr Prmio Correia and got consentfor ECT beginging tomorrow [...] understanding of illness 2. Work with Patient Letterer to create and implement aftercare plan 3. [...] plan above. PATIENT SIGNATURE DATE: 09/09/2014 Brianna Lay PRINT NAME: SIGNATURE: DATE: RESIDENT PHYSICIAN William Correia MD 09/09/2014 ATTENDING PHYSICIAN Nathen Go MD 09/09/2014 NURSING , RN 09/09/2014 PT DIE MOUNTER Nydia Valle RN- 09/09/2014 THERAPIST Jenna Baker [facility] 09/09/2014 CONSTRUCTION PLANT OPERATOR Becky Mane [facility] 09/09/2014 Plan of Care - Brianna Huntley RN - 09/09/2014 2:40 PM EDT Problem: [...] DATE: RESIDENT PHYSICIAN ATTENDING PHYSICIAN NURSING PATIENT DIE MOUNTER THERAPIST CONSTRUCTION PLANT OPERATOR Plan of Care - Bonny Lepe RN - 09/08/2014 7:50 PM EDT Problem: General Plan of Care Goal: Plan of Care Review Outcome: Ongoing (Interventions Implemented as Appropriate) 09/08/14 1940 Coping/Psychosocial Response Interventions Plan of Care Reviewed [...] procedure are i n the results section. ECT (WRVU 2.5) Yes 09/22/2014 7:26 AM 296.34 EDT ECT (WRVU 2.5) Yes 09/21/2014 8:03 AM 296.34 EDT ECT (WRVU 2.5) Yes 09/18/2014 9:25 AM 296.34 EDT T3 TOTAL Routine 09/15/2014 1:03 PM Results f or this EDT procedure are i n the results section. TSH Routine 09/15/2014 1:03 PM Results f or this EDT procedure are i n the results section. T4 TOTAL Routine 09/15/2014 1:03 PM Results f or this EDT procedure are i n the results section. ECT (WRVU 2.5) Yes 09/15/2014 7:47 AM 296.34 EDT ECT (WRVU 2.5) Yes 09/14/2014 7:42 AM 296.34 EDT ECT (WRVU 2.5) Yes 09/11/2014 9:39 AM 296.34 EDT ECT (WRVU 2.5) 09/10/2014 9:52 AM 296 34 EDT URINE CULTURE Routine 09/09/2014 5:13 PM Results [...] Component Value Ref Test Analysis Performed At [facility] Range Method Time Signature [place] Eval SEE COMMENTS CERNER Interpretation MILLENNIUM Comment: No informative autoantibodies were detec adali in this evaluation. However, a negative result d oes not exclude neurological autoimmunity with or withou t associated neoplasia. Test Performed by: [place] [address] Pigment Mixer: Tommy Irene II, M.D., Ph.D. TRACY-1 (Anti-Neuronal Nuclear Ab, Type Negative <1:240 titer CERNER MILLENNIUM 1) Comment: Test Performed by: [place] [address] Pigment Mixer: Tommy Irene II, M.D., Ph.D. TRACY-2 (Anti-Neuronal Nuclear Ab,Type Negative <1:240 titer CERNER MILLENNIUM 2) Comment: Test Performed by: [place] [address] Pigment Mixer: Tommy Irene II, M.D., Ph.D. TRACY-3 (Anti-Neuronal Nuclear Ab, Type Negative <1:240 titer CERNER MILLENNIUM 3) Comment: Test Performed by: [place] [address] Pigment Mixer: Tommy Irene II, M.D., Ph.D. AGNA-1 (Anti-Glial Nuclear Ab, Type 1) Negative <1:240 titer CERNER MILLENNIUM Comment: Test Performed by: [place] [address] Pigment Mixer: Tommy Irene II, M.D., Ph.D. GARDEN MACHINERY MECHANIC-1 (Purkinje Cell Cytoplasmic Negative <1:240 titer CERNER MILLENNIUM Ab-Type 1) Comment: Test Performed by: [place] [address] Pigment Mixer: Tommy Irene II, M.D., Ph.D. GARDEN MACHINERY MECHANIC-2 (Purkinje Cell Cytoplasmic Negative <1:240 titer CERNER MILLENNIUM Ab-Type 2) Comment: Test Performed by: [address] [place] [address] Pigment Mixer: Tommy Irene II, M.D., Ph.D. GARDEN MACHINERY MECHANIC-Type Tr (Purkinje Cell Cytoplasmic Negative <1:240 titer CERNER MILLENNIUM Ab-Type Tr) Comment: Test Performed by: [facility] [place] [address] Pigment Mixer: Tommy Irene II, M.D., Ph.D. Amphiphysin Antibody Negative <1:240 titer CERNER MILLENNIUM Comment: Test Performed by: [facility] [place] [address] Pigment Mixer: Tommy Irene II, M.D., Ph.D. CRMP-5-IgG Negative <1:240 titer CERNER MILLENNIU M Comment: CRMP-5 Titers lower than 1:240 may be de tectable by recombinant CRMP-5 western blot analysis , available by request on stored serum and recommended in cases of chorea, vision loss, cranial neuropathy and myel opathy. Extramural clients contact [facility] Inquiry at to add-on CRMP-5-IgG Western Blot, Serum . Intramural Clients, please call the Neuroimmunology Lab at [phone]. Test Performed by: [place] [address] Pigment Mixer: Tommy Irene II, M.D., Ph.D. Striated Muscle Ab Negative <1:120 titer CERNER M ILLENNIUM Comment: Test Performed by: [place] [address] Pigment Mixer: Tommy Irene II, M.D., Ph.D. P/Q-Type Ca Channel Ab 0.00 <=0.02 nmol/L CER NER MILLENNIUM Comment: Test Performed by: [place] [address] Pigment Mixer: Tommy Irene II, M.D., Ph.D. N-Type Ca Channel Ab 0.00 <=0.03 nmol/L CERNE R MILLENNIUM Comment: Test Performed by: [place] [address] Pigment Mixer: Tommy Irene II, M.D., Ph.D. ACHr Binding Ab 0.00 <=0.02 nmol/L CERNER MIL LENNIUM Comment: Test Performed by: [place] [address] Pigment Mixer: Tommy Irene II, M.D., Ph.D. AChR Gang Neuronal Ab 0.00 <=0.02 nmol/L CERN ER MILLENNIUM Comment: Test Performed by: [place] [address] Pigment Mixer: Tommy Irene II, M.D., Ph.D. Neuronal (V-G) K+ Channel Ab 0.00 <=0.02 nmol/L CERNER MILLENNIUM Comment: Test Performed by: [place] [address] Pigment Mixer: Tommy Irene II, M.D., Ph.D. Specimen Anatomical Collection Method Collection Time Receive d Time (Source) Location / / Volume Laterality Blood specimen 09/23/2014 3:50 PM 015 4:42 (specimen) EDT PM EDT Resulting Agency Comment Spec In Lab Nathen Go MD CHEMISTRY ORDERABLES Performing Organization Address City/[facility] [place] [address] CERNER MILLENNIUM (ABNORMAL) Thyroglobulin Antibody (09/23/2014 3:50 PM EDT) Analysis Performed At Patho logist Time Signature Thyroglob Ab 232.0 (H) 0.0 - 40.0 CERNER IU/mL MILLENNIUM Comment: Assay performed is the DPC Immulite Tg-A b immunometric assay. (Cutoff for TgAb negativity is <20 IU/ml ) Specimen Anatomical Collection Method Collection Time Receive d Time (Source) Location / / Volume Laterality Blood specimen 09/23/2014 3:50 PM 015 8:08 (specimen) EDT AM EDT Resulting Agency Comment Spec In Lab Nathen Go MD CHEMISTRY ORDERABLES Performing Organization Address City/[facility]/ZIP Code Phon e Number [address] [facility] Thyroid peroxidase antibody (09/23/2014 3:50 PM EDT) athologist Signature Thyroperox Ab 25 <=34 IU/mL CERNER [facility] Specimen Anatomical Collection Method Collection Time Receive d Time (Source) Location / / Volume Laterality Blood specimen 09/23/2014 3:50 PM 015 8:08 (specimen) EDT AM EDT Resulting Agency Comment Spec In Lab Nathen Go MD IMMUNOLOGY ORDERABLES Performing Organization Address City/[facility]/ZIP Code Phon e Number [address] [facility] (ABNORMAL) T3 Total (09/15/2014 1:03 PM EDT) athologist [facility] T3, Total 261 (H) 75 - 170 CERNER ng/dL [facility] Specimen Anatomical Collection Method Collection Time Receive d Time (Source) Location / / Volume Laterality Blood specimen 09/15/2014 1:03 PM 015 1:18 (specimen) EDT PM EDT Resulting Agency Comment Spec In Lab Nathen oG MD CHEMISTRY ORDERABLES Performing Organization Address City/[facility]/ZIP Code Phon e Number [address] [facility] T4 Total (09/15/2014 1:03 PM EDT) athologist Signature T4, total 6.9 5.1 - 10.8 CERNER mcg/dL [facility] Comment: Reference Range: [place] Cord Blood: ??6.9-14.4 mcg/dL Females: ??7.2-14.2 mcg/dL Pediatric ranges: ??Interpret with cauti on-ranges have not been verified Specimen Anatomical Collection Method Collection Time Receive d Time (Source) Location / / Volume Laterality Blood specimen 09/15/2014 1:03 PM 015 1:18 (specimen) EDT PM EDT Resulting Agency Comment Spec In Lab Nathen Go MD CHEMISTRY ORDERABLES Performing Organization Address City/State/ZIP Code Phon e Number [place] [id number] CERNER DARENNIUM (ABNORMAL) TSH (09/15/2014 1:03 PM EDT) P athologist Signature TSH 0.11 (L) 0.27 - 4.20 CERNER mcIU/mL MILLENNIUM Specimen Anatomical Collection Method Collection Time Receive d Time (Source) Location / / Volume Laterality Blood specimen 09/15/2014 1:03 PM 015 1:18 (specimen) EDT PM EDT Resulting Agency Comment Spec In Lab Nathen Go MD CHEMISTRY ORDERABLES Performing Organization Address City/State/ZIP Code Phon e Number [address] PO DODGEENNIUM Urine culture Clean Catch Urine (09/09/2014 5:13 PM EDT) Patholo gist Method Time Signature Urine Culture CERNER ? Patient Name: BRIANNA LAY ? Ordered By: BIJAN JEAN MILLDELMAIUM ? MR#: [id number] ?LOC: ??2WPC ? /Sex: ??1955 (59 years), [...] Organization Address City/State/ZIP Code Phon e Number [address] [facility] (ABNORMAL) TSH (09/09/2014 3:26 PM EDT) athologist Signature TSH 5.39 (H) 0.27 - 4.20 CERNER mcIU/mL [facility] Specimen Anatomical Collection Method Collection Time Receive d Time (Source) Location / / Volume Laterality Blood specimen 09/09/2014 3:26 PM 015 3:33 (specimen) EDT PM EDT Resulting Agency Comment Spec In Lab Nathen Go MD CHEMISTRY ORDERABLES Performing Organization Address City/[facility]/ZIP Code Phon e Number [address] [facility] T4 Total (09/09/2014 3:26 PM EDT) athologist Signature T4, total 7.7 5.1 - 10.8 CERNER mcg/dL [facility] Comment: Reference Range: Cord Blood: ??6.9-14.4 mcg/dL Females: ??7.2-14.2 mcg/dL Pediatric ranges: ??Interpret with cauti on-ranges have not been verified Specimen Anatomical Collection Method Collection Time Receive d Time (Source) Location / / Volume Laterality Blood specimen 09/09/2014 3:26 PM 015 3:33 (specimen) EDT PM EDT Resulting Agency Comment Spec In Lab Nathen Go MD CHEMISTRY ORDERABLES Performing Organization Address City/[facility]/ZIP [place] [address] CERNER MILLENNIUM (ABNORMAL) T3 Total (09/09/2014 3:26 PM EDT) P athologist Signature T3, Total 60 (L) 75 - 170 CERNER ng/dL MILLENNIUM Specimen Anatomical Collection Method Collection Time Receive d Time (Source) Location / / Volume Laterality Blood specimen 09/09/2014 3:26 PM 015 3:33 (specimen) EDT PM EDT Resulting Agency Comment Spec In Lab Nathen Go MD CHEMISTRY ORDERABLES Performing Organization Address City/[facility]/ZIP Code Phon e Number [address] CERNER MILLENNIUM EKG 12 Lead (09/09/2014 9:08 AM EDT) Component Value Ref Range Test Analysis Performed Pathologis t Method Time At Signature Ventricular rate 76 BPM MUSE SYSTEM Atrial Rate 76 BPM MUSE SYSTEM P-R Interval 142 ms MUSE SYSTEM QRS Duration 88 ms MUSE SYSTEM Q-T Interval 380 ms MUSE SYSTEM QTC Calculated 427 ms MUSE SYSTEM (Bezet) Calculated P [place] 79 degrees MUSE SYSTEM Calculated R [place] 80 degrees MUSE SYSTEM Calculated T [place] 73 degrees MUSE SYSTEM INTERPRETATION Normal sinus rhythm MUSE SYSTEM Possible Left atrial enlargement Borderline ECG No previous ECGs available Confirmed by MD TANIYA, ETHEL ([id number]) on 09/09/2014 9:16:14 PM Specimen Anatomical Collection Method Collection Time Receive d Time (Source) Location / / Volume Laterality 09/09/2014 9:08 AM 5 9:16 EDT PM EDT Bijan Jean MD ECG ORDERABLES Performing Organization Address City/[facility]/ZIP Code Phon e Number MUSE SYSTEM (ABNORMAL) Urinalysis with microscopic (09/09/2014 7:14 AM EDT) Patholo gist Method Time Signature Glucose UA Negative Negative [...] Hazy (A) Clear CERNER MILLENNIU M Spec [place] UA 1.014 1.002 - 1.030 CERNER MIL [...] Organization Address City/State/ZIP Code Phon e Number [place] [phone] CERNER MILLENNIUM Differential, Automated (09/09/2014 [...] Organization Address City/State/ZIP [place] [address] CERNER MILLENNIUM Hemogram (09/09/2014 6:54 AM EDT) P athologist Signature WBC 4.2 4.0 - 10.0 CERNER x10(3)/mcL [...] Organization Address City/State/ZIP [place] [address] CERNER MILLENNIUM (ABNORMAL) TSH (09/09/2014 6:54 AM EDT) athologist Signature TSH 13.20 (H) 0.27 - CERNER 4.20 MILLENNIUM mcIU/mL Specimen Anatomical Collection Method Collection Time Receive d Time (Source) Location / / Volume Laterality Blood specimen 09/09/2014 6:54 AM 015 7:09 (specimen) EDT AM EDT Resulting Agency Comment Spec In Lab Bijan Jean MD CHEMISTRY ORDERABLES Performing Organization Address City/[facility]/ZIP [place] [address] CERNER MILLENNIUM Hepatic Function [...] Organization Address City/State/ZIP [place] [address] CERNER MILLENNIUM Phosphorus (09/09/2014 6:54 AM EDT) athologist Signature Phosphorus 3.0 2.5 - 4.5 CERNER mg/dL MILLENNIUM Specimen Anatomical Collection Method Collection Time Receive d Time (Source) Location / / Volume Laterality Blood specimen 09/09/2014 6:54 AM 015 7:09 (specimen) EDT AM EDT Resulting Agency Comment Spec In Lab Bijan Jean MD CHEMISTRY ORDERABLES Performing Organization Address City/[facility]/ZIP Code Phon e Number [address] CERNER MILLENNIUM Magnesium (09/09/2014 6:54 AM EDT) athologist Signature Magnesium 0.88 0.69 - 1.07 CERNER mmol/L MILLENNIUM Specimen Anatomical Collection Method Collection Time Receive d Time (Source) Location / / Volume Laterality Blood specimen 09/09/2014 6:54 AM 015 7:09 (specimen) EDT AM EDT Resulting Agency Comment Spec In Lab Bijan Jean MD CHEMISTRY ORDERABLES Performing Organization Address City/[facility]/ZIP [place] [address] CERNER MILLENNIUM Calcium (09/09/2014 6:54 AM EDT) athologist Signature Calcium 8.9 8.5 - 10.5 CERNER mg/dL MILLENNIUM Specimen Anatomical Collection Method Collection Time Receive d Time (Source) Location / / Volume Laterality Blood specimen 09/09/2014 6:54 AM 015 7:09 (specimen) EDT AM EDT Resulting Agency Comment Spec In Lab Bijan Jean MD CHEMISTRY ORDERABLES Performing Organization Address City/[facility] Phon e Number [address] CERNER MILLENNIUM Creatinine (09/09/2014 6:54 AM EDT) athologist Signature Creatinine 0.76 0.70 - 1.20 CERNER mg/dL MILLENNIUM Comment: Please note that the pediatric reference intervals supplied above were not validated at [facility]. Results from pediatri c patients should be interpreted in conjunction to the patient's age, height and muscle mass. Estimated GFR >60 >=60 PO Verma Comment: This estimated GFR (eGFR) value was [...] the following links into your internet browser. [email or web address] Specimen Anatomical Collection Method Collection Time Receive d Time (Source) Location / / Volume Laterality Blood specimen 09/09/2014 6:54 AM 015 7:09 (specimen) EDT AM EDT Resulting Agency Comment Spec In Lab Bijan Jean MD CHEMISTRY ORDERABLES Performing Organization Address City/[facility]/ZIP [facility] [address] CERNER MILLENNIUM BUN (09/09/2014 6:54 AM EDT) P athologist Signature BUN 10 8 - 18 CERNER mg/dL MILLENNIUM Specimen Anatomical Collection Method Collection Time Receive d Time (Source) Location / / Volume Laterality Blood specimen 09/09/2014 6:54 AM 015 7:09 (specimen) EDT AM EDT Resulting Agency Comment Spec In Lab Bijan Jean MD CHEMISTRY ORDERABLES Performing Organization Address City/[facility] [place] [address] CERNER MILLENNIUM (ABNORMAL) Electrolytes panel [...] IUM CO2 28 22 - 31 mmol/L [facility] DARENNI UM Anion Gap 13 5 - 15 mmol/L [facility] MILLENNIU M Specimen Anatomical Collection Method Collection Time Receive d Time (Source) Location / / Volume Laterality Blood specimen 09/09/2014 6:54 AM 015 7:09 (specimen) EDT AM EDT Resulting Agency Comment Spec In Lab Bijan Jean MD CHEMISTRY ORDERABLES Performing Organization Address City/State/[place] [address] [facility] documented in this encounter Visit Diagnoses Diagnosis Major depressive disorder, recurrent epi sode, severe, specified as with psychotic behavior - Primary Major depressive disorder, single episod e, 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, single episod e, severe, specified as with psychotic behavior documented in this encounter Administered Medications Inactive Administered Medications - up to 3 most recent administrations Medication Order MAR Action Action Date Dose Rate Site acetaminophen (TYLENOL) tablet 650 Given 09/24/2014 6:37 AM EDT 650 mg mg 650 mg, Oral, EVERY 6 HOURS PRN, Starting on Sun09/08/14 at 2157, Until Sun09/24/14 at 1443, Pain, Fever, Administer for temperature greater than or equal to 38.2 degrees celsius (Not to exceed 4000 mg per 24 hours), Routine Given 09/21/2014 6:55 PM EDT 650 mg Given 09/21/2014 12:27 PM EDT 650 mg FLUoxetine (PROzac) capsule 40 mg Given 09/24/2014 8:53 AM EDT 40 mg 40 mg, Oral, DAILY, First dose on Sun09/09/14 at 0900, Until Discontinued, Routine Given 09/23/2014 9:33 AM EDT 40 mg Given 09/22/2014 11:08 AM EDT 40 mg levothyroxine (SYNTHROID) tablet 100 mcg Given 09/15/2014 6:22 AM EDT 100 mcg 100 mcg, Oral, DAILY, First dose on Sun09/09/14 at 0600, Until Discontinued, Routine Given 09/14/2014 6:34 AM EDT 100 mcg Given 09/13/2014 8:25 AM EDT 100 mcg levothyroxine (SYNTHROID) tablet 100 mcg Given 09/24/2014 6:39 AM EDT 100 mcg 100 mcg, Oral, EVERY MORNING, First dose on Sun09/16/14 at 1000, Until Discontinued, Routine Given 09/23/2014 6:24 AM EDT 100 mcg Given 09/22/2014 6:39 AM EDT 100 mcg liothyronine (CYTOMEL) tablet 50 mcg Given 09/18/2014 6:22 AM EDT 50 mcg 50 mcg, Oral, EVERY MORNING, First dose on Sun09/10/14 at 0600, Until Discontinued, Please give prior to transport to PACU on mornings she is scheduled for ECT treatment, Routine Given 09/17/2014 6:20 AM EDT 50 mcg Given 09/16/2014 6:36 AM EDT 50 mcg liothyronine (CYTOMEL) tablet 50 mcg Given 09/24/2014 6:39 AM EDT 50 mcg 50 mcg, Oral, EVERY MORNING, First dose on Sun09/22/14 at 0600, Until Discontinued, Routine Given 09/23/2014 6:24 AM EDT 50 mcg Given 09/22/2014 6:39 AM EDT 50 mcg OLANZapine (ZyPREXA) tablet 10 mg Given 09/22/2014 9:29 PM EDT 10 mg 10 mg, Oral, NIGHTLY, First dose (after last modification) on Sun09/21/14 at 2100, Until Discontinued, Routine Given 09/21/2014 8:42 PM EDT 10 mg OLANZapine (ZyPREXA) tablet 15 mg Given 09/20/2014 8:57 PM EDT 15 mg 15 mg, Oral, NIGHTLY, First dose on Sun09/08/14 at 2215, Until Discontinued, Routine Given 09/19/2014 8:48 PM EDT 15 mg Given 09/18/2014 9:16 PM EDT 15 mg omega-3 acid ethyl esters (LOVAZA) capsu le 2 g Given 09/24/2014 8:53 AM EDT 2 g 2 g, Oral, 2 TIMES DAILY, First dose on Sun09/14/14 at 2100, Until Discontinued, Routine Given 09/23/2014 8:57 PM EDT 2 g Given 09/23/2014 9:32 AM EDT 2 g QUEtiapine (SEROquel) tablet 250 mg Given 09/23/2014 8:55 PM EDT 250 mg 250 mg, Oral, NIGHTLY, First dose (after last modification) on Sun09/23/14 at 2100, Until Discontinued, Routine QUEtiapine (SEROquel) tablet 50 mg Given 09/23/2014 12:38 PM EDT 50 mg 50 mg, Oral, ONCE, 1 dose, On Sun09/23/14 at 1200, Routine sodium chloride 0.9 % flush 5 mL Given 09/23/2014 8:57 PM EDT 5 mLs 5 mL, Intravenous, 2 TIMES DAILY, First dose on Sun09/12/14 at 0900, Until Discontinued, Routine Given 09/23/2014 9:32 AM EDT 5 mLs Right Arm Given 09/22/2014 9:27 PM EDT 5 mLs traZODone (DESYREL) tablet 50 mg Given 09/21/2014 8:42 PM EDT 50 mg 50 mg, Oral, NIGHTLY PRN, Starting on Sun09/08/14 at 2157, Until Carmella 09/24/14 at 1443, Sleep, Routine Given 09/20/2014 8:58 PM EDT 50 mg Given 09/15/2014 9:50 PM EDT 50 mg documented in this encounter Active and Recently Administered Medications Times are shown in EDT. Scheduled Medication Order 09/22/2014 09/23/2014 09/24/2014 FLUoxetine (PROzac) capsule 40 mg (CANCELED) 0729 (AUG Hold - Provider: Admin Adt - Reason: Transfer to a Procedural area)0851 (AUG Unhold - Provider: Admin Adt)1108 (Given - Provider: Brianna Huntley RN) 0933 (Given - Provider: Maria L Pineda RN) 0739 (AUG Hold - Provider: Admin Adt - R bibiana: Transfer to a Procedural area)0845 (AUG Unhold - Provider: Admin Adt)0853 (Given - Provider: Rut Yuan) 40 mg, Oral, DAILY, First dose on Sun at 0900, Until Discontinued, Routine levothyroxine (SYNTHROID) tablet 100 mcg (CANCELED) 06 39 (Given - Provider: Jyoti Wagner, TERESA)0729 (AUG Hold - Provider: Admin Adt - Reason: Transfer to a Procedural area)0851 (AUG Unhold - Provider: Admin Adt) 0624 (Given - Provider: Jyoti Wagner RN) 0639 (Given - Provider: Trista Chang)0739 ([facility] Hold - Provider: Admin Adt - Reason: Transfer to a Procedural area)0845 ([facility] Unhold - Provider: Admin Adt) 100 mcg, Oral, EVERY MORNING, First dose on Sun09/16/14 at 1000, Until Discontinued, Routine liothyronine (CYTOMEL) tablet 50 mcg (CANCELED) 0639 ( Given - Provider: Jyoti Wagner RN)0729 ([facility] Hold - Provider: Admin Adt - Reason: Transfer to a Procedural area)0851 ([facility] Unhold - Provider: Admin Adt) 0624 (Given - Provider: Jyoti Wagner RN) 0639 (Given - Provider: Trista Chang)0739 ([facility] Hold - Provider: Admin Adt - Reason: Transfer to a Procedural area)0845 ([facility] Unhold - Provider: Admin Adt) 50 mcg, Oral, EVERY MORNING, First dose on Sun09/22/14 at 0600, Until Discontinued, Routine OLANZapine (ZyPREXA) tablet 10 mg (CANCELED) 0729 ([facility] Hold - Provider: Admin Adt - Reason: Transfer to a Procedural area)0851 ([facility] Unhold - Provider: Admin Adt)212 (Given - Provider: Soco Vogel RN) 10 mg, Oral, NIGHTLY, First dose on Sun09/21/14 at 2100, Until Discontinued, Routine omega-3 acid ethyl esters (LOVAZA) capsule 2 g 0729 ([facility] Hold - Provider: Admin Adt - Reason: Transfer to a Procedural area)0851 ([facility] Unhold - Provider: Admin Adt)1108 (Given - Provider: Brianna Huntley RN) 0932 (Given - Provider: Maria L Pineda, TERESA)2057 (Given - Provider: Soco Vogel RN) 0739 ([facility] Hold - Provider: Admin Adt - Reason: Transfer to a Procedural area)0845 ([facility] Unhold - Provider: Admin Adt)0853 (Given - Provider: Rut Yuan) 2 g, Oral, 2 TIMES DAILY, First dose on Sun09/14/14 at 2100, Until Discontinued, Routine 2128 (Not Given - Provider: Soco Vogel RN - Reason: Patient Unable - Comment: patient unable to swallow) QUEtiapine (SEROquel) tablet 250 mg 2054 (Given - Provider: Soco Vogel RN) 0739 ([facility] Hold - Provider: Admin Adt - R bibiana: Transfer to a Procedural area)0845 ([facility] Unhold - Provider: Admin Adt) 250 mg, Oral, NIGHTLY, First dose on Sun09/23/14 at 2100 QUEtiapine (SEROquel) tablet 50 mg (COMPLETED) 1238 (Given - Provider: Maria L Pineda RN) 50 mg, Oral, ONCE, 1 dose, Sun09/23/14 at 1200, Routine sodium chloride 0.9 % flush 5 mL (CANCELED) 0729 ([facility] Hold - Provider: Admin Adt - Reason: Transfer to a Procedural area)0851 ([facility] Unhold - Provider: Admin Adt)0900 (Not Given - Provider: Brianna Huntley RN - Reason: See comment - Comment: Done in ECT) 32 (Given - Provider: Trista Murillo)2056 (Given - Provider: Soco Vogel RN) 0739 ([facility] Hold - Provider: Admin Adt - Reason: Transfer to a Procedural area)0845 ([facility] Unhold - Provider: Admin Adt)0900 (Not Given - Provider: Rut Yuan - Reason: Transfer to a Procedural area) 5 mL, Intravenous, 2 TIMES DAILY, First dose on 09/12/14 at 0900, Until Discontinued, Routine 2127 (Given - Provider: Soco Vogel RN) PRN Medication Order 09/22/2014 09/23/2014 09/24/2014 acetaminophen (TYLENOL) tablet 650 mg (CANCELED) 0729 ([facility] Hold - Provider: Admin Adt - Reason: Transfer to a Procedural area)0851 ([facility] Unhold - Provider: Admin Adt) 0637 (Given - Provider: Violeta Newby RN - Comment: Prophlylactic for headache patient has been experiencing after ECT)0739 ([facility] Hold - Provider: Admin Adt - Reason: Transfer to a Procedural area)0845 ([facility] Unhold - Provider: Admin Adt) 650 mg, Oral, EVERY 6 HOURS PRN, Startin g 09/08/14 at 2157, Until Carmella 09/24/14 at 1443, Pain, Fever, Administer for temperature greater than or equal to 38.2 degrees celsius (Not to exceed 4000 mg per 24 hours), Routine documented in this encounter 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
--- OUTSIDE RECORDS SUMMARY | 2022-01-09 00:40 | XMS_ITS | Encounter Summary ---
:1955 [place] [address] Care Team Providers Name Role Phone Jewel Cherry MD Primary Care Provider Encounter Details Date Type Department Care Team Description 09/22/2014 Surgery Main Operating Room Geovani Jolley MD ECT (WRVU 2.5) [facility] Geovani snyder [place] [address] [place] [address] [phone] (Wo rk) Social History Tobacco Use Types [...] stabilization and medication management. Discharge Multi-axial Diagnosis: Mebane I: MDD w/ psychotic features Mebane II: deferred [place] III: hypothyroid on replacement Mebane IV: father's health concerns [place] V: Admission GAF: 25 Discharge GAF: 45 [...] and patient was eventually involuntarily admitted to [facility]. At [facility] patient's Celexa was increased to 20mg and then she was discharged. Patient was eventually seen by Dr. Aurea Valencia MD a psychiatrist at [facility] who diagnosed the patient with MDD with [...] Brianna's delusions), so they requested admission to [facility]. She denies SI/HI #Depression Patient denies any [...] history of being religous and she attends temple several times a week. In the past her christianity beliefs never crossed what is normally accepted. [...] none Changes/recommendations/parameters for next treatment: TREAT AT //Antipsychotic Quality Measure (select one of three reasons): [...] followup Primary Care Physician: JEWEL CHERRY MD [phone] Special Physician Instructions: -Continue to do outpatient ECT as scheduled and recommended -Take your medications as instructed -Make sure to have a colonoscopy and mammogram done -Make sure your doctor follows up on pending labs at [facility] -Come to the emergency room or call your doctor if you feel unsafe or have thoughts of suicide Special Instructions Provided to Brianna Lay: Call your doctor, your local mental health center, or your local emergency room if you develop worsening symptoms of depression, anxiety, thoughts of harming yourself, thoughts of harming others, or any other decline in your overall condition. [facility] Emergency Services: [facility] [phone] [facility] Emergency Services: [phone] [facility] Central Access Services: [phone] [facility] Main Line: [phone] Activity level: no restrictions from psychiatry Diet: [...] TREAT AT General Instructions Dr Aurea Valencia [phone] September 24 at 2:30pm Dr Regla Patel, October 01 at 11:30am Discharge References/Attachments None Signed: William Correia MD 09/27/2014 documented in this encounter Discharge Instructions Discharge InstructionsWilliam Correia MD - 09/24/2014 12:[address] Aurea Valencia [phone] September 24 at 2:30pm Dr Regla Patel, [...] with close followup Primary Care Physician: JEWEL HCERRY MD [phone] Special Physician Instructions: -Continue to do outpatient ECT as scheduled and recommended -Take your medications as instructed -Make sure to have a colonoscopy and mammogram done -Make sure your doctor follows up on pending labs at [facility] -Come to the emergency room or call your doctor if you feel unsafe or have thoughts of suicide Special Instructions Provided to Brianna Lay: Call your doctor, your local mental health center, or your local emergency room if you develop worsening symptoms of depression, anxiety, thoughts of harming yourself, thoughts of harming others, or any other decline in your overall condition. [facility] Emergency Services: [facility] [phone] [facility] Emergency Services: [phone] [facility] Central Access Services: [phone] [facility] Main Line: [phone] Activity level: no restrictions from psychiatry Diet: [...] a MECTA device at the following parameters: 07/14/. 0 sec EEG seizure 44 sec EEG [...] manageable at this time Severity:. Rates Depression: 310, Anxiety: 3/10. Denies SI. Patient says she [...] Results Component Value Date TSH 0.11* 09/15/2014 [id number] 261* 09/15/2014 TT4 6.9 09/15/2014 Lipids and HgbA1C: No results found for this basename: CHLPL, HDL, CHOLHDL, LDLCHOL, LDLDIRECT, TRIG No results found for this basename: HA1C Vit Lvls: No results found for this basename: [id number], SFOLATE UA: No results found for this [...] Attending Physician: RITIKA Go MD Resident name: Willima Correia MD I saw and evaluated the [...] Nursing report phoned to Kait acosta RN. [phone] - Pt transported to 219A in stable condition. Soco Valle RN - 09/23/2014 2:47 PM EDT TC with pts , Will at [phone]. He believes pt is about 75% back [...] with staying awake. Jenna Baker, MS 09/23/2014 T William Correia MD - 09/23/2014 12:34 PM [...] i feel that somehow the people at [facility] might hurt them Severity:. Rates Depression: 10/02, [...] Results Component Value Date TSH 0.11* 09/15/2014 [id number] 261* 09/15/2014 TT4 6.9 09/15/2014 Lipids and HgbA1C: No results found for this basename: CHLPL, HDL, CHOLHDL, LDLCHOL, LDLDIRECT, TRIG No results found for this basename: HA1C Vit Lvls: No results found for this basename: [id number], SFOLATE UA: No results found for this [...] still fears that she irritated people at [facility] who might harm her family. Tremor [...] the patient's condition and or diagnostic study. osselin Shah MHT - 09/22/2014 1:40 PM EDT Inpatient [...] Results Component Value Date TSH 0.11* 09/15/2014 [id number] 261* 09/15/2014 TT4 6.9 09/15/2014 Lipids and HgbA1C: No results found for this basename: CHLPL, HDL, CHOLHDL, LDLCHOL, LDLDIRECT, TRIG No results found for this basename: HA1C Vit Lvls: No results found for this basename: [id number], SFOLATE UA: No results found for this [...] Results Component Value Date TSH 0.11* 09/15/2014 [id number] 261* 09/15/2014 TT4 6.9 09/15/2014 Lipids and HgbA1C: No results found for this basename: CHLPL, HDL, CHOLHDL, LDLCHOL, LDLDIRECT, TRIG No results found for this basename: HA1C Vit Lvls: No results found for this basename: [id number], SFOLATE UA: No results found for this [...] was quiet, attentive. JOSHUA Ford 09/21/2014 Nathen oG MD - 09/21/2014 10:32 AM EDT PSYCHIATRY [...] Results Component Value Date TSH 0.11* 09/15/2014 [id number] 261* 09/15/2014 TT4 6.9 09/15/2014 Lipids and HgbA1C: No results found for this basename: CHLPL, HDL, CHOLHDL, LDLCHOL, LDLDIRECT, TRIG No results found for this basename: HA1C Vit Lvls: No results found for this basename: [id number], SFOLATE UA: No results found for this [...] Signed By: Giovany Alicia MD 09/20/2014 Jenna Baker, - 09/20/2014 10:49 AM EDT Inpatient Daily [...] silent for rest of group. Jenna Baker MS 09/20/2014 Giovany Alicia MD - 09/19/2014 2:50 [...] Results Component Value Date TSH 0.11* 09/15/2014 [id number] 261* 09/15/2014 TT4 6.9 09/15/2014 Lipids and HgbA1C: No results found for this basename: CHLPL, HDL, CHOLHDL, LDLCHOL, LDLDIRECT, TRIG No results found for this basename: HA1C Vit Lvls: No results found for this basename: [id number], SFOLATE UA: No results found for this [...] Results Component Value Date TSH 0.11* 09/15/2014 [id number] 261* 09/15/2014 TT4 6.9 09/15/2014 Lipids and HgbA1C: No results found for this basename: CHLPL, HDL, CHOLHDL, LDLCHOL, LDLDIRECT, TRIG No results found for this basename: HA1C Vit Lvls: No results found for this basename: [id number], SFOLATE UA: No results found for this [...] esteem and apassive communication style. Teresa Cotto, [place] 09/17/2014 Inpatient Daily Group Note Group: Inside walk Notes: Pt. walked quietly with peers. Enjoying the art. Teresa Key 09/17/2014 Inpatient Daily Group Note Group: Workshop Attendance: Present Behavior: Conversational Therapeutic Work Observed: Moderate Mood: Calm Notes: Pt. talked with this personal lines underwriter about living in [place] and her son. Listened to conversations of [...] Pt. attentive although quiet. After group thanked personal lines underwriter stating he learned a lot. Teresa Key [...] Results Component Value Date TSH 0.11* 09/15/2014 [id number] 261* 09/15/2014 TT4 6.9 09/15/2014 Lipids and HgbA1C: No results found for this basename: CHLPL, HDL, CHOLHDL, LDLCHOL, LDLDIRECT, TRIG No results found for this basename: HA1C Vit Lvls: No results found for this basename: [id number], SFOLATE UA: No results found for this [...] Results Component Value Date TSH 0.11* 09/15/2014 [id number] 261* 09/15/2014 TT4 6.9 09/15/2014 Lipids and HgbA1C: No results found for this basename: CHLPL, HDL, CHOLHDL, LDLCHOL, LDLDIRECT, TRIG No results found for this basename: HA1C Vit Lvls: No results found for this basename: [id number], SFOLATE UA: No results found for this [...] some things but I couldn't Severity: depression 4/10, anxiety 10/02. Constricted, quiet, but delusions about [...] Results Component Value Date TSH 5.39* 09/09/2014 [id number] 60* 09/09/2014 TT4 7.7 09/09/2014 Lipids and HgbA1C: No results found for this basename: CHLPL, HDL, CHOLHDL, LDLCHOL, LDLDIRECT, TRIG No results found for this basename: HA1C Vit Lvls: No results found for this basename: [id number], SFOLATE UA: No results found for this [...] treated pharmacologically by Dr. Aurea Valencia at [facility] who referred her for ECT. She [...] program and Module [facility] Pt at ECT. Not available. JOSHUA Ford [...] hypothyroidism Interval History: (,1,4) Quality: Brianna reports good response to ECT, [...] Results Component Value Date TSH 5.39* 09/09/2014 [id number] 60* 09/09/2014 TT4 7.7 09/09/2014 Lipids and HgbA1C: No results found for this basename: CHLPL, HDL, CHOLHDL, LDLCHOL, LDLDIRECT, TRIG No results found for this basename: HA1C Vit Lvls: No results found for this basename: [id number], SFOLATE UA: No results found for this [...] treated pharmacologically by Dr. Aurea Valencia at [facility] who referred her for ECT. She [...] that her family is her topic. Jenna Baker MS 09/13/2014 Soumya Daniel MD - 09/13/2014 7:24 [...] Results Component Value Date TSH 5.39* 09/09/2014 [id number] 60* 09/09/2014 TT4 7.7 09/09/2014 Lipids and HgbA1C: No results found for this basename: CHLPL, HDL, CHOLHDL, LDLCHOL, LDLDIRECT, TRIG No results found for this basename: HA1C Vit Lvls: No results found for this basename: [id number], SFOLATE UA: No results found for this [...] and treated by Dr. Aurea Valencia at [facility] who referred her for ECT. She [...] Mood: Flat Notes: Pt. quietly worked on Settle project. Teresa Key 09/12/2014 Soumya Daniel MD [...] Results Component Value Date TSH 5.39* 09/09/2014 [id number] 60* 09/09/2014 TT4 7.7 09/09/2014 Lipids and HgbA1C: No results found for this basename: CHLPL, HDL, CHOLHDL, LDLCHOL, LDLDIRECT, TRIG No results found for this basename: HA1C Vit Lvls: No results found for this basename: [id number], SFOLATE UA: Lab Results Component Value Date [...] and treated by Dr. Aurea Valencia at [facility] who referred her for ECT. She [...] Mood: Calm Notes: Pt. quietly worked on Settle project. Returned to unit awaiting visit from [...] Results Component Value Date TSH 5.39* 09/09/2014 [id number] 60* 09/09/2014 TT4 7.7 09/09/2014 Lipids and HgbA1C: No results found for this basename: CHLPL, HDL, CHOLHDL, LDLCHOL, LDLDIRECT, TRIG No results found for this basename: HA1C Vit Lvls: No results found for this basename: [id number], SFOLATE UA: Lab Results Component Value Date [...] and treated by Dr. Aurea Valencia at [facility] who referred her for ECT. She [...] Results Component Value Date TSH 5.39* 09/09/2014 [id number] 60* 09/09/2014 TT4 7.7 09/09/2014 Lipids and HgbA1C: No results found for this basename: CHLPL, HDL, CHOLHDL, LDLCHOL, LDLDIRECT, TRIG No results found for this basename: HA1C Vit Lvls: No results found for this basename: [id number], SFOLATE UA: Lab Results Component Value Date [...] and treated by Dr. Aurea Valencia at [facility] who referred her for ECT.Patient had [...] Signed By: William Correia MD 09/11/2014 Becky Hernandez MSW - 09/10/2014 2:43 PM EDT OFFICE OF CARE MANAGEMENT PSYCHOSOCIAL ASSESSMENT Present at Interview: Hi Date: September 10, 2014 1. Referral request and/or presenting problem(s): Patient is a 59 year old MWF who presents at [facility] to address her increasing depression, ongoing paranoia, [...] 81 and Mother age 80 live in [place]. Siblings are Bhavin age 59, Moo age 54 and Krzysztof age 50 also living in [place]. Patient has regular contact with her parents and more sporadic contact with her brothers. Patient was born and raised in [place] anddescribed childhood as [place]. Extended family available and involved. Patient left home at age 18 andmoved in with a relative. Patient has been with her Salvador age 64 for 36 years, for 9 years, one son José Manuel age 35 in [place]. Patient has frequent contact with her son. [...] including spiritual support: , son, Dr. Valencia, Sikh Protestant. 6. 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 Aurea Valencia MD. [facility] Current Therapist: Deb Romo PCP: Dr. Sung [...] and patient was eventually involuntarily admitted to [facility]. At [facility] patient's Celexa was increased to 20mg and then she was discharged. Patient was eventually seen by Dr. Aurea Valencia MD a psychiatrist at [facility] who diagnosed the patient with MDD with [...] Brianna's delusions), so they requested admission to [facility]. She denies SI/HI #Depression Patient denies any [...] history of being religous and she attends temple several times a week. In the past her christianity beliefs never crossed what is normally accepted. [...] Prior diagnoses: depression Past hospitalization and location: [facility] - involuntarily Suicide attempts: none Past psychiatric [...] of ever using drugs or alcohol. Highly christianity in the past. 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 ENDO No temperature intolerance HEME/LYMPH No easy bruising ALL/IMMUNO No symptoms of Sinustis Physical Exam: Vitals Admission (Current) from 09/08/2014 in 2 [facility] Weight - Scale 57.153 kg [...] ?? Language: word finding difficulty ?? Mood: /10 depressed ?? Affect: blunted, constricted, flat and [...] remote memory intact ?? Fund of Knowledge: [facility] ?? Insight: fair ?? Judgment: . [...] establishing adequate outpatient care). DSM Multiaxial Diagnosis: [place] I MDD with psychotic features M[place] II deferred Meb[place] III Hypothyroid on replacement [place] IV: Father's health concerns [place] V: GAF = 25 Clinical Global Impression: [...] a MECTA device at the following parameters: 07/14/. 0 sec EEG seizure 44 sec EEG seizure Patient was stabilized and appeared to tolerate the procedure. Complications: none Changes/recommendations/parameters for next treatment: TREAT AT Next treatment date: TBD Alonzo Martel MD - 09/22/2014 7:26 AM EDT Pre-procedure Diagnoses 1. Major depressive disorder, recurrent episode, severe, specified as with psychotic behavior [296.34] Procedures 1. ECT [[id number] (CPT??)] ECT SUBSEQUENT TREATMENT NOTE Patient received [...] with psychotic behavior [296.34] Procedures 1. ECT [[id number] (CPT??)] ECT SUBSEQUENT TREATMENT NOTE Patient received [...] with psychotic behavior [296.34] Procedures 1. ECT [[id number] (CPT??)] Expand All Collapse All ECT SUBSEQUENT [...] not safe- here and reinforced reality with personal lines underwriter. Brianna continues to have bilateral shaking in [...] Outcome (s) achieved Date Met: 09/24/14 09/08/14183509/21/14 3255 Individualization Individualize the Plan of Care: -- [...] some concerns about the staff at the [facility] yet she can see that it doesn't make much sense Patient denies SI or HI. Depression 10/02 and no anxiety PLAN MOVING FORWARD: NPO after midnight for ect INDIVIDUALIZED FALL PREVENTION: Assistance: independent Supervision: Escort to group Surveillance: 30 minute checks CPG GOAL OUTCOME EVALUATION: Goal: Individualization and Mutuality Outcome: Ongoing (Interventions Implemented as Appropriate) 09/08/14 6619 09/21/14 9157 Individualization Individualize the Plan of Care: -- [...] to monitor. Plan of Care - Brianna Huntley RN - 09/21/2014 2:03 PM EDT Problem: [...] Last BM 3-28. Gait steady. Med compliant. [place] Goal: Groups. Hep cap flushed, patent. Dsg [...] group walk- Pt rated depression & anxiety 10- Denies pain- Denies SI/ self harm thoughts [...] progress toward outcome Plan of Care - Brianan Huntley RN - 09/18/2014 2:26 PM EDT [...] Outcome: Ongoing (Interventions Implemented as Appropriate) 09/17/14 2200 09/17/14 2212 09/18/14 0100 Safety Interventions Safety Precautions/Fall Reduction low [...] independent Supervision: escort Surveillance: 30 min checks, [place] CPG GOAL OUTCOME EVALUATION: Goal: Fall Prevention-Safe [...] Outcome: Ongoing (Interventions Implemented as Appropriate) 09/15/14 9448 Depression (Adult, Obstetrics, Pediatric) Improved/Stable Mood making progress toward outcome Med Student Progress Note - Aidee Salgado - 09/16/2014 11:58 AM EDT Inpatient Psychiatry Progress Note: 09/16/2014 ID: Brianna Lay is a 59 y.o. female with one son who lives in [facility], and is currently unemployed admitted on [...] resolution of depressive symptoms. Follow up: Psychiatrist: uArea Valencia Therapist: Deb Romo Primary provider: Dr [...] female with one son who lives in [facility], and is currently unemployed admitted on [...] Outcome: Ongoing (Interventions Implemented as Appropriate) 09/14/14 2316 Coping/Psychosocial Response Interventions Plan of Care Reviewed [...] independent Supervision: escort Surveillance: 30 min checks. [place] CPG GOAL OUTCOME EVALUATION: Med Student Progress Note - Aidee Salgado Jr. - 09/14/2014 12:39 PM EDT Inpatient Psychiatry Progress Note: 09/14/2014 ID:Brianna Lay is a 59 y.o. female with one son who lives in [facility], and is currently unemployed admitted on [...] Therapist: Deb Romo Primary provider: Dr Pineda CornejoAidee MS-3 [id number] Plan of Care - Maria [...] her energy level Is slowly improving. Depression: 10 Anxiety: 09/01. Affect is flat and congruentbut [...] homicidal ideation and contracts for safety. Pt cfo620% of meals and reports last bowel movement [...] Handling Outcome: Ongoing (Interventions Implemented as Appropriate) 09/09/14183209/13/14 19009/14/14 0200 Safety Interventions Safety Precautions/Fall Reduction [...] independent Supervision: escort Surveillance: 30 min checks. [place] CPG GOAL OUTCOME EVALUATION: Goal: Individualization and [...] EVALUATION: Goal: Fall Prevention-Safe Patient Handling 09/13/14 114 Safety Interventions Safety Precautions/Fall Reduction fall reduction program maintained Musculoskeletal Interventions Activity/Level of Assistance up ad michele Goal: Infection Control 09/13/14 114 Coping/Psychosocial Response Interventions Counseling calming techniques promoted Safety Interventions Isolation Precautions standard precautions maintained Infection Prevention hydration promoted Problem: Depression (Adult, Obstetrics, Pediatric) Intervention: Suicide Attempt Prevention/Intervention 09/13/14 114 Coping/Psychosocial Response Interventions Suicide Attempt Prevention/Intervention coping [...] outcomes. 09/13/14 114 Depression (Adult, Obstetrics, Pediatric) Improved/Stable Mood making [...] OUTCOME EVALUATION: Goal: Fall Prevention-Safe Patient Handling 09/12/141210 Safety Interventions Safety Precautions/Fall Reduction fall reduction [...] shared thathe noticed improvement in his . [place] she was less vacant and even noticed [...] Ongoing (Interventions Implemented as Appropriate) 09/08/14 194 Discharge Needs Assessment Concerns to be Addressed [...] female with one son who lives in [facility], and is currently unemployed admitted on [...] Deb Romo Primary provider: Dr Pineda Hoskins [facility] MS-3 3986 Plan of Care - Ana Barbour RN [...] female with one son who lives in [facility], and is currently unemployed admitted on [...] Primary provider: Dr Pineda Hoskins UdAidee MS-3 5914 Plan of Care - Bonny Lepe RN - 09/09/2014 6:38 PM EDT Problem: General Plan of Care Goal: Plan of Care Review Outcome: Ongoing (Interventions Implemented as Appropriate) 09/09/14 9783 Coping/Psychosocial Response Interventions Plan of Care Reviewed [...] Encourage group attendence with MARGARETH day and [place]. INDIVIDUALIZED FALL PREVENTION: Assistance: None independent Supervision: [...] understanding of illness 2. Work with Patient Core Drill Operator Helper to create and implement aftercare plan 3. [...] MD 09/09/2014 NURSING , RN 09/09/2014 PT MARINE RAILWAY OPERATOR Nydia Valle RN- 09/09/2014 THERAPIST Jenna Baker [facility] 09/09/2014 LARD TUB WASHER Becky Mane, [facility] 09/09/2014 Plan of Care - Brianna Huntley, TERESA - 09/09/2014 2:40 PM EDT Problem: General [...] DATE: RESIDENT PHYSICIAN ATTENDING PHYSICIAN NURSING PATIENT MARINE RAILWAY OPERATOR THERAPIST LARD TUB WASHER Plan of Care - Bonny Lepe RN [...] Procedure Name Priority Date/Time Associated Comments Diagnosis THYROGLOBULIN ANTIBODY Routine 09/23/2014 3:50 PM Results for this EDT procedure are i n the results section. PARANEOPLASTIC Routine 09/23/2014 3:50 PM Results for this AUTOANTIBODY EVAL, EDT procedure are in SERUM the results section. THYROID PEROXIDASE Routine 09/23/2014 3:50 PM Res ults for this ANTIBODY EDT procedure are i n the results section. ECT (WRVU 2.5) Yes 09/22/2014 7:26 AM 296.34 EDT T3 TOTAL Routine 09/15/2014 [...] Component Value Ref Test Analysis Performed At [facility] Range Method Time Signature Paraneo Eval SEE COMMENTS CERNER Interpretation MILLENNIUM Comment: No informative autoantibodies were detec adali in this evaluation. However, a negative result d oes not exclude neurological autoimmunity with or withou t associated neoplasia. Test Performed by: [place] [address] Adzing And Boring Machine Helper: Tommy Irene II, M.D., Ph.D. TRACY-1 (Anti-Neuronal Nuclear Ab, Type Negative <1:240 titer CERNER MILLENNIUM 1) Comment: Test Performed by: [place] [address] Adzing And Boring Machine Helper: Tommy Irene II, M.D., Ph.D. TRACY-2 (Anti-Neuronal Nuclear Ab,Type Negative <1:240 titer CERNER MILLENNIUM 2) Comment: Test Performed by: [address] [place] [address] Adzing And Boring Machine Helper: Tommy Irene II, M.D., Ph.D. TRACY-3 (Anti-Neuronal Nuclear Ab, Type Negative <1:240 titer CERNER MILLENNIUM 3) Comment: Test Performed by: [place] [address] Adzing And Boring Machine Helper: Tommy Irene II, M.D., Ph.D. AGNA-1 (Anti-Glial Nuclear Ab, Type 1) Negative <1:240 titer CERNER MILLENNIUM Comment: Test Performed by: [facility] [place] [address] Adzing And Boring Machine Helper: Tommy Irene II, M.D., Ph.D. GROUNDS WORKER-1 (Purkinje Cell Cytoplasmic Negative <1:240 titer CERNER MILLENNIUM Ab-Type 1) Comment: Test Performed by: [place] [address] Adzing And Boring Machine Helper: Tommy Irene II, M.D., Ph.D. GROUNDS WORKER-2 (Purkinje Cell Cytoplasmic Negative <1:240 titer CERNER MILLENNIUM Ab-Type 2) Comment: Test Performed by: [facility] [place] [address] [employer] Machine Helper: Tommy Irene II, M.D., Ph.D. GROUNDS WORKER-Type Tr (Purkinje Cell Cytoplasmic Negative <1:240 titer CERNER MILLENNIUM Ab-Type Tr) Comment: Test Performed by: [place] [address] [employer] Boring Machine Helper: Tommy Irene II, M.D., Ph.D. Amphiphysin Antibody Negative <1:240 titer CERNER MILLENNIUM Comment: Test Performed by: [place] [address] [employer] Boring Machine Helper: Tommy Irene II, M.D., Ph.D. CRMP-5-IgG Negative <1:240 titer CERNER MILLENNIU M Comment: CRMP-5 Titers lower than 1:240 may be de tectable by recombinant CRMP-5 western blot analysis , available by request on stored serum and recommended in cases of chorea, vision loss, cranial neuropathy and myel opathy. Extramural clients contact [facility] Inquiry at to add-on CRMP-5-IgG Western Blot, Serum . Intramural Clients, please call the Neuroimmunology Lab at [phone]. Test Performed by: [place] [address] [employer] Boring Machine Helper: Tommy Irene II, M.D., Ph.D. Striated Muscle Ab Negative <1:120 titer CERNER M ILLENNIUM Comment: Test Performed by: [place] [address] [employer] Machine Helper: Tommy Irene II, M.D., Ph.D. P/Q-Type Ca Channel Ab 0.00 <=0.02 nmol/L CER NER MILLENNIUM Comment: Test Performed by: [place] [address] [employer] Machine Helper: Tommy Irene II, M.D., Ph.D. N-Type Ca Channel Ab 0.00 <=0.03 nmol/L CERNE R MILLENNIUM Comment: Test Performed by: [place] [address] [employer]oring Machine Helper: Tommy Irene II, M.D., Ph.D. ACHr Binding Ab 0.00 <=0.02 nmol/L CERNER MIL LENNIUM Comment: Test Performed by: [place] [address] [employer] Machine Helper: Tommy Irene II, M.D., Ph.D. AChR Gang Neuronal Ab 0.00 <=0.02 nmol/L CERN ER MILLENNIUM Comment: Test Performed by: [place] [address] [employer] Machine Helper: Tommy Irene II, M.D., Ph.D. Neuronal (V-G) K+ Channel Ab 0.00 <=0.02 nmol/L CERNER MILLENNIUM Comment: Test Performed by: [place] [address] [employer] Boring Machine Helper: Tommy Irene II, M.D., Ph.D. Specimen Anatomical Collection Method Collection Time Receive d Time (Source) Location / / Volume Laterality Blood specimen 09/23/2014 3:50 PM 015 4:42 (specimen) EDT PM EDT Resulting Agency Comment Spec In Lab Nathen Go MD CHEMISTRY ORDERABLES Performing Organization Address City/[facility]/ZIP Code Phon e Number [address] CERNER MILLENNIUM (ABNORMAL) Thyroglobulin Antibody (09/23/2014 3:50 PM EDT) Analysis Performed At Patho logist Time Signature Thyroglob Ab 232.0 (H) 0.0 - 40.0 CERNER IU/mL MILLENNIUM Comment: Assay performed is the [employer] Immulite Tg-A b immunometric assay. (Cutoff for TgAb negativity is <20 IU/ml ) Specimen Anatomical Collection Method Collection Time Receive d Time (Source) Location / / Volume Laterality Blood specimen 09/23/2014 3:50 PM 015 8:08 (specimen) EDT AM EDT Resulting Agency Comment Spec In Lab Nathen Go MD CHEMISTRY ORDERABLES Performing Organization Address [facility]/ZIP Code Phon e Number [address] CERNER MILLENNIUM Thyroid peroxidase antibody (09/23/2014 3:50 PM EDT) P athologist Signature Thyroperox Ab 25 <=34 IU/mL CERNER MILLENNIUM Specimen Anatomical Collection Method Collection Time Receive d Time (Source) Location / / Volume Laterality Blood specimen 09/23/2014 3:50 PM 015 8:08 (specimen) EDT AM EDT Resulting Agency Comment Spec In Lab Nathen Go MD IMMUNOLOGY ORDERABLES Performing Organization Address City/[facility]/ZIP [facility] Phon e Number [address] CERNER MILLENNIUM (ABNORMAL) T3 Total (09/15/2014 1:03 PM EDT) P athologist Signature T3, Total 261 (H) 75 - 170 CERNER ng/dL MILLENNIUM Specimen Anatomical Collection Method Collection Time Receive d Time (Source) Location / / Volume Laterality Blood specimen 09/15/2014 1:03 PM 015 1:18 (specimen) EDT PM EDT Resulting Agency Comment Spec In Lab Nathen Go MD CHEMISTRY ORDERABLES Performing Organization Address [facility]/ZIP Code Phon e Number [address] [facility] T4 Total (09/15/2014 1:03 PM EDT) P athologist Signature T4, total 6.9 5.1 - 10.8 CERNER mcg/dL [facility] Comment: Reference Range: Cord Blood: ??6.9-14.4 mcg/dL Females: ??7.2-14.2 mcg/dL Pediatric ranges: ??Interpret with cauti on-ranges have not been verified Specimen Anatomical Collection Method Collection Time Receive d Time (Source) Location / / Volume Laterality Blood specimen 09/15/2014 1:03 PM 015 1:18 (specimen) EDT PM EDT Resulting Agency Comment Spec In Lab Nathen Go MD CHEMISTRY ORDERABLES Performing Organization Address [facility]/ZIP Code Phon e Number [address] [facility] (ABNORMAL) TSH (09/15/2014 1:03 PM EDT) athologist Signature TSH 0.11 (L) 0.27 - 4.20 CERNER mcIU/mL [facility] Specimen Anatomical Collection Method Collection Time Receive d Time (Source) Location / / Volume Laterality Blood specimen 09/15/2014 1:03 PM 015 1:18 (specimen) EDT PM EDT Resulting Agency Comment Spec In Lab Nathen Go MD CHEMISTRY ORDERABLES Performing Organization Address City/[facility]/ZIP Code Phon e Number [address] [facility] Urine culture Clean Catch Urine (09/09/2014 5:13 PM EDT) [facility] gist Method Time Signature Urine Culture CERNER ? Patient Name: BRIANNA LAY ? Ordered By: BIJAN JEAN ? MR#: [id number] ?LOC: ??2WPC ? /Sex: ??1955 (59 years), [...] Organization Address City/State/[place] [address] (ABNORMAL) TSH (09/09/2014 3:26 PM EDT) P athologist Signature TSH 5.39 (H) 0.27 - 4.20 CERNER mcIU/mL MILLENNIUM Specimen Anatomical Collection Method Collection Time Receive d Time (Source) Location / / Volume Laterality Blood specimen 09/09/2014 3:26 PM 015 3:33 (specimen) EDT PM EDT Resulting Agency Comment Spec In Lab Nathen Go MD CHEMISTRY ORDERABLES Performing Organization Address [facility] [place] [address] CERNER MILLENNIUM T4 Total (09/09/2014 3:26 PM EDT) P athologist Signature T4, total 7.7 5.1 - 10.8 CERNER mcg/dL [facility] Comment: Reference Range: Cord Blood: ??6.9-14.4 mcg/dL Females: ??7.2-14.2 mcg/dL Pediatric ranges: ??Interpret with cauti on-ranges have not been verified Specimen Anatomical Collection Method Collection Time Receive d Time (Source) Location / / Volume Laterality Blood specimen 09/09/2014 3:26 PM 015 3:33 (specimen) EDT PM EDT Resulting Agency Comment Spec In Lab Nathen Go MD CHEMISTRY ORDERABLES Performing Organization Address City/[facility]/ZIP Code Phon e Number [address] [facility] (ABNORMAL) T3 Total (09/09/2014 3:26 PM EDT) P athologist Signature T3, Total 60 (L) 75 - 170 CERNER ng/dL [facility] Specimen Anatomical Collection Method Collection Time Receive d Time (Source) Location / / Volume Laterality Blood specimen 09/09/2014 3:26 PM 015 3:33 (specimen) EDT PM EDT Resulting Agency Comment Spec In Lab Nathen Go MD CHEMISTRY ORDERABLES Performing Organization Address City/[facility]/ZIP [facility] Phon e Number [address] [facility] EKG 12 Lead (09/09/2014 9:08 AM EDT) Component Value Ref Range Test Analysis Performed Pathologis t Method Time At Signature Ventricular rate 76 BPM MUSE SYSTEM Atrial Rate 76 BPM MUSE SYSTEM P-R Interval 142 ms MUSE SYSTEM QRS Duration 88 ms MUSE SYSTEM Q-T Interval 380 ms MUSE SYSTEM QTC Calculated 427 ms MUSE SYSTEM (Bezet) Calculated P [place] 79 degrees MUSE SYSTEM Calculated R [place] 80 degrees MUSE SYSTEM Calculated T [place] 73 degrees MUSE SYSTEM INTERPRETATION Normal sinus rhythm MUSE SYSTEM Possible Left atrial enlargement Borderline ECG No previous ECGs available Confirmed by MD MONAHAN BRUCE ([id number]) on 09/09/2014 9:16:14 PM Specimen Anatomical Collection Method Collection Time Receive d Time (Source) Location / / Volume Laterality 09/09/2014 9:08 AM 5 9:16 EDT PM EDT Bijan Jean MD ECG ORDERABLES Performing Organization Address City/State/ZIP Code Phon e Number MUSE SYSTEM (ABNORMAL) Urinalysis with microscopic (09/09/2014 7:14 AM EDT) [facility] Method Time Signature Glucose UA Negative [...] Hazy (A) Clear CERNER MILLENNIU M Spec Richards UA 1.014 1.002 - 1.030 CERNER MIL [...] Organization Address City/State/ZIP Code Phon e Number [address] CERNER MILLENNIUM Differential, Automated (09/09/2014 6:54 AM EDT) athologist Signature Neutrophils % 50.7 % CERNER [...] Organization Address City/State/ZIP [place] [address] CERNER MILLENNIUM Hemogram (09/09/2014 6:54 AM EDT) athologist [facility] WBC 4.2 4.0 - 10.0 CERNER x10(3)/mcL [...] Organization Address City/State/ZIP Code Phon e Number [address] [facility] MILLEN[facility]UM (ABNORMAL) TSH (09/09/2014 6:54 AM EDT) athologist [facility] TSH 13.20 (H) 0.27 - CERNER 4.20 MILLENNIUM mcIU/mL Specimen Anatomical Collection Method Collection Time Receive d Time (Source) Location / / Volume Laterality Blood specimen 09/09/2014 6:54 AM 015 7:09 (specimen) EDT AM EDT Resulting Agency Comment Spec In Lab Bijan Jean MD CHEMISTRY ORDERABLES Performing Organization Address City/State/ZIP Code Phon e Number [address] [facility] Hepatic Function Panel (09/09/2014 6:54 AM EDT) P athologist Signature Total Protein 6.2 6.1 - [...] Jean MD CHEMISTRY ORDERABLES Performing Organization Address City/[facility]/ZIP Code Phon e Number [address] CERNER MILLENNIUM Phosphorus (09/09/2014 6:54 AM EDT) athologist Signature Phosphorus 3.0 2.5 - 4.5 CERNER mg/dL [facility] Specimen Anatomical Collection Method Collection Time Receive d Time (Source) Location / / Volume Laterality Blood specimen 09/09/2014 6:54 AM 015 7:09 (specimen) EDT AM EDT Resulting Agency Comment Spec In Lab Bijan Jean MD CHEMISTRY ORDERABLES Performing Organization Address City/[facility]/ZIP Code Phon e Number [address] CERNER MILLENNIUM Magnesium (09/09/2014 6:54 AM EDT) athologist Signature Magnesium 0.88 0.69 - 1.07 CERNER mmol/L MILLENNIUM Specimen Anatomical Collection Method Collection Time Receive d Time (Source) Location / / Volume Laterality Blood specimen 09/09/2014 6:54 AM 015 7:09 (specimen) EDT AM EDT Resulting Agency Comment Spec In Lab Bijan Jean MD CHEMISTRY ORDERABLES Performing Organization Address City/[facility]/ZIP Code Phon e Number BRIANNA [address] CERNER MILLENNIUM Calcium (09/09/2014 6:54 AM EDT) athologist Signature Calcium 8.9 8.5 - 10.5 CERNER mg/dL MILLENNIUM Specimen Anatomical Collection Method Collection Time Receive d Time (Source) Location / / Volume Laterality Blood specimen 09/09/2014 6:54 AM 015 7:09 (specimen) EDT AM EDT Resulting Agency Comment Spec In Lab Bijan Jean MD CHEMISTRY ORDERABLES Performing Organization Address City/[facility] Code Phon e Number [address] CERNER MILLENNIUM Creatinine (09/09/2014 6:54 AM EDT) athologist Signature Creatinine 0.76 0.70 - 1.20 CERNER mg/dL MILLENNIUM Comment: Please note that the pediatric reference intervals supplied above were not validated at [facility]. Results from pediatri c patients should be interpreted in conjunction to the patient's age, height and muscle mass. Estimated GFR >60 >=60 DOUGIENER BENIU M Comment: This estimated GFR (eGFR) value [...] the following links into your internet browser. [email or web address]/DHnkdep [email or web address]/DHMCnkf Specimen Anatomical Collection Method Collection Time Receive d Time (Source) Location / / Volume Laterality Blood specimen 09/09/2014 6:54 AM 015 7:09 (specimen) EDT AM EDT Resulting Agency Comment Spec In Lab Bijan Jean MD CHEMISTRY ORDERABLES Performing Organization Address City/[facility]/ZIP Code Phon e Number [address] CERNER MILLENNIUM BUN (09/09/2014 6:54 AM EDT) P athologist Signature BUN 10 8 - 18 CERNER mg/dL MILLENNIUM Specimen Anatomical Collection Method Collection Time Receive d Time (Source) Location / / Volume Laterality Blood specimen 09/09/2014 6:54 AM 015 7:09 (specimen) EDT AM EDT Resulting Agency Comment Spec In Lab Bijan Jean MD CHEMISTRY ORDERABLES Performing Organization Address City/[facility]/ZIP Code [place] [address] CERNER MILLENNIUM (ABNORMAL) Electrolytes [...] Jean MD CHEMISTRY ORDERABLES Performing Organization Address City/[facility]/ZIP Code [place] [address] CERNER MILLENNIUM documented in this [...] TERESA) 0933 (Given - Provider: Maria L Pineda, TERESA) 0739 ([facility] Hold - Provider: Admin Adt - R bibiana: Transfer to a Procedural area)0845 ([facility] Unhold - Provider: Admin Adt)0853 (Given - Provider: Rut Yuan) 40 mg, Oral, DAILY, First dose on Sun at 0900, Until Discontinued, Routine levothyroxine (SYNTHROID) tablet 100 mcg (CANCELED) 06 39 (Given - Provider: Jyoti Wagner RN)0729 ([facility] Hold - Provider: Admin Adt - Reason: Transfer to a Procedural area)0851 ([facility] Unhold - Provider: Admin Adt) 0624 (Given - Provider: Jyoti Wagner RN) 0639 (Given - Provider: Trista Chang)0739 ([facility] Hold - Provider: Admin Adt - Reason: Transfer to a Procedural area)0845 ([facility] Unhold - Provider: Admin Adt) 100 mcg, Oral, EVERY MORNING, First dose on Sun09/16/14 at 1000, Until Discontinued, Routine liothyronine (CYTOMEL) tablet 50 mcg (CANCELED) 0639 ( Given - Provider: Jyoti Wagner RN)0729 ([facility] Hold - Provider: Admin Adt - Reason: Transfer to a Procedural area)0851 ([facility] Unhold - Provider: Admin Adt) 0624 (Given - Provider: Jyoti Wagner RN) 0639 (Given - Provider: Trista Chang)0739 ([facility] Hold - Provider: Admin Adt - Reason: Transfer to a Procedural area)0845 ([facility] Unhold - Provider: Admin Adt) 50 mcg, Oral, EVERY MORNING, First dose on Sun09/22/14 at 0600, Until Discontinued, Routine OLANZapine (ZyPREXA) tablet 10 mg (CANCELED) 0729 ([facility] Hold - Provider: Admin Adt - Reason: Transfer to a Procedural area)0851 ([facility] Unhold - Provider: Admin Adt)2129 (Given - Provider: Soco Vogel RN) 10 mg, Oral, NIGHTLY, First dose on Sun09/21/14 at 2100, Until Discontinued, Routine omega-3 acid ethyl esters (LOVAZA) capsule 2 g 0729 ([facility] Hold - Provider: Admin Adt - Reason: Transfer to a Procedural area)0851 ([facility] Unhold - Provider: Admin Adt)1108 (Given - Provider: Brianna Huntley, TERESA) 0932 (Given - Provider: Maria L Pineda, TERESA)2056 (Given - Provider: Soco Vogel RN) 0739 ([facility] Hold - Provider: Admin Adt - Reason: Transfer to a Procedural area)0845 ([facility] Unhold - Provider: Admin Adt)0853 (Given - Provider: Rut Yuan) 2 g, Oral, 2 TIMES DAILY, First dose on Sun09/14/14 at 2100, Until Discontinued, Routine 2128 (Not Given - Provider: Soco Vogel RN - Reason: Patient Unable - Comment: patient unable to swallow) QUEtiapine (SEROquel) tablet 250 mg 2054 (Given - Provider: Soco Vogel RN) 0739 ([facility] Hold - Provider: Admin Adt - R bibiana: Transfer to a Procedural area)0845 ([facility] Unhold - Provider: Admin Adt) 250 mg, Oral, NIGHTLY, First dose on Sun09/23/14 at 2100 QUEtiapine (SEROquel) tablet 50 mg (COMPLETED) 1237 (Given - Provider: Maria L Pineda RN) 50 mg, Oral, ONCE, 1 dose, Sun09/23/14 at 1200, Routine sodium chloride 0.9 % flush 5 mL (CANCELED) 0729 ([facility] Hold - Provider: Admin Adt - Reason: Transfer to a Procedural area)0851 ([facility] [place] Unhold - Provider: Admin Adt)0900 (Not Given - Provider: Brianna Huntley RN - Reason: See comment - Comment: Done in ECT) 0932 (Given - Provider: Trista Murillo)2056 (Given - Provider: Soco Vogel RN) 0739 ([facility] Hold - Provider: Admin Adt - Reason: Transfer to a Procedural area)0845 ([facility] [place] Unhold - Provider: Admin Adt)0900 (Not Given [...] Routine documented in this encounter Care Teams Pediatric Lpn Relationship Specialty Start Date End Date Jewel Cherry MD PCP - General 09/17/14 11/18/[address] [place] [address] [place] [address] documented as of this encounter
--- OUTSIDE RECORDS SUMMARY | 2022-01-09 00:40 | XMS_ITS | Encounter Summary ---
:1955 [place] [address] Care Team Providers Name Role Phone Anne Marie Fay MD Primary Care Provider Encounter Details Date Type Department Care Team Description 09/21/2014 Anesthesia Event Main Operating Room Steve Barrientos MD [facility] [address] [facility] [place] [address] [place] [address] Anesthesia Record Procedure Summary Procedure Name Responsible Anesthesia Start Anesthesia Stop Time Anesthesiologist Time ECT (WRVU 2.5) Steve Raymundo MD 09/21/14 0804 09/21/14 08 17 (Bilateral ) Events Date Time Event Comment 09/21/2014 0804 AN Verify 0804 Start 0804 An Start Data 0805 0805 ASA Monitors 0807 Masked Placed/ Pre O2 0817 an stop data 0817 Stop Name Total Methohexital 80 mg Succinylcholine 40 mg Lactated Ringers 200 mL Agents No agents on file. Blood No [...] encounter OR Notes Anesthesia Postprocedure Evaluation - Steve Raymundo MD - 09/21/2014 8:25 AM EDT Patient: Brianna Stringer Procedure(s) Performed: Procedure(s): ECT Actual Anesthetic: general Patient location: PACU Post-op pain: Adequate analgesia Post-op nausea: no nausea or vomiting Last Vitals: Filed Vitals: 09/21/14 0700 BP: 129/71 Pulse: 103 Temp: 36.9 ??C (98.4 ??F) Resp: 20 Post-op cardiovascular and respiratory status: is stable Level of consciousness: awake, alert and oriented Complications: no apparent complications and tolerated the procedure well Fluid Status: normal Anesthesia Preprocedure Evaluation - Steve Raymundo MD - 09/21/2014 8:04 AM EDT Pre-Anesthesia Evaluation for: Brianna Stringer a 59 y.o. female. Procedure(s): ECT Patient Active Problem List Diagnosis ??? Major depressive disorder, recurrent episode, severe, specified as with psychotic behavior No past medical history on file. Past Surgical History Procedure Laterality Date ??? Electroconvulsive therapy,1 seiz Bilateral 09/10/2014 ECT performed by Giovany Alicia MD at [facility] MAIN OR ??? Electroconvulsive therapy,1 seiz Bilateral 09/11/2014 ECT performed by Nathen Go MD at [facility] MAIN OR ??? Electroconvulsive therapy,1 seiz Bilateral 09/14/2014 ECT performed by Vamshi Dukes MD at [facility] MAIN OR ??? Electroconvulsive therapy,1 seiz Bilateral 09/15/2014 ECT performed by Alonzo Martel MD at [facility] MAIN OR History Substance Use Topics ??? Smoking status: Never Smoker ??? Smokeless tobacco: Never Used ??? Alcohol Use: No History Drug Use No Allergies Allergen Reactions ??? Ampicillin Itching ??? Sulfa (Sulfonamide Antibiotics) Nausea And Vomiting Medications: MAR and/or home medications have been reviewed. Physical Exam: Filed Vitals: 09/21/14 0700 BP: 129/71 Pulse: 103 Temp: 36.9 ??C (98.4 ??F) Resp: 20 Body mass index is 21.63 kg/(m^2). Height: 165.1 cm (5' 5) Weight - Scale: 58.968 kg (130 lb) Airway Assessment: Mallampati: I TM distance: >3 FB Cardiovascular Assessment: cardiovascular exam normal Pulmonary Assessment: pulmonary exam normal Dental Assessment: Misc Assessment: Anesthesia Plan: ASA 3 general, with a(n) intravenous induction Region - Other Informed Consent: Anesthetic plan and risks discussed with patient. Mis. Assessment: documented in this encounter Plan of Treatment Not on filedocumented as of this encounter Visit Diagnoses Not on filedocumented in this encounter Administered Medications Inactive Administered Medications - up to 3 most recent administrations Medication Order MAR Action Action Date Dose Rate Site lactated ringers infusion New Bag 09/21/2014 8:11 AM EDT CONTINUOUS PRN, Starting on Sun09/21/14 at 0811, Until Sun09/21/14 at 0817, Anesthesia Intra-op methohexital (BREVITAL) injection Given 09/21/2014 8:06 AM EDT 80 mg PRN, Starting on Sun09/21/14 at 0806, Until Sun09/21/14 at 0817, Anesthesia Intra-op, Routine succinylcholine (ANECTINE) injection Given 09/21/2014 8:06 AM EDT 40 mg PRN, Starting on Sun09/21/14 at 0806, Until Sun09/21/14 at 0817, Anesthesia Intra-op, Routine documented in this encounter Care Teams Facility Specialist Relationship Specialty Start Date End Date Anne Marie Fay MD PCP - General 09/17/14 11/18/[address] [place] [address] GENERAL [place] [address] documented as of this encounter
--- OUTSIDE RECORDS SUMMARY | 2022-01-09 00:40 | XMS_ITS | Encounter Summary ---
:1955 [place] [address] Care Team Providers Name Role Phone Sumeet Anne Marie Garcia MD Primary Care Provider Encounter Details Date Type Department Care Team Description 09/22/2014 Anesthesia Event Main Operating Room Charis Mock MD [facility] [place] [address] [facility] [address] [place] [address] Anesthesia Record Procedure Summary Procedure Name Responsible Anesthesia Start Anesthesia Stop Time Anesthesiologist Time ECT (WRVU 2.5) Charis Veliz MD 09/22/14 0725 09/22/14 07 41 (Bilateral ) Events Date Time Event Comment 09/22/2014 0725 Start 0726 0727 AN Verify 0727 An Start Data 0727 ASA Monitors 0728 Masked Placed/ Pre O2 0731 An Induction 0731 Masked Placed/ Pre O2 0731 An Induction 0733 Bite Block In 0734 ECT Rx 0740 PACU Bed 0741 an stop data 0741 Stop Name Total Methohexital 80 mg Succinylcholine 40 mg Sodium Chloride 0.9% 100 mL Agents Name O2 Blood No blood administrations on file. Lines, Drains, and Airways Type Details Placement Removal PIV 09/22/14; 0637; cephalic vein 09/22/14 0637 by H odgdon, 09/24/14 0000 by right (lateral side of arm); TERESA Lopez Jessica L, LNA [id number] catheter system; 22 gauge, 1 in length; GIOVANY LAY RN; intradermal injection, tolerated well; 0; 09/24/14 documented in this encounter Social History Tobacco Use Types Packs/Day Years Used Date Never Smoker Smokeless Tobacco: Never Used Alcohol Use Standard Drinks/Week Comments No 0 (1 standard drink = 0.6 oz pure alcoho l) Sex Assigned at Date Recorded Not on file documented as of this encounter OR Notes Anesthesia Postprocedure Evaluation - Charis Veliz MD - 09/22/2014 8:21 AM EDT Patient: Brianna Lay Procedure(s) Performed: Procedure(s): ECT Actual Anesthetic: general Patient location: PACU Post-op pain: Adequate analgesia Post-op nausea: no nausea or vomiting Last Vitals: Filed Vitals: 09/22/14 0802 BP: 138/78 Pulse: 99 Temp: Resp: 18 Post-op cardiovascular and respiratory status: is stable Level of consciousness: awake, alert and oriented Complications: no apparent complications and tolerated the procedure well Fluid Status: normal Anesthesia Preprocedure Evaluation - Charis Veliz MD - 09/21/2014 4:06 PM EDT Pre-Anesthesia Evaluation for: Brianna Lay a 59 y.o. female. Procedure(s): ECT Patient Active Problem List Diagnosis ??? Major depressive disorder, recurrent episode, severe, specified as with psychotic behavior No past medical history on file. Past Surgical History Procedure Laterality Date ??? Electroconvulsive therapy,1 seiz Bilateral 09/10/2014 ECT performed by Giovany Alicia MD at [facility] MAIN OR ??? Electroconvulsive therapy,1 seiz Bilateral 09/11/2014 ECT performed by Nathen Go MD at [facility] MAIN OR ??? Electroconvulsive therapy,1 seiz Bilateral 09/14/2014 ECT performed by Vamshi Dukes MD at [facility] MAIN OR ??? Electroconvulsive therapy,1 seiz Bilateral 09/15/2014 ECT performed by Alonzo Martel MD at [facility] MAIN OR ??? Electroconvulsive therapy,1 seiz Bilateral 09/18/2014 ECT performed by Andre De La Cruz MD at [facility] MAIN OR History Substance Use Topics ??? Smoking status: Never Smoker ??? Smokeless tobacco: Never Used ??? Alcohol Use: No History Drug Use No Allergies Allergen Reactions ??? Ampicillin Itching ??? Sulfa (Sulfonamide Antibiotics) Nausea And Vomiting Medications: MAR and/or home medications have been reviewed. Physical Exam: Filed Vitals: 09/21/14 0840 BP: 126/70 Pulse: 101 Temp: Resp: 16 Body mass index is 21.63 kg/(m^2). Height: 165.1 cm (5' 5) Weight - Scale: 58.968 kg (130 lb) Airway Assessment: Cardiovascular Assessment: Pulmonary Assessment: Dental Assessment: [facility] Assessment: IV access: Peripheral line Anesthesia Plan: ASA 3 general, with a(n) intravenous induction 59yoF, inpatient for MDD. Tolerated yesterday's treatment well. Plan general, serial consent on file. Questions answered. Charis Veliz MD Region - Other Informed Consent: Anesthetic plan and risks discussed with patient. Plan discussed with INFORMATION SERVICES VICE PRESIDENT, resident and attending. [facility]. Assessment: documented in this encounter Plan of Treatment Not on filedocumented as of this encounter Visit Diagnoses Not on filedocumented in this encounter Administered Medications Inactive Administered Medications - up to 3 most recent administrations Medication Order MAR Action Action Date Dose Rate Site methohexital (BREVITAL) injection Given 09/22/2014 7:31 AM EDT 80 mg PRN, Starting on Sun09/22/14 at 0731, Until Sun09/22/14 at 0741, Anesthesia Intra-op, Routine sodium chloride 0.9% infusion New Bag 09/22/2014 7:25 AM EDT CONTINUOUS PRN, Starting on Sun09/22/14 at 0725, Until Sun09/22/14 at 0741, Anesthesia Intra-op succinylcholine (ANECTINE) injection Given 09/22/2014 7:31 AM EDT 40 mg PRN, Starting on Sun09/22/14 at 0731, Until Sun09/22/14 at 0741, Anesthesia Intra-op, Routine documented in this encounter Care Teams Vacuum System Tester Relationship Specialty Start Date End Date Anne Marie Fay MD PCP - General 09/17/14 11/18/[address] [place] [address] [facility] [place] [address] documented as of this encounter
--- OUTSIDE RECORDS SUMMARY | 2022-01-09 00:40 | XMS_ITS | Encounter Summary ---
:1955 [place] [address] Care Team Providers Name Role Phone Jewel Cherry MD Primary Care Provider Encounter Details Date Type Department Care Team Description 09/21/2014 Surgery Main Operating Room Geovani Jolley MD ECT (WRVU 2.5) [facility] Geovani [place] [address] [place] [address] [phone] (Wo rk) Social History Tobacco Use Types [...] stabilization and medication management. Discharge Multi-axial Diagnosis: Edmonds I: MDD w/ psychotic features Edmonds II: deferred Edmonds III: hypothyroid on replacement Edmonds IV: father's health concerns Edmonds V: Admission GAF: 25 Discharge GAF: 45 [...] and patient was eventually involuntarily admitted to [facility]. At [facility] patient's Celexa was increased to 20mg and then she was discharged. Patient was eventually seen by Dr. Aurea Valencia MD a psychiatrist at [facility] who diagnosed the patient with MDD with [...] Brianna's delusions), so they requested admission to [facility]. She denies SI/HI #Depression Patient denies any [...] history of being religous and she attends [employer] several times a week. In the past her alevism beliefs never crossed what is normally accepted. [...] followup Primary Care Physician: JEWEL CHERRY MD [phone] Special Physician Instructions: -Continue to do outpatient ECT as scheduled and recommended -Take your medications as instructed -Make sure to have a colonoscopy and mammogram done -Make sure your doctor follows up on pending labs at [facility] -Come to the emergency room or call your doctor if you feel unsafe or have thoughts of suicide Special Instructions Provided to Brianna Lay: Call your doctor, your local mental health center, or your local emergency room if you develop worsening symptoms of depression, anxiety, thoughts of harming yourself, thoughts of harming others, or any other decline in your overall condition. [facility] Emergency Services: [facility] [phone] [facility] Emergency Services: [phone] [facility] Central Access Services: [phone] [facility] Main Line: [phone] Activity level: no restrictions from psychiatry Diet: [...] TREAT AT General Instructions Dr Aurea Valencia [phone] September 24 at 2:30pm Dr Regla Patel, October 01 at 11:30am Discharge References/Attachments None Signed: William Correia MD 09/27/2014 documented in this encounter Discharge Instructions Discharge InstructionsWilliam Correia MD - 09/24/2014 12:[address] Aurea Valencia [phone] September 24 at 2:30pm Dr Regla Patel, [...] followup Primary Care Physician: JEWEL CHERRY MD [phone] Special Physician Instructions: -Continue to do outpatient ECT as scheduled and recommended -Take your medications as instructed -Make sure to have a colonoscopy and mammogram done -Make sure your doctor follows up on pending labs at [facility] -Come to the emergency room or call your doctor if you feel unsafe or have thoughts of suicide Special Instructions Provided to Brianna Lay: Call your doctor, your local mental health center, or your local emergency room if you develop worsening symptoms of depression, anxiety, thoughts of harming yourself, thoughts of harming others, or any other decline in your overall condition. [facility] Emergency Services: [facility] [phone] [facility] Emergency Services: [phone] [facility] Central Access Services: [phone] [facility] Main Line: [phone] Activity level: no restrictions from psychiatry Diet: [...] Results Component Value Date TSH 0.11* 09/15/2014 [id number] 261* 09/15/2014 TT4 6.9 09/15/2014 Lipids and HgbA1C: No results found for this basename: CHLPL, HDL, CHOLHDL, LDLCHOL, LDLDIRECT, TRIG No results found for this basename: HA1C Vit Lvls: No results found for this basename: [id number], SFOLATE UA: No results found for this [...] Nursing report phoned to Kait acosta RN. [phone] - Pt transported to 219A in stable condition. Soco Valle RN - 09/23/2014 2:47 PM EDT TC with pts , Will at [phone]. He believes pt is about 75% back [...] i feel that somehow the people at [facility] might hurt them Severity:. Rates Depression: 10/02, [...] Results Component Value Date TSH 0.11* 09/15/2014 [id number] 261* 09/15/2014 TT4 6.9 09/15/2014 Lipids and HgbA1C: No results found for this basename: CHLPL, HDL, CHOLHDL, LDLCHOL, LDLDIRECT, TRIG No results found for this basename: HA1C Vit Lvls: No results found for this basename: [id number], SFOLATE UA: No results found for this [...] still fears that she irritated people at [facility] who might harm her family. Tremor [...] Results Component Value Date TSH 0.11* 09/15/2014 [id number] 261* 09/15/2014 TT4 6.9 09/15/2014 Lipids and HgbA1C: No results found for this basename: CHLPL, HDL, CHOLHDL, LDLCHOL, LDLDIRECT, TRIG No results found for this basename: HA1C Vit Lvls: No results found for this basename: [id number], SFOLATE UA: No results found for this [...] Results Component Value Date TSH 0.11* 09/15/2014 [id number] 261* 09/15/2014 TT4 6.9 09/15/2014 Lipids and HgbA1C: No results found for this basename: CHLPL, HDL, CHOLHDL, LDLCHOL, LDLDIRECT, TRIG No results found for this basename: HA1C Vit Lvls: No results found for this basename: [id number], SFOLATE UA: No results found for this [...] Results Component Value Date TSH 0.11* 09/15/2014 [id number] 261* 09/15/2014 TT4 6.9 09/15/2014 Lipids and HgbA1C: No results found for this basename: CHLPL, HDL, CHOLHDL, LDLCHOL, LDLDIRECT, TRIG No results found for this basename: HA1C Vit Lvls: No results found for this basename: [id number], SFOLATE UA: No results found for this [...] Results Component Value Date TSH 0.11* 09/15/2014 [id number] 261* 09/15/2014 TT4 6.9 09/15/2014 Lipids and HgbA1C: No results found for this basename: CHLPL, HDL, CHOLHDL, LDLCHOL, LDLDIRECT, TRIG No results found for this basename: HA1C Vit Lvls: No results found for this basename: [id number], SFOLATE UA: No results found for this [...] Results Component Value Date TSH 0.11* 09/15/2014 [id number] 261* 09/15/2014 TT4 6.9 09/15/2014 Lipids and HgbA1C: No results found for this basename: CHLPL, HDL, CHOLHDL, LDLCHOL, LDLDIRECT, TRIG No results found for this basename: HA1C Vit Lvls: No results found for this basename: [id number], SFOLATE UA: No results found for this [...] Mood: Calm Notes: Pt. talked with this feature writer about living in [place] and her son. Listened to conversations of [...] Pt. attentive although quiet. After group thanked feature writer stating he learned a lot. Teresa Key [...] Results Component Value Date TSH 0.11* 09/15/2014 [id number] 261* 09/15/2014 TT4 6.9 09/15/2014 Lipids and HgbA1C: No results found for this basename: CHLPL, HDL, CHOLHDL, LDLCHOL, LDLDIRECT, TRIG No results found for this basename: HA1C Vit Lvls: No results found for this basename: [id number], SFOLATE UA: No results found for this [...] Results Component Value Date TSH 0.11* 09/15/2014 [id number] 261* 09/15/2014 TT4 6.9 09/15/2014 Lipids and HgbA1C: No results found for this basename: CHLPL, HDL, CHOLHDL, LDLCHOL, LDLDIRECT, TRIG No results found for this basename: HA1C Vit Lvls: No results found for this basename: [id number], SFOLATE UA: No results found for this [...] Results Component Value Date TSH 5.39* 09/09/2014 [id number] 60* 09/09/2014 TT4 7.7 09/09/2014 Lipids and HgbA1C: No results found for this basename: CHLPL, HDL, CHOLHDL, LDLCHOL, LDLDIRECT, TRIG No results found for this basename: HA1C Vit Lvls: No results found for this basename: [id number], SFOLATE UA: No results found for this [...] treated pharmacologically by Dr. Aurea Valencia at [facility] who referred her for ECT. She [...] program and Module [facility] Pt at ECT. Not available. [...] Results Component Value Date TSH 5.39* 09/09/2014 [id number] 60* 09/09/2014 TT4 7.7 09/09/2014 Lipids and HgbA1C: No results found for this basename: CHLPL, HDL, CHOLHDL, LDLCHOL, LDLDIRECT, TRIG No results found for this basename: HA1C Vit Lvls: No results found for this basename: [id number], SFOLATE UA: No results found for this [...] treated pharmacologically by Dr. Aurea Valencia at [facility] who referred her for ECT. She [...] Results Component Value Date TSH 5.39* 09/09/2014 [id number] 60* 09/09/2014 TT4 7.7 09/09/2014 Lipids and HgbA1C: No results found for this basename: CHLPL, HDL, CHOLHDL, LDLCHOL, LDLDIRECT, TRIG No results found for this basename: HA1C Vit Lvls: No results found for this basename: [id number], SFOLATE UA: No results found for this [...] and treated by Dr. Aurea Valencia at [facility] who referred her for ECT. She [...] Mood: Flat Notes: Pt. quietly worked on [employer] project. Teresa Key 09/12/2014 Soumya Daniel MD [...] Results Component Value Date TSH 5.39* 09/09/2014 [id number] 60* 09/09/2014 TT4 7.7 09/09/2014 Lipids and HgbA1C: No results found for this basename: CHLPL, HDL, CHOLHDL, LDLCHOL, LDLDIRECT, TRIG No results found for this basename: HA1C Vit Lvls: No results found for this basename: [id number], SFOLATE UA: Lab Results Component Value Date [...] and treated by Dr. Aurea Valencia at [facility] who referred her for ECT. She [...] Mood: Calm Notes: Pt. quietly worked on [employer] project. Returned to unit awaiting visit from [...] Results Component Value Date TSH 5.39* 09/09/2014 [id number] 60* 09/09/2014 TT4 7.7 09/09/2014 Lipids and HgbA1C: No results found for this basename: CHLPL, HDL, CHOLHDL, LDLCHOL, LDLDIRECT, TRIG No results found for this basename: HA1C Vit Lvls: No results found for this basename: [id number], SFOLATE UA: Lab Results Component Value Date [...] and treated by Dr. Aurea Valencia at [facility] who referred her for ECT. She [...] Results Component Value Date TSH 5.39* 09/09/2014 [id number] 60* 09/09/2014 TT4 7.7 09/09/2014 Lipids and HgbA1C: No results found for this basename: CHLPL, HDL, CHOLHDL, LDLCHOL, LDLDIRECT, TRIG No results found for this basename: HA1C Vit Lvls: No results found for this basename: [id number], SFOLATE UA: Lab Results Component Value Date [...] and treated by Dr. Aurea Valencia at [facility] who referred her for ECT.Patient had [...] 59 year old MWF who presents at [facility] to address her increasing depression, ongoing paranoia, [...] 81 and Mother age 80 live in [place]. Siblings are Bhavin age 59, Moo age 54 and Krzysztof age 50 also living in [place]. Patient has regular contact with her parents and more sporadic contact with her brothers. Patient was born and raised in [place] anddescribed childhood as [place]. Extended family available and involved. Patient left home at age 18 andmoved in with a relative. Patient has been with her Salvador age 65 for 36 years, for 9 years, one son José Manuel age 35 in [place]. Patient has frequent contact with her son. [...] including spiritual support: , son, Dr. Valencia, Jewish [employer]ism. 6. 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 Report called to receiving dyer Jnena Baker MS - 09/09/2014 1:52 PM EDT [...] son Employment: unemployed at this time Residence: [address] [place] [phone] Guardian/Medical Decision Maker: self Outpatient Providers: (include location) Current Mental Health Prescriber: Dr. Aurea Valencia MD. [facility] Current Therapist: Deb Romo PCP: Dr. Sung [...] and patient was eventually involuntarily admitted to [facility]. At [facility] patient's Celexa was increased to 20mg and then she was discharged. Patient was eventually seen by Dr. Aurea Valencia MD a psychiatrist at [facility] who diagnosed the patient with MDD with [...] Brianna's delusions), so they requested admission to [facility]. She denies SI/HI #Depression Patient denies any [...] history of being religous and she attends [employer] several times a week. In the past her alevism beliefs never crossed what is normally accepted. [...] Prior diagnoses: depression Past hospitalization and location: [facility] - involuntarily Suicide attempts: none Past [...] of ever using drugs or alcohol. Highly alevism in the past. 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 ENDO No temperature intolerance HEME/LYMPH No easy bruising ALL/IMMUNO No symptoms of Sinustis Physical Exam: Vitals Admission (Current) from 09/08/2014 in 2 [facility] Weight - Scale 57.153 kg [...] remote memory intact ?? Fund of Knowledge: [facility] ?? Insight: fair ?? Judgment: . [...] establishing adequate outpatient care). DSM Multiaxial Diagnosis: Edmonds I MDD with psychotic features Edmonds II deferred Edmonds III Hypothyroid on replacement Edmonds IV: Father's health concerns Edmonds V: GAF = 25 Clinical Global Impression: [...] with psychotic behavior [296.34] Procedures 1. ECT [[id number] (CPT??)] ECT SUBSEQUENT TREATMENT NOTE Patient received [...] with psychotic behavior [296.34] Procedures 1. ECT [[id number] (CPT??)] ECT SUBSEQUENT TREATMENT NOTE Patient received [...] with psychotic behavior [296.34] Procedures 1. ECT [[id number] (CPT??)] Expand All Collapse All ECT SUBSEQUENT [...] not safe- here and reinforced reality with feature writer. Brianna continues to have bilateral shaking in [...] Outcome (s) achieved Date Met: 09/24/14 09/08/14183509/21/14 1882 Individualization Individualize the Plan of Care: -- [...] concerns about the staff at the [facility] yet she can see that it doesn't make much sense Patient denies SI or HI. Depression 10/02 and no anxiety PLAN MOVING FORWARD: NPO after midnight for ect INDIVIDUALIZED FALL PREVENTION: Assistance: independent Supervision: Escort to group Surveillance: 30 minute checks CPG GOAL OUTCOME EVALUATION: Goal: Individualization and Mutuality Outcome: Ongoing (Interventions Implemented as Appropriate) 09/08/14 0185 09/21/14 5748 Individualization Individualize the Plan of Care: -- [...] Last BM 3-28. Gait steady. Med compliant. LA Goal: Groups. Hep cap flushed, patent. Dsg [...] independent Supervision: escort Surveillance: 30 min checks, LA CPG GOAL OUTCOME EVALUATION: Goal: Fall Prevention-Safe [...] Outcome: Ongoing (Interventions Implemented as Appropriate) 09/15/14 5228 Depression (Adult, Obstetrics, Pediatric) Improved/Stable Mood making progress toward outcome Med Student Progress Note - Aidee Salgado - 09/16/2014 11:58 AM EDT Inpatient Psychiatry Progress Note: 09/16/2014 ID: Brianna Lay is a 59 y.o. female with one son who lives in [facility], and is currently unemployed admitted on 09/08 [...] female with one son who lives in [facility], and is currently unemployed admitted on 09/08 [...] Outcome: Ongoing (Interventions Implemented as Appropriate) 09/14/14 2319 Coping/Psychosocial Response Interventions Plan of Care Reviewed [...] independent Supervision: escort Surveillance: 30 min checks. LA CPG GOAL OUTCOME EVALUATION: Med Student Progress Note - Aidee Salgado Jr. - 09/14/2014 12:39 PM EDT Inpatient Psychiatry Progress Note: 09/14/2014 ID:Brianna Lay is a 59 y.o. female with one son who lives in [facility], and is currently unemployed admitted on 09/08 [...] homicidal ideation and contracts for safety. Pt [id number]% of meals and reports last bowel movement [...] independent Supervision: escort Surveillance: 30 min checks. LA CPG GOAL OUTCOME EVALUATION: Goal: Individualization and [...] of harming herself oranyone else and is bere for safety. She continues to present with [...] shared thathe noticed improvement in his . [place] she was less vacant and even noticed [...] female with one son who lives in [facility] [place], and is currently unemployed admitted on 09/08 [...] Deb Romo Primary provider: Dr Pineda Hoskins [facility] MS-3 [id number] Plan of Care - Ana Barbour RN [...] female with one son who lives in [facility] [place], and is currently unemployed admitted on 09/08 [...] Primary provider: Dr Pineda Hoskins UdAidee MS-3 [id number] Plan of Care - Bonny Lepe RN - 09/09/2014 6:38 PM EDT Problem: General Plan of Care Goal: Plan of Care Review Outcome: Ongoing (Interventions Implemented as Appropriate) 09/09/14 5763 Coping/Psychosocial Response Interventions Plan of Care Reviewed [...] understanding of illness 2. Work with Patient Gis Scientist to create and implement aftercare plan 3. [...] Lay PRINT NAME: SIGNATURE: DATE: RESIDENT PHYSICIAN Wililam Correia MD 09/09/2014 ATTENDING PHYSICIAN Nathen Go MD 09/09/2014 NURSING , RN 09/09/2014 PT HAT CUTTER Nydia Valle RN- 09/09/2014 THERAPIST Jenna Baker [facility] 09/09/2014 HERD TESTER Becky Mane, [facility] 09/09/2014 Plan of Care - Brianna [...] DATE: RESIDENT PHYSICIAN ATTENDING PHYSICIAN NURSING PATIENT HAT CUTTER THERAPIST HERD TESTER Plan of Care - Bonny Lepe RN [...] the results section. ECT (WRVU 2.5) Yes 09/21/2014 8:03 AM 296.34 EDT T3 TOTAL Routine 09/15/2014 [...] Component Value Ref Test Analysis Performed At [facility] Range Method Time Signature Paraneo Eval SEE COMMENTS CERNER Interpretation MILLENNIUM Comment: No informative autoantibodies were detec adali in this evaluation. However, a negative result d oes not exclude neurological autoimmunity with or withou t associated neoplasia. Test Performed by: [place] [address] Field Associate: Tommy Irene II, M.D., Ph.D. TRACY-1 (Anti-Neuronal Nuclear Ab, Type Negative <1:240 titer CERNER MILLENNIUM 1) Comment: Test Performed by: [place] [address] Field Associate: Tommy Irene II, M.D., Ph.D. TRACY-2 (Anti-Neuronal Nuclear Ab,Type Negative <1:240 titer CERNER MILLENNIUM 2) Comment: Test Performed by: [address] [place] [address] Field Associate: Tommy Irene II, M.D., Ph.D. TRACY-3 (Anti-Neuronal Nuclear Ab, Type Negative <1:240 titer CERNER MILLENNIUM 3) Comment: Test Performed by: [place] [address] Field Associate: Tommy Irene II, M.D., Ph.D. AGNA-1 (Anti-Glial Nuclear Ab, Type 1) Negative <1:240 titer CERNER MILLENNIUM Comment: Test Performed by: [facility] [place] [address] Field Associate: Tommy Irene II, M.D., Ph.D. SHOT POLISHER-1 (Purkinje Cell Cytoplasmic Negative <1:240 titer CERNER MILLENNIUM Ab-Type 1) Comment: Test Performed by: [place] [address] Field Associate: Tommy Irene II, M.D., Ph.D. SHOT POLISHER-2 (Purkinje Cell Cytoplasmic Negative <1:240 titer CERNER MILLENNIUM Ab-Type 2) Comment: Test Performed by: [facility] [place] [address] Field Associate: Tommy Irene II, M.D., Ph.D. SHOT POLISHER-Type Tr (Purkinje Cell Cytoplasmic Negative <1:240 titer CERNER MILLENNIUM Ab-Type Tr) Comment: Test Performed by: [place] [address] Field Associate: Tommy Irene II, M.D., Ph.D. Amphiphysin Antibody Negative <1:240 titer CERNER MILLENNIUM Comment: Test Performed by: [place] [address] Field Associate: Tommy Irene II, M.D., Ph.D. CRMP-5-IgG Negative <1:240 titer CERNER MILLENNIU M Comment: CRMP-5 Titers lower than 1:240 may be de tectable by recombinant CRMP-5 western blot analysis , available by request on stored serum and recommended in cases of chorea, vision loss, cranial neuropathy and myel opathy. Extramural clients contact [facility] Inquiry at to add-on CRMP-5-IgG Western Blot, Serum . Intramural Clients, please call the Neuroimmunology Lab at [phone]. Test Performed by: [place] [address] Field Associate: Tommy Irene II, M.D., Ph.D. Striated Muscle Ab Negative <1:120 titer CERNER M ILLENNIUM Comment: Test Performed by: [place] [address] Field Associate: Tommy Irene II, M.D., Ph.D. P/Q-Type Ca Channel Ab 0.00 <=0.02 nmol/L CER NER MILLENNIUM Comment: Test Performed by: [place] [address] Field Associate: Tommy Irene II, M.D., Ph.D. N-Type Ca Channel Ab 0.00 <=0.03 nmol/L CERNE R MILLENNIUM Comment: Test Performed by: [place] [address] Field Associate: Tommy Irene II, M.D., Ph.D. ACHr Binding Ab 0.00 <=0.02 nmol/L CERNER MIL LENNIUM Comment: Test Performed by: [place] [address] Field Associate: Tommy Irene II, M.D., Ph.D. AChR Gang Neuronal Ab 0.00 <=0.02 nmol/L CERN ER MILLENNIUM Comment: Test Performed by: [place] [address] Field Associate: Tommy Irene II, M.D., Ph.D. Neuronal (V-G) K+ Channel Ab 0.00 <=0.02 nmol/L CERNER MILLENNIUM Comment: Test Performed by: [place] [address] Field Associate: Tommy Irene II, M.D., Ph.D. Specimen Anatomical Collection Method Collection Time Receive d Time (Source) Location / / Volume Laterality Blood specimen 09/23/2014 3:50 PM 015 4:42 (specimen) EDT PM EDT Resulting Agency Comment Spec In Lab Nathen Go MD CHEMISTRY ORDERABLES Performing Organization Address City/[facility]/ZIP Code Phon e Number [address] CERNER MILLENNIUM (ABNORMAL) Thyroglobulin Antibody (09/23/2014 3:50 PM EDT) Analysis Performed At Patho logist Time Signature Thyroglob Ab 232.0 (H) 0.0 - 40.0 CERNER IU/mL MILLENNIUM Comment: Assay performed is the [email or web address] Immulite Tg-A b immunometric assay. (Cutoff for TgAb negativity is <20 IU/ml ) Specimen Anatomical Collection Method Collection Time Receive d Time (Source) Location / / Volume Laterality Blood specimen 09/23/2014 3:50 PM 015 8:08 (specimen) EDT AM EDT Resulting Agency Comment Spec In Lab Nathen Go MD CHEMISTRY ORDERABLES Performing Organization Address [facility]/ZIP Code Phon e Number [address] CERNER MILLENNIUM Thyroid peroxidase antibody (09/23/2014 3:50 PM EDT) P athologist Signature Thyroperox Ab 25 <=34 IU/mL CERNER MILLENNIUM Specimen Anatomical Collection Method Collection Time Receive d Time (Source) Location / / Volume Laterality Blood specimen 09/23/2014 3:50 PM 015 8:08 (specimen) EDT AM EDT Resulting Agency Comment Spec In Lab Nathen Go MD IMMUNOLOGY ORDERABLES Performing Organization Address City/[facility]/ZIP [facility] Phon e Number [address] CERNER MILLENNIUM (ABNORMAL) T3 [...] Go MD CHEMISTRY ORDERABLES Performing Organization Address [facility]/ZIP Code Phon e Number [address] [facility] T4 Total (09/15/2014 1:03 PM EDT) P athologist Signature T4, total 6.9 5.1 - 10.8 CERNER mcg/dL [facility] Comment: Reference Range: Cord Blood: ??6.9-14.4 mcg/dL Females: ??7.2-14.2 mcg/dL Pediatric ranges: ??Interpret with cauti on-ranges have not been verified Specimen Anatomical Collection Method Collection Time Receive d Time (Source) Location / / Volume Laterality Blood specimen 09/15/2014 1:03 PM 015 1:18 (specimen) EDT PM EDT Resulting Agency Comment Spec In Lab Nathen Go MD CHEMISTRY ORDERABLES Performing Organization Address [facility]/ZIP Code Phon e Number [address] [facility] (ABNORMAL) TSH (09/15/2014 1:03 PM EDT) athologist Signature TSH 0.11 (L) 0.27 - 4.20 CERNER mcIU/mL [facility] Specimen Anatomical Collection Method Collection Time Receive d Time (Source) Location / / Volume Laterality Blood specimen 09/15/2014 1:03 PM 015 1:18 (specimen) EDT PM EDT Resulting Agency Comment Spec In Lab Nathen Go MD CHEMISTRY ORDERABLES Performing Organization Address City/[facility]/ZIP Code Phon e Number [address] [facility] Urine culture Clean Catch Urine (09/09/2014 5:13 PM EDT) [facility] gist Method Time Signature Urine Culture CERNER ? Patient Name: BRIANNA LAY ? Ordered By: BIJAN JEAN ? MR#: [id number] ?LOC: ??2WPC ? /Sex: ??1955 (59 years), [...] Organization Address City/State/[place] [address] PO CARDONA (ABNORMAL) TSH (09/09/2014 3:26 PM EDT) P athologist Signature TSH 5.39 (H) 0.27 - 4.20 CERNER mcIU/mL MILLENNIUM Specimen Anatomical Collection Method Collection Time Receive d Time (Source) Location / / Volume Laterality Blood specimen 09/09/2014 3:26 PM 015 3:33 (specimen) EDT PM EDT Resulting Agency Comment Spec In Lab Nathen Go MD CHEMISTRY ORDERABLES Performing Organization Address [facility] [place] [address] CERNER MILLENNIUM T4 Total (09/09/2014 3:26 PM EDT) P athologist Signature T4, total 7.7 5.1 - 10.8 CERNER mcg/dL [facility] Comment: Reference Range: Cord Blood: ??6.9-14.4 mcg/dL Females: ??7.2-14.2 mcg/dL Pediatric ranges: ??Interpret with cauti on-ranges have not been verified Specimen Anatomical Collection Method Collection Time Receive d Time (Source) Location / / Volume Laterality Blood specimen 09/09/2014 3:26 PM 015 3:33 (specimen) EDT PM EDT Resulting Agency Comment Spec In Lab Nathen Go MD CHEMISTRY ORDERABLES Performing Organization Address City/[facility]/ZIP Code Phon e Number [address] [facility] (ABNORMAL) T3 Total (09/09/2014 3:26 PM EDT) P athologist Signature T3, Total 60 (L) 75 - 170 CERNER ng/dL [facility] Specimen Anatomical Collection Method Collection Time Receive d Time (Source) Location / / Volume Laterality Blood specimen 09/09/2014 3:26 PM 015 3:33 (specimen) EDT PM EDT Resulting Agency Comment Spec In Lab Nathen Go MD CHEMISTRY ORDERABLES Performing Organization Address City/[facility]/ZIP [facility] Phon e Number [address] [facility] EKG 12 Lead (09/09/2014 9:08 AM EDT) Component Value Ref Range Test Analysis Performed Pathologis t Method Time At Signature Ventricular rate 76 BPM MUSE SYSTEM Atrial Rate 76 BPM MUSE SYSTEM P-R Interval 142 ms MUSE SYSTEM QRS Duration 88 ms MUSE SYSTEM Q-T Interval 380 ms MUSE SYSTEM QTC Calculated 427 ms MUSE SYSTEM (Bezet) Calculated P [place] 79 degrees MUSE SYSTEM Calculated R [place] 80 degrees MUSE SYSTEM Calculated T [place] 73 degrees MUSE SYSTEM INTERPRETATION Normal sinus [...] Urinalysis with microscopic (09/09/2014 7:14 AM EDT) [facility] Method Time Signature Glucose UA Negative [...] Hazy (A) Clear CERNER MILLENNIU M Spec Maceo UA 1.014 1.002 - 1.030 CERNER MIL [...] Organization Address City/State/ZIP Code Phon e Number [address] CERNER MILLENNIUM Differential, Automated [...] Organization Address City/State/[place] [address] CERNER MILLENNIUM Hemogram (09/09/2014 6:54 AM EDT) athologist [facility] WBC 4.2 4.0 - 10.0 CERNER x10(3)/mcL [...] Organization Address City/State/ZIP Code Phon e Number [address] [facility] MILLENNIUM (ABNORMAL) TSH (09/09/2014 6:54 AM EDT) athologist [facility] TSH 13.20 (H) 0.27 - CERNER 4.20 MILLENNIUM mcIU/mL Specimen Anatomical Collection Method Collection Time Receive d Time (Source) Location / / Volume Laterality Blood specimen 09/09/2014 6:54 AM 015 7:09 (specimen) EDT AM EDT Resulting Agency Comment Spec In Lab Bijan Jean MD CHEMISTRY ORDERABLES Performing Organization Address City/State/ZIP Code Phon e Number [address] [facility] Hepatic Function Panel (09/09/2014 6:54 AM EDT) [...] Jean MD CHEMISTRY ORDERABLES Performing Organization Address City/[facility]/ZIP Code Phon e Number [address] CERNER MILLENNIUM Phosphorus (09/09/2014 6:54 AM EDT) athologist Signature Phosphorus 3.0 2.5 - 4.5 CERNER mg/dL [facility] Specimen Anatomical Collection Method Collection Time Receive d Time (Source) Location / / Volume Laterality Blood specimen 09/09/2014 6:54 AM 015 7:09 (specimen) EDT AM EDT Resulting Agency Comment Spec In Lab Bijan Jean MD CHEMISTRY ORDERABLES Performing Organization Address City/[facility]/ZIP Code Phon e Number [address] CERNER MILLENNIUM Magnesium (09/09/2014 6:54 AM EDT) athologist Signature Magnesium 0.88 0.69 - 1.07 CERNER mmol/L MILLENNIUM Specimen Anatomical Collection Method Collection Time Receive d Time (Source) Location / / Volume Laterality Blood specimen 09/09/2014 6:54 AM 015 7:09 (specimen) EDT AM EDT Resulting Agency Comment Spec In Lab Bijan Jean MD CHEMISTRY ORDERABLES Performing Organization Address City/[facility]/ZIP Code Phon e Number BRIANNA [address] CERNER MILLENNIUM Calcium (09/09/2014 6:54 AM EDT) athologist Signature Calcium 8.9 8.5 - 10.5 CERNER mg/dL MILLENNIUM Specimen Anatomical Collection Method Collection Time Receive d Time (Source) Location / / Volume Laterality Blood specimen 09/09/2014 6:54 AM 015 7:09 (specimen) EDT AM EDT Resulting Agency Comment Spec In Lab Bijan Jean MD CHEMISTRY ORDERABLES Performing Organization Address City/[facility] Code Phon e Number [address] CERNER MILLENNIUM Creatinine (09/09/2014 6:54 AM EDT) athologist Signature Creatinine 0.76 0.70 - 1.20 CERNER mg/dL MILLENNIUM Comment: Please note that the pediatric reference intervals supplied above were not validated at [facility]. Results from pediatri c patients should be [...] the following links into your internet browser. [email or web address] Specimen Anatomical Collection Method Collection Time Receive d Time (Source) Location / / Volume Laterality Blood specimen 09/09/2014 6:54 AM 015 7:09 (specimen) EDT AM EDT Resulting Agency Comment Spec In Lab Bijan Jean MD CHEMISTRY ORDERABLES Performing Organization Address City/[facility]/ZIP Code Phon e Number [address] CERNER MILLENNIUM BUN (09/09/2014 6:54 AM EDT) P athologist Signature BUN 10 8 - 18 CERNER mg/dL MILLENNIUM Specimen Anatomical Collection Method Collection Time Receive d Time (Source) Location / / Volume Laterality Blood specimen 09/09/2014 6:54 AM 015 7:09 (specimen) EDT AM EDT Resulting Agency Comment Spec In Lab Bijan Jean MD CHEMISTRY ORDERABLES Performing Organization Address City/[facility]/[place] [address] CERNER MILLENNIUM (ABNORMAL) Electrolytes [...] Jean MD CHEMISTRY ORDERABLES Performing Organization Address City/[facility]/[place] [address] CERNER MILLENNIUM documented in [...] - Provider: Maria L Pineda, TERESA) 0739 ([facility] Hold - Provider: Admin Adt - R bibiana: Transfer to a Procedural area)0845 ([facility] Unhold - Provider: Admin Adt)0853 (Given - Provider: Rut Yuan) 40 mg, Oral, DAILY, First dose on Sun at 0900, Until Discontinued, Routine levothyroxine (SYNTHROID) tablet 100 mcg (CANCELED) 06 39 (Given - Provider: Jyoti Wagner RN)0729 ([facility] Hold - Provider: Admin Adt - Reason: Transfer to a Procedural area)0851 ([facility] Unhold - Provider: Admin Adt) 0624 (Given - Provider: Jyoti Wagner RN) 0639 (Given - Provider: Trista Chang)0739 ([facility] Hold - Provider: Admin Adt - Reason: Transfer to a Procedural area)0845 ([facility] Unhold - Provider: Admin Adt) 100 mcg, Oral, EVERY MORNING, First dose on Sun09/16/14 at 1000, Until Discontinued, Routine liothyronine (CYTOMEL) tablet 50 mcg (CANCELED) 0639 ( Given - Provider: Jyoti Wagner RN)0729 ([facility] Hold - Provider: Admin Adt - Reason: Transfer to a Procedural area)0851 ([facility] Unhold - Provider: Admin Adt) 0624 (Given - Provider: Jyoti Wagner RN) 0639 (Given - Provider: Trista Chang)0739 ([facility] Hold - Provider: Admin Adt - Reason: Transfer to a Procedural area)0845 ([facility] Unhold - Provider: Admin Adt) 50 mcg, Oral, EVERY MORNING, First dose on Sun09/22/14 at 0600, Until Discontinued, Routine OLANZapine (ZyPREXA) tablet 10 mg (CANCELED) 0729 ([facility] Hold - Provider: Admin Adt - Reason: Transfer to a Procedural area)0851 ([facility] Unhold - Provider: Admin Adt)2129 (Given - Provider: Soco Vogel RN) 10 mg, Oral, NIGHTLY, First dose on Sun09/21/14 at 2100, Until Discontinued, Routine omega-3 acid ethyl esters (LOVAZA) capsule 2 g 0729 ([facility] Hold - Provider: Admin Adt - Reason: Transfer to a Procedural area)0851 ([facility] Unhold - Provider: Admin Adt)1108 (Given - Provider: Brianna Huntley, TERESA) 0932 (Given - Provider: Maria L Pineda, TERESA)2056 (Given - Provider: Soco Vogel RN) 0739 ([facility] Hold - Provider: Admin Adt - Reason: Transfer to a Procedural area)0845 ([facility] Unhold - Provider: Admin Adt)0853 (Given - Provider: Rut Yuan) 2 g, Oral, 2 TIMES DAILY, First dose on Sun09/14/14 at 2100, Until Discontinued, Routine 2128 (Not Given - Provider: Soco Vogel RN - Reason: Patient Unable - Comment: patient unable to swallow) QUEtiapine (SEROquel) tablet 250 mg 2054 (Given - Provider: Soco Vogel RN) 0739 ([facility] Hold - Provider: Admin Adt - R bibiana: Transfer to a Procedural area)0845 ([facility] Unhold - Provider: Admin Adt) 250 mg, Oral, NIGHTLY, First dose on Sun09/23/14 at 2100 QUEtiapine (SEROquel) tablet 50 mg (COMPLETED) 1237 (Given - Provider: Maria L Pineda RN) 50 mg, Oral, ONCE, 1 dose, Sun09/23/14 at 1200, Routine sodium chloride 0.9 % flush 5 mL (CANCELED) 0729 ([facility] Hold - Provider: Admin Adt - Reason: Transfer to a Procedural area)0851 ([facility] Unhold - Provider: Admin Adt)0900 (Not Given - Provider: Brianna Huntley RN - Reason: See comment - Comment: Done in ECT) 0932 (Given - Provider: Trista Murillo)2056 (Given - Provider: Soco Vogel RN) 0739 ([facility] Hold - Provider: Admin Adt - Reason: Transfer to a Procedural area)0845 ([facility] Unhold - Provider: Admin Adt)0900 (Not Given - Provider: Rtu Yuan - Reason: Transfer to a Procedural [...] Routine documented in this encounter Care Teams Environmental Web Crawler Relationship Specialty Start Date End Date Jewel Cherry MD PCP - General 09/17/14 11/18/[address] [place] [address] [place] [address] documented as of this encounter
--- OUTSIDE RECORDS SUMMARY | 2022-01-09 00:41 | XMS_ITS | Encounter Summary ---
:1955 [place] [address] Care Team Providers Name Role Phone Unknown Primary Care Provider Unavailable Encounter Details Date Type Department Care Team Description 09/15/2014 Anesthesia Event Main Operating Room Bradley Cox MD [facility] [place] [address] [place] [address] [phone] Anesthesia Record Procedure Summary Procedure Name Responsible Anesthesia Start Anesthesia Stop Time Anesthesiologist Time ECT (WRVU 2.5) Bradley Guerra MD 09/15/14 0747 09/15/14 0800 (Bilateral ) Events Date Time Event Comment 09/15/2014 0747 AN Verify 0747 Start 0747 An Start Data 0748 An Start Data 0748 ASA Monitors 0750 Masked Placed/ Pre O2 0751 An Induction 0751 Bite Block In 0752 ECT Rx 0757 PACU Bed 0759 an stop data 0800 Stop 1131 Name Total Methohexital 80 mg Succinylcholine 40 mg Lactated Ringers 0 mL Agents Name O2 Auxiliary Flowmeter 1 Blood No blood administrations on file. Lines, Drains, and Airways Type Details Placement Removal PIV 09/14/14; 2152; cephalic vein 09/14/14 2152 by Sharri vásquez, 09/21/14 0000 by left (lateral side of arm); TERESA Bush Claire A RN [id number] catheter system; 22 gauge; sean ovalles RN; [...] encounter OR Notes Anesthesia Postprocedure Evaluation - Bradley Guerra MD - 09/15/2014 11:31 AM EDT Patient: Brianna Stringer Procedure(s) Performed: Procedure(s): ECT Actual Anesthetic: No value filed. Patient location: PACU Post-op pain: Adequate analgesia Post-op nausea: no nausea or vomiting Last Vitals: Filed Vitals: 09/15/14 0825 BP: 133/81 Pulse: 82 Temp: Resp: 16 Post-op cardiovascular and respiratory status: is stable Level of consciousness: awake, alert and oriented Complications: no apparent complications and tolerated the procedure well Fluid Status: normal Anesthesia Preprocedure Evaluation - Bradley Guerra MD - 09/14/2014 9:25 PM EDT Pre-Anesthesia Evaluation for: Brianna Stringer a 59 y.o. female. Procedure(s): ECT Patient Active Problem List Diagnosis ??? Major depressive disorder, recurrent episode, severe, specified as with psychotic behavior No past medical history on file. Past Surgical History Procedure Laterality Date ??? Electroconvulsive therapy,1 seiz Bilateral 09/10/2014 ECT performed by Giovany Alicia MD at [facility] MAIN OR ??? Electroconvulsive therapy,1 seiz Bilateral 09/11/2014 ECT performed by Nathen Go MD at [facility] MAIN OR History Substance Use Topics ??? Smoking status: Never Smoker ??? Smokeless tobacco: Never Used ??? Alcohol Use: No History Drug Use No Allergies Allergen Reactions ??? Ampicillin Itching ??? Sulfa (Sulfonamide Antibiotics) Nausea And Vomiting Medications: MAR and/or home medications have been reviewed. Physical Exam: Filed Vitals: 09/14/14 0821 BP: 141/71 Pulse: 83 Temp: Resp: 16 Body mass index is 21.63 kg/(m^2). Height: 165.1 cm (5' 5) Weight - Scale: 58.968 kg (130 lb) Airway Assessment: Mallampati: III TM distance: >3 FB Neck ROM: full Cardiovascular Assessment: Pulmonary Assessment: Dental Assessment: Misc Assessment: IV access: Peripheral line Anesthesia Plan: ASA 2 general, with a(n) intravenous induction Brief History: 59 y.o. with MDD for ECT Patient Active Problem List: Major depressive disorder, recurrent episode, severe, specified as with psychotic behavior Past anesthetic problems: none Last ECT record: 09/14 Methohexital: 80 mg Succinylcholine: 40 mg Anesthetic Plan: GA with mask ventilation Monitoring: Standard ASA monitors Region - Other Informed Consent: Anesthetic plan and risks discussed with patient. [facility]. Assessment: documented in this encounter Plan of Treatment Not on filedocumented as of this encounter Visit Diagnoses Not on filedocumented in this encounter Administered Medications Inactive Administered Medications - up to 3 most recent administrations Medication Order MAR Action Action Date Dose Rate Site lactated ringers infusion New Bag 09/15/2014 7:47 AM EDT CONTINUOUS PRN, Starting on Sun09/15/14 at 0747, Until Sun09/15/14 at 0804, Anesthesia Intra-op methohexital (BREVITAL) injection Given 09/15/2014 7:45 AM EDT 80 mg PRN, Starting on Sun09/15/14 at 0745, Until Sun09/15/14 at 0804, Anesthesia Intra-op, Routine succinylcholine (ANECTINE) injection Given 09/15/2014 7:52 AM EDT 40 mg PRN, Starting on Sun09/15/14 at 0752, Until Sun09/15/14 at 0804, Anesthesia Intra-op, Routine documented in this encounter Care Teams Time Clock Repairer Relationship Specialty Start Date End Date Unknown PCP - General 09/08/14 09/16/14 None documented as of this encounter
--- OUTSIDE RECORDS SUMMARY | 2022-01-09 00:41 | XMS_ITS | Encounter Summary ---
:1955 [place] [address] Care Team Providers Name Role Phone Unknown Primary Care Provider Unavailable Encounter Details Date Type Department Care Team Description 09/14/2014 Anesthesia Event Main Operating Room Avery Clark MD [facility] [address] [place] [address] [facility] [place] [address] [place] [address] Anesthesia Record Procedure Summary Procedure Name Responsible Anesthesia Start Anesthesia Stop Time Anesthesiologist Time ECT (WRVU 2.5) Avery Willson MD 09/14/14 0742 09/14/14 075 3 (Bilateral ) Events Date Time Event Comment 09/14/2014 0742 AN Verify 0742 Start 0744 An Start Data 0744 ASA Monitors 0745 Masked Placed/ Pre O2 0745 An Induction 0747 Bite Block In 0747 ECT Rx 0749 PACU Bed 0752 an stop data 0753 Stop 0753 Quick Note Would recommend decreasing succ dose to 30 0803 Name Total Methohexital 80 mg Succinylcholine 40 mg Lactated Ringers 100 mL Agents Name O2 Blood No blood administrations on file. Lines, Drains, and Airways Type Details Placement Removal PIV 09/09/14; 2331; cephalic vein 09/09/14 2331 by G jessika, 09/14/14 1120 by right (lateral side of arm); LUANN Rodriguez Colette L, ROBOT PROGRAMMER [id number] catheter system; 22 gauge, 1 in length; intradermal injection, tolerated well; 09/14/14; 1120 documented in this encounter Social History Tobacco Use Types Packs/Day Years Used Date Never Smoker Smokeless Tobacco: Never Used Alcohol Use Standard Drinks/Week Comments No 0 (1 standard drink = 0.6 oz pure alcoho l) Sex Assigned at Date Recorded Not on file documented as of this encounter OR Notes Anesthesia Postprocedure Evaluation - Avery Willson MD - 09/14/2014 8:08 AM EDT Patient: Brianna Stringer Procedure(s) Performed: Procedure(s): ECT Actual Anesthetic: general Patient location: PACU Post-op pain: Adequate analgesia Post-op nausea: no nausea or vomiting Last Vitals: Filed Vitals: 09/14/14 0800 BP: 147/75 Pulse: 95 Temp: Resp: 16 Post-op cardiovascular and respiratory status: is stable Level of consciousness: awake, alert and oriented Complications: no apparent complications and tolerated the procedure well Fluid Status: normal Anesthesia Preprocedure Evaluation - Rush Salas MD - 09/12/2014 6:37 PM EDT Pre-Anesthesia Evaluation for: Brianna travis 59 y.o. female. Procedure(s): ECT Patient Active Problem List Diagnosis ??? Major depressive disorder, recurrent episode, severe, specified as with psychotic behavior No past medical history on file. Past Surgical History Procedure Laterality Date ??? Electroconvulsive therapy,1 seiz Bilateral 09/10/2014 ECT performed by Giovany Alicia MD at [facility] MAIN OR History Substance Use Topics ??? Smoking status: Never Smoker ??? Smokeless tobacco: Never Used ??? Alcohol Use: No History Drug Use No Allergies Allergen Reactions ??? Ampicillin Itching ??? Sulfa (Sulfonamide Antibiotics) Nausea And Vomiting Medications: MAR and/or home medications have been reviewed. Physical Exam: Filed Vitals: 09/12/14 0830 BP: 131/69 Pulse: 96 Temp: 36.6 ??C (97.9 ??F) Resp: 16 Body mass index is 20.97 kg/(m^2). Height: 165.1 cm (5' 5) Weight - Scale: 57.153 kg (126 lb) Airway Assessment: Mallampati: III TM distance: >3 FB Neck ROM: full Cardiovascular Assessment: Pulmonary Assessment: Dental Assessment: Misc Assessment: IV access: Peripheral line Anesthesia Plan: ASA 2 general, with a(n) intravenous induction Brief History: 59 y.o. with MDD for ECT Patient Active Problem List: Major depressive disorder, recurrent episode, severe, specified as with psychotic behavior Past anesthetic problems: none Last ECT record: 09/10 Methohexital: 80 mg Succinylcholine: 60 mg Anesthetic Plan: GA with mask ventilation, decrease dosages per last ECT notes Monitoring: Standard ASA monitors Region - Other Informed Consent: Anesthetic plan and risks discussed with patient. [facility] Assessment: documented in this encounter Plan of Treatment Not on filedocumented as of this encounter Visit Diagnoses Not on filedocumented in this encounter Administered Medications Inactive Administered Medications - up to 3 most recent administrations Medication Order MAR Action Action Date Dose Rate Site lactated ringers infusion New Bag 09/14/2014 7:42 AM EDT CONTINUOUS PRN, Starting on Sun09/14/14 at 0742, Until Sun09/14/14 at 0753, Anesthesia Intra-op methohexital (BREVITAL) injection Given 09/14/2014 7:44 AM EDT 80 mg PRN, Starting on Sun09/14/14 at 0744, Until Sun09/14/14 at 0753, Anesthesia Intra-op, Routine succinylcholine (ANECTINE) injection Given 09/14/2014 7:44 AM EDT 40 mg PRN, Starting on Sun09/14/14 at 0744, Until Sun09/14/14 at 0753, Anesthesia Intra-op, Routine documented in this encounter Care Teams Laser Printing Operator Relationship Specialty Start Date End Date Unknown PCP - General 09/08/14 09/16/14 None documented as of this encounter
--- OUTSIDE RECORDS SUMMARY | 2022-01-09 00:41 | XMS_ITS | Encounter Summary ---
:1955 Author Organization [facility] [place] [address] Care Team Providers Name Role Phone Anne Marie Fay MD Primary Care Provider Reason for Visit Reason Onset Date Comments Prior Authorization 09/17/2014 AUTH EXTENDED Encounter Details Date Type Department Care Team Description 09/17/2014 Telephone Psychiatry Nathen Go Prior Authorization [facility] MD Malik (AUTH EXTENDED) [place] [address] PSYCHIATRY DEPT. [place], [place] [address] Social History Tobacco Use Types Packs/Day Years Used Date Never Smoker Smokeless Tobacco: Never Used Alcohol Use Standard Drinks/Week Comments No 0 (1 standard drink = 0.6 oz pure alcoho l) Sex Assigned at Date Recorded Not on file documented as of this encounter Miscellaneous Notes Telephone Encounter - Martha Still - 09/17/2014 11:42 AM EDT [facility] documented in this encounter Plan of Treatment Not on filedocumented as of this encounter Visit Diagnoses Not on filedocumented in this encounter Care Teams Director Of Adult Epilepsy Relationship Specialty Start Date End Date Anne Marie Fay MD PCP - General 09/17/14 11/18/[address] [place] [address] [place] [address] documented as of this encounter
--- OUTSIDE RECORDS SUMMARY | 2022-01-09 00:41 | XMS_ITS | Encounter Summary ---
:1955 [place] [address] Care Team Providers Name Role Phone Unknown Primary Care Provider Unavailable Encounter Details Date Type Department Care Team Description 09/14/2014 Surgery Main Operating Room Vamshi Fierro MD ECT (WRVU 2.5) [facility] Geovani snyder [place] [address] [place] [address] [phone] (Wo rk) Social History Tobacco Use Types [...] stabilization and medication management. Discharge Multi-axial Diagnosis: Riley I: MDD w/ psychotic features Riley II: deferred Riley III: hypothyroid on replacement Riley IV: father's health concerns Riley V: Admission GAF: 25 Discharge GAF: 45 [...] and patient was eventually involuntarily admitted to [facility]. At [facility] patient's Celexa was increased to 20mg and then she was discharged. Patient was eventually seen by Dr. Aurea Valencia MD a psychiatrist at [facility] who diagnosed the patient with MDD [...] Brianna's delusions), so they requested admission to [facility]. She denies SI/HI #Depression Patient denies any [...] history of being religous and she attends taoism several times a week. In the past her bahai beliefs never crossed what is normally accepted. [...] none Changes/recommendations/parameters for next treatment: TREAT AT //800Antipsychotic Quality Measure (select one of three reasons): [...] followup Primary Care Physician: JEWEL CHERRY MD [phone] Special Physician Instructions: -Continue to do outpatient ECT as scheduled and recommended -Take your medications as instructed -Make sure to have a colonoscopy and mammogram done -Make sure your doctor follows up on pending labs at [facility] -Come to the emergency room or call your doctor if you feel unsafe or have thoughts of suicide Special Instructions Provided to Brianna Lay: Call your doctor, your local mental health center, or your local emergency room if you develop worsening symptoms of depression, anxiety, thoughts of harming yourself, thoughts of harming others, or any other decline in your overall condition. [facility] Emergency Services: [facility] [phone] [facility] Emergency Services: [phone] [facility] Central Access Services: [phone] [facility] Main Line: [phone] Activity level: no restrictions from psychiatry Diet: [...] TREAT AT General Instructions Dr Aurea Valencia [phone] September 24 at 2:30pm Dr Regla Patel, October 01 at 11:30am Discharge References/Attachments None Signed: William Correia MD 09/27/2014 documented in this encounter Discharge Instructions Discharge InstructionsWilliam Correia MD - 09/24/2014 12:[address] Aurea Valencia [phone] September 24 at 2:30pm Dr Regla Patel, [...] followup Primary Care Physician: JEWEL CHERRY MD [phone] Special Physician Instructions: -Continue to do outpatient ECT as scheduled and recommended -Take your medications as instructed -Make sure to have a colonoscopy and mammogram done -Make sure your doctor follows up on pending labs at [facility] -Come to the emergency room or call your doctor if you feel unsafe or have thoughts of suicide Special Instructions Provided to Brianna Lay: Call your doctor, your local mental health center, or your local emergency room if you develop worsening symptoms of depression, anxiety, thoughts of harming yourself, thoughts of harming others, or any other decline in your overall condition. [facility] Emergency Services: [facility] [phone] [facility] Emergency Services: [phone] [facility] Central Access Services: [phone] [facility] Main Line: [phone] Activity level: no restrictions from psychiatry Diet: [...] this time Severity:. Rates Depression: 09/01, Anxiety: 3/. Denies SI. Patient says she feels 75% [...] Results Component Value Date TSH 0.11* 09/15/2014 [id number] 261* 09/15/2014 TT4 6.9 09/15/2014 Lipids and HgbA1C: No results found for this basename: CHLPL, HDL, CHOLHDL, LDLCHOL, LDLDIRECT, TRIG No results found for this basename: HA1C Vit Lvls: No results found for this basename: [id number], SFOLATE UA: No results found for this [...] EDT TC with pts , Will at [phone]. He believes pt is about 75% back [...] Notes: Patient listened and remained silent. Jenna Primo Baker MS 09/23/2014 Inpatient Daily Group Note Group: Therapy Dog Attendance: Present Behavior: Quiet Therapeutic Work Observed: Minimal Mood: Detached Notes: Patient enjoyed dog and struggled with staying awake. Jenna Baker, 09/23/2014 William Correia MD - 09/23/2014 12:34 [...] i feel that somehow the people at [facility] might hurt them Severity:. Rates Depression: 10/02, [...] Results Component Value Date TSH 0.11* 09/15/2014 [id number] 261* 09/15/2014 TT4 6.9 09/15/2014 Lipids and HgbA1C: No results found for this basename: CHLPL, HDL, CHOLHDL, LDLCHOL, LDLDIRECT, TRIG No results found for this basename: HA1C Vit Lvls: No results found for this basename: [id number], SFOLATE UA: No results found for this [...] still fears that she irritated people at [facility] who might harm her family. Tremor is [...] Results Component Value Date TSH 0.11* 09/15/2014 [id number] 261* 09/15/2014 TT4 6.9 09/15/2014 Lipids and HgbA1C: No results found for this basename: CHLPL, HDL, CHOLHDL, LDLCHOL, LDLDIRECT, TRIG No results found for this basename: HA1C Vit Lvls: No results found for this basename: [id number], SFOLATE UA: No results found for this [...] symptoms of depression and blunted affect. Rates D:08/04, A:08/04. Denies SI Timing: steadily improving mood [...] Results Component Value Date TSH 0.11* 09/15/2014 [id number] 261* 09/15/2014 TT4 6.9 09/15/2014 Lipids and HgbA1C: No results found for this basename: CHLPL, HDL, CHOLHDL, LDLCHOL, LDLDIRECT, TRIG No results found for this basename: HA1C Vit Lvls: No results found for this basename: [id number], SFOLATE UA: No results found for this [...] Results Component Value Date TSH 0.11* 09/15/2014 [id number] 261* 09/15/2014 TT4 6.9 09/15/2014 Lipids and HgbA1C: No results found for this basename: CHLPL, HDL, CHOLHDL, LDLCHOL, LDLDIRECT, TRIG No results found for this basename: HA1C Vit Lvls: No results found for this basename: [id number], SFOLATE UA: No results found for this [...] By: Giovany Alicia MD 09/20/2014 Jenna Baker Primo, - 09/20/2014 10:49 AM EDT Inpatient Daily [...] Results Component Value Date TSH 0.11* 09/15/2014 [id number] 261* 09/15/2014 TT4 6.9 09/15/2014 Lipids and HgbA1C: No results found for this basename: CHLPL, HDL, CHOLHDL, LDLCHOL, LDLDIRECT, TRIG No results found for this basename: HA1C Vit Lvls: No results found for this basename: [id number], SFOLATE UA: No results found for this [...] being addressed: hypothyroidism Interval History: (,1,4) Quality: I think I'm doing well Severity: [...] Results Component Value Date TSH 0.11* 09/15/2014 [id number] 261* 09/15/2014 TT4 6.9 09/15/2014 Lipids and HgbA1C: No results found for this basename: CHLPL, HDL, CHOLHDL, LDLCHOL, LDLDIRECT, TRIG No results found for this basename: HA1C Vit Lvls: No results found for this basename: [id number], SFOLATE UA: No results found for this [...] Aurea Valencia MD 09/09/14 Therapist PCP JEWEL CHERYR MD Patient Instruction/Education Provided: Patient provided verbal [...] esteem and apassive communication style. Teresa Cotto, [facility] 09/17/2014 Inpatient Daily Group Note Group: Inside walk Notes: Pt. walked quietly with peers. Enjoying the art. Teresa Key 09/17/2014 Inpatient Daily Group Note Group: Workshop Attendance: Present Behavior: Conversational Therapeutic Work Observed: Moderate Mood: Calm Notes: Pt. talked with this typewriter tester about living in [place] and her son. Listened to conversations of [...] Pt. attentive although quiet. After group thanked typewriter tester stating he learned a lot. Teresa Key 09/17/2014 Tommy Moreas Jr., MD - 09/17/2014 1:01 PM EDT [...] Results Component Value Date TSH 0.11* 09/15/2014 [id number] 261* 09/15/2014 TT4 6.9 09/15/2014 Lipids and HgbA1C: No results found for this basename: CHLPL, HDL, CHOLHDL, LDLCHOL, LDLDIRECT, TRIG No results found for this basename: HA1C Vit Lvls: No results found for this basename: [id number], SFOLATE UA: No results found for this [...] Results Component Value Date TSH 0.11* 09/15/2014 [id number] 261* 09/15/2014 TT4 6.9 09/15/2014 Lipids and HgbA1C: No results found for this basename: CHLPL, HDL, CHOLHDL, LDLCHOL, LDLDIRECT, TRIG No results found for this basename: HA1C Vit Lvls: No results found for this basename: [id number], SFOLATE UA: No results found for this [...] Contacted By Treatment Team Psychiatric prescriber Aurea Vaelncia MD 09/09/14 Therapist PCP Unknown Patient Instruction/Education [...] but I couldn't Severity: depression 4/10, anxiety 4/10. Constricted, quiet, but delusions about family being [...] Results Component Value Date TSH 5.39* 09/09/2014 [id number] 60* 09/09/2014 TT4 7.7 09/09/2014 Lipids and HgbA1C: No results found for this basename: CHLPL, HDL, CHOLHDL, LDLCHOL, LDLDIRECT, TRIG No results found for this basename: HA1C Vit Lvls: No results found for this basename: [id number], SFOLATE UA: No results found for this [...] treated pharmacologically by Dr. Aurea Valencia at [facility] who referred her for ECT. She [...] quite as nervous Severity: depression , anxiety /. Constricted, quiet. Continued delusions that bad things [...] Results Component Value Date TSH 5.39* 09/09/2014 [id number] 60* 09/09/2014 TT4 7.7 09/09/2014 Lipids and HgbA1C: No results found for this basename: CHLPL, HDL, CHOLHDL, LDLCHOL, LDLDIRECT, TRIG No results found for this basename: HA1C Vit Lvls: No results found for this basename: [id number], SFOLATE UA: No results found for this [...] treated pharmacologically by Dr. Aurea Valencia at [facility] who referred her for ECT. She [...] Results Component Value Date TSH 5.39* 09/09/2014 [id number] 60* 09/09/2014 TT4 7.7 09/09/2014 Lipids and HgbA1C: No results found for this basename: CHLPL, HDL, CHOLHDL, LDLCHOL, LDLDIRECT, TRIG No results found for this basename: HA1C Vit Lvls: No results found for this basename: [id number], SFOLATE UA: No results found for this [...] and treated by Dr. Aurea Valencia at [facility] who referred her for ECT. She [...] Mood: Flat Notes: Pt. quietly worked on [employer] project. Teresa Key 09/12/2014 Soumya Daniel MD [...] Results Component Value Date TSH 5.39* 09/09/2014 [id number] 60* 09/09/2014 TT4 7.7 09/09/2014 Lipids and HgbA1C: No results found for this basename: CHLPL, HDL, CHOLHDL, LDLCHOL, LDLDIRECT, TRIG No results found for this basename: HA1C Vit Lvls: No results found for this basename: [id number], SFOLATE UA: Lab Results Component Value Date [...] and treated by Dr. Aurea Valencia at [facility] who referred her for ECT. She [...] Mood: Calm Notes: Pt. quietly worked on [employer] project. Returned to unit awaiting visit from [...] Results Component Value Date TSH 5.39* 09/09/2014 [id number] 60* 09/09/2014 TT4 7.7 09/09/2014 Lipids and HgbA1C: No results found for this basename: CHLPL, HDL, CHOLHDL, LDLCHOL, LDLDIRECT, TRIG No results found for this basename: HA1C Vit Lvls: No results found for this basename: [id number], SFOLATE UA: Lab Results Component Value Date [...] and treated by Dr. Aurea Valencia at [facility] who referred her for ECT. She [...] being addressed: hypothyroidism Interval History: (,,4) Quality: im scared that my family will [...] Results Component Value Date TSH 5.39* 09/09/2014 [id number] 60* 09/09/2014 TT4 7.7 09/09/2014 Lipids and HgbA1C: No results found for this basename: CHLPL, HDL, CHOLHDL, LDLCHOL, LDLDIRECT, TRIG No results found for this basename: HA1C Vit Lvls: No results found for this basename: [id number], SFOLATE UA: Lab Results Component Value Date [...] and treated by Dr. Aurea Valencia at [facility] who referred her for ECT.Patient had [...] Signed By: William Correia MD 09/11/2014 Becky Mane [facility] - 09/10/2014 2:43 PM EDT OFFICE OF CARE MANAGEMENT PSYCHOSOCIAL ASSESSMENT Present at Interview: Paitient Date: September 10, 2014 1. Referral request and/or presenting problem(s): Patient is a 59 year old MWF who presents at [facility] to address her increasing depression, ongoing paranoia, [...] 81 and Mother age 80 live in [place]. Siblings are Bhavin age 59, Moo age 54 and Krzysztof age 50 also living in [place]. Patient has regular contact with her parents and more sporadic contact with her brothers. Patient was born and raised in [place] anddescribed childhood as [place]. Extended family available [...] including spiritual support: , son, Dr. Valencia, L[employer] Bahai. 6. 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 Aurea Valencia MD. [facility] Current Therapist: Deb Romo PCP: Dr. [...] and patient was eventually involuntarily admitted to [facility]. At [facility] patient's Celexa was increased to 20mg and then she was discharged. Patient was eventually seen by Dr. Aurea Valencia MD a psychiatrist at [facility] who diagnosed the patient with MDD [...] Brianna's delusions), so they requested admission to [facility]. She denies SI/HI #Depression Patient denies any [...] history of being religous and she attends taoism several times a week. In the past her bahai beliefs never crossed what is normally accepted. [...] Prior diagnoses: depression Past hospitalization and location: [facility] - involuntarily Suicide attempts: none Past [...] of ever using drugs or alcohol. Highly bahai in the past. 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 ENDO No temperature intolerance HEME/LYMPH No easy bruising ALL/IMMUNO No symptoms of Sinustis Physical Exam: Vitals Admission (Current) from 09/08/2014 in [facility] Psychiatry Unit Weight - Scale 57.153 kg [...] remote memory intact ?? Fund of Knowledge: [facility] ?? Insight: fair ?? Judgment: . and [...] establishing adequate outpatient care). DSM Multiaxial Diagnosis: Riley I MDD with psychotic features Riley II deferred Riley III Hypothyroid on replacement Riley IV: Father's health concerns Riley V: GAF = 25 Clinical Global Impression: [...] with psychotic behavior [296.34] Procedures 1. ECT [[id number] (CPT??)] ECT SUBSEQUENT TREATMENT NOTE Patient received right-unilateral ECT in the PACU. Course type: acute Treatment # 7 total The primary diagnosis is 296.34. Interval history: Noticing mood improvement, tolerating well Patient was attached to monitoring equipment. The anesthesia team administered the following medications: methohexital 80 mg succinylcholine 40 mg ECT parameters: RUL 0.3/ 25 second motor seizure 47 second EEG seizure Patient was stabilized and appeared to tolerate the procedure. Complications: none Changes/recommendations for next treatment: None, same. Next treatment date:09/24 Alonzo Martel MD - 09/21/2014 8:02 AM EDT Pre-procedure Diagnoses 1. Major depressive disorder, recurrent episode, severe, specified as with psychotic behavior [296.34] Procedures 1. ECT [[id number] (CPT??)] ECT SUBSEQUENT TREATMENT NOTE Patient received [...] with psychotic behavior [296.34] Procedures 1. ECT [[id number] (CPT??)] Expand All Collapse All ECT SUBSEQUENT [...] not safe- here and reinforced reality with typewriter tester. Brianna continues to have bilateral shaking in [...] achieved Date Met: 09/24/14 09/08/14 1836 09/21/14 8300 Individualization Individualize the Plan of Care: -- [...] some concerns about the staff at the [facility] yet she can see that it doesn't make much sense Patient denies SI or HI. Depression 10/02 and no anxiety PLAN MOVING FORWARD: NPO after midnight for ect INDIVIDUALIZED FALL PREVENTION: Assistance: independent Supervision: Escort to group Surveillance: 30 minute checks CPG GOAL OUTCOME EVALUATION: Goal: Individualization and Mutuality Outcome: Ongoing (Interventions Implemented as Appropriate) 09/08/14 1836 09/21/14 5154 Individualization Individualize the Plan of Care: -- [...] Outcome: Ongoing (Interventions Implemented as Appropriate) 09/08/14 18309/21/142356 Individualization Individualize the Plan of Care: -- [...] Fall Risk Low -- Goal: Infection Control 09/22/145 09/22/14 2346 Coping/Psychosocial Response Interventions Counseling -- personal strengths integrated;problem solving facilitated;emotional support provided;goal setting facilitated Safety Interventions Isolation Precautions standard precautions maintained -- Infection Prevention promote handwashing;nutrition promoted;hydration promoted -- Problem: Depression (Adult, Obstetrics, Pediatric) Goal: Establish/Maintain Self-Care Routine Patient will demonstrate the desired outcomes. Outcome: Ongoing (Interventions Implemented as Appropriate) 09/22/14 234 Depression (Adult, Obstetrics, Pediatric) Establish/Maintain Self-Care Routine unable to achieve outcome Goal: Improved/Stable Mood Patient will demonstrate the desired outcomes. Outcome: Ongoing (Interventions Implemented as Appropriate) 09/22/14 234 Depression (Adult, Obstetrics, Pediatric) Improved/Stable Mood making progress toward outcome Plan of Care - Brianna Huntley RN - 09/22/2014 3:56 PM EDT Problem: General Plan of Care Goal: Plan of Care Review Outcome: Ongoing (Interventions Implemented as Appropriate) 09/21/14 5097 Coping/Psychosocial Response Interventions Plan of Care Reviewed [...] Outcome: Ongoing (Interventions Implemented as Appropriate) 09/17/14 22109/18/14 1900 Coping/Psychosocial Response Interventions Plan of Care [...] Outcome: Ongoing (Interventions Implemented as Appropriate) 09/17/14221109/18/14 1900 Coping/Psychosocial Response Interventions Plan of Care [...] outcomes. Outcome: Ongoing (Interventions Implemented as Appropriate) 09/17/14 221 Depression (Adult, Obstetrics, Pediatric) Improved/Stable Mood making [...] toward outcome Med Student Progress Note - Damian Aidee Vega - 09/16/2014 11:58 AM EDT Inpatient Psychiatry Progress Note: 09/16/2014 ID: Brianna Lay is a 59 y.o. female with one son who lives in [facility], and is currently unemployed admitted [...] CornejoAidee MS-3 [id number] Plan of Care - Patricia [...] presentation, smiled when arrived. Denies pain, anxiety 10, depression 10. CFS, denies SI, no delusional thoughts presented, [...] female with one son who lives in [facility], and is currently unemployed admitted [...] Romo Primary provider: Dr Pineda Salgado MS-3 0218 Plan of Care - Bienvenido Guthrie RN - 09/14/2014 11:38 PM EDT Problem: General Plan of Care Goal: Plan of Care Review Outcome: Ongoing (Interventions Implemented as Appropriate) 09/14/14 2310 Coping/Psychosocial Response Interventions Plan of Care Reviewed [...] female with one son who lives in [facility], and is currently unemployed admitted [...] Deb Romo Primary provider: [facility]ineda Hoskins [facility]-3 3818 Plan of Care - Maria L Pineda [...] homicidal ideation and contracts for safety. Pt ath066% of meals and reports last bowel movement [...] Handling Outcome: Ongoing (Interventions Implemented as Appropriate) 09/09/14183209/13/14189909/14/14 0200 Safety Interventions Safety Precautions/Fall Reduction -- [...] Appropriate) 09/12/14 121 Depression (Adult, Obstetrics, Pediatric) Improved/Stable [...] shared thathe noticed improvement in his . [place] she was less vacant and even noticed [...] Outcome: Ongoing (Interventions Implemented as Appropriate) 09/09/14183209/10/14 1855 09/11/14 0500 Safety Interventions Safety Precautions/Fall Reduction -- [...] toward outcome Med Student Progress Note - Chantal-Aidee Hoskins Jr. - 09/11/2014 1:36 PM EDT Inpatient Psychiatry Progress Note: 09/11/2014 ID: Brianna Lay is a 59 y.o. female with one son who lives in [facility], and is currently unemployed admitted [...] Therapist: Deb Romo Primary provider: Dr Pineda Cornejo-Aidee MS-3 9486 Plan of Care - Ana [...] female with one son who lives in [facility], and is currently unemployed admitted [...] Deb Romo Primary provider: Dr Pineda Hoskins Ud-Aidee MS-3 9341 Plan of Care - Bonny Lepe RN - 09/09/2014 6:38 PM EDT Problem: General Plan of Care Goal: Plan of Care Review Outcome: Ongoing (Interventions Implemented as Appropriate) 09/09/14 4243 Coping/Psychosocial Response Interventions Plan of Care Reviewed [...] understanding of illness 2. Work with Patient Sample Preparation Supervisor to create and implement aftercare plan 3. [...] MD 09/09/2014 NURSING , RN 09/09/2014 PT REMEDIATION TECHNICIAN Nydia Valle RN- 09/09/2014 THERAPIST Jenna Baker [facility] 09/09/2014 PREFABRICATED HOUSES TRIMMER Becky Mane, [facility] 09/09/2014 Plan of Care - Brianna [...] Control Outcome: Ongoing (Interventions Implemented as Appropriate) 09/08/14193909/09/1433 Coping/Psychosocial Response Interventions Counseling emotional support provided [...] DATE: RESIDENT PHYSICIAN ATTENDING PHYSICIAN NURSING PATIENT REMEDIATION TECHNICIAN THERAPIST PREFABRICATED HOUSES TRIMMER Plan of Care - Bonny Lepe RN [...] the results section. ECT (WRVU 2.5) Yes 09/14/2014 7:42 AM 296.34 EDT URINE CULTURE Routine 09/09/2014 5:13 PM [...] Method Time Signature Paraneo Eval SEE COMMENTS [facility] Interpretation MILLENNIUM Comment: No informative autoantibodies were detec adali in this evaluation. However, a negative result d oes not exclude neurological autoimmunity with or withou t associated neoplasia. Test Performed by: [place] [address] Building Guard Deputy Sheriff: Tommy Irene II, M.D., Ph.D. TRACY-1 (Anti-Neuronal Nuclear Ab, Type Negative <1:240 titer CERNER MILLENNIUM 1) Comment: Test Performed by: [place] [address] Building Guard Deputy Sheriff: Tommy Irene II, M.D., Ph.D. TRACY-2 (Anti-Neuronal Nuclear Ab,Type Negative <1:240 titer CERNER MILLENNIUM 2) Comment: Test Performed by: [place] [address] Building Guard Deputy Sheriff: Tommy Irene II, M.D., Ph.D. TRACY-3 (Anti-Neuronal Nuclear Ab, Type Negative <1:240 titer CERNER MILLENNIUM 3) Comment: Test Performed by: [place] [address] Building Guard Deputy Sheriff: Tommy Irene II, M.D., Ph.D. AGNA-1 (Anti-Glial Nuclear Ab, Type 1) Negative <1:240 titer CERNER MILLENNIUM Comment: Test Performed by: [place] [address] Building Guard Deputy Sheriff: Tommy Irene II, M.D., Ph.D. HEALTH INFORMATICS ADVISOR-1 (Purkinje Cell Cytoplasmic Negative <1:240 titer CERNER MILLENNIUM Ab-Type 1) Comment: Test Performed by: [place] [address] Building Guard Deputy Sheriff: Tommy Irene II, M.D., Ph.D. HEALTH INFORMATICS ADVISOR-2 (Purkinje Cell Cytoplasmic Negative <1:240 titer CERNER MILLENNIUM Ab-Type 2) Comment: Test Performed by: [place] [address] Building Guard Deputy Sheriff: Tommy Irene II, M.D., Ph.D. HEALTH INFORMATICS ADVISOR-Type Tr (Purkinje Cell Cytoplasmic Negative <1:240 titer CERNER MILLENNIUM Ab-Type Tr) Comment: Test Performed by: [place] [address] Building Guard Deputy Sheriff: Tommy Irene II, M.D., Ph.D. Amphiphysin Antibody Negative <1:240 titer CERNER MILLENNIUM Comment: Test Performed by: [place] [address] Building Guard Deputy Sheriff: Tommy Irene II, M.D., Ph.D. CRMP-5-IgG Negative <1:240 titer CERNER MILLENNIU M Comment: CRMP-5 Titers lower than 1:240 may be de tectable by recombinant CRMP-5 western blot analysis , available by request on stored serum and recommended in cases of chorea, vision loss, cranial neuropathy and myel opathy. Extramural clients contact [facility] Inquiry at to add-on CRMP-5-IgG Western Blot, Serum . Intramural Clients, please call the Neuroimmunology Lab at [phone]. Test Performed by: [place] [address] Building Guard Deputy Sheriff: Tommy Irene II, M.D., Ph.D. Striated Muscle Ab Negative <1:120 titer CERNER M ILLENNIUM Comment: Test Performed by: [place] [address] Building Guard Deputy Sheriff: Tommy Irene II, M.D., Ph.D. P/Q-Type Ca Channel Ab 0.00 <=0.02 nmol/L CER NER MILLENNIUM Comment: Test Performed by: [place] [address] Building Guard Deputy Sheriff: Tommy Irene II, M.D., Ph.D. N-Type Ca Channel Ab 0.00 <=0.03 nmol/L CERNE R MILLENNIUM Comment: Test Performed by: [facility] [address] Building Guard Deputy Sheriff: Tommy Irene II, M.D., Ph.D. ACHr Binding Ab 0.00 <=0.02 nmol/L CERNER MIL LENNIUM Comment: Test Performed by: [place] [address] Building Guard Deputy Sheriff: Tommy Irene II, M.D., Ph.D. AChR Gang Neuronal Ab 0.00 <=0.02 nmol/L CERN ER MILLENNIUM Comment: Test Performed by: [place] [address] Building Guard Deputy Sheriff: Tommy Irene II, M.D., Ph.D. Neuronal (V-G) K+ Channel Ab 0.00 <=0.02 nmol/L CERNER MILLENNIUM Comment: Test Performed by: [place] [address] Building Guard Deputy Sheriff: Tommy Irene II, M.D., Ph.D. Specimen Anatomical Collection Method Collection Time Receive d Time (Source) Location / / Volume Laterality Blood specimen 09/23/2014 3:50 PM 015 4:42 (specimen) EDT PM EDT Resulting Agency Comment Spec In Lab Nathen Go MD CHEMISTRY ORDERABLES Performing Organization Address City/[facility]/ZIP Code Phon e Number [address] CERNER MILLENNIUM (ABNORMAL) Thyroglobulin Antibody (09/23/2014 3:50 PM EDT) Analysis Performed At Patho logist Time Signature Thyroglob Ab 232.0 (H) 0.0 - 40.0 CERNER IU/mL MILLENNIUM Comment: Assay performed is the [employer] Immulite Tg-A b immunometric assay. (Cutoff for TgAb negativity is <20 IU/ml ) Specimen Anatomical Collection Method Collection Time Receive d Time (Source) Location / / Volume Laterality Blood specimen 09/23/2014 3:50 PM 015 8:08 (specimen) EDT AM EDT Resulting Agency Comment Spec In Lab Nathen Go MD CHEMISTRY ORDERABLES Performing Organization Address City/[facility]/ZIP Code Phon e Number [address] CERNER MILLENNIUM Thyroid peroxidase antibody (09/23/2014 3:50 PM EDT) P athologist Signature Thyroperox Ab 25 <=34 IU/mL CERNER MILLENNIUM Specimen Anatomical Collection Method Collection Time Receive d Time (Source) Location / / Volume Laterality Blood specimen 09/23/2014 3:50 PM 015 8:08 (specimen) EDT AM EDT Resulting Agency Comment Spec In Lab Nathen Go MD IMMUNOLOGY ORDERABLES Performing Organization Address City/[facility]/ZIP Code Phon e Number [address] CERNER MILLENNIUM (ABNORMAL) T3 [...] Go MD CHEMISTRY ORDERABLES Performing Organization Address City/[facility]/[place] [address] CERNER MILLENNIUM T4 Total (09/15/2014 1:03 PM EDT) athologist Signature T4, total 6.9 5.1 - 10.8 CERNER mcg/dL MILLENNIUM Comment: Reference Range: [place] Cord Blood: ??6.9-14.4 mcg/dL Females: ??7.2-14.2 mcg/dL Pediatric ranges: ??Interpret with cauti on-ranges have not been verified Specimen Anatomical Collection Method Collection Time Receive d Time (Source) Location / / Volume Laterality Blood specimen 09/15/2014 1:03 PM 015 1:18 (specimen) EDT PM EDT Resulting Agency Comment Spec In Lab Nathen Go MD CHEMISTRY ORDERABLES Performing Organization Address City/[facility]/ZIP Code Phon e Number [address] [facility] TSH (09/15/2014 1:03 PM EDT) athologist Signature TSH 0.11 (L) 0.27 - 4.20 CERNER mcIU/mL [facility] Specimen Anatomical Collection Method Collection Time Receive d Time (Source) Location / / Volume Laterality Blood specimen 09/15/2014 1:03 PM 015 1:18 (specimen) EDT PM EDT Resulting Agency Comment Spec In Lab Nathen Go MD CHEMISTRY ORDERABLES Performing Organization Address City/[facility]/ZIP Code Phon e Number [address] C[facility] Urine culture Clean Catch Urine (09/09/2014 5:13 PM EDT) [facility] Method Time Signature Urine Culture CERNER ? Patient Name: BRIANNA LAY ? Ordered By: BIJAN JEAN ? MR#: [id number] ?LOC: ??2WPC ? /Sex: ??1955 (59 years), [...] Organization Address City/State/ZIP Code Phon e Number [place] [id number] DODGEENNIUM (ABNORMAL) TSH (09/09/2014 3:26 PM EDT) P athologist Signature TSH 5.39 (H) 0.27 - 4.20 CERNER mcIU/mL MILLENNIUM Specimen Anatomical Collection Method Collection Time Receive d Time (Source) Location / / Volume Laterality Blood specimen 09/09/2014 3:26 PM 015 3:33 (specimen) EDT PM EDT Resulting Agency Comment Spec In Lab Nathen Go MD CHEMISTRY ORDERABLES Performing Organization Address City/[facility]/[place] [address] [facility] T4 Total (09/09/2014 3:26 PM EDT) P athologist Signature T4, total 7.7 5.1 - 10.8 CERNER mcg/dL [facility] Comment: Reference Range: Cord Blood: ??6.9-14.4 mcg/dL Females: ??7.2-14.2 mcg/dL Pediatric ranges: ??Interpret with cauti on-ranges have not been verified Specimen Anatomical Collection Method Collection Time Receive d Time (Source) Location / / Volume Laterality Blood specimen 09/09/2014 3:26 PM 015 3:33 (specimen) EDT PM EDT Resulting Agency Comment Spec In Lab Nathen Go MD CHEMISTRY ORDERABLES Performing Organization Address City/[facility]/[place] [address] [facility] T3 Total (09/09/2014 3:26 PM EDT) athologist Signature T3, Total 60 (L) 75 - 170 CERNER ng/dL [facility] Specimen Anatomical Collection Method Collection Time Receive d Time (Source) Location / / Volume Laterality Blood specimen 09/09/2014 3:26 PM 015 3:33 (specimen) EDT PM EDT Resulting Agency Comment Spec In Lab Nathen Go MD CHEMISTRY ORDERABLES Performing Organization Address City/[facility]/ZIP Code Phon e Number [address] [facility] EKG 12 Lead (09/09/2014 9:08 AM EDT) Component Value Ref Range Test Analysis Performed Pathologis t Method Time At Signature Ventricular rate 76 BPM MUSE SYSTEM Atrial Rate 76 BPM MUSE SYSTEM P-R Interval 142 ms MUSE SYSTEM QRS Duration 88 ms MUSE SYSTEM Q-T Interval 380 ms MUSE SYSTEM QTC Calculated 427 ms MUSE SYSTEM (Bezet) Calculated P Riley 79 degrees MUSE SYSTEM Calculated R Riley 80 degrees MUSE SYSTEM Calculated T Riley 73 degrees MUSE SYSTEM INTERPRETATION Normal sinus [...] Hazy (A) Clear CERNER MILLENNIU M Spec [place] UA 1.014 1.002 - 1.030 CERNER MIL [...] Organization Address City/State/ZIP Code Phon e Number [address] CERNER MILLENNIUM Differential, Automated [...] Organization Address City/State/ZIP Code Phon e Number [address] CERNER MILLENNIUM Hemogram (09/09/2014 [...] Organization Address City/State/ZIP Code Phon e Number [address] [facility] ([facility] TSH (09/09/2014 6:54 AM EDT) P athologist Signature TSH 13.20 (H) 0.27 - CERNER 4.20 MILLENNIUM mcIU/mL Specimen Anatomical Collection Method Collection Time Receive d Time (Source) Location / / Volume Laterality Blood specimen 09/09/2014 6:54 AM 015 7:09 (specimen) EDT AM EDT Resulting Agency Comment Spec In Lab Bijan Jean MD CHEMISTRY ORDERABLES Performing Organization Address City/State/[place] [address] [facility] Hepatic Function Panel (09/09/2014 6:54 AM EDT) [...] Jean MD CHEMISTRY ORDERABLES Performing Organization Address City/[facility] Code Phon e Number [address] CERNER MILLENNIUM Phosphorus (09/09/2014 6:54 AM EDT) P athologist Signature Phosphorus 3.0 2.5 - 4.5 CERNER mg/dL MILLENNIUM Specimen Anatomical Collection Method Collection Time Receive d Time (Source) Location / / Volume Laterality Blood specimen 09/09/2014 6:54 AM 015 7:09 (specimen) EDT AM EDT Resulting Agency Comment Spec In Lab Bijan Jean MD CHEMISTRY ORDERABLES Performing Organization Address City/[facility]/ZIP Code Phon e Number [address] CERNER MILLENNIUM Magnesium (09/09/2014 6:54 AM EDT) P athologist Signature Magnesium 0.88 0.69 - 1.07 CERNER mmol/L MILLENNIUM Specimen Anatomical Collection Method Collection Time Receive d Time (Source) Location / / Volume Laterality Blood specimen 09/09/2014 6:54 AM 015 7:09 (specimen) EDT AM EDT Resulting Agency Comment Spec In Lab Bijan Jean MD CHEMISTRY ORDERABLES Performing Organization Address City/[facility]/[place] [address] CERNER MILLENNIUM Calcium (09/09/2014 6:54 AM EDT) athologist Signature Calcium 8.9 8.5 - 10.5 CERNER mg/dL MILLENNIUM Specimen Anatomical Collection Method Collection Time Receive d Time (Source) Location / / Volume Laterality Blood specimen 09/09/2014 6:54 AM 015 7:09 (specimen) EDT AM EDT Resulting Agency Comment Spec In Lab Bijan Jean MD CHEMISTRY ORDERABLES Performing Organization Address [facility] Phon e Number [address] CERNER MILLENNIUM Creatinine (09/09/2014 6:54 AM EDT) athologist Signature Creatinine 0.76 0.70 - 1.20 CERNER mg/dL MILLENNIUM Comment: Please note that the pediatric reference intervals supplied above were not validated at [facility]. Results from pediatri c patients should be [...] the following links into your internet browser. [email or web address] Specimen Anatomical Collection Method Collection Time Receive d Time (Source) Location / / Volume Laterality Blood specimen 09/09/2014 6:54 AM 015 7:09 (specimen) EDT AM EDT Resulting Agency Comment Spec In Lab Bijan Jean MD CHEMISTRY ORDERABLES Performing Organization Address City/[facility]/ZIP Code Phon e Number [address] CERNER MILLENNIUM BUN (09/09/2014 6:54 AM EDT) P athologist Signature BUN 10 8 - 18 CERNER mg/dL MILLENNIUM Specimen Anatomical Collection Method Collection Time Receive d Time (Source) Location / / Volume Laterality Blood specimen 09/09/2014 6:54 AM 015 7:09 (specimen) EDT AM EDT Resulting Agency Comment Spec In Lab Bijan Jean MD CHEMISTRY ORDERABLES Performing Organization Address City/[facility]/[place] [address] CERNER MILLENNIUM (ABNORMAL) Electrolytes [...] Jean MD CHEMISTRY ORDERABLES Performing Organization Address City/[facility]/[place] [address] CERNER MILLENNIUM documented in [...] - Provider: Maria L Pineda RN) 0739 ([facility] Hold - Provider: Admin Adt - R bibiana: Transfer to a Procedural area)0845 ([facility] Unhold - Provider: Admin Adt)0853 (Given - Provider: Rut Yuan) 40 mg, Oral, DAILY, First dose on Sun at 0900, Until Discontinued, Routine levothyroxine (SYNTHROID) tablet 100 mcg (CANCELED) 06 39 (Given - Provider: Jyoti Wagner RN)0729 ([facility] Hold - Provider: Admin Adt - Reason: Transfer to a Procedural area)0851 ([facility] Unhold - Provider: Admin Adt) 0624 (Given - Provider: Jyoti Wagner RN) 0639 (Given - Provider: Trista Chang)0739 ([facility] Hold - Provider: Admin Adt - Reason: Transfer to a Procedural area)0845 ([facility] Unhold - Provider: Admin Adt) 100 mcg, Oral, EVERY MORNING, First dose on Sun09/16/14 at 1000, Until Discontinued, Routine liothyronine (CYTOMEL) tablet 50 mcg (CANCELED) 0639 ( Given - Provider: Jyoti Wagner RN)0729 ([facility] Hold - Provider: Admin Adt - Reason: Transfer to a Procedural area)0851 ([facility] Unhold - Provider: Admin Adt) 0624 (Given - Provider: Jyoti Wagner RN) 0639 (Given - Provider: Trista Chang)0739 ([facility] Hold - Provider: Admin Adt - Reason: Transfer to a Procedural area)0845 ([facility] Unhold - Provider: Admin Adt) 50 mcg, Oral, EVERY MORNING, First dose on Sun09/22/14 at 0600, Until Discontinued, Routine OLANZapine (ZyPREXA) tablet 10 mg (CANCELED) 07 ([facility] Hold - Provider: Admin Adt - Reason: Transfer to a Procedural area)0851 ([facility] Unhold - Provider: Admin Adt)2128 (Given - Provider: Soco Vogel RN) 10 mg, Oral, NIGHTLY, First dose on Sun09/21/14 at 2100, Until Discontinued, Routine omega-3 acid ethyl esters (LOVAZA) capsule 2 g 07 ([facility] Hold - Provider: Admin Adt - Reason: Transfer to a Procedural area)0851 ([facility] Unhold - Provider: Admin Adt)1108 (Given - Provider: Brianna Huntley RN) 0932 (Given - Provider: Maria L Pineda RN)2056 (Given - Provider: Soco Vogel RN) 0739 ([facility] Hold - Provider: Admin Adt - Reason: Transfer to a Procedural area)0845 ([facility] Unhold - Provider: Admin Adt)0853 (Given - Provider: Rut Yuan) 2 g, Oral, 2 TIMES DAILY, First dose on Sun09/14/14 at 2100, Until Discontinued, Routine 2128 (Not Given - Provider: Soco Vogel RN - Reason: Patient Unable - Comment: patient unable to swallow) QUEtiapine (SEROquel) tablet 250 mg 2054 (Given - Provider: Soco Vogel RN) 0739 ([facility] Hold - Provider: Admin Adt - R bibiana: Transfer to a Procedural area)0845 ([facility] Unhold - Provider: Admin Adt) 250 mg, Oral, NIGHTLY, First dose on Sun09/23/14 at 2100 QUEtiapine (SEROquel) tablet 50 mg (COMPLETED) 1238 (Given - Provider: Maria L Pineda RN) 50 mg, Oral, ONCE, 1 dose, Sun09/23/14 at 1200, Routine sodium chloride 0.9 % flush 5 mL (CANCELED) 0729 ([facility] Hold - Provider: Admin Adt - Reason: Transfer to a Procedural area)0851 ([facility] Unhold - Provider: Admin Adt)0900 (Not Given - Provider: Brainna Huntley RN - Reason: See comment - Comment: Done in ECT) 0932 (Given - Provider: Trista Murillo)2056 (Given - Provider: Soco Vogel RN) 0739 ([facility] Hold - Provider: Admin Adt - Reason: Transfer to a Procedural area)0845 ([facility] Unhold - Provider: Admin Adt)0900 (Not Given - Provider: Rut Yuan - Reason: Transfer to a Procedural area) 5 mL, Intravenous, 2 TIMES DAILY, First dose on Sun09/12/14 at 0900, Until Discontinued, Routine 2126 (Given - Provider: Soco Vogel RN) PRN [...] Routine documented in this encounter Care Teams Payroll Accounting Specialist Relationship Specialty Start Date End Date Unknown PCP - General 09/08/14 09/16/14 None documented as of this encounter
--- OUTSIDE RECORDS SUMMARY | 2022-01-09 00:41 | XMS_ITS | Encounter Summary ---
:1955 [place] [address] Care Team Providers Name Role Phone Unknown Primary Care Provider Unavailable Encounter Details Date Type Department Care Team Description 09/15/2014 Surgery Main Operating Room Geovani Jolley MD ECT (WRVU 2.5) [facility] Geovani snyder [place] [address] [place] [address] [phone] (Wo rk) Social History Tobacco Use Types [...] stabilization and medication management. Discharge Multi-axial Diagnosis: Bishop I: MDD w/ psychotic features Bishop II: deferred Bishop III: hypothyroid on replacement Bishop IV: father's health concerns Bishop V: Admission GAF: 25 Discharge GAF: 45 [...] patient was eventually involuntarily admitted to [facility]. At [facility] patient's Celexa was increased to 20mg and then she was discharged. Patient was eventually seen by Dr. Aurea Valencia MD a psychiatrist at [facility] who diagnosed the patient with MDD with [...] Brianna's delusions), so they requested admission to [facility]. She denies SI/HI #Depression Patient denies any [...] history of being religous and she attends anabaptism several times a week. In the past her lutheran beliefs never crossed what is normally accepted. [...] following parameters: 07/14/1.5/800 0 sec EEG seizure 07/14/ 44 sec [...] followup Primary Care Physician: JEWEL CHERRY MD [phone] Special Physician Instructions: -Continue to do outpatient ECT as scheduled and recommended -Take your medications as instructed -Make sure to have a colonoscopy and mammogram done -Make sure your doctor follows up on pending labs at [facility] -Come to the emergency room or call your doctor if you feel unsafe or have thoughts of suicide Special Instructions Provided to Brianna Lay: Call your doctor, your local mental health center, or your local emergency room if you develop worsening symptoms of depression, anxiety, thoughts of harming yourself, thoughts of harming others, or any other decline in your overall condition. [facility] Health Emergency Services: [facility] [phone] [facility] Emergency Services: [phone] [facility] Central Access Services: [phone] [facility] Main Line: [phone] Activity level: no restrictions from psychiatry Diet: [...] TREAT AT General Instructions Dr Aurea Valencia [phone] September 24 at 2:30pm Dr Regla PatelOctober 01 at 11:30am Discharge References/Attachments None Signed: William Correia MD 09/27/2014 documented in this encounter Discharge Instructions Discharge InstructionsWilliam Correia MD - 09/24/2014 12:[address] Aurea Valencia [phone] September 24 at 2:30pm Dr Regla PatelOctober 01 at 11:30am Patient InstructionsWilliam Correia MD [...] followup Primary Care Physician: JEWEL CHERRY MD [phone] Special Physician Instructions: -Continue to do outpatient ECT as scheduled and recommended -Take your medications as instructed -Make sure to have a colonoscopy and mammogram done -Make sure your doctor follows up on pending labs at [facility] -Come to the emergency room or call [...] condition. [facility] Emergency Services: [facility] [phone] [facility] Emergency Services: [phone] [facility] Central Access Services: [phone] [facility] Main Line: [phone] Activity level: no restrictions from psychiatry Diet: [...] Results Component Value Date TSH 0.11* 09/15/2014 [id number] 261* 09/15/2014 TT4 6.9 09/15/2014 Lipids and HgbA1C: No results found for this basename: CHLPL, HDL, CHOLHDL, LDLCHOL, LDLDIRECT, TRIG No results found for this basename: HA1C Vit Lvls: No results found for this basename: [id number], SFOLATE UA: No results found for this [...] patient's condition and or diagnostic study. Rah Arreguin, TERESA - 09/24/2014 7:36 AM EDT 0748 - [...] EDT TC with pts , Will at [phone]. He believes pt is about 75% back [...] i feel that somehow the people at [place] might hurt them Severity:. Rates Depression: 10/02, [...] Results Component Value Date TSH 0.11* 09/15/2014 [id number] 261* 09/15/2014 TT4 6.9 09/15/2014 Lipids and HgbA1C: No results found for this basename: CHLPL, HDL, CHOLHDL, LDLCHOL, LDLDIRECT, TRIG No results found for this basename: HA1C Vit Lvls: No results found for this basename: [id number], SFOLATE UA: No results found for this [...] still fears that she irritated people at [facility] who might harm her family. Tremor [...] Results Component Value Date TSH 0.11* 09/15/2014 [id number] 261* 09/15/2014 TT4 6.9 09/15/2014 Lipids and HgbA1C: No results found for this basename: CHLPL, HDL, CHOLHDL, LDLCHOL, LDLDIRECT, TRIG No results found for this basename: HA1C Vit Lvls: No results found for this basename: [id number], SFOLATE UA: No results found for this [...] Results Component Value Date TSH 0.11* 09/15/2014 [id number] 261* 09/15/2014 TT4 6.9 09/15/2014 Lipids and HgbA1C: No results found for this basename: CHLPL, HDL, CHOLHDL, LDLCHOL, LDLDIRECT, TRIG No results found for this basename: HA1C Vit Lvls: No results found for this basename: [id number], SFOLATE UA: No results found for this [...] Results Component Value Date TSH 0.11* 09/15/2014 [id number] 261* 09/15/2014 TT4 6.9 09/15/2014 Lipids and HgbA1C: No results found for this basename: CHLPL, HDL, CHOLHDL, LDLCHOL, LDLDIRECT, TRIG No results found for this basename: HA1C Vit Lvls: No results found for this basename: [id number], SFOLATE UA: No results found for this [...] Results Component Value Date TSH 0.11* 09/15/2014 [id number] 261* 09/15/2014 TT4 6.9 09/15/2014 Lipids and HgbA1C: No results found for this basename: CHLPL, HDL, CHOLHDL, LDLCHOL, LDLDIRECT, TRIG No results found for this basename: HA1C Vit Lvls: No results found for this basename: [id number], SFOLATE UA: No results found for this [...] Results Component Value Date TSH 0.11* 09/15/2014 [id number] 261* 09/15/2014 TT4 6.9 09/15/2014 Lipids and HgbA1C: No results found for this basename: CHLPL, HDL, CHOLHDL, LDLCHOL, LDLDIRECT, TRIG No results found for this basename: HA1C Vit Lvls: No results found for this basename: [id number], SFOLATE UA: No results found for this [...] self esteem and apassive communication style. Teresa Cotto [facility] 09/17/2014 Inpatient Daily Group Note Group: Inside walk Notes: Pt. walked quietly with peers. Enjoying the art. Teresa Key 09/17/2014 Inpatient Daily Group Note Group: Workshop Attendance: Present Behavior: Conversational Therapeutic Work Observed: Moderate Mood: Calm Notes: Pt. talked with this proposal writer about living in [place] and her son. Listened to conversations of [...] Pt. attentive although quiet. After group thanked proposal writer stating he learned a lot. Teresa [...] Results Component Value Date TSH 0.11* 09/15/2014 [id number] 261* 09/15/2014 TT4 6.9 09/15/2014 Lipids and HgbA1C: No results found for this basename: CHLPL, HDL, CHOLHDL, LDLCHOL, LDLDIRECT, TRIG No results found for this basename: HA1C Vit Lvls: No results found for this basename: [id number], SFOLATE UA: No results found for this [...] - 09/17/2014 10:51 AM EDT Attending Physician: Aolnzo Martel MD Resident name:Tommy Moraes MD I [...] Results Component Value Date TSH 0.11* 09/15/2014 [id number] 261* 09/15/2014 TT4 6.9 09/15/2014 Lipids and HgbA1C: No results found for this basename: CHLPL, HDL, CHOLHDL, LDLCHOL, LDLDIRECT, TRIG No results found for this basename: HA1C Vit Lvls: No results found for this basename: [id number], SFOLATE UA: No results found for this [...] Results Component Value Date TSH 5.39* 09/09/2014 [id number] 60* 09/09/2014 TT4 7.7 09/09/2014 Lipids and HgbA1C: No results found for this basename: CHLPL, HDL, CHOLHDL, LDLCHOL, LDLDIRECT, TRIG No results found for this basename: HA1C Vit Lvls: No results found for this basename: [id number], SFOLATE UA: No results found for this [...] treated pharmacologically by Dr. Aurea Valencia at [facility] who referred her for ECT. She [...] Results Component Value Date TSH 5.39* 09/09/2014 [id number] 60* 09/09/2014 TT4 7.7 09/09/2014 Lipids and HgbA1C: No results found for this basename: CHLPL, HDL, CHOLHDL, LDLCHOL, LDLDIRECT, TRIG No results found for this basename: HA1C Vit Lvls: No results found for this basename: [id number], SFOLATE UA: No results found for this [...] treated pharmacologically by Dr. Aurea Valencia at [facility] who referred her for ECT. She [...] Results Component Value Date TSH 5.39* 09/09/2014 [id number] 60* 09/09/2014 TT4 7.7 09/09/2014 Lipids and HgbA1C: No results found for this basename: CHLPL, HDL, CHOLHDL, LDLCHOL, LDLDIRECT, TRIG No results found for this basename: HA1C Vit Lvls: No results found for this basename: [id number], SFOLATE UA: No results found for this [...] and treated by Dr. Aurea Valencia at [facility] who referred her for ECT. She [...] Mood: Flat Notes: Pt. quietly worked on [employer] project. Teresa Key 09/12/2014 Soumya Daniel MD [...] Results Component Value Date TSH 5.39* 09/09/2014 [id number] 60* 09/09/2014 TT4 7.7 09/09/2014 Lipids and HgbA1C: No results found for this basename: CHLPL, HDL, CHOLHDL, LDLCHOL, LDLDIRECT, TRIG No results found for this basename: HA1C Vit Lvls: No results found for this basename: [id number], SFOLATE UA: Lab Results Component Value Date [...] and treated by Dr. Aurea Valencia at [facility] who referred her for ECT. She [...] Mood: Calm Notes: Pt. quietly worked on [employer] project. Returned to unit awaiting visit from [...] Results Component Value Date TSH 5.39* 09/09/2014 [id number] 60* 09/09/2014 TT4 7.7 09/09/2014 Lipids and HgbA1C: No results found for this basename: CHLPL, HDL, CHOLHDL, LDLCHOL, LDLDIRECT, TRIG No results found for this basename: HA1C Vit Lvls: No results found for this basename: [id number], SFOLATE UA: Lab Results Component Value Date [...] and treated by Dr. Aurea Valencia at [facility] who referred her for ECT. She [...] Results Component Value Date TSH 5.39* 09/09/2014 [id number] 60* 09/09/2014 TT4 7.7 09/09/2014 Lipids and HgbA1C: No results found for this basename: CHLPL, HDL, CHOLHDL, LDLCHOL, LDLDIRECT, TRIG No results found for this basename: HA1C Vit Lvls: No results found for this basename: [id number], SFOLATE UA: Lab Results Component Value Date [...] and treated by Dr. Aurea Valencia at [facility] who referred her for ECT.Patient had [...] By: William Correia MD 09/11/2014 Becky Mane [facility] - 09/10/2014 2:43 PM EDT OFFICE OF CARE MANAGEMENT PSYCHOSOCIAL ASSESSMENT Present at Interview: Hi Date: September 10, 2014 1. Referral request and/or presenting problem(s): Patient is a 59 year old MWF who presents at [facility] to address her increasing depression, ongoing paranoia, [...] 81 and Mother age 80 live in [place]. Siblings are Bhavin age 59, Moo age 54 and Krzysztof age 50 also living in [place]. Patient has regular contact with her parents and more sporadic contact with her brothers. Patient was born and raised in [place] anddescribed childhood as [place]. Extended family available and involved. Patient left home at age 18 andmoved in with a relative. Patient has been with her Salvador age 64 for 36 years, for 9 years, one son José Manuel age 35 in [place]. Patient has frequent contact with her son. [...] including spiritual support: , son, Dr. Valencia, Gnosticist Jehovah'S Witness. 6. 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 Aurea Valencia MD. [facility] Current Therapist: Deb Romo PCP: Dr. Sung [...] patient was eventually involuntarily admitted to [facility]. At [facility] patient's Celexa was increased to 20mg and then she was discharged. Patient was eventually seen by Dr. Aurea Valencia MD a psychiatrist at [facility] who diagnosed the patient with MDD with [...] Brianna's delusions), so they requested admission to [facility]. She denies SI/HI #Depression Patient denies any [...] history of being religous and she attends anabaptism several times a week. In the past her lutheran beliefs never crossed what is normally accepted. [...] diagnoses: depression Past hospitalization and location: [facility] - involuntarily Suicide attempts: none Past psychiatric [...] of ever using drugs or alcohol. Highly lutheran in the past. 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 ENDO No temperature intolerance HEME/LYMPH No easy bruising ALL/IMMUNO No symptoms of Sinustis Physical Exam: Vitals Admission (Current) from 09/08/2014 in [facility] Weight - Scale 57.153 kg [...] memory intact ?? Fund of Knowledge: [facility] ?? Insight: fair ?? Judgment: . [...] establishing adequate outpatient care). DSM Multiaxial Diagnosis: Bishop I MDD with psychotic features Bishop II deferred Bishop III Hypothyroid on replacement Bishop IV: Father's health concerns Bishop V: GAF = 25 Clinical Global Impression: [...] with psychotic behavior [296.34] Procedures 1. ECT [[id number] (CPT??)] ECT SUBSEQUENT TREATMENT NOTE Patient received [...] for next treatment: None, same. Next treatment date:4/2 Alonzo Martel MD - 09/21/2014 8:02 AM EDT Pre-procedure Diagnoses 1. Major depressive disorder, recurrent episode, severe, specified as with psychotic behavior [296.34] Procedures 1. ECT [[id number] (CPT??)] ECT SUBSEQUENT TREATMENT NOTE Patient received [...] with psychotic behavior [296.34] Procedures 1. ECT [[id number] (CPT??)] Expand All Collapse All ECT SUBSEQUENT [...] not safe- here and reinforced reality with proposal writer. Brianna continues to have bilateral shaking [...] achieved Date Met: 09/24/14 09/08/14 1836 09/21/14 5233 Individualization Individualize the Plan of Care: -- [...] some concerns about the staff at the [facility] yet she can see that it doesn't make much sense Patient denies SI or HI. Depression 4/10 and no anxiety PLAN MOVING FORWARD: NPO after midnight for ect INDIVIDUALIZED FALL PREVENTION: Assistance: independent Supervision: Escort to group Surveillance: 30 minute checks CPG GOAL OUTCOME EVALUATION: Goal: Individualization and Mutuality Outcome: Ongoing (Interventions Implemented as Appropriate) 09/08/14 1836 09/21/14 5246 Individualization Individualize the Plan of Care: -- [...] Handling Outcome: Ongoing (Interventions Implemented as Appropriate) 09/22/14192409/22/14 2346 09/23/14 1000 Safety Interventions Safety Precautions/Fall [...] Low -- Goal: Infection Control 09/22/145 09/22/14 234 Coping/Psychosocial Response Interventions Counseling -- personal strengths [...] Outcome: Ongoing (Interventions Implemented as Appropriate) 09/21/14 1307 Coping/Psychosocial Response Interventions Plan of Care Reviewed [...] Outcome: Ongoing (Interventions Implemented as Appropriate) 09/17/142 09/18/14 1900 Coping/Psychosocial Response Interventions Plan of [...] Last BM 3-28. Gait steady. Med compliant. SC Goal: Groups. Hep cap flushed, patent. Dsg [...] independent Supervision: escort Surveillance: 30 min checks, SC CPG GOAL OUTCOME EVALUATION: Goal: Fall Prevention-Safe [...] toward outcome Med Student Progress Note - MirianLisapushpa Aidee Vega - 09/16/2014 11:58 AM EDT [...] when arrived. Denies pain, anxiety 10, depression 09/01. CFS, denies SI, no delusional thoughts presented, [...] Romo Primary provider: Dr Pineda Salgado MS-3 [id number] Plan of Care - Bienvenido Guthrie RN - 09/14/2014 11:38 PM EDT Problem: General Plan of Care Goal: Plan of Care Review Outcome: Ongoing (Interventions Implemented as Appropriate) 09/14/14 1045 Coping/Psychosocial Response Interventions Plan of Care Reviewed [...] independent Supervision: escort Surveillance: 30 min checks. SC CPG GOAL OUTCOME EVALUATION: Med Student Progress [...] UdAidee MS-3 [id number] Plan of Care - Maria [...] homicidal ideation and contracts for safety. Pt [id number]% of meals and reports last bowel movement [...] independent Supervision: escort Surveillance: 30 min checks. SC CPG GOAL OUTCOME EVALUATION: Goal: Individualization and [...] Appropriate) 09/13/14 114 Depression (Adult, Obstetrics, Pediatric) Improved/Stable [...] Outcome: Ongoing (Interventions Implemented as Appropriate) 09/12/14 1211 09/12/14 1700 Coping/Psychosocial Response Interventions Counseling emotional support [...] toward outcome Plan of Care - Valeria Montreo RN - 09/12/2014 12:20 PM EDT Problem: [...] shared thathe noticed improvement in his . [place] she was less vacant and even noticed [...] Deb Romo Primary provider: Dr Pineda Hoskins [facility] MS-3 [id number] Plan of Care - Bonny Lepe RN [...] understanding of illness 2. Work with Patient Music Arranger to create and implement aftercare plan 3. [...] MD 09/09/2014 NURSING , RN 09/09/2014 PT NAVIGATION TEACHER Nydia Valle, TERESA- 09/09/2014 THERAPIST Jenna Baker [facility] 09/09/2014 SOCIAL SCIENCES PROFESSOR Becky Mane [facility] 09/09/2014 Plan of Care - Brianna Huntley, [...] DATE: RESIDENT PHYSICIAN ATTENDING PHYSICIAN NURSING PATIENT NAVIGATION TEACHER THERAPIST SOCIAL SCIENCES PROFESSOR Plan of Care - Bonny Lepe RN [...] 2.5) Yes 09/15/2014 7:47 AM 296.34 EDT URINE CULTURE Routine 09/09/2014 [...] Component Value Ref Test Analysis Performed At [facility] Range Method Time Signature [place]aneo Eval [facility] M[facility] Comment: No informative autoantibodies were detec adali in this evaluation. However, a negative result d oes not exclude neurological autoimmunity with or withou t associated neoplasia. Test Performed by: [place] [address] Chief Of Planning: Tommy Irene II, M.D., Ph.D. TRACY-1 (Anti-Neuronal Nuclear Ab, Type Negative <1:240 titer CERNER MILLENNIUM 1) Comment: Test Performed by: [facility] [place] [address] Chief Of Planning: Tommy Irene II, M.D., Ph.D. TRACY-2 (Anti-Neuronal Nuclear Ab,Type Negative <1:240 titer CERNER MILLENNIUM 2) Comment: Test Performed by: [place] [address] Chief Of Planning: Tommy Irene II, M.D., Ph.D. TRACY-3 (Anti-Neuronal Nuclear Ab, Type Negative <1:240 titer CERNER MILLENNIUM 3) Comment: Test Performed by: [place] [address] Chief Of Planning: Tommy Irene II, M.D., Ph.D. AGNA-1 (Anti-Glial Nuclear Ab, Type 1) Negative <1:240 titer CERNER MILLENNIUM Comment: Test Performed by: [facility] [place] [address] Chief Of Planning: Tommy Irene II, M.D., Ph.D. PLATING DEPARTMENT HELPER-1 (Purkinje Cell Cytoplasmic Negative <1:240 titer CERNER MILLENNIUM Ab-Type 1) Comment: Test Performed by: [place] [address] Chief Of Planning: Tommy Irene II, M.D., Ph.D. PLATING DEPARTMENT HELPER-2 (Purkinje Cell Cytoplasmic Negative <1:240 titer CERNER MILLENNIUM Ab-Type 2) Comment: Test Performed by: [facility] [place] [address] Chief Of Planning: Tommy Irene II, M.D., Ph.D. PLATING DEPARTMENT HELPER-Type Tr (Purkinje Cell Cytoplasmic Negative <1:240 titer CERNER MILLENNIUM Ab-Type Tr) Comment: Test Performed by: [place] [address] Chief Of Planning: Tommy Irene II, M.D., Ph.D. Amphiphysin Antibody Negative <1:240 titer CERNER MILLENNIUM Comment: Test Performed by: [place] [address] Chief Of Planning: Tommy Irene II, M.D., Ph.D. CRMP-5-IgG Negative <1:240 titer CERNER MILLENNIU M Comment: CRMP-5 Titers lower than 1:240 may be de tectable by recombinant CRMP-5 western blot analysis , available by request on stored serum and recommended in cases of chorea, vision loss, cranial neuropathy and myel opathy. Extramural clients contact [facility] Inquiry at to add-on CRMP-5-IgG Western Blot, Serum . Intramural Clients, please call the Neuroimmunology Lab at [phone]. Test Performed by: [place] [address] Chief Of Planning: Tommy Irene II, M.D., Ph.D. Striated Muscle Ab Negative <1:120 titer CERNER M ILLENNIUM Comment: Test Performed by: [place] [address] Chief Of Planning: Tommy Irene II, M.D., Ph.D. P/Q-Type Ca Channel Ab 0.00 <=0.02 nmol/L CER NER MILLENNIUM Comment: Test Performed by: [place] [address] Chief Of Planning: Tommy Irene II, M.D., Ph.D. N-Type Ca Channel Ab 0.00 <=0.03 nmol/L CERNE R MILLENNIUM Comment: Test Performed by: [facility] [place] [address] Chief Of Planning: Tommy Irene II, M.D., Ph.D. ACHr Binding Ab 0.00 <=0.02 nmol/L CERNER MIL LENNIUM Comment: Test Performed by: [place] [address] Chief Of Planning: Tommy Irene II, M.D., Ph.D. AChR Gang Neuronal Ab 0.00 <=0.02 nmol/L CERN ER MILLENNIUM Comment: Test Performed by: [place] [address] Chief Of Planning: Tommy Irene II, M.D., Ph.D. Neuronal (V-G) K+ Channel Ab 0.00 <=0.02 nmol/L CERNER MILLENNIUM Comment: Test Performed by: [place] [address] Chief Of Planning: Tommy Irene II, M.D., Ph.D. Specimen Anatomical Collection Method Collection Time Receive d Time (Source) Location / / Volume Laterality Blood specimen 09/23/2014 3:50 PM 015 4:42 (specimen) EDT PM EDT Resulting Agency Comment Spec In Lab Nathen Go MD CHEMISTRY ORDERABLES Performing Organization Address City/[facility]/ZIP Code Phon e Number [address] CERNER MILLENNIUM (ABNORMAL) Thyroglobulin Antibody (09/23/2014 3:50 PM EDT) Analysis Performed At Patho logist Time Signature Thyroglob Ab 232.0 (H) 0.0 - 40.0 CERNER IU/mL MILLENNIUM Comment: Assay performed is the [employer] Immulite Tg-A b immunometric assay. (Cutoff for TgAb negativity is <20 IU/ml ) Specimen Anatomical Collection Method Collection Time Receive d Time (Source) Location / / Volume Laterality Blood specimen 09/23/2014 3:50 PM 015 8:08 (specimen) EDT AM EDT Resulting Agency Comment Spec In Lab Nathen Go MD CHEMISTRY ORDERABLES Performing Organization Address City/[facility]/ZIP Code Phon e Number [address] CERNER MILLENNIUM Thyroid peroxidase antibody (09/23/2014 3:50 PM EDT) P athologist Signature Thyroperox Ab 25 <=34 IU/mL CERNER MILLENNIUM Specimen Anatomical Collection Method Collection Time Receive d Time (Source) Location / / Volume Laterality Blood specimen 09/23/2014 3:50 PM 015 8:08 (specimen) EDT AM EDT Resulting Agency Comment Spec In Lab Nathen Go MD IMMUNOLOGY ORDERABLES Performing Organization Address City/[facility]/ZIP Code Phon e Number [address] CERNER MILLENNIUM (ABNORMAL) T3 [...] Go MD CHEMISTRY ORDERABLES Performing Organization Address City/[facility]/ZIP Code Phon e Number [address] [facility] T4 Total (09/15/2014 1:03 PM EDT) athologist Signature T4, total 6.9 5.1 - 10.8 CERNER mcg/dL [facility] Comment: Reference Range: [place] Blood: ??6.9-14.4 mcg/dL Females: ??7.2-14.2 mcg/dL Pediatric ranges: ??Interpret with cauti on-ranges have not been verified Specimen Anatomical Collection Method Collection Time Receive d Time (Source) Location / / Volume Laterality Blood specimen 09/15/2014 1:03 PM 015 1:18 (specimen) EDT PM EDT Resulting Agency Comment Spec In Lab Nathen Go MD CHEMISTRY ORDERABLES Performing Organization Address City/[facility]/ZIP Code Phon e Number [address] [facility] [facility]PITAL (ABNORMAL) TSH (09/15/2014 1:03 PM EDT) athologist Signature TSH 0.11 (L) 0.27 - 4.20 CERNER mcIU/mL [facility] Specimen Anatomical Collection Method Collection Time Receive d Time (Source) Location / / Volume Laterality Blood specimen 09/15/2014 1:03 PM 015 1:18 (specimen) EDT PM EDT Resulting Agency Comment Spec In Lab Nathen Go MD CHEMISTRY ORDERABLES Performing Organization Address City/[facility]/ZIP Code Phon e Number [address] [facility] Urine culture Clean Catch Urine (09/09/2014 5:13 PM EDT) [facility] Method Time Signature Urine Culture CERNER ? Patient Name: BRIANNA LAY ? Ordered By: BIJAN JEAN ? MR#: [id number] ?LOC: ??[id number] ? /Sex: ??1955 (59 years), [...] Organization Address City/State/[place] [address] [facility] (ABNORMAL) TSH (09/09/2014 3:26 PM EDT) P athologist Signature TSH 5.39 (H) 0.27 - 4.20 CERNER mcIU/mL [facility] Specimen Anatomical Collection Method Collection Time Receive d Time (Source) Location / / Volume Laterality Blood specimen 09/09/2014 3:26 PM 015 3:33 (specimen) EDT PM EDT Resulting Agency Comment Spec In Lab Nathen Go MD CHEMISTRY ORDERABLES Performing Organization Address City/[facility]/[place] [address] CERNER MILLENNIUM T4 Total (09/09/2014 3:26 PM EDT) P athologist Signature T4, total 7.7 5.1 - 10.8 CERNER mcg/dL [facility] Comment: Reference Range: [place] Blood: ??6.9-14.4 mcg/dL Females: ??7.2-14.2 mcg/dL Pediatric ranges: ??Interpret with cauti on-ranges have not been verified Specimen Anatomical Collection Method Collection Time Receive d Time (Source) Location / / Volume Laterality Blood specimen 09/09/2014 3:26 PM 015 3:33 (specimen) EDT PM EDT Resulting Agency Comment Spec In Lab Nathen Go MD CHEMISTRY ORDERABLES Performing Organization Address City/[facility]/[place] [address] CERNER [facility]ANNER [facility] T3 Total (09/09/2014 3:26 PM EDT) athologist Signature T3, Total 60 (L) 75 - 170 CERNER ng/dL [facility] Specimen Anatomical Collection Method Collection Time Receive d Time (Source) Location / / Volume Laterality Blood specimen 09/09/2014 3:26 PM 015 3:33 (specimen) EDT PM EDT Resulting Agency Comment Spec In Lab Nathen Go MD CHEMISTRY ORDERABLES Performing Organization Address City/[facility]/[place] [address] [facility] EKG 12 Lead (09/09/2014 9:08 AM EDT) Component Value Ref Range Test Analysis Performed Pathologis t Method Time At Signature Ventricular rate 76 BPM MUSE SYSTEM Atrial Rate 76 BPM MUSE SYSTEM P-R Interval 142 ms MUSE SYSTEM QRS Duration 88 ms MUSE SYSTEM Q-T Interval 380 ms MUSE SYSTEM QTC Calculated 427 ms MUSE SYSTEM (Bezet) Calculated P Bishop 79 degrees MUSE SYSTEM Calculated R Bishop 80 degrees MUSE SYSTEM Calculated T Bishop 73 degrees MUSE SYSTEM INTERPRETATION Normal sinus [...] Urinalysis with microscopic (09/09/2014 7:14 AM EDT) [facility] Method Time Signature Glucose UA Negative [...] Hazy (A) Clear CERNER MILLENNIU M Spec [place] UA 1.014 1.002 - 1.030 CERNER MIL [...] Jean MD URINE ORDERABLES Performing Organization Address City/[facility]/[place] [address] CERNER MILLENNIUM Differential, Automated [...] Jean MD HEMATOLOGY ORDERABLES Performing Organization Address City/[facility]/[place] [address] CERNER MILLENNIUM Hemogram (09/09/2014 [...] MPV 11.1 9.0 - 12.0 CERNER fL [facility] Specimen Anatomical Collection Method Collection Time Receive d Time (Source) Location / / Volume Laterality Blood specimen 09/09/2014 6:54 AM 015 7:09 (specimen) EDT AM EDT Resulting Agency Comment Spec In Lab Bijan Jean MD HEMATOLOGY ORDERABLES Performing Organization Address City/State/[place] [address] [facility] ([facility] TSH (09/09/2014 6:54 AM EDT) P athologist Signature TSH 13.20 (H) 0.27 - CERNER 4.20 MILLENNIUM mcIU/mL Specimen Anatomical Collection Method Collection Time Receive d Time (Source) Location / / Volume Laterality Blood specimen 09/09/2014 6:54 AM 015 7:09 (specimen) EDT AM EDT Resulting Agency Comment Spec In Lab Bijan Jean MD CHEMISTRY ORDERABLES Performing Organization Address City/State/[place] [address] [facility] Hepatic Function Panel (09/09/2014 6:54 [...] Direct 0.1 0.0 - 0.3 CERNER mg/dL [facility] Specimen Anatomical Collection Method Collection Time Receive d Time (Source) Location / / Volume Laterality Blood specimen 09/09/2014 6:54 AM 015 7:09 (specimen) EDT AM EDT Resulting Agency Comment Spec In Lab Bijan Jean MD CHEMISTRY ORDERABLES Performing Organization Address City/[facility]/ZIP Code Phon e Number [address] [facility] Phosphorus (09/09/2014 6:54 AM EDT) P athologist Signature Phosphorus 3.0 2.5 - 4.5 CERNER mg/dL [facility] Specimen Anatomical Collection Method Collection Time Receive d Time (Source) Location / / Volume Laterality Blood specimen 09/09/2014 6:54 AM 015 7:09 (specimen) EDT AM EDT Resulting Agency Comment Spec In Lab Bijan Jean MD CHEMISTRY ORDERABLES Performing Organization Address City/[facility]/ZIP Code Phon e Number [address] [facility] Magnesium (09/09/2014 6:54 AM EDT) P athologist Signature Magnesium 0.88 0.69 - 1.07 CERNER mmol/L [facility] Specimen Anatomical Collection Method Collection Time Receive d Time (Source) Location / / Volume Laterality Blood specimen 09/09/2014 6:54 AM 015 7:09 (specimen) EDT AM EDT Resulting Agency Comment Spec In Lab Bijan Jean MD CHEMISTRY ORDERABLES Performing Organization Address City/[facility]/ZIP Code Phon e Number [address] CERNER MILLENNIUM Calcium (09/09/2014 6:54 AM EDT) athologist Signature Calcium 8.9 8.5 - 10.5 CERNER mg/dL [facility] Specimen Anatomical Collection Method Collection Time Receive d Time (Source) Location / / Volume Laterality Blood specimen 09/09/2014 6:54 AM 015 7:09 (specimen) EDT AM EDT Resulting Agency Comment Spec In Lab Bijan Jean MD CHEMISTRY ORDERABLES Performing Organization Address [facility] Phon e Number [address] CERNER MILLENNIUM Creatinine (09/09/2014 6:54 AM EDT) athologist Signature Creatinine 0.76 0.70 - 1.20 CERNER mg/dL MILLENNIUM Comment: Please note that the pediatric reference intervals supplied above were not validated at [facility]. Results from pediatri c patients should be [...] the following links into your internet browser. [email or web address] Specimen Anatomical Collection Method Collection Time Receive d Time (Source) Location / / Volume Laterality Blood specimen 09/09/2014 6:54 AM 015 7:09 (specimen) EDT AM EDT Resulting Agency Comment Spec In Lab Bijan Jean MD CHEMISTRY ORDERABLES Performing Organization Address City/[facility]/ZIP [facility] Phon e Number [address] CERNER MILLENNIUM BUN (09/09/2014 6:54 AM EDT) P athologist Signature BUN 10 8 - 18 CERNER mg/dL MILLENNIUM Specimen Anatomical Collection Method Collection Time Receive d Time (Source) Location / / Volume Laterality Blood specimen 09/09/2014 6:54 AM 015 7:09 (specimen) EDT AM EDT Resulting Agency Comment Spec In Lab Bijan Jean MD CHEMISTRY ORDERABLES Performing Organization Address City/[facility]/[place] [address] CERNER MILLENNIUM (ABNORMAL) Electrolytes [...] Jean MD CHEMISTRY ORDERABLES Performing Organization Address City/[facility]/ZIP Code Phon e Number [address] CERNER MILLENNIUM documented in [...] - Provider: Maria L Pineda RN) 0739 ([facility] Hold - Provider: Admin Adt - R bibiana: Transfer to a Procedural area)0845 ([facility] Unhold - Provider: Admin Adt)0853 (Given - Provider: Rut Yuan) 40 mg, Oral, DAILY, First dose on Sun at 0900, Until Discontinued, Routine levothyroxine (SYNTHROID) tablet 100 mcg (CANCELED) 06 39 (Given - Provider: Jyoti Wagner RN)0729 ([facility] Hold - Provider: Admin Adt - Reason: Transfer to a Procedural area)0851 ([facility] Unhold - Provider: Admin Adt) 0624 (Given - Provider: Jyoti Wagner RN) 0639 (Given - Provider: Trista Chang)0739 ([facility] Hold - Provider: Admin Adt - Reason: Transfer to a Procedural area)0845 ([facility] Unhold - Provider: Admin Adt) 100 mcg, Oral, EVERY MORNING, First dose on Sun09/16/14 at 1000, Until Discontinued, Routine liothyronine (CYTOMEL) tablet 50 mcg (CANCELED) 0639 ( Given - Provider: Jyoti Wagner RN)0729 ([facility] Hold - Provider: Admin Adt - Reason: Transfer to a Procedural area)0851 ([facility] Unhold - Provider: Admin Adt) 0624 (Given - Provider: Jyoti Wagner RN) 0639 (Given - Provider: Trista Chang)0739 ([facility] Hold - Provider: Admin Adt - Reason: Transfer to a Procedural area)0845 ([facility] Unhold - Provider: Admin Adt) 50 mcg, Oral, EVERY MORNING, First dose on Sun09/22/14 at 0600, Until Discontinued, Routine OLANZapine (ZyPREXA) tablet 10 mg (CANCELED) 0729 ([facility] Hold - Provider: Admin Adt - Reason: Transfer to a Procedural area)0851 ([facility] Unhold - Provider: Admin Adt)2129 (Given - Provider: Soco Vogel RN) 10 mg, Oral, NIGHTLY, First dose on Sun09/21/14 at 2100, Until Discontinued, Routine omega-3 acid ethyl esters (LOVAZA) capsule 2 g 07 ([facility] Hold - Provider: Admin Adt - Reason: Transfer to a Procedural area)0851 ([facility] Unhold - Provider: Admin Adt)1108 (Given - Provider: Brianna Huntley RN) 0932 (Given - Provider: Maria L Pineda RN)2056 (Given - Provider: Soco Vogel RN) 0739 ([facility] Hold - Provider: Admin Adt - Reason: Transfer to a Procedural area)0845 ([facility] Unhold - Provider: Admin Adt)0853 (Given - Provider: Rut Yuan) 2 g, Oral, 2 TIMES DAILY, First dose on Sun09/14/14 at 2100, Until Discontinued, Routine 2128 (Not Given - Provider: Soco Vogel RN - Reason: Patient Unable - Comment: patient unable to swallow) QUEtiapine (SEROquel) tablet 250 mg 2054 (Given - Provider: Soco Vogel RN) 0739 ([facility] Hold - Provider: Admin Adt - R bibiana: Transfer to a Procedural area)0845 ([facility] Unhold - Provider: Admin Adt) 250 mg, Oral, NIGHTLY, First dose on Sun09/23/14 at 2100 QUEtiapine (SEROquel) tablet 50 mg (COMPLETED) 1238 (Given - Provider: Maria L Pineda RN) 50 mg, Oral, ONCE, 1 dose, Sun09/23/14 at 1200, Routine sodium chloride 0.9 % flush 5 mL (CANCELED) 0729 ([facility] Hold - Provider: Admin Adt - Reason: Transfer to a Procedural area)0851 ([facility] Unhold - Provider: Admin Adt)0900 (Not Given - Provider: Brianna Huntley RN - Reason: See comment - Comment: Done in ECT) 0932 (Given - Provider: Trista Murillo N)2056 (Given - Provider: Soco Vogel RN) 0739 ([facility] Hold - Provider: Admin Adt - Reason: Transfer to a Procedural area)0845 ([facility] Unhold - Provider: Admin Adt)0900 (Not Given [...] Routine documented in this encounter Care Teams Doll Wig Hackler Relationship Specialty Start Date End Date Unknown PCP - General 09/08/14 09/16/14 None documented as of this encounter
--- OUTSIDE RECORDS SUMMARY | 2022-01-09 00:41 | XMS_ITS | Encounter Summary ---
:1955 [place] [address] Care Team Providers Name Role Phone Jewel Cherry MD Primary Care Provider Encounter Details Date Type Department Care Team Description 09/18/2014 Surgery Main Operating Room Shahriar Galaviz ba, MD ECT (WRVU 2.5) [facility] Geovani snyder [place] [address] [place] [address] [phone] (Wo rk) Social History Tobacco Use Types [...] stabilization and medication management. Discharge Multi-axial Diagnosis: [place] I: MDD w/ psychotic features [place] II: deferred [place] III: hypothyroid on replacement [place] IV: father's health concerns [place] V: Admission GAF: 25 Discharge GAF: 45 [...] and patient was eventually involuntarily admitted to [facility]. At [facility] patient's Celexa was increased to 20mg and then she was discharged. Patient was eventually seen by Dr. Aurea Valencia MD a psychiatrist at [facility] who diagnosed the patient with MDD with psychotic features on 08/24/14 and switched the patient from Celexa to Prozac 20mg and Zyprexa 5mg QHS (with instructions to increase the zyprexa to 10mg QHS if improvement wasn't seen). Patient saw Dr. aVlencia again on 09/07/14 and she increased the patient's Prozac to 40mg daily and Zyprexa to 15mg QHS. Dr. Valencia and the patient's did not think the patient was improving and Dr. Valencia that worried that Brianna may hurt herself in an attempt to protect her family (in line with Brianna's delusions), so they requested admission [place] [facility] She denies SI/HI #Depression Patient denies [...] history of being religous and she attends mormon several times a week. In the past her druze beliefs never crossed what is normally accepted. [...] a MECTA device at the following parameters: 07/14/.5/ 0 sec EEG seizure 07/14/ 44 sec [...] followup Primary Care Physician: JEWEL CHERRY MD [phone] Special Physician Instructions: -Continue to do outpatient ECT as scheduled and recommended -Take your medications as instructed -Make sure to have a colonoscopy and mammogram done -Make sure your doctor follows up on pending labs at [facility] -Come to the emergency room or call your doctor if you feel unsafe or have thoughts of suicide Special Instructions Provided to Brianna Lay: Call your doctor, your local mental health center, or your local emergency room if you develop worsening symptoms of depression, anxiety, thoughts of harming yourself, thoughts of harming others, or any other decline in your overall condition. [facility] Emergency Services: [facility] [phone] [facility] Emergency Services: [phone] [facility] Central Access Services: [phone] [facility] Main Line: [phone] Activity level: no restrictions from psychiatry Diet: [...] TREAT AT General Instructions Dr Aurea Valencia [phone] September 24 at 2:30pm Dr Regla Patel, October 01 at 11:30am Discharge References/Attachments None Signed: William Correia MD 09/27/2014 documented in this encounter Discharge Instructions Discharge InstructionsWilliam Correia MD - 09/24/2014 12:[address] Aurea Valencia [phone] September 24 at 2:30pm Dr Regla Patel, [...] followup Primary Care Physician: JEWEL CHERRY MD [phone] Special Physician Instructions: -Continue to do outpatient ECT as scheduled and recommended -Take your medications as instructed -Make sure to have a colonoscopy and mammogram done -Make sure your doctor follows up on pending labs at [facility] -Come to the emergency room or call your doctor if you feel unsafe or have thoughts of suicide Special Instructions Provided to Brianna Lay: Call your doctor, your local mental health center, or your local emergency room if you develop worsening symptoms of depression, anxiety, thoughts of harming yourself, thoughts of harming others, or any other decline in your overall condition. [facility] Emergency Services: [facility] [phone] [facility] Emergency Services: [phone] [facility] Central Access Services: [phone] [facility] Main Line: [phone] Activity level: no restrictions from psychiatry Diet: [...] Results Component Value Date TSH 0.11* 09/15/2014 [id number] 261* 09/15/2014 TT4 6.9 09/15/2014 Lipids and HgbA1C: No results found for this basename: CHLPL, HDL, CHOLHDL, LDLCHOL, LDLDIRECT, TRIG No results found for this basename: HA1C Vit Lvls: No results found for this basename: [id number], SFOLATE UA: No results found for this [...] EDT TC with pts , Will at [phone]. He believes pt is about 75% back [...] enjoyed dog and struggled with staying awake. Jennatra Baker, [place] 09/23/2014 William Correia MD - [...] i feel that somehow the people at [facility] might hurt them Severity:. Rates Depression: 10/02, [...] Results Component Value Date TSH 0.11* 09/15/2014 [id number] 261* 09/15/2014 TT4 6.9 09/15/2014 Lipids and HgbA1C: No results found for this basename: CHLPL, HDL, CHOLHDL, LDLCHOL, LDLDIRECT, TRIG No results found for this basename: HA1C Vit Lvls: No results found for this basename: [id number], SFOLATE UA: No results found for this [...] still fears that she irritated people at [facility] who might harm her family. Tremor [...] patient's condition and or diagnostic study. Josselin Hickey MHT - 09/22/2014 1:40 PM EDT Inpatient [...] Results Component Value Date TSH 0.11* 09/15/2014 [id number] 261* 09/15/2014 TT4 6.9 09/15/2014 Lipids and HgbA1C: No results found for this basename: CHLPL, HDL, CHOLHDL, LDLCHOL, LDLDIRECT, TRIG No results found for this basename: HA1C Vit Lvls: No results found for this basename: [id number], SFOLATE UA: No results found for this [...] symptoms of depression and blunted affect. Rates D:210, A:2/10. Denies SI Timing: steadily improving mood [...] Results Component Value Date TSH 0.11* 09/15/2014 [id number] 261* 09/15/2014 TT4 6.9 09/15/2014 Lipids and HgbA1C: No results found for this basename: CHLPL, HDL, CHOLHDL, LDLCHOL, LDLDIRECT, TRIG No results found for this basename: HA1C Vit Lvls: No results found for this basename: [id number], SFOLATE UA: No results found for this [...] Psychiatry Inpatient - Progress Note 09/20/2014 ID: Biranna Lay is a 59 y.o. female admitted [...] Results Component Value Date TSH 0.11* 09/15/2014 [id number] 261* 09/15/2014 TT4 6.9 09/15/2014 Lipids and HgbA1C: No results found for this basename: CHLPL, HDL, CHOLHDL, LDLCHOL, LDLDIRECT, TRIG No results found for this basename: HA1C Vit Lvls: No results found for this basename: [id number], SFOLATE UA: No results found for this [...] By: Giovany Alicia MD 09/20/2014 Olivia Jenna Tillman, - 09/20/2014 10:49 AM EDT Inpatient Daily [...] Results Component Value Date TSH 0.11* 09/15/2014 [id number] 261* 09/15/2014 TT4 6.9 09/15/2014 Lipids and HgbA1C: No results found for this basename: CHLPL, HDL, CHOLHDL, LDLCHOL, LDLDIRECT, TRIG No results found for this basename: HA1C Vit Lvls: No results found for this basename: [id number], SFOLATE UA: No results found for this [...] Results Component Value Date TSH 0.11* 09/15/2014 [id number] 261* 09/15/2014 TT4 6.9 09/15/2014 Lipids and HgbA1C: No results found for this basename: CHLPL, HDL, CHOLHDL, LDLCHOL, LDLDIRECT, TRIG No results found for this basename: HA1C Vit Lvls: No results found for this basename: [id number], SFOLATE UA: No results found for this [...] esteem and apassive communication style. Teresa Cotto, [facility] 09/17/2014 Inpatient Daily Group Note Group: Inside walk Notes: Pt. walked quietly with peers. Enjoying the art. Teresa Key 09/17/2014 Inpatient Daily Group Note Group: Workshop Attendance: Present Behavior: Conversational Therapeutic Work Observed: Moderate Mood: Calm Notes: Pt. talked with this customs entry writer about living in [place] and her son. Listened to conversations of [...] Pt. attentive although quiet. After group thanked customs entry writer stating he learned a lot. Teresa [...] Results Component Value Date TSH 0.11* 09/15/2014 [id number] 261* 09/15/2014 TT4 6.9 09/15/2014 Lipids and HgbA1C: No results found for this basename: CHLPL, HDL, CHOLHDL, LDLCHOL, LDLDIRECT, TRIG No results found for this basename: HA1C Vit Lvls: No results found for this basename: [id number], SFOLATE UA: No results found for this [...] Results Component Value Date TSH 0.11* 09/15/2014 [id number] 261* 09/15/2014 TT4 6.9 09/15/2014 Lipids and HgbA1C: No results found for this basename: CHLPL, HDL, CHOLHDL, LDLCHOL, LDLDIRECT, TRIG No results found for this basename: HA1C Vit Lvls: No results found for this basename: [id number], SFOLATE UA: No results found for this [...] Results Component Value Date TSH 5.39* 09/09/2014 [id number] 60* 09/09/2014 TT4 7.7 09/09/2014 Lipids and HgbA1C: No results found for this basename: CHLPL, HDL, CHOLHDL, LDLCHOL, LDLDIRECT, TRIG No results found for this basename: HA1C Vit Lvls: No results found for this basename: [id number], SFOLATE UA: No results found for this [...] treated pharmacologically by Dr. Aurea Valencia at [facility] who referred her for ECT. She [...] program and Module 1 work sheet [facility] Pt at ECT. Not available. [...] Results Component Value Date TSH 5.39* 09/09/2014 [id number] 60* 09/09/2014 TT4 7.7 09/09/2014 Lipids and HgbA1C: No results found for this basename: CHLPL, HDL, CHOLHDL, LDLCHOL, LDLDIRECT, TRIG No results found for this basename: HA1C Vit Lvls: No results found for this basename: [id number], SFOLATE UA: No results found for this [...] treated pharmacologically by Dr. Aurea Valencia at [facility] who referred her for ECT. She [...] Results Component Value Date TSH 5.39* 09/09/2014 [id number] 60* 09/09/2014 TT4 7.7 09/09/2014 Lipids and HgbA1C: No results found for this basename: CHLPL, HDL, CHOLHDL, LDLCHOL, LDLDIRECT, TRIG No results found for this basename: HA1C Vit Lvls: No results found for this basename: [id number], SFOLATE UA: No results found for this [...] and treated by Dr. Aurea Valencia at [facility] who referred her for ECT. She [...] Mood: Flat Notes: Pt. quietly worked on [employer] project. Teresa Key 09/12/2014 Soumya Daniel MD [...] Results Component Value Date TSH 5.39* 09/09/2014 [id number] 60* 09/09/2014 TT4 7.7 09/09/2014 Lipids and HgbA1C: No results found for this basename: CHLPL, HDL, CHOLHDL, LDLCHOL, LDLDIRECT, TRIG No results found for this basename: HA1C Vit Lvls: No results found for this basename: [id number], SFOLATE UA: Lab Results Component Value Date [...] and treated by Dr. Aurea Valencia at [facility] who referred her for ECT. She [...] Mood: Calm Notes: Pt. quietly worked on [employer] project. Returned to unit awaiting visit from [...] am worried about them (family) Severity: Depression 11/01. Anxiety 11/01. Brianna is lying quietly on her bed [...] Results Component Value Date TSH 5.39* 09/09/2014 [id number] 60* 09/09/2014 TT4 7.7 09/09/2014 Lipids and HgbA1C: No results found for this basename: CHLPL, HDL, CHOLHDL, LDLCHOL, LDLDIRECT, TRIG No results found for this basename: HA1C Vit Lvls: No results found for this basename: [id number], SFOLATE UA: Lab Results Component Value Date [...] and treated by Dr. Aurea Valencia at [facility] who referred her for ECT. She [...] Results Component Value Date TSH 5.39* 09/09/2014 [id number] 60* 09/09/2014 TT4 7.7 09/09/2014 Lipids and HgbA1C: No results found for this basename: CHLPL, HDL, CHOLHDL, LDLCHOL, LDLDIRECT, TRIG No results found for this basename: HA1C Vit Lvls: No results found for this basename: [id number], SFOLATE UA: Lab Results Component Value Date [...] and treated by Dr. Aurea Valencia at [facility] who referred her for ECT.Patient had [...] By: William Correia MD 09/11/2014 Becky Mane MSW - 09/10/2014 2:43 PM EDT OFFICE OF CARE MANAGEMENT PSYCHOSOCIAL ASSESSMENT Present at Interview: Amarilysnt Date: September 10, 2014 1. Referral request and/or presenting problem(s): Patient is a 59 year old MWF who presents at [facility] to address her increasing depression, ongoing [...] 81 and Mother age 80 live in [place]. Siblings are Bhavin age 59, Moo age 54 and Krzysztof age 50 also living in [place]. Patient has regular contact with her parents and more sporadic contact with her brothers. Patient was born and raised in [place] anddescribed childhood as [place]. Extended family available and involved. Patient left home at age 18 andmoved in with a relative. Patient has been with her Salvador age 64 for 36 years, for 9 years, one son José Manuel age 35 in [place]. Patient has frequent contact with her son. [...] including spiritual support: , son, Dr. Valencia, [employer]. 6. 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 Aurea Valencia MD. [facility] Current Therapist: Deb Romo PCP: Dr. Sung [...] and patient was eventually involuntarily admitted to [facility]. At [facility] patient's Celexa was increased to 20mg and then she was discharged. Patient was eventually seen by Dr. Aurea Valencia MD a psychiatrist at [facility] who diagnosed the patient with MDD with [...] Brianna's delusions), so they requested admission to [facility]. She denies SI/HI #Depression Patient denies [...] history of being religous and she attends mormon several times a week. In the past her druze beliefs never crossed what is normally accepted. [...] Prior diagnoses: depression Past hospitalization and location: [facility] - involuntarily Suicide attempts: none Past psychiatric [...] of ever using drugs or alcohol. Highly druze in the past. History of Abuse or [...] hemoptosis GI No nausea, denies rectal bleeding /THERAPIST (include LMP if applicable) No polyuria denies vaginal bleeding MSK No muscle weakness SKIN No itching NEURO No headache PSYCH See above. ENDO No temperature intolerance HEME/LYMPH No easy bruising ALL/IMMUNO No symptoms of Sinustis Physical Exam: Vitals Admission (Current) from 09/08/2014 in [facility] Psych[facility] Weight - Scale 57.153 kg [...] remote memory intact ?? Fund of Knowledge: [facility] ?? Insight: fair ?? Judgment: . [...] establishing adequate outpatient care). DSM Multiaxial Diagnosis: [place] I MDD with psychotic features [place] II deferred [place] III Hypothyroid on replacement [place] IV: Father's health concerns [place] V: GAF = 25 Clinical Global Impression: [...] with psychotic behavior [296.34] Procedures 1. ECT [[id number] (CPT??)] ECT SUBSEQUENT TREATMENT NOTE Patient received right-unilateral ECT in the PACU. Course type: acute Treatment # 7 total The primary diagnosis is 296.34. Interval history: Noticing mood improvement, tolerating well Patient was attached to monitoring equipment. The anesthesia team administered the following medications: methohexital 80 mg succinylcholine 40 mg ECT parameters: RUL 0.3/40/5800 25 second motor seizure 47 second EEG seizure Patient was stabilized and appeared to tolerate the procedure. Complications: none Changes/recommendations for next treatment: None, same. Next treatment date:09/24 Alonzo Martel MD - 09/21/2014 8:02 AM EDT Pre-procedure Diagnoses 1. Major depressive disorder, recurrent episode, severe, specified as with psychotic behavior [296.34] Procedures 1. ECT [[id number] (CPT??)] ECT SUBSEQUENT TREATMENT NOTE Patient received [...] with psychotic behavior [296.34] Procedures 1. ECT [[id number] (CPT??)] Expand All Collapse All ECT SUBSEQUENT [...] not safe- here and reinforced reality with customs entry writer. Brianna continues to have bilateral shaking [...] Outcome (s) achieved Date Met: 09/24/14 09/08/14183509/21/14 0740 Individualization Individualize the Plan of Care: -- [...] some concerns about the staff at [facility] yet she can see that it doesn't make much sense Patient denies SI or HI. Depression 10/02 and no anxiety PLAN MOVING FORWARD: NPO after midnight for ect INDIVIDUALIZED FALL PREVENTION: Assistance: independent Supervision: Escort to group Surveillance: 30 minute checks CPG GOAL OUTCOME EVALUATION: Goal: Individualization and Mutuality Outcome: Ongoing (Interventions Implemented as Appropriate) 09/08/14 1836 09/21/14 9027 Individualization Individualize the Plan of Care: -- [...] none -- Goal: Fall Prevention-Safe Patient Handling 09/22/14192409/22/14 234 Safety Interventions Safety Precautions/Fall Reduction fall reduction [...] Pt is aware [facility]- HC patent- Appetite [...] Last BM 3-28. Gait steady. Med compliant. NM Goal: Groups. Hep cap flushed, patent. Dsg [...] Status 0 -- Score 20 -- OTHER Dxion Fall Risk Low -- Goal: Infection Control [...] independent Supervision: escort Surveillance: 30 min checks, NM CPG GOAL OUTCOME EVALUATION: Goal: Fall Prevention-Safe [...] Outcome: Ongoing (Interventions Implemented as Appropriate) 09/15/14 8058 Depression (Adult, Obstetrics, Pediatric) Improved/Stable Mood making progress toward outcome Med Student Progress Note - Juan MAidee Eden - 09/16/2014 11:58 AM EDT Inpatient Psychiatry Progress Note: 09/16/2014 ID: Brianna Lay is a 59 y.o. female with one son who lives in [facility] [place] [facility], and is currently unemployed admitted on [...] female with one son who lives in [place] [facility] [place], and is currently unemployed admitted on [...] independent Supervision: escort Surveillance: 30 min checks. NM CPG GOAL OUTCOME EVALUATION: Med Student Progress Note - Aidee Salgado Jr. - 09/14/2014 12:39 PM EDT Inpatient Psychiatry Progress Note: 09/14/2014 ID:Brianna Lay is a 59 y.o. female with one son who lives in [place] [facility] [place], and is currently unemployed admitted on [...] homicidal ideation and contracts for safety. Pt ror537% of meals and reports last bowel movement [...] independent Supervision: escort Surveillance: 30 min checks. NM CPG GOAL OUTCOME EVALUATION: Goal: Individualization and [...] Dixon Fall Risk -- -- -- 09/13/14 1900 Safety Interventions Safety Precautions/Fall Reduction fall reduction [...] Care Goal: Plan of Care Review 09/13/14 1142 Coping/Psychosocial Response Interventions Plan of Care Reviewed [...] shared thathe noticed improvement in his . [place] she was less vacant and even noticed [...] progress toward outcome Plan of Care - Maira L Pineda RN - 09/11/2014 1:50 PM [...] female with one son who lives in [place] [facility] [place], and is currently unemployed admitted on [...] Deb Romo Primary provider: Dr Pineda Hoskins Udo-Inbradtaisha MS-3 [id number] Plan of Care - Ana Barbour RN [...] female with one son who lives in [place] [facility] [place], and is currently unemployed admitted on [...] Primary provider: Dr Pineda Hoskins UdAidee MS-3 0676 Plan of Care - Bonny Lepe RN - 09/09/2014 6:38 PM EDT Problem: General Plan of Care Goal: Plan of Care Review Outcome: Ongoing (Interventions Implemented as Appropriate) 09/09/14 0793 Coping/Psychosocial Response Interventions Plan of Care Reviewed [...] understanding of illness 2. Work with Patient Balance Engineer to create and implement aftercare plan 3. [...] MD 09/09/2014 NURSING , RN 09/09/2014 PT PRODUCT LINE MANAGER Nydia Valle RN- 09/09/2014 THERAPIST Jenna Baker [facility] 09/09/2014 MACHINE SWEEPER BRUSH MAKER Becky Mane, [facility] 09/09/2014 Plan of Care - Brianna Huntley, [...] DATE: RESIDENT PHYSICIAN ATTENDING PHYSICIAN NURSING PATIENT PRODUCT LINE MANAGER THERAPIST MACHINE SWEEPER BRUSH MAKER Plan of Care - Bonny Lepe RN [...] the results section. ECT (WRVU 2.5) Yes 09/18/2014 9:25 AM [...] Component Value Ref Test Analysis Performed At [facility] Range Method Time Signature Paraneo Eval SEE COMMENTS CERNER Interpretation MILLENNIUM Comment: No informative autoantibodies were detec adali in this evaluation. However, a negative result d oes not exclude neurological autoimmunity with or withou t associated neoplasia. Test Performed by: [place] [address] Real Estate Instructor: Tommy Irene II, M.D., Ph.D. TRACY-1 (Anti-Neuronal Nuclear Ab, Type Negative <1:240 titer CERNER MILLENNIUM 1) Comment: Test Performed by: [place] [address] Real Estate Instructor: Tommy Irene II, M.D., Ph.D. TRACY-2 (Anti-Neuronal Nuclear Ab,Type Negative <1:240 titer CERNER MILLENNIUM 2) Comment: Test Performed by: [address] [address] Real Estate Instructor: Tommy Irene II, M.D., Ph.D. TRACY-3 (Anti-Neuronal Nuclear Ab, Type Negative <1:240 titer CERNER MILLENNIUM 3) Comment: Test Performed by: [place] [address] Real Estate Instructor: Tommy Irene II, M.D., Ph.D. AGNA-1 (Anti-Glial Nuclear Ab, Type 1) Negative <1:240 titer CERNER MILLENNIUM Comment: Test Performed by: [place] [address] Real Estate Instructor: Tommy Irene II, M.D., Ph.D. SUMMER LAW ASSOCIATE-1 (Purkinje Cell Cytoplasmic Negative <1:240 titer CERNER MILLENNIUM Ab-Type 1) Comment: Test Performed by: [place] [address] Real Estate Instructor: Tommy Irene II, M.D., Ph.D. SUMMER LAW ASSOCIATE-2 (Purkinje Cell Cytoplasmic Negative <1:240 titer CERNER MILLENNIUM Ab-Type 2) Comment: Test Performed by: [facility] [place] [address] Real Estate Instructor: Tommy Irene II, M.D., Ph.D. SUMMER LAW ASSOCIATE-Type Tr (Purkinje Cell Cytoplasmic Negative <1:240 titer CERNER MILLENNIUM Ab-Type Tr) Comment: Test Performed by: [place] [address] Real Estate Instructor: Tommy Irene II, M.D., Ph.D. Amphiphysin Antibody Negative <1:240 titer CERNER MILLENNIUM Comment: Test Performed by: [place] [address] Real Estate Instructor: Tommy Irene II, M.D., Ph.D. CRMP-5-IgG Negative <1:240 titer CERNER MILLENNIU M Comment: CRMP-5 Titers lower than 1:240 may be de tectable by recombinant CRMP-5 western blot analysis , available by request on stored serum and recommended in cases of chorea, vision loss, cranial neuropathy and myel opathy. Extramural clients contact [facility] Inquiry at to add-on CRMP-5-IgG Western Blot, Serum . Intramural Clients, please call the Neuroimmunology Lab at [phone]. Test Performed by: [place] [address] Real Estate Instructor: Tommy Irene II, M.D., Ph.D. Striated Muscle Ab Negative <1:120 titer CERNER M ILLENNIUM Comment: Test Performed by: [place] [address] Real Estate Instructor: Tommy Irene II, M.D., Ph.D. P/Q-Type Ca Channel Ab 0.00 <=0.02 nmol/L CER NER MILLENNIUM Comment: Test Performed by: [place] [address] Real Estate Instructor: Tommy Irene II, M.D., Ph.D. N-Type Ca Channel Ab 0.00 <=0.03 nmol/L CERNE R MILLENNIUM Comment: Test Performed by: [place] [address] Real Estate Instructor: Tommy Irene II, M.D., Ph.D. ACHr Binding Ab 0.00 <=0.02 nmol/L CERNER MIL LENNIUM Comment: Test Performed by: [place] [address] Real Estate Instructor: Tommy Irene II, M.D., Ph.D. AChR Gang Neuronal Ab 0.00 <=0.02 nmol/L CERN ER MILLENNIUM Comment: Test Performed by: [place] [address] Real Estate Instructor: Tommy Irene II, M.D., Ph.D. Neuronal (V-G) K+ Channel Ab 0.00 <=0.02 nmol/L CERNER MILLENNIUM Comment: Test Performed by: [place] [address] Real Estate Instructor: Tommy G. Morice, II, M.D., Ph.D. Specimen Anatomical Collection Method Collection Time Receive d Time (Source) Location / / Volume Laterality Blood specimen 09/23/2014 3:50 PM 015 4:42 (specimen) EDT PM EDT Resulting Agency Comment Spec In Lab Nathen Go MD CHEMISTRY ORDERABLES Performing Organization Address City/[facility]/ZIP Code Phon e Number [address] CERNER MILLENNIUM (ABNORMAL) Thyroglobulin Antibody (09/23/2014 3:50 PM EDT) Analysis Performed At Patho logist Time Signature Thyroglob Ab 232.0 (H) 0.0 - 40.0 CERNER IU/mL MILLENNIUM Comment: Assay performed is the [employer] Immulite Tg-A b immunometric assay. (Cutoff for TgAb negativity is <20 IU/ml ) Specimen Anatomical Collection Method Collection Time Receive d Time (Source) Location / / Volume Laterality Blood specimen 09/23/2014 3:50 PM 015 8:08 (specimen) EDT AM EDT Resulting Agency Comment Spec In Lab Nathen Go MD CHEMISTRY ORDERABLES Performing Organization Address [facility]/ZIP Code Phon e Number [address] CERNER MILLENNIUM Thyroid peroxidase antibody (09/23/2014 3:50 PM EDT) P athologist Signature Thyroperox Ab 25 <=34 IU/mL CERNER MILLENNIUM Specimen Anatomical Collection Method Collection Time Receive d Time (Source) Location / / Volume Laterality Blood specimen 09/23/2014 3:50 PM 015 8:08 (specimen) EDT AM EDT Resulting Agency Comment Spec In Lab Nathen Go MD IMMUNOLOGY ORDERABLES Performing Organization Address City/[facility]/ZIP [facility] Phon e Number [address] CERNER MILLENNIUM (ABNORMAL) T3 [...] Go MD CHEMISTRY ORDERABLES Performing Organization Address [facility]/ZIP Code Phon e Number [address] [facility] T4 Total (09/15/2014 1:03 PM EDT) athologist Signature T4, total 6.9 5.1 - 10.8 CERNER mcg/dL [facility] Comment: Reference Range: Cord Blood: ??6.9-14.4 mcg/dL Females: ??7.2-14.2 mcg/dL Pediatric ranges: ??Interpret with cauti on-ranges have not been verified Specimen Anatomical Collection Method Collection Time Receive d Time (Source) Location / / Volume Laterality Blood specimen 09/15/2014 1:03 PM 015 1:18 (specimen) EDT PM EDT Resulting Agency Comment Spec In Lab Nathen Go MD CHEMISTRY ORDERABLES Performing Organization Address City/[facility]/ZIP Code Phon e Number [address] [facility] (ABNORMAL) TSH (09/15/2014 1:03 PM EDT) athologist Signature TSH 0.11 (L) 0.27 - 4.20 CERNER mcIU/mL [facility] Specimen Anatomical Collection Method Collection Time Receive d Time (Source) Location / / Volume Laterality Blood specimen 09/15/2014 1:03 PM 015 1:18 (specimen) EDT PM EDT Resulting Agency Comment Spec In Lab Nathen Go MD CHEMISTRY ORDERABLES Performing Organization Address City/[facility]/ZIP Code Phon e Number [address] [facility] Urine culture Clean Catch Urine (09/09/2014 5:13 PM EDT) [facility] gist Method Time Signature Urine Culture CERNER ? Patient Name: BRIANNA LAY ? Ordered By: BIJAN JEAN ? MR#: [id number] ?LOC: ??[id number] ? /Sex: ??1955 (59 years), [...] Organization Address City/State/[place] [address] DODGEENNIUM (ABNORMAL) TSH (09/09/2014 3:26 PM EDT) P athologist Signature TSH 5.39 (H) 0.27 - 4.20 CERNER mcIU/mL [facility] Specimen Anatomical Collection Method Collection Time Receive d Time (Source) Location / / Volume Laterality Blood specimen 09/09/2014 3:26 PM 015 3:33 (specimen) EDT PM EDT Resulting Agency Comment Spec In Lab Nathen Go MD CHEMISTRY ORDERABLES Performing Organization Address City/[facility]/ZIP [facility] [place] [address] [facility] T4 Total (09/09/2014 3:26 PM EDT) P athologist Signature T4, total 7.7 5.1 - 10.8 CERNER mcg/dL [facility] Comment: Reference Range: [place] Cord Blood: ??6.9-14.4 mcg/dL Females: ??7.2-14.2 mcg/dL Pediatric ranges: ??Interpret with cauti on-ranges have not been verified Specimen Anatomical Collection Method Collection Time Receive d Time (Source) Location / / Volume Laterality Blood specimen 09/09/2014 3:26 PM 015 3:33 (specimen) EDT PM EDT Resulting Agency Comment Spec In Lab Nathen Go MD CHEMISTRY ORDERABLES Performing Organization Address City/[facility]/ZIP Code Phon e Number [address] [facility] (ABNORMAL) T3 Total (09/09/2014 3:26 PM EDT) P athologist Signature T3, Total 60 (L) 75 - 170 CERNER ng/dL [facility] Specimen Anatomical Collection Method Collection Time Receive d Time (Source) Location / / Volume Laterality Blood specimen 09/09/2014 3:26 PM 015 3:33 (specimen) EDT PM EDT Resulting Agency Comment Spec In Lab Nathen Go MD CHEMISTRY ORDERABLES Performing Organization Address City/[facility]/ZIP [facility] Phon e Number [address] [facility] EKG 12 Lead (09/09/2014 9:08 AM EDT) Component Value Ref Range Test Analysis Performed Pathologis t Method Time At Signature Ventricular rate 76 BPM MUSE SYSTEM Atrial Rate 76 BPM MUSE SYSTEM P-R Interval 142 ms MUSE SYSTEM QRS Duration 88 ms MUSE SYSTEM Q-T Interval 380 ms MUSE SYSTEM QTC Calculated 427 ms MUSE SYSTEM (Bezet) Calculated P [place] 79 degrees MUSE SYSTEM Calculated R [place] 80 degrees MUSE SYSTEM Calculated T [place] 73 degrees MUSE SYSTEM INTERPRETATION Normal sinus [...] Urinalysis with microscopic (09/09/2014 7:14 AM EDT) [facility] Method Time Signature Glucose UA [...] Hazy (A) Clear CERNER MILLENNIU M Spec [place] UA 1.014 1.002 - 1.030 CERNER MIL [...] Organization Address City/State/ZIP Code Phon e Number [address] CERNER MILLENNIUM Differential, Automated [...] Organization Address City/State/ZIP Code Phon e Number [address] CERNER MILLENNIUM Hemogram (09/09/2014 [...] Organization Address City/State/ZIP Code Phon e Number [address] [facility] M[facility]UM (ABNORMAL) TSH (09/09/2014 6:54 AM EDT) athologist [facility] TSH 13.20 (H) 0.27 - CERNER 4.20 MILLENNIUM mcIU/mL Specimen Anatomical Collection Method Collection Time Receive d Time (Source) Location / / Volume Laterality Blood specimen 09/09/2014 6:54 AM 015 7:09 (specimen) EDT AM EDT Resulting Agency Comment Spec In Lab Bijan Jean MD CHEMISTRY ORDERABLES Performing Organization Address City/State/ZIP Code Phon e Number [address] [facility] Hepatic Function Panel (09/09/2014 6:54 AM EDT) [...] Jean MD CHEMISTRY ORDERABLES Performing Organization Address City/[facility]/ZIP Code Phon e Number [address] CERNER MILLENNIUM Phosphorus (09/09/2014 6:54 AM EDT) athologist Signature Phosphorus 3.0 2.5 - 4.5 CERNER mg/dL [facility] Specimen Anatomical Collection Method Collection Time Receive d Time (Source) Location / / Volume Laterality Blood specimen 09/09/2014 6:54 AM 015 7:09 (specimen) EDT AM EDT Resulting Agency Comment Spec In Lab Bijan Jean MD CHEMISTRY ORDERABLES Performing Organization Address City/[facility]/[place] [address] CERNER MILLENNIUM Magnesium (09/09/2014 6:54 AM EDT) athologist Signature Magnesium 0.88 0.69 - 1.07 CERNER mmol/L MILLENNIUM Specimen Anatomical Collection Method Collection Time Receive d Time (Source) Location / / Volume Laterality Blood specimen 09/09/2014 6:54 AM 015 7:09 (specimen) EDT AM EDT Resulting Agency Comment Spec In Lab Bijan Jean MD CHEMISTRY ORDERABLES Performing Organization Address City/[facility]/ZIP Code Phon e Number [address] CERNER MILLENNIUM Calcium (09/09/2014 6:54 AM EDT) athologist Signature Calcium 8.9 8.5 - 10.5 CERNER mg/dL [facility] Specimen Anatomical Collection Method Collection Time Receive d Time (Source) Location / / Volume Laterality Blood specimen 09/09/2014 6:54 AM 015 7:09 (specimen) EDT AM EDT Resulting Agency Comment Spec In Lab Bijan Jean MD CHEMISTRY ORDERABLES Performing Organization Address City/[facility]/ZIP Code Phon e Number [address] CERNER MILLENNIUM Creatinine (09/09/2014 6:54 AM EDT) athologist Signature Creatinine 0.76 0.70 - 1.20 CERNER mg/dL MILL[facility]NIUM Comment: Please note that the pediatric reference intervals supplied above were [place] validated [place] [facility] Results from pediatri c patients should [...] the following links into your internet browser. [email or web address] Specimen Anatomical Collection Method Collection Time Receive d Time (Source) Location / / Volume Laterality Blood specimen 09/09/2014 6:54 AM 015 7:09 (specimen) EDT AM EDT Resulting Agency Comment Spec In Lab Bijan Jean MD CHEMISTRY ORDERABLES Performing Organization Address City/[facility]/ZIP Code Phon e Number [address] CERNER MILLENNIUM BUN (09/09/2014 6:54 AM EDT) P athologist Signature BUN 10 8 - 18 CERNER mg/dL MILLENNIUM Specimen Anatomical Collection Method Collection Time Receive d Time (Source) Location / / Volume Laterality Blood specimen 09/09/2014 6:54 AM 015 7:09 (specimen) EDT AM EDT Resulting Agency Comment Spec In Lab Bijan Jean MD CHEMISTRY ORDERABLES Performing Organization Address City/[facility]/[place] [address] CERNER MILLENNIUM (ABNORMAL) Electrolytes [...] Jean MD CHEMISTRY ORDERABLES Performing Organization Address City/[facility]/[place] [address] CERNER MILLENNIUM documented in [...] Admin Adt)1108 (Given - Provider: Brianna Huntley, RN) 0933 (Given - Provider: Maria L Pineda, TERESA) 0739 ([facility] Hold - Provider: Admin Adt - R bibiana: Transfer to a Procedural area)0845 ([facility] Unhold - Provider: Admin Adt)0853 (Given - Provider: Rut Yuan) 40 mg, Oral, DAILY, First dose on Sun at 0900, Until Discontinued, Routine levothyroxine (SYNTHROID) tablet 100 mcg (CANCELED) 06 39 (Given - Provider: Jyoti Wagnre RN)0729 ([facility] Hold - Provider: Admin Adt - Reason: Transfer to a Procedural area)0851 ([facility] Unhold - Provider: Admin Adt) 0624 (Given - Provider: Jyoti Wagner RN) 0639 (Given - Provider: Trista Chang)0739 ([facility] Hold - Provider: Admin Adt - Reason: Transfer to a Procedural area)0845 ([facility] Unhold - Provider: Admin Adt) 100 mcg, Oral, EVERY MORNING, First dose on Sun09/16/14 at 1000, Until Discontinued, Routine liothyronine (CYTOMEL) tablet 50 mcg (CANCELED) 0639 ( Given - Provider: Jyoti Wagner RN)0729 ([facility] Hold - Provider: Admin Adt - Reason: Transfer to a Procedural area)0851 ([facility] Unhold - Provider: Admin Adt) 0624 (Given - Provider: Jyoti Wagner RN) 0639 (Given - Provider: Trista Chang)0739 ([facility] Hold - Provider: Admin Adt - Reason: Transfer to a Procedural area)0845 ([facility] Unhold - Provider: Admin Adt) 50 mcg, Oral, EVERY MORNING, First dose on Sun09/22/14 at 0600, Until Discontinued, Routine OLANZapine (ZyPREXA) tablet 10 mg (CANCELED) 07 ([facility] Hold - Provider: Admin Adt - Reason: Transfer to a Procedural area)0851 ([facility] Unhold - Provider: Admin Adt)2129 (Given - Provider: Soco Vogel RN) 10 mg, Oral, NIGHTLY, First dose on Sun09/21/14 at 2100, Until Discontinued, Routine omega-3 acid ethyl esters (LOVAZA) capsule 2 g 0729 ([facility] Hold - Provider: Admin Adt - Reason: Transfer to a Procedural area)0851 ([facility] Unhold - Provider: Admin Adt)1108 (Given - Provider: Brianna Huntley, TERESA) 0932 (Given - Provider: Maria L Pineda, TERESA)2056 (Given - Provider: Soco Vogel RN) 0739 ([facility] Hold - Provider: Admin Adt - Reason: Transfer to a Procedural area)0845 ([facility] Unhold - Provider: Admin Adt)0853 (Given - Provider: Rut Yuan) 2 g, Oral, 2 TIMES DAILY, First dose on Sun09/14/14 at 2100, Until Discontinued, Routine 2128 (Not Given - Provider: Soco Vogel RN - Reason: Patient Unable - Comment: patient unable to swallow) QUEtiapine (SEROquel) tablet 250 mg 2054 (Given - Provider: Soco Vogel RN) 0739 ([facility] Hold - Provider: Admin Adt - R bibiana: Transfer to a Procedural area)0845 ([facility] Unhold - Provider: Admin Adt) 250 mg, Oral, NIGHTLY, First dose on Sun09/23/14 at 2100 QUEtiapine (SEROquel) tablet 50 mg (COMPLETED) 1238 (Given - Provider: Maria L Pineda RN) 50 mg, Oral, ONCE, 1 dose, Sun09/23/14 at 1200, Routine sodium chloride 0.9 % flush 5 mL (CANCELED) 0729 ([facility] Hold - Provider: Admin Adt - Reason: Transfer to a Procedural area)0851 ([facility] Unhold - Provider: Admin Adt)0900 (Not Given - Provider: Brianna Huntley, TERESA - Reason: See comment - Comment: Done in ECT) 0932 (Given - Provider: Trista Murillo)2056 (Given - Provider: Soco Vogel RN) 0739 ([facility] Hold - Provider: Admin Adt - Reason: Transfer to a Procedural area)0845 ([facility] Unhold - Provider: Admin Adt)0900 (Not [...] Routine documented in this encounter Care Teams [employer]en Boat [employer] Relationship Specialty Start Date End Date Jewel Cherry MD PCP - General 09/17/14 11/18/[address] [place] [address] [place] [address] documented as of this encounter
--- OUTSIDE RECORDS SUMMARY | 2022-01-09 00:42 | XMS_ITS | Encounter Summary ---
:1955 [place] [address] Care Team Providers Name Role Phone Unknown Primary Care Provider Unavailable Encounter Details Date Type Department Care Team Description 09/10/2014 Surgery Main Operating Room Lisa Quinn III, ECT (WRVU 2.5) [facility] Jose Angel peña MD [facility] Geovani [facility] [place] [address] PSYCHIATRY DEPT [phone] [place], [place] [address] (Wo rk) Social History Tobacco [...] stabilization and medication management. Discharge Multi-axial Diagnosis: Roseburg I: MDD w/ psychotic features Roseburg II: deferred [place] III: hypothyroid on replacement [place] IV: father's health concerns [place] V: Admission GAF: 25 Discharge GAF: 45 [...] patient was eventually involuntarily admitted to [facility]. At [facility] patient's Celexa was increased to 20mg and then she was discharged. Patient was eventually seen by Dr. Aurea Valencia MD a psychiatrist at [facility] who diagnosed the patient with MDD [...] delusions), so they requested admission to [facility]. She denies SI/HI #Depression Patient denies any [...] history of being religous and she attends anglican several times a week. In the past her rastafari beliefs never crossed what is normally accepted. [...] a MECTA device at the following parameters: 07/14/.5/800 0 sec EEG seizure 44 sec EEG [...] followup Primary Care Physician: JEWEL CHERRY MD [phone] Special Physician Instructions: -Continue to do outpatient ECT as scheduled and recommended -Take your medications as instructed -Make sure to have a colonoscopy and mammogram done -Make sure your doctor follows up on pending labs at [facility] -Come to the emergency room or call your doctor if you feel unsafe or have thoughts of suicide Special Instructions Provided to Brianna Lay: Call your doctor, your local mental health center, or your local emergency room if you develop worsening symptoms of depression, anxiety, thoughts of harming yourself, thoughts of harming others, or any other decline in your overall condition. [facility] Emergency Services: [facility] [phone] [facility] Emergency Services: [phone] [facility] Central Access Services: [phone] [facility] Main Line: [phone] Activity level: no restrictions from psychiatry Diet: [...] TREAT AT General Instructions Dr Aurea Valencia [phone] September 24 at 2:30pm Dr Regla Patel, October 01 at 11:30am Discharge References/Attachments None Signed: William Correia MD 09/27/2014 documented in this encounter Discharge Instructions Discharge InstructionsWilliam Correia MD - 09/24/2014 12:[address] Aurea Valencia [phone] September 24 at 2:30pm Dr Regla Patel, [...] followup Primary Care Physician: JEWEL CHERRY MD [phone] Special Physician Instructions: -Continue to do outpatient ECT as scheduled and recommended -Take your medications as instructed -Make sure to have a colonoscopy and mammogram done -Make sure your doctor follows up on pending labs at [facility] -Come to the emergency room or call your doctor if you feel unsafe or have thoughts of suicide Special Instructions Provided to Brianna Lay: Call your doctor, your local mental health center, or your local emergency room if you develop worsening symptoms of depression, anxiety, thoughts of harming yourself, thoughts of harming others, or any other decline in your overall condition. [facility] Emergency Services: [facility] [phone] [facility] Emergency Services: [phone] [facility] Central Access Services: [phone] [facility] Main Line: [phone] Activity level: no restrictions from psychiatry Diet: [...] Results Component Value Date TSH 0.11* 09/15/2014 [id number] 261* 09/15/2014 TT4 6.9 09/15/2014 Lipids and HgbA1C: No results found for this basename: CHLPL, HDL, CHOLHDL, LDLCHOL, LDLDIRECT, TRIG No results found for this basename: HA1C Vit Lvls: No results found for this basename: [id number], SFOLATE UA: No results found for this [...] EDT TC with pts , Will at [phone]. He believes pt is about 75% back [...] and struggled with staying awake. Jenna Baker 09/23/2014 William Correia MD - 09/23/2014 12:34 [...] i feel that somehow the people at [place] might hurt them Severity:. Rates Depression: 10/02, [...] Results Component Value Date TSH 0.11* 09/15/2014 [id number] 261* 09/15/2014 TT4 6.9 09/15/2014 Lipids and HgbA1C: No results found for this basename: CHLPL, HDL, CHOLHDL, LDLCHOL, LDLDIRECT, TRIG No results found for this basename: HA1C Vit Lvls: No results found for this basename: [id number], SFOLATE UA: No results found for this [...] that she irritated people at [facility] who might harm her family. Tremor [...] Results Component Value Date TSH 0.11* 09/15/2014 [id number] 261* 09/15/2014 TT4 6.9 09/15/2014 Lipids and HgbA1C: No results found for this basename: CHLPL, HDL, CHOLHDL, LDLCHOL, LDLDIRECT, TRIG No results found for this basename: HA1C Vit Lvls: No results found for this basename: [id number], SFOLATE UA: No results found for this [...] Results Component Value Date TSH 0.11* 09/15/2014 [id number] 261* 09/15/2014 TT4 6.9 09/15/2014 Lipids and HgbA1C: No results found for this basename: CHLPL, HDL, CHOLHDL, LDLCHOL, LDLDIRECT, TRIG No results found for this basename: HA1C Vit Lvls: No results found for this basename: [id number], SFOLATE UA: No results found for this [...] Results Component Value Date TSH 0.11* 09/15/2014 [id number] 261* 09/15/2014 TT4 6.9 09/15/2014 Lipids and HgbA1C: No results found for this basename: CHLPL, HDL, CHOLHDL, LDLCHOL, LDLDIRECT, TRIG No results found for this basename: HA1C Vit Lvls: No results found for this basename: [id number], SFOLATE UA: No results found for this [...] sun catcher and being quietly social. Jenna Baekr MS 09/20/2014 Inpatient Daily Group Note Group: [...] Results Component Value Date TSH 0.11* 09/15/2014 [id number] 261* 09/15/2014 TT4 6.9 09/15/2014 Lipids and HgbA1C: No results found for this basename: CHLPL, HDL, CHOLHDL, LDLCHOL, LDLDIRECT, TRIG No results found for this basename: HA1C Vit Lvls: No results found for this basename: [id number], SFOLATE UA: No results found for this [...] Results Component Value Date TSH 0.11* 09/15/2014 [id number] 261* 09/15/2014 TT4 6.9 09/15/2014 Lipids and HgbA1C: No results found for this basename: CHLPL, HDL, CHOLHDL, LDLCHOL, LDLDIRECT, TRIG No results found for this basename: HA1C Vit Lvls: No results found for this basename: [id number], SFOLATE UA: No results found for this [...] esteem and apassive communication style. Teresa Cotto, [facility] 09/17/2014 Inpatient Daily Group Note Group: Inside walk Notes: Pt. walked quietly with peers. Enjoying the art. Teresa Key 09/17/2014 Inpatient Daily Group Note Group: Workshop Attendance: Present Behavior: Conversational Therapeutic Work Observed: Moderate Mood: Calm Notes: Pt. talked with this junior underwriter about living in [place] and her son. Listened to conversations of [...] Pt. attentive although quiet. After group thanked junior underwriter stating he learned a lot. Teresa [...] Results Component Value Date TSH 0.11* 09/15/2014 [id number] 261* 09/15/2014 TT4 6.9 09/15/2014 Lipids and HgbA1C: No results found for this basename: CHLPL, HDL, CHOLHDL, LDLCHOL, LDLDIRECT, TRIG No results found for this basename: HA1C Vit Lvls: No results found for this basename: [id number], SFOLATE UA: No results found for this [...] Results Component Value Date TSH 0.11* 09/15/2014 [id number] 261* 09/15/2014 TT4 6.9 09/15/2014 Lipids and HgbA1C: No results found for this basename: CHLPL, HDL, CHOLHDL, LDLCHOL, LDLDIRECT, TRIG No results found for this basename: HA1C Vit Lvls: No results found for this basename: [id number], SFOLATE UA: No results found for this [...] Results Component Value Date TSH 5.39* 09/09/2014 [id number] 60* 09/09/2014 TT4 7.7 09/09/2014 Lipids and HgbA1C: No results found for this basename: CHLPL, HDL, CHOLHDL, LDLCHOL, LDLDIRECT, TRIG No results found for this basename: HA1C Vit Lvls: No results found for this basename: [id number], SFOLATE UA: No results found for this [...] treated pharmacologically by Dr. Aurea Valencia at [facility] who referred her for ECT. She [...] Results Component Value Date TSH 5.39* 09/09/2014 [id number] 60* 09/09/2014 TT4 7.7 09/09/2014 Lipids and HgbA1C: No results found for this basename: CHLPL, HDL, CHOLHDL, LDLCHOL, LDLDIRECT, TRIG No results found for this basename: HA1C Vit Lvls: No results found for this basename: [id number], SFOLATE UA: No results found for this [...] treated pharmacologically by Dr. Aurea Valencia at [facility] who referred her for ECT. She [...] Results Component Value Date TSH 5.39* 09/09/2014 [id number] 60* 09/09/2014 TT4 7.7 09/09/2014 Lipids and HgbA1C: No results found for this basename: CHLPL, HDL, CHOLHDL, LDLCHOL, LDLDIRECT, TRIG No results found for this basename: HA1C Vit Lvls: No results found for this basename: [id number], SFOLATE UA: No results found for this [...] and treated by Dr. Aurea Valencia at [facility] who referred her for ECT. She [...] Mood: Flat Notes: Pt. quietly worked on [employer] project. Teresa Key 09/12/2014 Soumya Daniel MD [...] today. Quality: a little calmer Severity: depression 10, improved Timing: Assoc. Signs and symptoms: Sleep: [...] Results Component Value Date TSH 5.39* 09/09/2014 [id number] 60* 09/09/2014 TT4 7.7 09/09/2014 Lipids and HgbA1C: No results found for this basename: CHLPL, HDL, CHOLHDL, LDLCHOL, LDLDIRECT, TRIG No results found for this basename: HA1C Vit Lvls: No results found for this basename: [id number], SFOLATE UA: Lab Results Component Value Date [...] She was evaluated and treated by Dr. Aruea Valencia at [facility] who referred her for ECT. She [...] Mood: Calm Notes: Pt. quietly worked on Dib[employer] project. Returned to unit awaiting visit from [...] am worried about them (family) Severity: Depression 10. Anxiety 11/01. Brianna is lying quietly on [...] Results Component Value Date TSH 5.39* 09/09/2014 [id number] 60* 09/09/2014 TT4 7.7 09/09/2014 Lipids and HgbA1C: No results found for this basename: CHLPL, HDL, CHOLHDL, LDLCHOL, LDLDIRECT, TRIG No results found for this basename: HA1C Vit Lvls: No results found for this basename: [id number], SFOLATE UA: Lab Results Component Value Date [...] and treated by Dr. Aurea Valencia at [facility] who referred her for ECT. She [...] Psychiatry Inpatient - Progress Note 09/10/14 ID: Brainna Lay is a 59 y.o. female admitted [...] Results Component Value Date TSH 5.39* 09/09/2014 [id number] 60* 09/09/2014 TT4 7.7 09/09/2014 Lipids and HgbA1C: No results found for this basename: CHLPL, HDL, CHOLHDL, LDLCHOL, LDLDIRECT, TRIG No results found for this basename: HA1C Vit Lvls: No results found for this basename: [id number], SFOLATE UA: Lab Results Component Value Date [...] and treated by Dr. Aurea Valencia at [facility] who referred her for ECT.Patient had [...] William Correia MD 09/11/2014 Becky Mane [facility] - 09/10/2014 2:43 PM EDT OFFICE OF CARE MANAGEMENT PSYCHOSOCIAL ASSESSMENT Present at Interview: Paitient Date: September 10, 2014 1. Referral request and/or presenting problem(s): Patient is a 59 year old MWF who presents at [facility] to address her increasing depression, ongoing paranoia, [...] one son José Manuel age 35 in [place]. Patient has frequent contact with her son. [...] including spiritual support: , son, Dr. Valencia, Tenriism Sikhism. 6. 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 Aurea Valencia MD. [facility] Current Therapist: Deb Romo PCP: Dr. [...] patient was eventually involuntarily admitted to [facility]. At [facility] patient's Celexa was increased to 20mg and then she was discharged. Patient was eventually seen by Dr. Aurea Valencia MD a psychiatrist at [facility] who diagnosed the patient with MDD [...] delusions), so they requested admission to [facility]. She denies SI/HI #Depression Patient denies any [...] history of being religous and she attends anglican several times a week. In the past her rastafari beliefs never crossed what is normally accepted. [...] diagnoses: depression Past hospitalization and location: [facility] - involuntarily Suicide attempts: none Past [...] of ever using drugs or alcohol. Highly rastafari in the past. 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 ENDO No temperature intolerance HEME/LYMPH No easy bruising ALL/IMMUNO No symptoms of Sinustis Physical Exam: Vitals Admission (Current) from 09/08/2014 in [facility] Psychiatry Unit Weight - Scale [...] remote memory intact ?? Fund of Knowledge: [place] ?? Insight: fair ?? Judgment: . and [...] establishing adequate outpatient care). DSM Multiaxial Diagnosis: Roseburg I MDD with psychotic features Rose[place] II deferred [place] III Hypothyroid on replacement [place] IV: Father's health concerns [place] V: GAF = 25 Clinical Global Impression: [...] with psychotic behavior [296.34] Procedures 1. ECT [[id number] (CPT??)] ECT SUBSEQUENT TREATMENT NOTE Patient received right-unilateral ECT in the PACU. Course type: acute Treatment # 7 total The primary diagnosis is 296.34. Interval history: Noticing mood improvement, tolerating well Patient was attached to monitoring equipment. The anesthesia team administered the following medications: methohexital 80 mg succinylcholine 40 mg ECT parameters: RUL 0.3///800 25 second motor seizure 47 second EEG seizure Patient was stabilized and appeared to tolerate the procedure. Complications: none Changes/recommendations for next treatment: None, same. Next treatment date:09/24 Alonzo Martel MD - 09/21/2014 8:02 AM EDT Pre-procedure Diagnoses 1. Major depressive disorder, recurrent episode, severe, specified as with psychotic behavior [296.34] Procedures 1. ECT [[id number] (CPT??)] ECT SUBSEQUENT TREATMENT NOTE Patient received [...] with psychotic behavior [296.34] Procedures 1. ECT [[id number] (CPT??)] Expand All Collapse All ECT SUBSEQUENT [...] not safe- here and reinforced reality with junior underwriter. Brianna continues to have bilateral shaking [...] Outcome (s) achieved Date Met: 09/24/14 09/08/14 18309/21/14 8108 Individualization Individualize the Plan of Care: -- [...] some concerns about the staff at the [facility] yet she can see that it [...] Fall Risk Low -- Goal: Infection Control 09/22/14192409/22/14 2346 Coping/Psychosocial Response Interventions Counseling -- [...] Outcome: Ongoing (Interventions Implemented as Appropriate) 09/21/14 2357 Coping/Psychosocial Response Interventions Plan of Care Reviewed [...] outcomes. Outcome: Ongoing (Interventions Implemented as Appropriate) 03/28/15 0012 Depression (Adult, Obstetrics, Pediatric) Improved/Stable Mood [...] Last BM 3-28. Gait steady. Med compliant. ID Goal: Groups. Hep cap flushed, patent. Dsg [...] Outcome: Ongoing (Interventions Implemented as Appropriate) 09/08/14 3706 Mutuality/Individual Preferences What anxieties, fears or concerns [...] independent Supervision: escort Surveillance: 30 min checks, ID CPG GOAL OUTCOME EVALUATION: Goal: Fall Prevention-Safe [...] female with one son who lives in [facility], and is currently unemployed admitted on [...] Primary provider: Dr Pineda Hoskins Ud-Aidee MS-3 [id number] Plan of Care - Patricia [...] presentation, smiled when arrived. Denies pain, anxiety 310, depression 3/10. CFS, denies SI, no delusional [...] female with one son who lives in [facility], and is currently unemployed admitted on [...] Romo Primary provider: Dr Pineda Salgado MS-3 3076 Plan of Care - Bienvenido Guthrie RN - 09/14/2014 11:38 PM EDT Problem: General Plan of Care Goal: Plan of Care Review Outcome: Ongoing (Interventions Implemented as Appropriate) 09/14/14 2313 Coping/Psychosocial Response Interventions Plan of Care Reviewed [...] independent Supervision: escort Surveillance: 30 min checks. ID CPG GOAL OUTCOME EVALUATION: Med Student Progress Note - Aidee Salgado Jr. - 09/14/2014 12:39 PM EDT Inpatient Psychiatry Progress Note: 09/14/2014 ID:Brianna Lay is a 59 y.o. female with one son who lives in [facility], and is currently unemployed admitted on [...] [facility] 2822 Plan of Care - Maria L Pineda [...] homicidal ideation and contracts for safety. Pt [id number]% of meals and reports last bowel movement [...] independent Supervision: escort Surveillance: 30 min checks. ID CPG GOAL OUTCOME EVALUATION: Goal: Individualization and [...] shared thathe noticed improvement in his . [place] she was less vacant and even noticed [...] female with one son who lives in [place] [facility], and is currently unemployed admitted on [...] female with one son who lives in [place] [facility], and is currently unemployed admitted on [...] Romo Primary provider: Dr Pineda Cornejo-Aidee MS-3 8733 Plan of Care - Bonny Lepe RN - 09/09/2014 6:38 PM EDT Problem: General Plan of Care Goal: Plan of Care Review Outcome: Ongoing (Interventions Implemented as Appropriate) 09/09/14 8473 Coping/Psychosocial Response Interventions Plan of Care Reviewed [...] understanding of illness 2. Work with Patient Lining Setter to create and implement aftercare plan 3. [...] MD 09/09/2014 NURSING , RN 09/09/2014 PT CHIEF OF PEDIATRIC UROLOGY Nydia aVlle RN- 09/09/2014 THERAPIST Jenna Baker [facility] 09/09/2014 INGOT BUGGY OPERATOR Becky Mane, [facility] 09/09/2014 Plan of Care - Brianna Huntley, [...] Mutuality Outcome: Ongoing (Interventions Implemented as Appropriate) 09/08/146 Mutuality/Individual Preferences What anxieties, fears or concerns do you have about your health or care? I have more concern about everyone else What questions do you have about your health or care? not at the moment What information would help us give you more personalized care? none Goal: Fall Prevention-Safe Patient Handling Outcome: Ongoing (Interventions Implemented as Appropriate) 09/08/14193909/09/1433 Safety Interventions Safety Precautions/Fall Reduction -- fall [...] DATE: RESIDENT PHYSICIAN ATTENDING PHYSICIAN NURSING PATIENT CHIEF OF PEDIATRIC UROLOGY THERAPIST INGOT BUGGY OPERATOR Plan of Care - Bonny Lepe [...] n the results section. ECT (WRVU 2.5) 09/10/2014 9:52 AM 296 [...] Component Value Ref Test Analysis Performed At [facility] Range Method Time Signature [place] Eval SEE COMMENTS [facility] Interpretation MILLENNIUM Comment: No informative autoantibodies were detec adali in this evaluation. However, a negative result d oes not exclude neurological autoimmunity with or withou t associated neoplasia. Test Performed by: [place] [address] Copier Repair Technician: Tommy Irene II, M.D., Ph.D. TRACY-1 (Anti-Neuronal Nuclear Ab, Type Negative <1:240 titer CERNER MILLENNIUM 1) Comment: Test Performed by: [place] [address] Copier Repair Technician: Tommy Irene II, M.D., Ph.D. TRACY-2 (Anti-Neuronal Nuclear Ab,Type Negative <1:240 titer CERNER MILLENNIUM 2) Comment: Test Performed by: [place] [address] Copier Repair Technician: Tommy Irene II, M.D., Ph.D. TRACY-3 (Anti-Neuronal Nuclear Ab, Type Negative <1:240 titer CERNER MILLENNIUM 3) Comment: Test Performed by: [place] [address] Copier Repair Technician: Tommy Irene II, M.D., Ph.D. AGNA-1 (Anti-Glial Nuclear Ab, Type 1) Negative <1:240 titer CERNER MILLENNIUM Comment: Test Performed by: [facility] [place] [address] Copier Repair Technician: Tommy Irene II, M.D., Ph.D. ROCK CRUSHING MACHINE OPERATOR-1 (Purkinje Cell Cytoplasmic Negative <1:240 titer CERNER MILLENNIUM Ab-Type 1) Comment: Test Performed by: [place] [address] Copier Repair Technician: Tommy Irene II, M.D., Ph.D. ROCK CRUSHING MACHINE OPERATOR-2 (Purkinje Cell Cytoplasmic Negative <1:240 titer CERNER MILLENNIUM Ab-Type 2) Comment: Test Performed by: [place] [address] Copier Repair Technician: Tommy Irene II, M.D., Ph.D. ROCK CRUSHING MACHINE OPERATOR-Type Tr (Purkinje Cell Cytoplasmic Negative <1:240 titer CERNER MILLENNIUM Ab-Type Tr) Comment: Test Performed by: [place] [address] Copier Repair Technician: Tommy Irene II, M.D., Ph.D. Amphiphysin Antibody Negative <1:240 titer CERNER MILLENNIUM Comment: Test Performed by: [place] [address] Copier Repair Technician: Tommy Irene II, M.D., Ph.D. CRMP-5-IgG Negative [...] Clients, please call the Neuroimmunology Lab at [phone]. Test Performed by: [place] [address] Copier Repair Technician: Tommy Irene II, M.D., Ph.D. Striated Muscle Ab Negative <1:120 titer CERNER M ILLENNIUM Comment: Test Performed by: [place] [address] Copier Repair Technician: Tommy Irene II, M.D., Ph.D. P/Q-Type Ca Channel Ab 0.00 <=0.02 nmol/L CER NER MILLENNIUM Comment: Test Performed by: [place] [address] Copier Repair Technician: Tommy Irene II, M.D., Ph.D. N-Type Ca Channel Ab 0.00 <=0.03 nmol/L CERNE R MILLENNIUM Comment: Test Performed by: [facility] [place] [address] Copier Repair Technician: Tommy Irene II, M.D., Ph.D. ACHr Binding Ab 0.00 <=0.02 nmol/L CERNER MIL LENNIUM Comment: Test Performed by: [place] [address] Copier Repair Technician: Tommy Irene II, M.D., Ph.D. AChR Gang Neuronal Ab 0.00 <=0.02 nmol/L CERN ER MILLENNIUM Comment: Test Performed by: [place] [address] Copier Repair Technician: Tommy Irene II, M.D., Ph.D. Neuronal (V-G) K+ Channel Ab 0.00 <=0.02 nmol/L CERNER MILLENNIUM Comment: Test Performed by: [place] [address] Copier Repair Technician: Tommy Irene II, M.D., Ph.D. Specimen Anatomical Collection Method Collection Time Receive d Time (Source) Location / / Volume Laterality Blood specimen 09/23/2014 3:50 PM 015 4:42 (specimen) EDT PM EDT Resulting Agency Comment Spec In Lab Nathen Go MD CHEMISTRY ORDERABLES Performing Organization Address City/[facility]/ZIP Code Phon e Number [address] CERNER MILLENNIUM (ABNORMAL) Thyroglobulin Antibody (09/23/2014 3:50 PM EDT) Analysis Performed At Patho logist Time Signature Thyroglob Ab 232.0 (H) 0.0 - 40.0 CERNER IU/mL MILLENNIUM Comment: Assay performed is the [employer] Immulite Tg-A b immunometric assay. (Cutoff for TgAb negativity is <20 IU/ml ) Specimen Anatomical Collection Method Collection Time Receive d Time (Source) Location / / Volume Laterality Blood specimen 09/23/2014 3:50 PM 015 8:08 (specimen) EDT AM EDT Resulting Agency Comment Spec In Lab Nathen Go MD CHEMISTRY ORDERABLES Performing Organization Address City/[facility]/ZIP Code Phon e Number [address] CERNER MILLENNIUM Thyroid peroxidase antibody (09/23/2014 3:50 PM EDT) P athologist Signature Thyroperox Ab 25 <=34 IU/mL CERNER MILLENNIUM Specimen Anatomical Collection Method Collection Time Receive d Time (Source) Location / / Volume Laterality Blood specimen 09/23/2014 3:50 PM 015 8:08 (specimen) EDT AM EDT Resulting Agency Comment Spec In Lab Nathen Go MD IMMUNOLOGY ORDERABLES Performing Organization Address City/[facility] [facility]/ZIP Code Phon e Number [address] CERNER MILLENNIUM (ABNORMAL) T3 [...] Go MD CHEMISTRY ORDERABLES Performing Organization Address City/[facility]/[place] [address] CERNER MILLENNIUM T4 Total (09/15/2014 1:03 PM EDT) athologist Signature T4, total 6.9 5.1 - 10.8 CERNER mcg/dL MILLENNIUM Comment: Reference Range: Cord Blood: ??6.9-14.4 mcg/dL Females: ??7.2-14.2 mcg/dL Pediatric ranges: ??Interpret with cauti on-ranges have not been verified Specimen Anatomical Collection Method Collection Time Receive d Time (Source) Location / / Volume Laterality Blood specimen 09/15/2014 1:03 PM 015 1:18 (specimen) EDT PM EDT Resulting Agency Comment Spec In Lab Natehn Go MD CHEMISTRY ORDERABLES Performing Organization Address City/[facility]/ZIP Code Phon e Number [address] [facility] TSH (09/15/2014 1:03 PM EDT) athologist Signature TSH 0.11 (L) 0.27 - 4.20 CERNER mcIU/mL [facility] Specimen Anatomical Collection Method Collection Time Receive d Time (Source) Location / / Volume Laterality Blood specimen 09/15/2014 1:03 PM 015 1:18 (specimen) EDT PM EDT Resulting Agency Comment Spec In Lab Nathen Go MD CHEMISTRY ORDERABLES Performing Organization Address City/[facility]/ZIP Code Phon e Number [address] C[facility]ER [facility] Urine culture Clean Catch Urine (09/09/2014 5:13 PM EDT) [facility] Method Time Signature Urine Culture CERNER ? Patient Name: BRIANNA LAY ? Ordered By: BIJAN JEAN ? MR#: [id number] ?LOC: ??2WPC ? /Sex: ??1955 (59 years), [...] Organization Address City/State/ZIP Code Phon e Number [place] [id number] PO DODGEENNIUM (ABNORMAL) TSH (09/09/2014 3:26 PM EDT) P athologist Signature TSH 5.39 (H) 0.27 - 4.20 CERNER mcIU/mL MILLENNIUM Specimen Anatomical Collection Method Collection Time Receive d Time (Source) Location / / Volume Laterality Blood specimen 09/09/2014 3:26 PM 015 3:33 (specimen) EDT PM EDT Resulting Agency Comment Spec In Lab Nathen Go MD CHEMISTRY ORDERABLES Performing Organization Address City/[facility]/[place] [address] [facility] T4 Total (09/09/2014 3:26 PM EDT) P athologist Signature T4, total 7.7 5.1 - 10.8 CERNER mcg/dL [facility] Comment: Reference Range: [place] Cord Blood: ??6.9-14.4 mcg/dL Females: ??7.2-14.2 mcg/dL Pediatric ranges: ??Interpret with cauti on-ranges have not been verified Specimen Anatomical Collection Method Collection Time Receive d Time (Source) Location / / Volume Laterality Blood specimen 09/09/2014 3:26 PM 015 3:33 (specimen) EDT PM EDT Resulting Agency Comment Spec In Lab Nathen Go MD CHEMISTRY ORDERABLES Performing Organization Address City/[facility]/[place] [address] [facility] (ABNORMAL) T3 Total (09/09/2014 3:26 PM EDT) athologist Signature T3, Total 60 (L) 75 - 170 CERNER ng/dL [facility] Specimen Anatomical Collection Method Collection Time Receive d Time (Source) Location / / Volume Laterality Blood specimen 09/09/2014 3:26 PM 015 3:33 (specimen) EDT PM EDT Resulting Agency Comment Spec In Lab Nathen Go MD CHEMISTRY ORDERABLES Performing Organization Address City/[facility]/ZIP Code Phon e Number [address] [facility] EKG 12 Lead (09/09/2014 9:08 AM EDT) Component Value Ref Range Test Analysis Performed Pathologis t Method Time At Signature Ventricular rate 76 BPM MUSE SYSTEM Atrial Rate 76 BPM MUSE SYSTEM P-R Interval 142 ms MUSE SYSTEM QRS Duration 88 ms MUSE SYSTEM Q-T Interval 380 ms MUSE SYSTEM QTC Calculated 427 ms MUSE SYSTEM (Bezet) Calculated P [place] 79 degrees MUSE SYSTEM Calculated R [place] 80 degrees MUSE SYSTEM Calculated T [place] 73 degrees MUSE SYSTEM INTERPRETATION Normal sinus [...] Urinalysis with microscopic (09/09/2014 7:14 AM EDT) [facility] Method Time Signature Glucose UA Negative Negative [...] Hazy (A) Clear CERNER MILLENNIU M Spec [place] UA 1.014 1.002 - 1.030 CERNER MIL [...] Organization Address City/State/ZIP Code Phon e Number [address] CERNER MILLENNIUM Differential, Automated [...] Organization Address City/State/ZIP Code Phon e Number [address] CERNER MILLENNIUM Hemogram (09/09/2014 [...] Organization Address City/State/ZIP Code Phon e Number [address] [facility] (ABNORMAL) TSH (09/09/2014 6:54 AM EDT) P athologist Signature TSH 13.20 (H) 0.27 - CERNER 4.20 MILLENNIUM mcIU/mL Specimen Anatomical Collection Method Collection Time Receive d Time (Source) Location / / Volume Laterality Blood specimen 09/09/2014 6:54 AM 015 7:09 (specimen) EDT AM EDT Resulting Agency Comment Spec In Lab Bijan Jean MD CHEMISTRY ORDERABLES Performing Organization Address City/State/[place] [address] [facility] Hepatic Function Panel (09/09/2014 6:54 AM EDT) [...] Jean MD CHEMISTRY ORDERABLES Performing Organization Address City/[facility] Code Phon e Number [address] CERNER MILLENNIUM Phosphorus (09/09/2014 6:54 AM EDT) P athologist Signature Phosphorus 3.0 2.5 - 4.5 CERNER mg/dL MILLENNIUM Specimen Anatomical Collection Method Collection Time Receive d Time (Source) Location / / Volume Laterality Blood specimen 09/09/2014 6:54 AM 015 7:09 (specimen) EDT AM EDT Resulting Agency Comment Spec In Lab Bijan Jean MD CHEMISTRY ORDERABLES Performing Organization Address City/[facility]/ZIP Code Phon e Number [address] CERNER MILLENNIUM Magnesium (09/09/2014 6:54 AM EDT) P athologist Signature Magnesium 0.88 0.69 - 1.07 CERNER mmol/L MILLENNIUM Specimen Anatomical Collection Method Collection Time Receive d Time (Source) Location / / Volume Laterality Blood specimen 09/09/2014 6:54 AM 015 7:09 (specimen) EDT AM EDT Resulting Agency Comment Spec In Lab Bijan Jean MD CHEMISTRY ORDERABLES Performing Organization Address City/[facility]/[place] [address] CERNER MILLENNIUM Calcium (09/09/2014 6:54 AM EDT) athologist Signature Calcium 8.9 8.5 - 10.5 CERNER mg/dL MILLENNIUM Specimen Anatomical Collection Method Collection Time Receive d Time (Source) Location / / Volume Laterality Blood specimen 09/09/2014 6:54 AM 015 7:09 (specimen) EDT AM EDT Resulting Agency Comment Spec In Lab Bijan Jean MD CHEMISTRY ORDERABLES Performing Organization Address [facility] Phon e Number [address] CERNER MILLENNIUM Creatinine (09/09/2014 6:54 AM EDT) athologist Signature Creatinine 0.76 0.70 - 1.20 CERNER mg/dL MILLENNIUM Comment: Please note that the pediatric reference intervals supplied above were not validated at [facility]. Results from pediatri c patients should be [...] the following links into your internet browser. [email or web address] Specimen Anatomical Collection Method Collection Time Receive d Time (Source) Location / / Volume Laterality Blood specimen 09/09/2014 6:54 AM 015 7:09 (specimen) EDT AM EDT Resulting Agency Comment Spec In Lab Bijan Jean MD CHEMISTRY ORDERABLES Performing Organization Address City/[facility]/ZIP Code Phon e Number [address] CERNER MILLENNIUM BUN (09/09/2014 6:54 AM EDT) P athologist Signature BUN 10 8 - 18 CERNER mg/dL MILLENNIUM Specimen Anatomical Collection Method Collection Time Receive d Time (Source) Location / / Volume Laterality Blood specimen 09/09/2014 6:54 AM 015 7:09 (specimen) EDT AM EDT Resulting Agency Comment Spec In Lab Bijan Jean MD CHEMISTRY ORDERABLES Performing Organization Address City/[facility]/[place] [address] CERNER MILLENNIUM (ABNORMAL) Electrolytes [...] Jean MD CHEMISTRY ORDERABLES Performing Organization Address City/[facility]/[place] [address] CERNER MILLENNIUM documented in [...] - Provider: Maria L Pineda RN) 0739 ([facility] Hold - Provider: Admin Adt - R bibiana: Transfer to a Procedural area)0845 ([facility] Unhold - Provider: Admin Adt)0853 (Given - Provider: Rut Yuan) 40 mg, Oral, DAILY, First dose on Sun at 0900, Until Discontinued, Routine levothyroxine (SYNTHROID) tablet 100 mcg (CANCELED) 06 39 (Given - Provider: Jyoti Wagner RN)0729 ([facility] Hold - Provider: Admin Adt - Reason: Transfer to a Procedural area)0851 ([facility] Unhold - Provider: Admin Adt) 0624 (Given - Provider: Jyoti Wagner RN) 0639 (Given - Provider: Trista Chang)0739 ([facility] Hold - Provider: Admin Adt - Reason: Transfer to a Procedural area)0845 ([facility] Unhold - Provider: Admin Adt) 100 mcg, Oral, EVERY MORNING, First dose on Sun09/16/14 at 1000, Until Discontinued, Routine liothyronine (CYTOMEL) tablet 50 mcg (CANCELED) 0639 ( Given - Provider: Jyoti Wagner RN)0729 ([facility] Hold - Provider: Admin Adt - Reason: Transfer to a Procedural area)0851 ([facility] Unhold - Provider: Admin Adt) 0624 (Given - Provider: Jyoti Wagner RN) 0639 (Given - Provider: Trista Chang)0739 ([facility] Hold - Provider: Admin Adt - Reason: Transfer to a Procedural area)0845 ([facility] Unhold - Provider: Admin Adt) 50 mcg, Oral, EVERY MORNING, First dose on Sun09/22/14 at 0600, Until Discontinued, Routine OLANZapine (ZyPREXA) tablet 10 mg (CANCELED) 07 ([facility] Hold - Provider: Admin Adt - Reason: Transfer to a Procedural area)0851 ([facility] Unhold - Provider: Admin Adt)2128 (Given - Provider: Soco Vogel RN) 10 mg, Oral, NIGHTLY, First dose on Sun09/21/14 at 2100, Until Discontinued, Routine omega-3 acid ethyl esters (LOVAZA) capsule 2 g 07 ([facility] [place] Hold - Provider: Admin Adt - Reason: Transfer to a Procedural area)0851 ([facility] Unhold - Provider: Admin Adt)1108 (Given - Provider: Brianna Huntley RN) 0932 (Given - Provider: Maria L Pineda RN)2056 (Given - Provider: Soco Vogel RN) 0739 ([facility] Hold - Provider: Admin Adt - Reason: Transfer to a Procedural area)0845 ([facility] Unhold - Provider: Admin Adt)0853 (Given - Provider: Rut Yuan) 2 g, Oral, 2 TIMES DAILY, First dose on Sun09/14/14 at 2100, Until Discontinued, Routine 2128 (Not Given - Provider: Soco Vogel RN - Reason: Patient Unable - Comment: patient unable to swallow) QUEtiapine (SEROquel) tablet 250 mg 2054 (Given - Provider: Soco Vogel RN) 0739 ([facility] Hold - Provider: Admin Adt - R bibiana: Transfer to a Procedural area)0845 ([facility] Unhold - Provider: Admin Adt) 250 mg, Oral, NIGHTLY, First dose on Sun09/23/14 at 2100 QUEtiapine (SEROquel) tablet 50 mg (COMPLETED) 1238 (Given - Provider: Maria L Pineda RN) 50 mg, Oral, ONCE, 1 dose, Sun09/23/14 at 1200, Routine sodium chloride 0.9 % flush 5 mL (CANCELED) 0729 ([facility] Hold - Provider: Admin Adt - Reason: Transfer to a Procedural area)0851 ([facility] Unhold - Provider: Admin Adt)0900 (Not Given - Provider: Brianna Huntley RN - Reason: See comment - Comment: Done in ECT) 0932 (Given - Provider: Trista Murillo)2056 (Given - Provider: Soco Vogel RN) 0739 ([facility] Hold - Provider: Admin Adt - Reason: Transfer to a Procedural area)0845 ([facility] Unhold - Provider: Admin Adt)0900 (Not Given [...] Routine documented in this encounter Care Teams Vice Squad Police Officer Relationship Specialty Start Date End Date Unknown PCP - General 09/08/14 09/16/14 None documented as of this encounter
--- OUTSIDE RECORDS SUMMARY | 2022-01-09 00:42 | XMS_ITS | Encounter Summary ---
:1955 [place] [address] Care Team Providers Name Role Phone Unknown Primary Care Provider Unavailable Encounter Details Date Type Department Care Team Description 09/11/2014 Anesthesia Event Main Operating Room Bradley Cox MD [facility] [place] [address] [place] [address] [phone] Anesthesia Record Procedure Summary Procedure Name Responsible Anesthesia Start Anesthesia Stop Time Anesthesiologist Time ECT (WRVU 2.5) Bradley Guerra MD 09/11/14 0940 09/11/14 0956 (Bilateral ) Events Date Time Event Comment 09/11/2014 0940 AN Verify 0940 Start 0940 An Start Data 0940 ASA Monitors 0941 0943 Masked Placed/ Pre O2 0944 An Induction 0946 Bite Block In 0947 ECT Rx 0953 PACU Bed 0955 an stop data 0956 Stop Name Total Methohexital 80 mg Succinylcholine 60 mg Lactated Ringers 0 mL Agents Name O2 Blood No blood administrations on file. Lines, Drains, and Airways Type Details Placement Removal PIV 09/09/14; 2331; cephalic vein 09/09/14 2331 by G jessika, 09/14/14 1120 by right (lateral side of arm); LUANN Rodriguez Colette L, LNA [id number] catheter system; 22 gauge, 1 in length; [...] Postprocedure Evaluation - Bradley Guerra MD - 09/11/2014 11:38 AM EDT Patient: Brianna Stringer Procedure(s) Performed: Procedure(s): ECT Actual Anesthetic: general Patient location: PACU Post-op pain: Adequate analgesia Post-op nausea: no nausea or vomiting Last Vitals: Filed Vitals: 09/11/14 1019 BP: 152/75 Pulse: 88 Temp: Resp: 14 Post-op cardiovascular and respiratory status: is stable Level of consciousness: awake, alert and oriented Complications: no apparent complications and tolerated the procedure well Fluid Status: normal Anesthesia Preprocedure Evaluation - Bradley Guerra MD - 09/10/2014 2:18 PM EDT Pre-Anesthesia Evaluation for: Brianna Stringer a 59 y.o. female. Procedure(s): ECT Patient Active Problem List Diagnosis ??? Major depressive disorder, recurrent episode, severe, specified as with psychotic behavior No past medical history on file. No past surgical history on file. History Substance Use Topics ??? Smoking status: Never Smoker ??? Smokeless tobacco: Never Used ??? Alcohol Use: No History Drug Use No Allergies Allergen Reactions ??? Ampicillin Itching ??? Sulfa (Sulfonamide Antibiotics) Nausea And Vomiting Medications: MAR and/or home medications have been reviewed. Physical Exam: Filed Vitals: 09/10/14 1050 BP: 133/67 Pulse: 78 Temp: Resp: 16 Body mass index is 20.97 [...] problems: none Last ECT record: 09/10 Methohexital: 100 mg Succinylcholine: 60 mg Anesthetic Plan: GA with mask ventilation, decrease dosages per last ECT notes Monitoring: Standard ASA monitors Region - Other Informed Consent: Anesthetic plan and risks discussed with patient. [facility]. Assessment: documented in this encounter Plan of Treatment Not on filedocumented as of this encounter Visit Diagnoses Not on filedocumented in this encounter Administered Medications Inactive Administered Medications - up to 3 most recent administrations Medication Order MAR Action Action Date Dose Rate Site lactated ringers infusion New Bag 09/11/2014 9:38 AM EDT CONTINUOUS PRN, Starting on Sun09/11/14 at 0938, Until Sun09/11/14 at 0956, Anesthesia Intra-op methohexital (BREVITAL) injection Given 09/11/2014 9:44 AM EDT 80 mg PRN, Starting on Sun09/11/14 at 0944, Until Sun09/11/14 at 0956, Anesthesia Intra-op, Routine succinylcholine (ANECTINE) injection Given 09/11/2014 9:44 AM EDT 60 mg PRN, Starting on Sun09/11/14 at 0944, Until Sun09/11/14 at 0956, Anesthesia Intra-op, Routine documented in this encounter Care Teams Monitor Worker Relationship Specialty Start Date End Date Unknown PCP - General 09/08/14 09/16/14 None documented as of this encounter
--- OUTSIDE RECORDS SUMMARY | 2022-01-09 00:42 | XMS_ITS | Encounter Summary ---
:1955 [place] [address] Care Team Providers Name Role Phone Unknown Primary Care Provider Unavailable Encounter Details Date Type Department Care Team Description 09/10/2014 Anesthesia Event Main Operating Room Esdras Martinez MD [facility] [place] [address] [facility] Jon Denny [facility] [place] [address] [facility] [place] [address] Anesthesia Record Procedure Summary Procedure Name Responsible Anesthesia Start Anesthesia Stop Time Anesthesiologist Time ECT (WRVU 2.5) Esdras Kaur MD 09/10/14 0951 09/10/14 1010 (Bilateral ) Events Date Time Event Comment 09/10/2014 0951 AN Verify 0951 Start 0953 An Start Data 0956 ASA Monitors 0957 0958 Masked Placed/ Pre O2 0959 An Induction 1001 Bite Block In 1001 ECT Rx 1005 PACU Bed 1007 an stop data 1010 Stop Name Total Methohexital 100 mg Succinylcholine 60 mg Sodium Chloride 0.9% 100 mL Agents Name O2 Blood No blood administrations on file. Lines, Drains, and Airways Type Details Placement Removal PIV 09/09/14; 2331; cephalic vein 09/09/14 2331 by Dulce rosen, 09/14/14 1120 by right (lateral side of arm); LUANN Rodriguez Colette L, BUS AND TROLLEY DISPATCHER [id number]-[id number] catheter system; 22 gauge, 1 in length; [...] encounter OR Notes Anesthesia Postprocedure Evaluation - Esdras Kaur MD - 09/10/2014 10:05 AM EDT Patient: Brianna Stringer Procedure(s) Performed: Procedure(s): ECT Actual Anesthetic: general Patient location: PACU Post-op pain: Adequate analgesia Post-op nausea: no nausea or vomiting Last Vitals: Filed Vitals: 09/10/14 0700 BP: 142/86 Pulse: 91 Temp: 36.6 ??C (97.9 ??F) Resp: 16 Post-op cardiovascular and respiratory status: is stable Level of consciousness: awake, alert and oriented Complications: no apparent complications and tolerated the procedure well Fluid Status: normal I would recommend down-dosing sux to 50mg, consider a smaller dose of brevital. Anesthesia Preprocedure Evaluation - Esdras Kaur MD - 09/10/2014 9:52 AM EDT Pre-Anesthesia Evaluation for: Brianna Stringer [...] been reviewed. Physical Exam: Filed Vitals: 09/10/14 0700 BP: 142/86 Pulse: 91 Temp: 36.6 ??C (97.9 ??F) Resp: 16 Body mass index is 20.97 kg/(m^2). Height: 165.1 cm (5' 5) Weight - Scale: 57.153 kg (126 lb) Airway Assessment: Mallampati: III TM distance: <3 FB Neck ROM: full Cardiovascular Assessment: Pulmonary Assessment: Dental Assessment: - normal exam [facility] Assessment: Anesthesia Plan: ASA 3 general, with a(n) intravenous induction This is a 59 year old female with a past medical history significant for MDD who presents for ECT. Serial consent obtained. No known cardiopulmonary disease or complications related to anesthesia. Plan [place] Region - Other Informed Consent: Anesthetic plan and risks discussed with patient. Plan discussed with SET UP OPERATOR TOOL and attending. [facility]. Assessment: documented in this encounter Plan of Treatment Not on filedocumented as of this encounter Visit Diagnoses Not on filedocumented in this encounter Administered Medications Inactive Administered Medications - up to 3 most recent administrations Medication Order MAR Action Action Date Dose Rate Site methohexital (BREVITAL) injection Given 09/10/2014 9:59 AM EDT 100 mg PRN, Starting on Carmella 09/10/14 at 0959, Until [place] 09/10/14 at 1007, Anesthesia Intra-op, Routine sodium chloride 0.9% infusion New Bag 09/10/2014 9:35 AM EDT CONTINUOUS PRN, Starting on [place] 09/10/14 at 0935, Until [place] 09/10/14 at 1007, Anesthesia Intra-op succinylcholine (ANECTINE) injection Given 09/10/2014 9:59 AM EDT 60 mg PRN, Starting on [place] 09/10/14 at 0959, Until [place] 09/10/14 at 1007, Anesthesia Intra-op, Routine documented in this encounter Care Teams Floor Surfacer Relationship Specialty Start Date End Date Unknown PCP - General 09/08/14 09/16/14 None documented as of this encounter
--- OUTSIDE RECORDS SUMMARY | 2022-01-09 00:42 | XMS_ITS | Encounter Summary ---
:1955 [place] [address] Care Team Providers Name Role Phone Unknown Primary Care Provider Unavailable Encounter Details Date Type Department Care Team Description 09/11/2014 Surgery Main Operating Room Nathen Bush MD ECT (WRVU 2.5) [facility] Geovani snyder [place] [address] [place] [address] [phone] (Wo rk) Social History Tobacco Use Types [...] stabilization and medication management. Discharge Multi-axial Diagnosis: Crawford I: MDD w/ psychotic features Crawford II: deferred Crawford III: hypothyroid on replacement Crawford IV: father's health concerns Crawford V: Admission GAF: 25 Discharge GAF: 45 [...] and patient was eventually involuntarily admitted to [facility]. At [facility] patient's Celexa was increased to 20mg and then she was discharged. Patient was eventually seen by Dr. Aurea Valencia MD a psychiatrist at [facility] who diagnosed the patient with MDD [...] Brianna's delusions), so they requested admission to [facility]. She denies SI/HI #Depression Patient denies any [...] times a week. In the past her sabianist beliefs never crossed what is normally accepted. [...] followup Primary Care Physician: JEWEL CHERRY MD [phone] Special Physician Instructions: -Continue to do outpatient ECT as scheduled and recommended -Take your medications as instructed -Make sure to have a colonoscopy and mammogram done -Make sure your doctor follows up on pending labs at [facility] -Come to the emergency room or call your doctor if you feel unsafe or have thoughts of suicide Special Instructions Provided to Brianna Lay: Call your doctor, your local mental health center, or your local emergency room if you develop worsening symptoms of depression, anxiety, thoughts of harming yourself, thoughts of harming others, or any other decline in your overall condition. [facility] Emergency Services: [facility] [phone] [facility] Emergency Services: [phone] [facility] Central Access Services: [phone] [facility] Main Line: [phone] Activity level: no restrictions from psychiatry Diet: [...] TREAT AT General Instructions Dr Aurea Valencia [phone] September 24 at 2:30pm Dr Regla Patel, October 01 at 11:30am Discharge References/Attachments None Signed: William Correia MD 09/27/2014 documented in this encounter Discharge Instructions Discharge InstructionsWilliam Correia MD - 09/24/2014 12:[address] Aurea Valencia [phone] September 24 at 2:30pm Dr Regla Patel, [...] followup Primary Care Physician: JEWEL CHERRY MD [phone] Special Physician Instructions: -Continue to do outpatient ECT as scheduled and recommended -Take your medications as instructed -Make sure to have a colonoscopy and mammogram done -Make sure your doctor follows up on pending labs at [facility] -Come to the emergency room or call your doctor if you feel unsafe or have thoughts of suicide Special Instructions Provided to Brianna Lay: Call your doctor, your local mental health center, or your local emergency room if you develop worsening symptoms of depression, anxiety, thoughts of harming yourself, thoughts of harming others, or any other decline in your overall condition. [facility] Emergency Services: [facility] [phone] [facility] Emergency Services: [phone] [facility] Central Access Services: [phone] [facility] Main Line: [phone] Activity level: no restrictions from psychiatry Diet: [...] Results Component Value Date TSH 0.11* 09/15/2014 [id number] 261* 09/15/2014 TT4 6.9 09/15/2014 Lipids and HgbA1C: No results found for this basename: CHLPL, HDL, CHOLHDL, LDLCHOL, LDLDIRECT, TRIG No results found for this basename: HA1C Vit Lvls: No results found for this basename: [id number], SFOLATE UA: No results found for this [...] EDT TC with pts , Will at [phone]. He believes pt is about 75% back [...] i feel that somehow the people at [facility] might hurt them Severity:. Rates Depression: 10/02, [...] Results Component Value Date TSH 0.11* 09/15/2014 [id number] 261* 09/15/2014 TT4 6.9 09/15/2014 Lipids and HgbA1C: No results found for this basename: CHLPL, HDL, CHOLHDL, LDLCHOL, LDLDIRECT, TRIG No results found for this basename: HA1C Vit Lvls: No results found for this basename: [id number], SFOLATE UA: No results found for this [...] still fears that she irritated people at [facility] who might harm her family. Tremor [...] goals or boundaries to work on. Jenna Baekr, MS 09/22/2014 Inpatient Daily Group Note Group: [...] Results Component Value Date TSH 0.11* 09/15/2014 [id number] 261* 09/15/2014 TT4 6.9 09/15/2014 Lipids and HgbA1C: No results found for this basename: CHLPL, HDL, CHOLHDL, LDLCHOL, LDLDIRECT, TRIG No results found for this basename: HA1C Vit Lvls: No results found for this basename: [id number], SFOLATE UA: No results found for this [...] Results Component Value Date TSH 0.11* 09/15/2014 [id number] 261* 09/15/2014 TT4 6.9 09/15/2014 Lipids and HgbA1C: No results found for this basename: CHLPL, HDL, CHOLHDL, LDLCHOL, LDLDIRECT, TRIG No results found for this basename: HA1C Vit Lvls: No results found for this basename: [id number], SFOLATE UA: No results found for this [...] Results Component Value Date TSH 0.11* 09/15/2014 [id number] 261* 09/15/2014 TT4 6.9 09/15/2014 Lipids and HgbA1C: No results found for this basename: CHLPL, HDL, CHOLHDL, LDLCHOL, LDLDIRECT, TRIG No results found for this basename: HA1C Vit Lvls: No results found for this basename: [id number], SFOLATE UA: No results found for this [...] Results Component Value Date TSH 0.11* 09/15/2014 [id number] 261* 09/15/2014 TT4 6.9 09/15/2014 Lipids and HgbA1C: No results found for this basename: CHLPL, HDL, CHOLHDL, LDLCHOL, LDLDIRECT, TRIG No results found for this basename: HA1C Vit Lvls: No results found for this basename: [id number], SFOLATE UA: No results found for this [...] Results Component Value Date TSH 0.11* 09/15/2014 [id number] 261* 09/15/2014 TT4 6.9 09/15/2014 Lipids and HgbA1C: No results found for this basename: CHLPL, HDL, CHOLHDL, LDLCHOL, LDLDIRECT, TRIG No results found for this basename: HA1C Vit Lvls: No results found for this basename: [id number], SFOLATE UA: No results found for this [...] esteem and apassive communication style. Teresa Cotto, [facility] 09/17/2014 Inpatient Daily Group Note Group: Inside walk Notes: Pt. walked quietly with peers. Enjoying the art. Teresa Key 09/17/2014 Inpatient Daily Group Note Group: Workshop Attendance: Present Behavior: Conversational Therapeutic Work Observed: Moderate Mood: Calm Notes: Pt. talked with this real estate underwriter about living in [place] and her son. Listened to conversations of [...] Pt. attentive although quiet. After group thanked real estate underwriter stating he learned a lot. Teresa [...] Results Component Value Date TSH 0.11* 09/15/2014 [id number] 261* 09/15/2014 TT4 6.9 09/15/2014 Lipids and HgbA1C: No results found for this basename: CHLPL, HDL, CHOLHDL, LDLCHOL, LDLDIRECT, TRIG No results found for this basename: HA1C Vit Lvls: No results found for this basename: [id number], SFOLATE UA: No results found for this [...] Results Component Value Date TSH 0.11* 09/15/2014 [id number] 261* 09/15/2014 TT4 6.9 09/15/2014 Lipids and HgbA1C: No results found for this basename: CHLPL, HDL, CHOLHDL, LDLCHOL, LDLDIRECT, TRIG No results found for this basename: HA1C Vit Lvls: No results found for this basename: [id number], SFOLATE UA: No results found for this [...] Results Component Value Date TSH 5.39* 09/09/2014 [id number] 60* 09/09/2014 TT4 7.7 09/09/2014 Lipids and HgbA1C: No results found for this basename: CHLPL, HDL, CHOLHDL, LDLCHOL, LDLDIRECT, TRIG No results found for this basename: HA1C Vit Lvls: No results found for this basename: [id number], SFOLATE UA: No results found for this [...] treated pharmacologically by Dr. Aurea Valencia at [facility] who referred her for ECT. She [...] Results Component Value Date TSH 5.39* 09/09/2014 [id number] 60* 09/09/2014 TT4 7.7 09/09/2014 Lipids and HgbA1C: No results found for this basename: CHLPL, HDL, CHOLHDL, LDLCHOL, LDLDIRECT, TRIG No results found for this basename: HA1C Vit Lvls: No results found for this basename: [id number], SFOLATE UA: No results found for this [...] treated pharmacologically by Dr. Aurea Valencia at [facility] who referred her for ECT. She [...] Results Component Value Date TSH 5.39* 09/09/2014 [id number] 60* 09/09/2014 TT4 7.7 09/09/2014 Lipids and HgbA1C: No results found for this basename: CHLPL, HDL, CHOLHDL, LDLCHOL, LDLDIRECT, TRIG No results found for this basename: HA1C Vit Lvls: No results found for this basename: [id number], SFOLATE UA: No results found for this [...] and treated by Dr. Aurea Valencia at [facility] who referred her for ECT. She [...] Mood: Flat Notes: Pt. quietly worked on [employer] project. Teresa Key 09/12/2014 Soumya Daniel MD [...] Results Component Value Date TSH 5.39* 09/09/2014 [id number] 60* 09/09/2014 TT4 7.7 09/09/2014 Lipids and HgbA1C: No results found for this basename: CHLPL, HDL, CHOLHDL, LDLCHOL, LDLDIRECT, TRIG No results found for this basename: HA1C Vit Lvls: No results found for this basename: [id number], SFOLATE UA: Lab Results Component Value Date [...] and treated by Dr. Aurea Valencia at [facility] who referred her for ECT. She [...] Mood: Calm Notes: Pt. quietly worked on [employer] project. Returned to unit awaiting visit from [...] Results Component Value Date TSH 5.39* 09/09/2014 [id number] 60* 09/09/2014 TT4 7.7 09/09/2014 Lipids and HgbA1C: No results found for this basename: CHLPL, HDL, CHOLHDL, LDLCHOL, LDLDIRECT, TRIG No results found for this basename: HA1C Vit Lvls: No results found for this basename: [id number], SFOLATE UA: Lab Results Component Value Date [...] and treated by Dr. Aurea Valencia at [facility] who referred her for ECT. She [...] Results Component Value Date TSH 5.39* 09/09/2014 [id number] 60* 09/09/2014 TT4 7.7 09/09/2014 Lipids and HgbA1C: No results found for this basename: CHLPL, HDL, CHOLHDL, LDLCHOL, LDLDIRECT, TRIG No results found for this basename: HA1C Vit Lvls: No results found for this basename: [id number], SFOLATE UA: Lab Results Component Value Date [...] and treated by Dr. Aurea Valencia at [facility] who referred her for ECT.Patient had [...] By: William Correia MD 09/11/2014 Becky Mane [facility] - 09/10/2014 2:43 PM EDT OFFICE OF CARE MANAGEMENT PSYCHOSOCIAL ASSESSMENT Present at Interview: Paitient Date: September 10, 2014 1. Referral request and/or presenting problem(s): Patient is a 59 year old MWF who presents at [facility] to address her increasing depression, ongoing paranoia, [...] 81 and Mother age 80 live in [place]. Siblings are Bhavin age 59, Moo age 54 and Krzysztof age 50 also living in [place]. Patient has regular contact with her parents and more sporadic contact with her brothers. Patient was born and raised in [place] anddescribed childhood as [place]. Extended family available [...] including spiritual support: , son, Dr. Valencia, Hinduism Restorationism. 6. 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 Aurea Valencia MD. [facility] Current Therapist: Deb Romo PCP: Dr. [...] and patient was eventually involuntarily admitted to [facility]. At [facility] patient's Celexa was increased to 20mg and then she was discharged. Patient was eventually seen by Dr. Aurea Valencia MD a psychiatrist at [facility] who diagnosed the patient with MDD [...] Brianna's delusions), so they requested admission to [facility]. She denies SI/HI #Depression Patient denies any [...] times a week. In the past her sabianist beliefs never crossed what is normally accepted. [...] Prior diagnoses: depression Past hospitalization and location: [facility] - involuntarily Suicide attempts: none [...] of ever using drugs or alcohol. Highly sabianist in the past. 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 ENDO No temperature intolerance HEME/LYMPH No easy bruising ALL/IMMUNO No symptoms of Sinustis Physical Exam: Vitals Admission (Current) from 09/08/2014 in [facility] Psychiatry Unit Weight - Scale 57.153 kg [...] establishing adequate outpatient care). DSM Multiaxial Diagnosis: Crawford I MDD with psychotic features Crawford II deferred Crawford III Hypothyroid on replacement Crawford IV: Father's health concerns Crawford V: GAF = 25 Clinical Global Impression: [...] with psychotic behavior [296.34] Procedures 1. ECT [[id number] (CPT??)] ECT SUBSEQUENT TREATMENT NOTE Patient received [...] with psychotic behavior [296.34] Procedures 1. ECT [[id number] (CPT??)] ECT SUBSEQUENT TREATMENT NOTE Patient received [...] with psychotic behavior [296.34] Procedures 1. ECT [[id number] (CPT??)] Expand All Collapse All ECT SUBSEQUENT [...] not safe- here and reinforced reality with real estate underwriter. Brianna continues to have bilateral shaking [...] achieved Date Met: 09/24/14 09/08/14 1836 09/21/14 4507 Individualization Individualize the Plan of Care: -- [...] some concerns about the staff at the [facility] yet she can see that it doesn't make much sense Patient denies SI or HI. Depression 10/02 and no anxiety PLAN MOVING FORWARD: NPO after midnight for ect INDIVIDUALIZED FALL PREVENTION: Assistance: independent Supervision: Escort to group Surveillance: 30 minute checks CPG GOAL OUTCOME EVALUATION: Goal: Individualization and Mutuality Outcome: Ongoing (Interventions Implemented as Appropriate) 09/08/14 1836 09/21/14 8887 Individualization Individualize the Plan of Care: -- [...] Outcome: Ongoing (Interventions Implemented as Appropriate) 09/21/14 4227 Coping/Psychosocial Response Interventions Plan of Care Reviewed [...] Last BM 3-28. Gait steady. Med compliant. TX Goal: Groups. Hep cap flushed, patent. Dsg [...] PLAN MOVING FORWARD: ECT in the AM, DESITNY and Groups for coping skills and illness [...] independent Supervision: escort Surveillance: 30 min checks, TX CPG GOAL OUTCOME EVALUATION: Goal: Fall Prevention-Safe [...] female with one son who lives in [facility], and is currently unemployed admitted [...] -- 0 Score -- -- 20 OTHER [place] Fall Risk -- -- Low Goal: Infection [...] female with one son who lives in [facility], and is currently unemployed admitted [...] Romo Primary provider: Dr Pineda Salgado MS-3 [id number] Plan of Care - Bienvenido Guthrie RN - 09/14/2014 11:38 PM EDT Problem: General Plan of Care Goal: Plan of Care Review Outcome: Ongoing (Interventions Implemented as Appropriate) 09/14/14 2312 Coping/Psychosocial Response Interventions Plan of Care Reviewed [...] independent Supervision: escort Surveillance: 30 min checks. TX CPG GOAL OUTCOME EVALUATION: Med Student Progress Note - Aidee Salgado Jr. - 09/14/2014 12:39 PM EDT Inpatient Psychiatry Progress Note: 09/14/2014 ID:Brianna Lay is a 59 y.o. female with one son who lives in [facility], and is currently unemployed admitted [...] Pineda Hoskins [facility] MS-3 [id number] Plan of Care - Maria L Pineda [...] homicidal ideation and contracts for safety. Pt [id number]% of meals and reports last bowel movement [...] independent Supervision: escort Surveillance: 30 min checks. [place] CPG GOAL OUTCOME EVALUATION: Goal: Individualization and [...] shared thathe noticed improvement in his . [place] she was less vacant and even noticed [...] female with one son who lives in [facility] [place], and is currently unemployed admitted [...] female with one son who lives in [place], and is currently unemployed admitted [...] Primary provider: Dr Pineda Hoskins [facility] MS-3 [id number] Plan of Care - Bonny Lepe RN - 09/09/2014 6:38 PM EDT Problem: General Plan of Care Goal: Plan of Care Review Outcome: Ongoing (Interventions Implemented as Appropriate) 09/09/14 8483 Coping/Psychosocial Response Interventions Plan of Care Reviewed [...] understanding of illness 2. Work with Patient Shed Boss to create and implement aftercare plan 3. [...] MD 09/09/2014 NURSING , RN 09/09/2014 PT ARMED SECURITY OFFICER Nydia Valle RN- 09/09/2014 THERAPIST Jenna Baker [facility] 09/09/2014 AUTO RADIO MECHANIC Becky Mane, [facility] 09/09/2014 Plan of Care - Brianna [...] AM EDT MULTIDISCIPLINARY TREATMENT PLAN Patient: Brianna Lya Guardian: Ph: DPOA: Ph: Todays Date: 09/09/2014 [...] DATE: RESIDENT PHYSICIAN ATTENDING PHYSICIAN NURSING PATIENT ARMED SECURITY OFFICER THERAPIST AUTO RADIO MECHANIC Plan of Care - Bonny Lepe RN [...] the results section. ECT (WRVU 2.5) Yes 09/11/2014 9:39 AM 296.34 EDT URINE CULTURE Routine 09/09/2014 [...] Value Ref Test Analysis Performed At [facility] Range Method Time Signature [place] Eval SEE COMMENTS [facility] Interpretation MILLENNIUM Comment: No informative autoantibodies were detec adali in this evaluation. However, a negative result d oes not exclude neurological autoimmunity with or withou t associated neoplasia. Test Performed by: [place] [address] Electroneurodiagnostic Technologist: Tommy Irene II, M.D., Ph.D. TRACY-1 (Anti-Neuronal Nuclear Ab, Type Negative <1:240 titer CERNER MILLENNIUM 1) Comment: Test Performed by: [place] [address] Electroneurodiagnostic Technologist: Tommy Irene II, M.D., Ph.D. TRACY-2 (Anti-Neuronal Nuclear Ab,Type Negative <1:240 titer CERNER MILLENNIUM 2) Comment: Test Performed by: [place] [address] Electroneurodiagnostic Technologist: Tommy Irene II, M.D., Ph.D. TRACY-3 (Anti-Neuronal Nuclear Ab, Type Negative <1:240 titer CERNER MILLENNIUM 3) Comment: Test Performed by: [place] [address] Electroneurodiagnostic Technologist: Tommy Irene II, M.D., Ph.D. AGNA-1 (Anti-Glial Nuclear Ab, Type 1) Negative <1:240 titer CERNER MILLENNIUM Comment: Test Performed by: [facility] [place] [address] Electroneurodiagnostic Technologist: Tommy Irene II, M.D., Ph.D. AUDIO VIDEO MECHANIC-1 (Purkinje Cell Cytoplasmic Negative <1:240 titer CERNER MILLENNIUM Ab-Type 1) Comment: Test Performed by: [place] [address] Electroneurodiagnostic Technologist: Tommy Irene II, M.D., Ph.D. AUDIO VIDEO MECHANIC-2 (Purkinje Cell Cytoplasmic Negative <1:240 titer CERNER MILLENNIUM Ab-Type 2) Comment: Test Performed by: [place] [address] Electroneurodiagnostic Technologist: Tommy Irene II, M.D., Ph.D. AUDIO VIDEO MECHANIC-Type Tr (Purkinje Cell Cytoplasmic Negative <1:240 titer CERNER MILLENNIUM Ab-Type Tr) Comment: Test Performed by: [place] [address] Electroneurodiagnostic Technologist: Tommy Irene II, M.D., Ph.D. Amphiphysin Antibody Negative <1:240 titer CERNER MILLENNIUM Comment: Test Performed by: [place] [address] Electroneurodiagnostic Technologist: Tommy Irene II, M.D., Ph.D. CRMP-5-IgG Negative [...] Clients, please call the Neuroimmunology Lab at [phone]. Test Performed by: [place] [address] Electroneurodiagnostic Technologist: Tommy Irene II, M.D., Ph.D. Striated Muscle Ab Negative <1:120 titer CERNER M ILLENNIUM Comment: Test Performed by: [place] [address] Electroneurodiagnostic Technologist: Tommy Irene II, M.D., Ph.D. P/Q-Type Ca Channel Ab 0.00 <=0.02 nmol/L CER NER MILLENNIUM Comment: Test Performed by: [place] [address] Electroneurodiagnostic Technologist: Tommy Irene II, M.D., Ph.D. N-Type Ca Channel Ab 0.00 <=0.03 nmol/L CERNE R MILLENNIUM Comment: Test Performed by: [facility] [place] [address] Electroneurodiagnostic Technologist: Tommy Irene II, M.D., Ph.D. ACHr Binding Ab 0.00 <=0.02 nmol/L CERNER MIL LENNIUM Comment: Test Performed by: [place] [address] Electroneurodiagnostic Technologist: Tommy Irene II, M.D., Ph.D. AChR Gang Neuronal Ab 0.00 <=0.02 nmol/L CERN ER MILLENNIUM Comment: Test Performed by: [place] [address] Electroneurodiagnostic Technologist: Tommy Irene II, M.D., Ph.D. Neuronal (V-G) K+ Channel Ab 0.00 <=0.02 nmol/L CERNER MILLENNIUM Comment: Test Performed by: [place] [address] Electroneurodiagnostic Technologist: Tommy Irene II, M.D., Ph.D. Specimen Anatomical Collection Method Collection Time Receive d Time (Source) Location / / Volume Laterality Blood specimen 09/23/2014 3:50 PM 015 4:42 (specimen) EDT PM EDT Resulting Agency Comment Spec In Lab Nathen Go MD CHEMISTRY ORDERABLES Performing Organization Address City/[facility]/ZIP Code Phon e Number [address] CERNER MILLENNIUM (ABNORMAL) Thyroglobulin Antibody (09/23/2014 3:50 PM EDT) Analysis Performed At Patho logist Time Signature Thyroglob Ab 232.0 (H) 0.0 - 40.0 CERNER IU/mL MILLENNIUM Comment: Assay performed is the [employer] Immulite Tg-A b immunometric assay. (Cutoff for TgAb negativity is <20 IU/ml ) Specimen Anatomical Collection Method Collection Time Receive d Time (Source) Location / / Volume Laterality Blood specimen 09/23/2014 3:50 PM 015 8:08 (specimen) EDT AM EDT Resulting Agency Comment Spec In Lab Nathen Go MD CHEMISTRY ORDERABLES Performing Organization Address City/[facility]/ZIP Code Phon e Number [address] CERNER MILLENNIUM Thyroid peroxidase antibody (09/23/2014 3:50 PM EDT) P athologist Signature Thyroperox Ab 25 <=34 IU/mL CERNER MILLENNIUM Specimen Anatomical Collection Method Collection Time Receive d Time (Source) Location / / Volume Laterality Blood specimen 09/23/2014 3:50 PM 015 8:08 (specimen) EDT AM EDT Resulting Agency Comment Spec In Lab Nathen Go MD IMMUNOLOGY ORDERABLES Performing Organization Address City/[facility]/ZIP Code Phon e Number [address] CERNER MILLENNIUM (ABNORMAL) T3 [...] Go MD CHEMISTRY ORDERABLES Performing Organization Address City/[facility]/[place] [address] CERNER MILLENNIUM T4 Total (09/15/2014 1:03 PM EDT) athologist Signature T4, total 6.9 5.1 - 10.8 CERNER mcg/dL MILLENNIUM Comment: Reference Range: [place] Cord Blood: ??6.9-14.4 mcg/dL Females: ??7.2-14.2 mcg/dL Pediatric ranges: ??Interpret with cauti on-ranges have not been verified Specimen Anatomical Collection Method Collection Time Receive d Time (Source) Location / / Volume Laterality Blood specimen 09/15/2014 1:03 PM 015 1:18 (specimen) EDT PM EDT Resulting Agency Comment Spec In Lab Nathen Go MD CHEMISTRY ORDERABLES Performing Organization Address City/[facility]/ZIP Code Phon e Number [address] [facility] ([facility]NORMAL) TSH (09/15/2014 1:03 PM EDT) athologist Signature TSH 0.11 (L) 0.27 - 4.20 CERNER mcIU/mL [facility] Specimen Anatomical Collection Method Collection Time Receive d Time (Source) Location / / Volume Laterality Blood specimen 09/15/2014 1:03 PM 015 1:18 (specimen) EDT PM EDT Resulting Agency Comment Spec In Lab Nathen Go MD CHEMISTRY ORDERABLES Performing Organization Address City/[facility]/ZIP Code Phon e Number [address] CERNER [facility]BANNER MD [facility] Urine culture Clean Catch Urine (09/09/2014 5:13 PM EDT) [facility] Method Time Signature Urine Culture CERNER ? Patient Name: BRIANNA LAY ? Ordered By: BIJAN JEAN ? MR#: [id number] ?LOC: ??[id number] ? /Sex: ??1955 (59 years), [...] Organization Address City/State/ZIP Code Phon e Number [place] [id number] (ABNORMAL) TSH (09/09/2014 3:26 PM EDT) P athologist Signature TSH 5.39 (H) 0.27 - 4.20 CERNER mcIU/mL MILLENNIUM Specimen Anatomical Collection Method Collection Time Receive d Time (Source) Location / / Volume Laterality Blood specimen 09/09/2014 3:26 PM 015 3:33 (specimen) EDT PM EDT Resulting Agency Comment Spec In Lab Nathen Go MD CHEMISTRY ORDERABLES Performing Organization Address City/[facility]/[place] [address] [facility] T4 Total (09/09/2014 3:26 PM EDT) P [...] Go MD CHEMISTRY ORDERABLES Performing Organization Address City/[facility]/[place] [address] [facility]) T3 Total (09/09/2014 3:26 PM EDT) athologist Signature T3, Total 60 (L) 75 - 170 CERNER ng/dL [facility] Specimen Anatomical Collection Method Collection Time Receive d Time (Source) Location / / Volume Laterality Blood specimen 09/09/2014 3:26 PM 015 3:33 (specimen) EDT PM EDT Resulting Agency Comment Spec In Lab Nathen Go MD CHEMISTRY ORDERABLES Performing Organization Address City/[facility]/ZIP Code Phon e Number [address] [facility] EKG 12 Lead (09/09/2014 9:08 AM EDT) Component Value Ref Range Test Analysis Performed Pathologis t Method Time At Signature Ventricular rate 76 BPM MUSE SYSTEM Atrial Rate 76 BPM MUSE SYSTEM P-R Interval 142 ms MUSE SYSTEM QRS Duration 88 ms MUSE SYSTEM Q-T Interval 380 ms MUSE SYSTEM QTC Calculated 427 ms MUSE SYSTEM (Bezet) Calculated P Crawford 79 degrees MUSE SYSTEM Calculated R Crawford 80 degrees MUSE SYSTEM Calculated T Crawford 73 degrees MUSE SYSTEM INTERPRETATION Normal sinus [...] with microscopic (09/09/2014 7:14 AM EDT) [facility] Method Time Signature Glucose UA Negative Negative [...] Hazy (A) Clear CERNER MILLENNIU M Spec [place] UA 1.014 1.002 - 1.030 CERNER MIL [...] Address City/State/ZIP Code Phon e Number [address] CERNER MILLENNIUM Differential, Automated [...] Address City/State/ZIP Code Phon e Number [address] CERNER MILLENNIUM Hemogram (09/09/2014 [...] Address City/State/ZIP Code Phon e Number [address] [facility] (ABNORMAL) TSH (09/09/2014 6:54 AM [...] Organization Address City/State/[place] [address] [facility] Hepatic Function Panel (09/09/2014 6:54 [...] Jean MD CHEMISTRY ORDERABLES Performing Organization Address City/[facility] Code Phon e Number [address] CERNER MILLENNIUM Phosphorus (09/09/2014 6:54 AM EDT) P athologist Signature Phosphorus 3.0 2.5 - 4.5 CERNER mg/dL MILLENNIUM Specimen Anatomical Collection Method Collection Time Receive d Time (Source) Location / / Volume Laterality Blood specimen 09/09/2014 6:54 AM 015 7:09 (specimen) EDT AM EDT Resulting Agency Comment Spec In Lab Bijan Jean MD CHEMISTRY ORDERABLES Performing Organization Address City/[facility]/ZIP Code Phon e Number [address] CERNER MILLENNIUM Magnesium (09/09/2014 6:54 AM EDT) P athologist Signature Magnesium 0.88 0.69 - 1.07 CERNER mmol/L MILLENNIUM Specimen Anatomical Collection Method Collection Time Receive d Time (Source) Location / / Volume Laterality Blood specimen 09/09/2014 6:54 AM 015 7:09 (specimen) EDT AM EDT Resulting Agency Comment Spec In Lab Bijan Jean MD CHEMISTRY ORDERABLES Performing Organization Address City/[facility]/[place] [address] CERNER MILLENNIUM Calcium (09/09/2014 6:54 AM EDT) athologist Signature Calcium 8.9 8.5 - 10.5 CERNER mg/dL MILLENNIUM Specimen Anatomical Collection Method Collection Time Receive d Time (Source) Location / / Volume Laterality Blood specimen 09/09/2014 6:54 AM 015 7:09 (specimen) EDT AM EDT Resulting Agency Comment Spec In Lab Bijan Jean MD CHEMISTRY ORDERABLES Performing Organization Address [facility] Phon e Number [address] CERNER MILLENNIUM Creatinine (09/09/2014 6:54 AM EDT) athologist Signature Creatinine 0.76 0.70 - 1.20 CERNER mg/dL MILLENNIUM Comment: Please note that the pediatric reference intervals supplied above were not validated at [facility]. Results from pediatri c patients should be [...] the following links into your internet browser. [email or web address] Specimen Anatomical Collection Method Collection Time Receive d Time (Source) Location / / Volume Laterality Blood specimen 09/09/2014 6:54 AM 015 7:09 (specimen) EDT AM EDT Resulting Agency Comment Spec In Lab Bijan Jean MD CHEMISTRY ORDERABLES Performing Organization Address City/[facility]/ZIP Code Phon e Number [address] CERNER MILLENNIUM BUN (09/09/2014 6:54 AM EDT) P athologist Signature BUN 10 8 - 18 CERNER mg/dL MILLENNIUM Specimen Anatomical Collection Method Collection Time Receive d Time (Source) Location / / Volume Laterality Blood specimen 09/09/2014 6:54 AM 015 7:09 (specimen) EDT AM EDT Resulting Agency Comment Spec In Lab Bijan Jean MD CHEMISTRY ORDERABLES Performing Organization Address City/[facility]/[place] [address] CERNER MILLENNIUM (ABNORMAL) Electrolytes [...] Jean MD CHEMISTRY ORDERABLES Performing Organization Address City/[facility]/[place] [address] CERNER MILLENNIUM documented in [...] - Provider: Maria L Pineda RN) 0739 ([facility] Hold - Provider: Admin Adt - R bibiana: Transfer to a Procedural area)0845 ([facility] Unhold - Provider: Admin Adt)0853 (Given - Provider: Rut Yuan) 40 mg, Oral, DAILY, First dose on Sun at 0900, Until Discontinued, Routine levothyroxine (SYNTHROID) tablet 100 mcg (CANCELED) 06 39 (Given - Provider: Jyoti Wagner RN)0729 ([facility] Hold - Provider: Admin Adt - Reason: Transfer to a Procedural area)0851 ([facility] Unhold - Provider: Admin Adt) 0624 (Given - Provider: Jyoti Wagner RN) 0639 (Given - Provider: Trista Chang)0739 ([facility] Hold - Provider: Admin Adt - Reason: Transfer to a Procedural area)0845 ([facility] Unhold - Provider: Admin Adt) 100 mcg, Oral, EVERY MORNING, First dose on Sun09/16/14 at 1000, Until Discontinued, Routine liothyronine (CYTOMEL) tablet 50 mcg (CANCELED) 0639 ( Given - Provider: Jyoti Wagner RN)0729 ([facility] Hold - Provider: Admin Adt - Reason: Transfer to a Procedural area)0851 ([facility] Unhold - Provider: Admin Adt) 0624 (Given - Provider: Jyoti Wagner RN) 0639 (Given - Provider: Trista Chang)0739 ([facility] Hold - Provider: Admin Adt - Reason: Transfer to a Procedural area)0845 ([facility] Unhold - Provider: Admin Adt) 50 mcg, Oral, EVERY MORNING, First dose on Sun09/22/14 at 0600, Until Discontinued, Routine OLANZapine (ZyPREXA) tablet 10 mg (CANCELED) 07 ([facility] Hold - Provider: Admin Adt - Reason: Transfer to a Procedural area)0851 ([facility] Unhold - Provider: Admin Adt)2128 (Given - Provider: Soco Vogel RN) 10 mg, Oral, NIGHTLY, First dose on Sun09/21/14 at 2100, Until Discontinued, Routine omega-3 acid ethyl esters (LOVAZA) capsule 2 g 07 ([facility] Hold - Provider: Admin Adt - Reason: Transfer to a Procedural area)0851 ([facility] Unhold - Provider: Admin Adt)1108 (Given - Provider: Brianna Huntley RN) 0932 (Given - Provider: Maria L Pineda RN)2056 (Given - Provider: Soco Vogel RN) 0739 ([facility] Hold - Provider: Admin Adt - Reason: Transfer to a Procedural area)0845 ([facility] Unhold - Provider: Admin Adt)0853 (Given - Provider: Rut Yuan) 2 g, Oral, 2 TIMES DAILY, First dose on Sun09/14/14 at 2100, Until Discontinued, Routine 2128 (Not Given - Provider: Soco Vogel RN - Reason: Patient Unable - Comment: patient unable to swallow) QUEtiapine (SEROquel) tablet 250 mg 2054 (Given - Provider: Soco Vogel RN) 0739 ([facility] Hold - Provider: Admin Adt - R bibiana: Transfer to a Procedural area)0845 ([facility] Unhold - Provider: Admin Adt) 250 mg, Oral, NIGHTLY, First dose on Sun09/23/14 at 2100 QUEtiapine (SEROquel) tablet 50 mg (COMPLETED) 1238 (Given - Provider: Maria L Pineda RN) 50 mg, Oral, ONCE, 1 dose, Sun09/23/14 at 1200, Routine sodium chloride 0.9 % flush 5 mL (CANCELED) 0729 ([facility] Hold - Provider: Admin Adt - Reason: Transfer to a Procedural area)0851 ([facility] Unhold - Provider: Admin Adt)0900 (Not Given - Provider: Brianna Huntley RN - Reason: See comment - Comment: Done in ECT) 0932 (Given - Provider: Trista Murillo)2056 (Given - Provider: Soco Vogel RN) 0739 ([facility] Hold - Provider: Admin Adt - Reason: Transfer to a Procedural area)0845 ([facility] Unhold - Provider: Admin Adt)0900 [...] Routine documented in this encounter Care Teams Business Office Assistant Relationship Specialty Start Date End Date Unknown PCP - General 09/08/14 09/16/14 None documented as of this encounter
--- OUTSIDE RECORDS SUMMARY | 2022-01-09 00:42 | XMS_ITS | Encounter Summary ---
:1955 Author Organization [facility] [place] [address] Care Team Providers Name Role Phone Unknown Primary Care Provider Unavailable Reason for Visit Reason Onset Date Comments Prior Authorization 09/09/2014 AUTH ON FILE Encounter Details Date Type Department Care Team Description 09/09/2014 Telephone Psychiatry Bijan Jean, Prior Authorization [facility] (AUTH ON FILE) [place] [address] PSYCHIATRY DEPT. [place], [place] [address] Social History Tobacco Use Types Packs/Day Years Used Date Never Smoker Smokeless Tobacco: Never Used Alcohol Use Standard Drinks/Week Comments No 0 (1 standard drink = 0.6 oz pure alcoho l) Sex Assigned at Date Recorded Not on file documented as of this encounter Miscellaneous Notes Telephone Encounter - Martha Still - 09/09/2014 12:03 PM EDT CALLED [facility] @ [phone], [facility]; GAVE H&P, AUTH ON FILE FOR TWO DAYS WITH A REVIEW ON 09.10.2014; CASE MANAGEMENT TEAM WILL CONTACT [facility] FOR REVIEW, HOWEVER IF THEY DO NOT CALL PRIOR TO 11 A.M. ON , TO CALL THEM @ [phone] EXT. [phone]. AUTH # [id number] documented in this encounter Plan of Treatment Not on filedocumented as of this encounter Visit Diagnoses Not on filedocumented in this encounter Care Teams Casing Cleaner Relationship Specialty Start Date End Date Unknown PCP - General 09/08/14 09/16/14 None documented as of this encounter
== END ==
PROVIDERS: PCP Family Medicine; Visit Provider Nurse Practitioner Women's Health
DX: N83.202 Unspecified ovarian cyst, left side (principal); N85.2 Hypertrophy of uterus; Z12.31 Encounter for screening mammogram for malignant neoplasm of breast; R92.8 Other abnormal and inconclusive findings on diagnostic imaging of breast
CPT/HCPCS: 77063; 77067; 76830; 76856

== ENCOUNTER 2023-01-22 00:58 | Outpatient (CLI) | payer MEDICARE, OTHER, SELFPAY ==
--- NOTE | 2023-01-22 12:35 | DI.MAMMO_ITS ---
Exam(s) MAMMO SCREENING EXAM: MAMMO SCREENING CLINICAL HISTORY: SCREENING,Z12.31. TECHNIQUE: Bilateral full field digital CC and MLO mammographic images were obtained with 3D tomosyn thesis and utilizing computer aided detection (CAD). COMPARISON: Prior mammograms were reviewed. FINDINGS: There has been no significant change in the appearance and distribution of the fibroglandular tissue. There are no CAD designations. There are no new spiculated masses nor malignant appearing microcalcification groups. There is no significant architectural distortion nor skin thickening-retraction. IMPRESSION: No radiographic evidence of malignancy. BI-RADS Category 1 - Negative Breast Density - Category B - Scattered areas of fibroglandular density Breast density Category C or D implies that the patient has dense breast tissue. Dense breast tissue can make it harder to find cancer on a mammogram. Dense breast tissue is also associated with an incr eased risk of breast cancer. This information about the result of the mammogram report was provided to the patient to raise their awareness. Use this report when you speak with the patient about their risks for breast cancer, which includes their family history. At that time, you may recommend additional screening tests (Ultrasoun d or MRI) as these tests may add significant information. A negative radiographic report should not delay biopsy if a dominant or clinically suspicious mass is present. Up to ten percent of cancers are not identified on mammography. A negative report may reinforce clinical impression. Adenosis and dense breasts may obscure an underlying neoplasm. False positive reports average 6 to 10%. Patient will receive a letter notifying them of these results.
== END 2023-01-22 01:18 ==
LOC: DI 00:58
PROVIDERS: PCP Family Medicine; Visit Provider Family Medicine
DX: Z12.31 Encounter for screening mammogram for malignant neoplasm of breast (principal)
CPT/HCPCS: 77063; 77067

== ENCOUNTER → 2024-01-24 02:20 | Outpatient (CLI) | payer MEDICARE, OTHER, SELFPAY ==
--- NOTE | 2024-01-24 08:32 | DI.MAMMO_ITS ---
Exam(s) MAMMO SCREENING EXAM: MAMMO SCREENING CLINICAL HISTORY: SCREENING, Z12.31 TECHNIQUE: Mammograms were interpreted according to the usual protocol including computer analysis w [employer] CAD system, tomosynthesis and C-view imaging. COMPARISON: 2015 through 2022 FINDINGS: The breasts are composed of scattered fibroglandular densities, Breast Density category B. No suspicious masses or suspicious microcalcifications are seen. No skin thickening or abnormal axillary lymph nodes are seen. There has been no significant change from prior exams. IMPRESSION: BI-RADS Category 1, Negative mammogram Yearly screening mammography is recommended. Breast Density - Category B, scattered fibroglandular densities. A negative radiographic report should not delay biopsy if a dominant or clinically suspicious mass is present. Up to ten percent of cancers are not identified on mammography. A negative report may reinforce clinical impression. Adenosis and dense breasts may obscure an underlying neoplasm. False positive reports average 6 to 10%. Patient will receive a letter notifying them of these results.
== END ==
PROVIDERS: PCP Family Medicine; Visit Provider Nurse Practitioner Women's Health
DX: Z12.31 Encounter for screening mammogram for malignant neoplasm of breast (principal)
CPT/HCPCS: 77063; 77067

== ENCOUNTER → 2025-05-06 01:17 | Outpatient (CLI) | payer MEDICARE, OTHER, SELFPAY ==
--- NOTE | 2025-05-06 | DI.MAMMO_ITS ---
Exam(s) MAMMO SCREENING EXAM: MAMMO SCREENING CLINICAL HISTORY: SCREENING MAMMO Z12.31 TECHNIQUE: Mammograms were interpreted according to the usual protocol including computer analysis with CAD system, tomosynthesis and C-view imaging. COMPARISON: 2015 through 2023 FINDINGS: The breasts are composed of scattered fibroglandular densities, Breast Density category B. No suspicious masses or suspicious microcalcifications are seen. No skin thickening or abnormal axillary lymph nodes are seen. There has been no significant change from prior exams. IMPRESSION: BI-RADS Category 1, Negative mammogram Yearly screening mammography is recommended. Breast Density - Category B - There are scattered areas of fibroglandular density. Breast density Category C or D implies that the patient has dense breast tissue. Dense breast tissue can make it harder to find cancer on a mammogram. Dense breast tissue is also associated with an increased risk of breast cancer. This information about the result of the mammogram report was provided to the patient to raise their awareness. Use this report when you speak with the patient about their risks for breast cancer, which includes their family history. At that time, you may recommend additional screening tests (Ultrasound or MRI) as these tests may add significant information. A negative radiographic report should not delay biopsy if a dominant or clinically suspicious mass is present. Up to ten percent of cancers are not identified on mammography. A negative report may reinforce clinical impression. Adenosis and dense breasts may obscure an underlying neoplasm. False positive reports average 6 to 10%. Patient will receive a letter notifying them of these results.
== END ==
PROVIDERS: PCP Family Medicine; Visit Provider Nurse Practitioner Family
DX: Z12.31 Encounter for screening mammogram for malignant neoplasm of breast (principal)
CPT/HCPCS: 77063; 77067